=== PATIENT | female | born 1950 | race Caucasian/White ===

== ENCOUNTER 2023-01-06 10:07 | Outpatient (OUT) | payer MEDICARE, SELFPAY ==
[2023-01-06 10:45] LABS: Basophils Percent Auto 0.5 % (0.2-2.0); Eosinophils Absolute Auto 0.1 10^3/uL (0.0-0.7); Eosinophils Percent Auto 0.9 % (0.9-7.0); Hematocrit 47.1 % (36.0-48.0); Hemoglobin 15.8 g/dL (12.0-16.0); Immature Granulocytes Abs Auto 0.01 10^3/uL (0.00-0.03); Immature Granulocytes Pct Auto 0.2 % (0.0-0.5); Lymphocytes Absolute Auto 1.6 10^3/uL (1.2-3.8); Lymphocytes Percent Auto 23.4 % (20.5-60.0); Mean Corpuscular HGB Conc 33.5 g/dL (29.9-35.2); Mean Corpuscular Hemoglobin 30.6 pg (26.7-34.0); Mean Corpuscular Volume 91.1 fL (81.0-99.0); Mean Platelet Volume 10.6 fL (9.5-13.5); Monocytes Absolute Auto 0.6 10^3/uL (0.3-0.8); Monocytes Percent Auto 9.3 % (1.7-12.0); Neutrophils Absolute Auto 4.4 10^3/uL (1.4-6.5); Neutrophils Percent Auto 65.7 % (43.0-75.0); Platelet Count 265 10^3/uL (150-450); Red Blood Count 5.17 10^6/uL (4.20-5.40); Red Cell Distribution Width 13.2 % (11.0-15.0); White Blood Count 6.7 10^3/uL (4.0-11.0)
[2023-01-06 12:42] LABS: Estimated Average Glucose 114 mg/dL; Glycohemoglobin A1C 5.6 % (4.5-6.2)
[2023-01-06 13:07] LABS: Alanine Aminotransferase 31 U/L (14-59); Albumin Globulin Ratio 0.9; Albumin Level 3.7 g/dL (3.4-5.0); Alkaline Phosphatase 69 U/L (46-116); Anion Gap 13.3; Aspartate Amino Transferase 23 U/L (15-37); BUN Creatinine Ratio 19.8; Bilirubin Total 0.7 mg/dL (0.2-1.0); Calcium 8.9 mg/dL (8.5-10.1); Carbon Dioxide 27.8 mmol/L (21.0-32.0); Chloride 104 mmol/L (98-107); Chol HDL Ratio 3.5; Cholesterol 170 mg/dL (<=200); Estimated GFR (African America >60 (>=60); Estimated GFR (Non-African Ame >60 (>=60); Free T3 2.88 pg/mL (2.18-3.98); Globulin 3.9 g/dL; Glucose 128 mg/dL (74-106); HDL Cholesterol 48 mg/dL (40-60); Potassium 4.1 mmol/L (3.5-5.1); Sodium 141 mmol/L (136-145); Thyroid Stimulating Hormone 0.548 uIU/mL (0.358-3.740); Total Protein 7.6 g/dL (6.4-8.2); Triglycerides 209 mg/dL (<=150); VLDL CHOLESTEROL 41.8 mg/dL
== END 2023-01-06 10:08 | disposition home or self-care (01) ==
LOC: LAB 10:10
PROVIDERS: PCP Family Medicine; Visit Provider Family Medicine
DX: I10 Essential (primary) hypertension (principal); E78.00 Pure hypercholesterolemia, unspecified; E78.5 Hyperlipidemia, unspecified; F17.200 Nicotine dependence, unspecified, uncomplicated; R73.09 Other abnormal glucose; D64.9 Anemia, unspecified; E55.9 Vitamin D deficiency, unspecified
CPT/HCPCS: 36415; 80053; 80061; 82306; 83036; 83540; 84436; 84443; 84481; 85025

== ENCOUNTER 2023-01-12 14:45 | Outpatient (OUT) | payer MEDICARE, SELFPAY ==
--- NOTE | 2023-01-12 14:49 | MM_ITS ---
Patient: CHRISTIE ACEVEDO Exam Date: 01/12/2023 : 1950 Gender:F Ordering : DR Ray Loaiza . Admission #: [id number] Family : Order #: [id number] CLICK HERE TO VIEW EXAM RADIOLOGY REPORT PROCEDURE: MM TOMOSYNTHESIS SCREENING BI COMPARISON: MG MAMM BALDOMERO SCRN W CAD DIG, 06/02/2013. MG MAMM SCREEN BALDOMERO W CAD, 05/22/2016. INDICATIONS: Screening mammogram Z12.31 Calculator Name NCI Breast Cancer Risk Assessment Tool 5 Year Breast Cancer Risk 1.30% Lifetime Breast Cancer Risk 3.50% Personal Breast Cancer No Personal Ovarian Cancer No Treatments None Family Cancers Mother with colon cancer at age 60. LOCATION: [facility] BREAST COMPOSITION: Heterogeneously dense,which may obscure small masses. FINDINGS: DIAGNOSTIC CATEGORY 1--NEGATIVE. NO CHANGE FROM COMPARISON ASSESSMENT. Scattered benign-appearing calcifications are present. Scattered benign-appearing lymph nodes are present. RIGHT BREAST: No significant suspicious finding. LEFT BREAST: No significant suspicious finding. RECOMMENDATIONS: ROUTINE MAMMOGRAM AND CLINICAL EVALUATION IN 12 MONTHS. PLEASE NOTE: A NORMAL MAMMOGRAM DOES NOT EXCLUDE THE POSSIBILITY OF BREAST CANCER. A CLINICALLY SUSPICIOUS PALPABLE LUMP SHOULD BE BIOPSIED. Dictated by: Yayo Jones MD on 01/13/2023 at 07:06 Approved by: Yayo Jones MD on 01/13/2023 at 07:08
== END 2023-01-12 14:46 | disposition home or self-care (01) ==
LOC: MAMMO 14:46
PROVIDERS: PCP Family Medicine; Visit Provider Family Medicine
DX: Z12.31 Encounter for screening mammogram for malignant neoplasm of breast (principal); Z80.0 Family history of malignant neoplasm of digestive organs
CPT/HCPCS: 77063; 77067

== ENCOUNTER 2023-07-05 11:47 | Outpatient (OUT) | payer MEDICARE, SELFPAY ==
[2023-07-05 12:25] LABS: Estimated Average Glucose 128 mg/dL; Glycohemoglobin A1C 6.1 % (4.5-6.2)
[2023-07-05 12:38] LABS: Free T3 2.58 pg/mL (2.18-3.98); Thyroid Stimulating Hormone 0.569 uIU/mL (0.358-3.740)
== END 2023-07-05 11:48 | disposition home or self-care (01) ==
LOC: LAB 11:49
PROVIDERS: PCP Family Medicine; Visit Provider Family Medicine
DX: E06.3 Autoimmune thyroiditis (principal); E11.9 Type 2 diabetes mellitus without complications
CPT/HCPCS: 36415; 83036; 84436; 84443; 84481

== ENCOUNTER 2024-01-03 08:56 | Outpatient (OUT) | payer MEDICARE, SELFPAY ==
[2024-01-03 09:31] LABS: Basophils Percent Auto 0.5 % (0.2-2.0); Eosinophils Absolute Auto 0.1 10^3/uL (0.0-0.7); Eosinophils Percent Auto 1.3 % (0.9-7.0); Hematocrit 44.7 % (36.0-48.0); Hemoglobin 15.3 g/dL (12.0-16.0); Immature Granulocytes Abs Auto 0.02 10^3/uL (0.00-0.03); Immature Granulocytes Pct Auto 0.3 % (0.0-0.5); Lymphocytes Absolute Auto 1.9 10^3/uL (1.2-3.8); Lymphocytes Percent Auto 23.4 % (20.5-60.0); Mean Corpuscular HGB Conc 34.2 g/dL (29.9-35.2); Mean Corpuscular Hemoglobin 30.2 pg (26.7-34.0); Mean Corpuscular Volume 88.3 fL (81.0-99.0); Mean Platelet Volume 10.2 fL (9.5-13.5); Monocytes Absolute Auto 0.9 10^3/uL (0.3-0.8); Monocytes Percent Auto 10.8 % (1.7-12.0); Neutrophils Absolute Auto 5.1 10^3/uL (1.4-6.5); Neutrophils Percent Auto 63.7 % (43.0-75.0); Platelet Count 289 10^3/uL (150-450); Red Blood Count 5.06 10^6/uL (4.20-5.40); Red Cell Distribution Width 12.9 % (11.0-15.0)
[2024-01-03 10:26] LABS: Estimated Average Glucose 120 mg/dL; Glycohemoglobin A1C 5.8 % (4.5-6.2)
[2024-01-03 10:47] LABS: Alanine Aminotransferase 26 U/L (14-59); Albumin Level 3.4 g/dL (3.4-5.0); Alkaline Phosphatase 77 U/L (46-116); Aspartate Amino Transferase 24 U/L (15-37); BUN Creatinine Ratio 13.4; Bilirubin Total 0.9 mg/dL (0.2-1.0); Calcium 9.1 mg/dL (8.5-10.1); Chloride 102 mmol/L (98-107); Chol HDL Ratio 3.8; Cholesterol 169 mg/dL (<=200); Estimated GFR (African America >60 (>=60); Estimated GFR (Non-African Ame 56 (>=60); Free T3 2.65 pg/mL (2.18-3.98); Globulin 3.5 g/dL; Glucose 93 mg/dL (74-106); HDL Cholesterol 45 mg/dL (40-60); Sodium 141 mmol/L (136-145); Thyroid Stimulating Hormone 0.742 uIU/mL (0.358-3.740); Total Protein 6.9 g/dL (6.4-8.2); Triglycerides 158 mg/dL (<=150); VLDL CHOLESTEROL 31.6 mg/dL
== END 2024-01-03 08:57 | disposition home or self-care (01) ==
LOC: LAB 08:58
PROVIDERS: PCP Family Medicine; Visit Provider Family Medicine
DX: E78.00 Pure hypercholesterolemia, unspecified (principal); E11.9 Type 2 diabetes mellitus without complications; I10 Essential (primary) hypertension; E07.9 Disorder of thyroid, unspecified; F17.200 Nicotine dependence, unspecified, uncomplicated; D64.9 Anemia, unspecified; E03.9 Hypothyroidism, unspecified
CPT/HCPCS: 36415; 80053; 80061; 83036; 83540; 84436; 84443; 84481; 85025

== ENCOUNTER 2024-01-14 12:55 | Outpatient (OUT) | payer MEDICARE, SELFPAY ==
--- NOTE | 2024-01-14 12:57 | MM_ITS ---
Patient Name: CHRISTIE ACEVEDO MR#: [id number] : 1950 Exam Date: 01/14/2024 Ordering Doctor: DR Ray Loaiza . RADIOLOGY REPORT PROCEDURE: MM TOMOSYNTHESIS SCREENING BI COMPARISON: MG MAMM SCREEN BALDOMERO W CAD, 05/22/2016. MM TOMOSYNTHESIS SCREENING BI, 01/12/2023. INDICATIONS: Screening Calculator Name NCI Breast Cancer Risk Assessment Tool 5 Year Breast Cancer Risk 1.30% Lifetime Breast Cancer Risk 3.30% Personal Breast Cancer No Personal Ovarian Cancer No Treatments None Family Cancers Mother with colon cancer at age 60. LOCATION: [facility] BREAST COMPOSITION: The breasts are heterogeneously dense,which may obscure small masses. FINDINGS: DIAGNOSTIC CATEGORY 2--BENIGN FINDING. NO CHANGE FROM COMPARISON. Scattered benign-appearing lymph nodes are present. Scattered benign-appearing calcifications are present. RIGHT BREAST: No significant suspicious finding. LEFT BREAST: No significant suspicious finding. Stable focal asymmetry upper outer quadrant, anterior breast RECOMMENDATIONS: ROUTINE MAMMOGRAM AND CLINICAL EVALUATION IN 12 MONTHS. PLEASE NOTE: A NORMAL MAMMOGRAM DOES NOT EXCLUDE THE POSSIBILITY OF BREAST CANCER. A CLINICALLY SUSPICIOUS PALPABLE LUMP SHOULD BE BIOPSIED. Dictated by: Yayo Jones MD on 01/17/2024 at 09:18 Approved by: Yayo Jones MD on 01/17/2024 at 09:19
--- NOTE | 2024-01-14 12:57 | CT_ITS ---
[address] [address] Patient Name: CHRISTIE ACEVEDO MRN: [id number] date: 1950 Sex: F Assigned Patient Location: CT Current Patient Location: Accession/Order Number: [id number] Exam Date: 01/14/2024 13:02 Report Date: 01/15/2024 06:46 At the request of: RODDY PERES Procedure: CT lung screening low-dose EXAMINATION: CT lung screening low-dose HISTORY: Nicotine Dependence COMPARISON: No relevant comparison available. TECHNIQUE: Axial, Coronal, and Sagittal images were created without the administration of IV contrast material. Dose reduction techniques were achieved by using automated exposure control and/or adjustment of mA and/or kV according to patient size and/or use of iterative reconstruction technique. FINDINGS: LUNGS: 1.7 cm calcified nodule within anterior medial left upper lobe. No acute infiltrates, suspicious nodules, or significant emphysematous changes. PLEURA: No mass, effusion, or pneumothorax. VASCULATURE: No abnormality. SOPHIE: Calcified right hilar lymph nodes suggestive of chronic granulomatous disease. MEDIASTINUM: No mass or pathologic adenopathy. CARDIAC: No enlargement, pericardial thickening, or pericardial effusion. Coronary Artery calcifications: Coronary calcifications are moderate. AORTA: Moderate atherosclerotic disease. No aneurysm. CHEST WALL: No mass or axillary adenopathy BONES: Old, incompletely healed posterior left eighth rib fracture. LIMITED ABDOMEN: No suspicious findings. Limited images of the upper abdomen. OTHER: Negative. CT/CT lung screening low-dose IMPRESSION: 1. Lung-RADS Category 1 Negative. No nodules and definitely benign nodules. Continue annual screening with LDCT in 12 months. Electronically authenticated by: DIEGO TYLER Date: 01/15/2024 06:46
--- OUTSIDE RECORDS SUMMARY | 2024-01-14 13:12 | XMS_ITS | CCD ---
Author Organization [facility]iniSy[facility] Care Team Providers Care Service Advocate Contact Name Role Phone JA ., DR PEREYRA Attending Unavailable JA ., DR PEREYRA Consulting Unavailable JA ., DR PEREYRA Admitting Unavailable LISETH, HARJIT Primary Care Unavailable ZIEBER, DR DIEGO Rehman Consulting Unavailable LISETH, HARJIT Attending Unavailable LISETH, HARJIT Consulting Unavailable LISETH, HARJIT Primary Care Unavailable LISETH, HARJIT Admitting Unavailable LISETH, HARJIT Admitting Unavailable LISETH, HARJIT Attending Unavailable LISETH, HARJIT Consulting Unavailable LISETH, HARJIT Primary Care Unavailable Problems Active Problems Problem Classification Problem Date Documented Da te Episodic/Chronic Diabetes mellitus without complication (4 sources) Type 2 diabetes mellitus without complications; Translations: [TYPE 2 DM WITHOUT COMPLICATIONS] Onset: 12-22-2021 Chronic Disorders of lipid metabolism (1 source) Hyperlipidemia, unspecified; Translations: [HYPERLIPIDEMIA UNSPECIFIED] Onset: 12-23-2021 Chronic Substance-related disorders (4 sources) Nicotine dependence, cigarettes, uncomplicated; Translations: [NICOTINE DEPEND CIGARETTES UNCOMP] Onset: 07-03-2022 Chronic Past or Other Problems Problem Classification Problem Date Documented Da te Episodic/Chronic Deficiency and other anemia (1 source) Anemia, unspecified; Translations: [ANEMIA UNSPECIFIED] Onset: 12-23-2021 Episodic Diabetes mellitus without complication (1 source) Other abnormal glucose; Translations: [OTHER ABNORMAL GLUCOSE] Onset: 12-23-2021 Episodic Other screening for suspected conditions (not mental disorders or infectious disease) (5 sources) Encounter for screening for malignant neoplasm of rectum; Translations: [ENC SCREEN MALIG NEOPLASM RECTUM] Onset: 12-23-2021 Episodic Results Test Name Value Interpretation Reference Range Facil ity CT LUNG CANCER SCREENINGon 0 07-03-2022 CT LUNG CANCER SCREENING EXAMINATION: CT LUNG CANCER SCREENING HISTORY: Tobacco dependence caused by cigarettes COMPARISON: No relevant comparison available. TECHNIQUE: Axial, Coronal, and Sagittal images were created without the administration of IV contrast material. Dose reduction techniques were achieved by using automated exposure control and/or adjustment of mA and/or kV according to patient size and/or use of iterative reconstruction technique. FINDINGS: LUNGS: Mild emphysematous changes. Dense calcified granuloma within anterior left upper lobe at level of aortic arch. PLEURA: No mass, effusion, or pneumothorax. VASCULATURE: No abnormality. SOPHIE: No mass or pathologic adenopathy. MEDIASTINUM: No mass or pathologic adenopathy. CARDIAC: No enlargement, pericardial thickening, or significant calcification. AORTA: No aneurysm or dissection. CHEST WALL: No mass or axillary adenopathy BONES: Increased density of cortex of posterior right seventh rib months etiology, without appreciable lesion; possibly sequela of remote injury. LIMITED ABDOMEN: No suspicious findings. Limited images of the upper abdomen. OTHER: Negative. IMPRESSION: 1. Lung-RADS Category 1 Negative. No nodules and definitely benign nodules. Continue annual screening with LDCT in 12 months. Electronically authenticated by: DIEGO TYLER Date: 2022-07-03 15:37 Normal [facility] INSULINon 12-23-2021 Insulin 10.6 uIU/mL Normal 2.6-24.9 [facility] Comment on above: Performed By: #### I NSULIN #### [facility] [address] [place] [address] Dr. Roni Li OCC BLD IMMUNO SCREENon 12-08 OCCULT BLOOD Negative Normal NEGATIVE [facility] Comment on above: Performed By: #### O BSCRN #### [facility] [address] [place] [address] Dr. Roni Li T4, T3U, FTI LABCORPon 12-23 Free Thyroxine Index 3.9 Normal 1.2-4.9 [facility] Comment on above: Performed By: #### T HYLC #### [facility] [address] [place] [address] Dr. Roni Li T3 Uptake 37 % Normal 24-39 [facility] Comment on above: Performed By: #### T HYLC #### [facility] [address] [place] [address] Dr. Roni Li T4 [Mass/Vol] 10.5 ug/dL Normal 4.5-12.0 [facility] Comment on above: Performed By: #### T HYLC #### [facility] [address] [place] [address] Dr. Roni Li CBC AUTO DIFFon 12-22-2021 BASO # 0.0 103/ul Normal 0.0-0.1 [facility] Comment on above: Performed By: #### C BC #### [facility] [address] [place] [address] Dr. Roni Li Basophils/100 WBC (Bld) 0.5 % Normal 0.2-2.0 [facility] Comment on above: Performed By: #### C BC #### [facility] [address] [place] [address] Dr. Roni Li EO # 0.2 103/ul Normal 0.0-0.7 [facility] Comment on above: Performed By: #### C BC #### [facility] [address] [place] [address] Dr. Roni Li Eosinophils/100 WBC (Bld) 2.1 % Normal 0.9-7.0 [facility] Comment on above: Performed By: #### C BC #### [facility] [address] [place] [address] Dr. Roni Li Erythrocyte distribution width (RBC) [Ratio] 13.3 % Normal 11.0-15.0 [facility] Comment on above: Performed By: #### C BC #### [facility] [address] [place] [address] Dr. Roni Li Hematocrit (Bld) [Volume fraction] 46.1 % Normal 36.0-48.0 [facility] Comment on above: Performed By: #### C BC #### [facility] [address] [place] [address] Dr. Roni Li Hemoglobin (Bld) [Mass/Vol] 15.2 g/dL Normal 12.0-16.0 [facility] Comment on above: Performed By: #### C BC #### [facility] [address] [place] [address] Dr. Roni Li IG # 0.01 10e3/ul Normal 0.00-0.03 [facility] Comment on above: Performed By: #### C BC #### [facility] [address] [place] [address] Dr. Roni Li IG % 0.1 % Normal 0.0-0.5 [facility] Comment on above: Performed By: #### C BC #### [facility] [address] [place] [address] Dr. Roni Li LYMPH # 2.1 103/ul Normal 1.2-3.8 [facility] Comment on above: Performed By: #### C BC #### [facility] [address] [place] [address] Dr. Roni Li Lymphocytes/100 WBC (Bld) 28.0 % Normal 20.5-60.0 [facility] Comment on above: Performed By: #### C BC #### [facility] [address] [place] [address] Dr. Roni Li MANUAL DIFF REQ NO Normal [facility] Comment on above: Performed By: #### C BC #### [facility] [address] [place] [address] Dr. Roni Li MCH (RBC) [Entitic mass] 30.0 pg Normal 26.7-34.0 [facility] Comment on above: Performed By: #### C BC #### [facility] [address] [place] [address] Dr. Roni Li MCHC (RBC) [Mass/Vol] 33.0 g/dL Normal 29.9-35.2 [facility] Comment on above: Performed By: #### C BC #### [facility] [address] [place] [address] Dr. Roni Li MCV (RBC) [Entitic vol] 90.9 fL Normal 81.0-99.0 [facility] Comment on above: Performed By: #### C BC #### [facility] [address] [place] [address] Dr. Roni Li MONO # 0.8 103/ul Normal 0.3-0.8 [facility] Comment on above: Performed By: #### C BC #### [facility] [address] [place] [address] Dr. Roni Li Monocytes/100 WBC (Bld) 11.2 % Normal 1.7-12.0 [facility] Comment on above: Performed By: #### C BC #### [facility] [address] [place] [address] Dr. Roni Li NEUT # 4.2 103/ul Normal 1.4-6.5 [facility] Comment on above: Performed By: #### C BC #### [facility] [address] [place] [address] Dr. Roni Li Neutrophils/100 WBC (Bld) 58.1 % Normal 43.0-75.0 [facility] Comment on above: Performed By: #### C BC #### [facility] [address] [place] [address] Dr. Roni iL Platelet mean volume (Bld) [Entitic vol] 10.2 fL Normal 9.5-13.5 [facility] Comment on above: Performed By: #### C BC #### [facility] [address] [place] [address] Dr. Roni Li PLT 284 103/ul Normal 150-450 [facility] Comment on above: Performed By: #### C BC #### [facility] [address] [place] [address] Dr. Roni Li RBC 5.07 106/ul Normal 4.20-5.40 [facility] Comment on above: Performed By: #### C BC #### [facility] [address] [place] [address] Dr. Roni Li WBC 7.3 103/ul Normal 4.0-11.0 [facility] Comment on above: Performed By: #### C BC #### [facility] [address] [place] [address] Dr. Roni Li GLYCOHEMOGLOBIN A1Con 2021 ADA RECOMMENDATION SEE BELOW Normal [facility] Comment on above: Result Comment: ADA RECOMMENDED LIMIT 4.0 - 6.0 ADA THERAPEUTIC TARGET < 7.0 ACTION SUGGESTED > 7.0 Performed By: #### A 1C #### [facility] [address] [place] [address] Dr. Roni Li Glucose [Mass/Vol] 126 mg/dL Normal [facility] Comment on above: Performed By: #### A 1C #### [facility] [address] [place] [address] Dr. Roni Li HbA1c (Bld) [Mass fraction] 6.0 % Normal 4.5-6.2 [facility] Comment on above: Performed By: #### A 1C #### [facility] [address] [place] [address] Dr. Roni Li IRONon 12-22-2021 Iron [Mass/Vol] 91.0 ug/dL Normal 50.0-170.0 [facility] Comment on above: Performed By: #### I TIMOTHY #### [facility] [address] [place] [address] Dr. Roni iL LIPID PROFILEon 12-22-2021 CHOL-HDL RATIO NORM SEE BELOW Normal [facility] Comment on above: Result Comment: 3.3 - 4.4 LOW RISK 4.4 - 7.1 AVERAGE RISK 7.1 - 11.0 MODERATE RISK >11.0 HIGH RISK Performed By: #### T SH, LIPID, CMP #### [facility] [address] [place] [address] Dr. Roni Li Cholesterol [Mass/Vol] 184 mg/dL Normal <=200 [facility] Comment on above: Performed By: #### T SH, LIPID, CMP #### [facility] [address] [place] [address] Dr. Roni Li Cholesterol in HDL [Mass/Vol] 43 mg/dL Normal 40-60 [facility] Comment on above: Performed By: #### T SH, LIPID, CMP #### [facility] [address] [place] [address] Dr. Roni Li Cholesterol in LDL [Mass/Vol] 100.0 mg/dL Normal [facility] Comment on above: Performed By: #### T DUNCAN, LIPID, CMP #### [facility] [address] [address] [address] Roni Li Cholesterol.total/Cho lesterol in HDL [Mass ratio] 4.3 {ratio} Normal [facility] Comment on above: Performed By: #### T DUNCAN, LIPID, CMP #### [facility] [address] [address] [address] Roni Li HDL NORMAL > or = 60 mg/dl - LOW CARDIOVASCULAR RISK <40 mg/dl - HIGH CARDIOVASCULAR RISK Normal [facility] Comment on above: Performed By: #### T DUNCAN, LIPID, CMP #### [facility] [address] [address] [address] Roni Li LDL CALC NORMAL SEE BELOW Normal [facility] Comment on above: Result Comment: <100 mg/dl OPTIMAL 100 - 129 mg/dl NEAR OR ABOVE OPTIMAL 130 - 159 mg/dl BORDERLINE HIGH 160 - 189 mg/dl HIGH >190 mg/dl VERY HIGH Performed By: #### T DUNCAN, LIPID, CMP #### [facility] [address] [address] [address] Roni Li Triglyceride [Mass/Vol] 205 mg/dL Critically high <=150 [facility] Comment on above: Performed By: #### T DUNCAN, LIPID, CMP #### [facility] [address] [place] [address] Dr. Roni Li VLDL CALC 41.0 mg/dL Normal [facility] Comment on above: Performed By: #### T DUNCAN, LIPID, CMP #### [facility] [address] [place] [address] Dr. Roni Li PROF 14(COMP METB)on 022 Albumin [Mass/Vol] 4.0 g/dL Normal 3.4-5.0 [facility] Comment on above: Performed By: #### T DUNCAN, LIPID, CMP #### [facility] [address] [place] [address] Dr. Roni Li Albumin/Globulin [Mass ratio] 1.1 {ratio} Normal [facility] Comment on above: Performed By: #### T DUNCAN, LIPID, CMP #### [facility] [address] [address] [address] Roni Li ALP [Catalytic activity/Vol] 74 U/L Normal 46-116 [facility] Comment on above: Performed By: #### T SH, LIPID, CMP #### [facility] [address] [address] [address] Roni Li ALT [Catalytic activity/Vol] 24 U/L Normal 14-59 [facility] Comment on above: Performed By: #### T SH, LIPID, CMP #### [facility] [address] [address] [address] Roni Li Anion gap [Moles/Vol] 14.1 mmol/L Normal [facility] Comment on above: Performed By: #### T SH, LIPID, CMP #### [facility] [address] [place] [address] Dr. Roni Li AST [Catalytic activity/Vol] 22 U/L Normal 15-37 [facility] Comment on above: Performed By: #### T SH, LIPID, CMP #### [facility] [address] [address] [address] Roni Li Bilirubin [Mass/Vol] 0.9 mg/dL Normal 0.2-1.0 [facility] Comment on above: Performed By: #### T SH, LIPID, CMP #### [facility] [address] [place] [address] Dr. Roni Li Calcium [Mass/Vol] 9.3 mg/dL Normal 8.5-10.1 [facility] Comment on above: Performed By: #### T SH, LIPID, CMP #### [facility] [address] [address] [address] Roni Li Chloride [Moles/Vol] 101 mmol/L Normal 98-107 [facility] Comment on above: Performed By: #### T SH, LIPID, CMP #### [facility] [address] [address] [address] Roni Li CO2 [Moles/Vol] 29.0 mmol/L Normal 21.0-32.[address] [facility] Comment on above: Performed By: #### T SH, LIPID, CMP #### [facility] [address] [address] [address] Roni Li Creatinine [Mass/Vol] 0.92 mg/dL Normal 0.55-1.02 [facility] Comment on above: Performed By: #### T SH, LIPID, CMP #### [facility] [address] [address] [address] Roni Li EGFR-AF NAMIBIAN >60 Normal >=60 [facility] Comment on above: Performed By: #### T SH, LIPID, CMP #### [facility] [address] [address] [address] Roni Li EGFR-NON AF NAMIBIAN >60 Normal >=60 [facility] Comment on above: Performed By: #### T SH, LIPID, CMP #### [facility] [address] [address] [address] Roni Li Globulin (S) [Mass/Vol] 3.7 g/dL Normal [facility] Comment on above: Performed By: #### T SH, LIPID, CMP #### [facility] [address] [address] [address] Roni Li Glucose [Mass/Vol] 78 mg/dL Normal 74-106 [facility] Comment on above: Performed By: #### T SH, LIPID, CMP #### [facility] [address] [address] [address] Roni Li Potassium [Moles/Vol] 4.1 mmol/L Normal 3.5-5.1 [facility] Comment on above: Performed By: #### T SH, LIPID, CMP #### [facility] [address] [address] [address] Roni Li Protein [Mass/Vol] 7.7 g/dL Normal 6.4-8.2 [facility] Comment on above: Performed By: #### T SH, LIPID, CMP #### [facility] [address] [address] [address] Roni Li Sodium [Moles/Vol] 140 mmol/L Normal 136-145 [facility] Comment on above: Performed By: #### T SH, LIPID, CMP #### [facility] [address] [address] [address] Roni Li Urea nitrogen [Mass/Vol] 17.0 mg/dL Normal 7.0-18.0 [facility] Comment on above: Performed By: #### T SH, LIPID, CMP #### [facility] [address] [address] [address] Roni Li Urea nitrogen/Creatinine [Mass ratio] 18.5 mg/mg Normal [facility] Comment on above: Performed By: #### T SH, LIPID, CMP #### [facility] [address] [address] [address] Roni Li TSHon 12-22-2021 TSH 0.637 uIU/mL Normal 0.358-3.740 [facility] Comment on above: Performed By: #### T DUNCAN, LIPID, CMP #### [facility] [address] [address] [address] Roni Li Encounters Encounter Date Encounter Type Care Provider Facility Start: 07-03-2022 End: 07-04-[address] RODDY PERES . Facility:[facility] Start: 12-24-2021 End: 12-24-2021 ambulatory HARJIT CHILDERS Facility:[facility] Start: 12-22-2021 End: 12-23-2021 ambulatory HARJIT CHILDERS Facility: Payers Date Payer Category Payer Medicare [id number] 1958 Private Health Insurance [facility] [id number] 1950 Unknown [id number] 1950 Unknown [id number] 1950 Unknown [id number] Summary Purpose Family History No Family History Records Found Advance Directives No Advanced Directives Records Found Additional Source Comments INFORMATION SOURCE (unrecogn ized section and content) DATE CREATED AUTHOR [facility]/10/2022 [facility] FOR RECORDS [facility]ERTAINING TO PATIENTS WHO ARE OR HAVE BEEN ENROLLED IN A CHEMICAL DEPENDENCY/SUBSTANCEABUSE PROGRAM, SOME INFORMATION MAY BE OMITTED. This clinical summary was aggregated from multiple sources. Caution should be exercised in using it in the provision of clinical care. This summary normalizes information from multiple sources, and as a consequence, information in this document may materially change the coding, format and clinical context of patient data. In addition, data may be omitted in some cases. CLINICAL DECISIONS SHOULD BE BASED ON THE PRIMARY CLINICAL RECORDS. [facility] [employer] [facility]. provides no warranty or guarantee of the accuracy or completeness of information in this document.
== END 2024-01-14 12:56 | disposition home or self-care (01) ==
LOC: CT 12:55
PROVIDERS: PCP Family Medicine; Visit Provider Family Medicine
DX: Z12.31 Encounter for screening mammogram for malignant neoplasm of breast (principal); F17.210 Nicotine dependence, cigarettes, uncomplicated; Z80.0 Family history of malignant neoplasm of digestive organs
CPT/HCPCS: 71271; 77063; 77067

== ENCOUNTER 2024-11-17 10:33 | Outpatient (OUT) | payer MEDICARE, OTHER, SELFPAY ==
--- OUTSIDE RECORDS SUMMARY | 2024-06-29 07:00 | XMS_ITS ---
Author Organization [facility] in [place] Address [address] [place] [address] Care Team Providers Care Photo Checker Name Role Phone Juan Luis Loaiza Primary Care Provider Allergies No Known Allergies REASON FOR VISIT 6mon Medications Medication SIG (Take, Route, Frequency, Duration) Notes Start Date End Date Status Spectravite Active Propylthiouracil 50 MG TAKE 1 TABLET BY MOUTH EVERY DAY for 90 Active Metoprolol Tartrate 50 MG 1/2 tablet wit h food Orally Twice a day for 90 days Active Pentoxifylline ER 400 MG TAKE 1 TABLET B Y MOUTH EVERY 8 HOURS for 90 Active Columbia 3 Active Lisinopril 20 MG TAKE 1 TABLET BY SHONDA TH EVERY DAY for 90 days Active glipiZIDE 5 MG TAKE 1 TABLET BY SHONDA TH TWICE A DAY for 90 days Active Furosemide 20 MG TAKE 1 TABLET BY SHONDA TH EVERY DAY for 90 Active Atorvastatin Calcium 80 MG TAKE 1 TABLET BY MOUTH EVERY DAY FOR 90 DAYS for 90 Active metFORMIN HCl 500 MG TAKE 1 TABLET BY MO [facility] TWICE A DAY for 90 Active Alendronate Sodium 70 MG TAKE 1 TAB 30 M INUTES BEFORE THE FIRST FOOD, BEVERAGE OR MEDICINE OF THE DAY WITH PLAIN WATER ONCE WEEKLY for 84 Active amLODIPine Besylate 2.5 MG TAKE 1 TABLET BY MOUTH EVERY DAY for 90 Active Social History Tobacco Use: Social History Observation Description Date Details (start date - stop date) Current Smoker 05/10/1966 - NA Tobacco Use/Smoking Question Answer Notes Patient is a current smoker When did you start smoking? 05/10/1966 How often do you smoke cigarettes? every day How many cigarettes a day do you smoke? 6-10 Additional Findings: Tobacco User Modera te cigarette smoker (10-19 cigs/day) AUDIT-C (Standard) Question Answer Notes Did you have a drink containing alcohol in the p ast year? No Points 0 Interpretation Negative Vital Signs Blood pressure systolic 124 mm Hg 06/29/19 25 Blood pressure diastolic 78 mm Hg 025 Height 67 in 06/29/2024 Weight 154.4 lbs 06/29/2024 BMI 24.18 kg/m2 06/29/2024 Encounters Encounter Location Date Provider Diagnosis [facility] [address] [place] [address] 06/29/2024 Juan Luis Loaiza Type 2 diabetes mj itus without complications E11.9 ; Pure hypercholesterolemia, unspecified E78.00 ; Essential (primary) hypertension I10 and Disorder of thyroid, unspecified E07.9 Assessments Encounter Date Diagnosis (ICD Code) Assessment Notes Treatment Notes Treatment Clinical Notes Section Notes 06/29/2024 Type 2 diabetes mellitus without complications (ICD-10 - E11.9) 06/29/2024 Pure hypercholesterolem ia, unspecified (ICD-10 - E78.00) 06/29/2024 Essential (primary) hypertension (ICD-10 - I10) 06/29/2024 Disorder of thyroid, unspecified (ICD-10 - E07.9) Plan Of Treatment Next Appt Details Provider Name:Juan Luis Loaiza, 09:15:00 AM, [address] [place], [address], Progress Notes * Darcy COLON ADOB:1950 ( 74 yo F)Acc No.[id number]:06/29/2024 Progress Note Patient: Darcy SINGH Provider: Phoebe Loaiza ([facility])MD :1950 A ge:74 Y S ex:Female Date:06/29/2024 Address:[address] [place] [address] [place] [id number] Check In:10:45 AM ESTCheck O ut:11:21 AM EST Subjective: * Chief Complaints: * 6 mon * HPI: D epression Screening: PHQ-2 (2015 Edition) L ittle interest or pleasure in doing things??Not at all F eeling down, depressed, or hopeless? N ot at all T otal Score 0 D/w pt the importance of monitoring and recording blood glucose as directed, taking all medications as directed, and obtaining labs in order to reduce changes for Micro and Macrovascular sequela (CVA, VA, renal damage, retinopathies & neuropathies). Advised pt that it is recommended that pts has a dilated eye exam annually - 100's some low timess disucssed hypertension - stable PVD - stable with mneds thyori - no SE from meds. * ROS: E ENT: hearing changes d enies. v isual changes d enies.?non-healing mouth sores d enies. s wollen glands or neck lumps d enies. h oarseness d enies. s ore throat d enies. d ifficulty swallowing d enies. n ose bleeds d enies. n henny congestion d enies. e ar ache d enies. e ar discharge?denies. r inging in ears d enies. l ight sensitivity d enies. e ye pain d enies. b lurring d enies. e ye irritation d enies. d ouble vision d enies.?vision loss d enies. G eneral/Constitutional: Sweats: D enies. F atigue d enies. S leep problems d enies. A norexia d enies. M alaise d enies. W eight loss d enies.?Fatigue or Weakness d enies. F ever or Chills d enies. C ardiovascular: Shortness of Breath w/lying flat d enies. L ightheadedness/dizziness d enies. C hest tightness/ heavy pressure d enies. S welling of legs, ankles, or feet d enies. W aking up with shortness of breath d enies. C hest pain denies. P alpitations d enies. W eight gain d enies. R espiratory: Chronic or frequent cough d enies. C oughing up blood?denies. D ifficulty breathing d enies. P roductive cough d enies. S noring?denies. S hortness of breath that awakens from sleep (PND) d enies. C hest pain d enies. S putum production d enies. W heezing d enies. M usculoskeletal: Joint pain d enies. J oint Fluid d enies. B ack pain d enies. K nee pain d enies. N ayse pain d enies. J oint Stiffness d enies. M uscle cramps d enies. W eakness of muscles d enies. A rthritis d enies. M uscle aches d enies. P ain in shoulder(s) d enies. S wollen joints d enies. * Active Problem List M19.90 Unspecified osteoart hritis, unspecified site Modified On:12/23/2022 Status:confirmed F17.200 Nicotine dependence, unspecified, uncomplicated Modified On:12/30/2022 Status:confirmed E11.9 Type 2 diabetes mj itus without complications Modified On:07/02/2023 Status:confirmed E78.00 Pure hypercholestero lemia, unspecified Modified On:07/02/2023 Status:confirmed I10 Essential (primary) hypertension Modified On:07/02/2023 Status:confirmed E07.9 Disorder of thyroid, unspecified Modified On:12/23/2022 Status:confirmed Z81.1 Family history of al cohol abuse and dependence Modified On:12/23/2022 Status:confirmed 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 M other: , alcoholism, type II diabetes, colon polyp, diagnosed with Diabetes mellitus without mention of complication, type II or unspecified type, not stated as uncontrolled. B rother(s): type II diabetes, hypertension, kidney disease, Parkinsons, diagnosed with Unspecified essential hypertension, Diabetes mellitus without mention of complication, type II or unspecified type, not stated as uncontrolled, Chronic kidney disease, unspecified. S on(s): alive, Heart Attack, diagnosed with Diabetes mellitus without mention of complication, type II or unspecified type, not stated as uncontrolled. D aughter(s): alive, diagnosed with Unspecified polyarthropathy or polyarthritis, pelvic region and thigh. 4 brother(s) . 2 son(s) , 1 daughter(s) . . Brothers- 2 have passed. * Social History: T obacco Use: T obacco Use/Smoking P atient is a c urrent smoker W hen did you start smoking? 0 05/10/1966 H ow often do you smoke cigarettes? e very day H ow many cigarettes a day do you smoke? 6 -10 A dditional Findings: Tobacco User M oderate cigarette smoker (10-19 cigs/day) D rug/Alcohol: A AGUSTÍN-C (Standard) D id you have a drink containing alcohol in the past year? N o P oints 0 I nterpretation N egative * Medications: T akingAlendronate Sodium 70 MG Tablet TAKE 1 TAB 30 MINUTES BEFORE THE FIRST FOOD, BEVERAGE OR MEDICINE OF THE DAY WITH PLAIN WATER ONCE WEEKLY amLODIPine Besylate 2.5 MG Tablet TAKE 1 TABLET BY MOUTH EVERY DAY Atorvastatin Calcium 80 MG Tablet TAKE 1 TABLET BY MOUTH EVERY DAY FOR 90 DAYS Furosemide 20 MG Tablet TAKE 1 TABLET BY MOUTH EVERY DAY glipiZIDE 5 MG Tablet TAKE 1 TABLET BY MOUTH TWICE A DAY Lisinopril 20 MG Tablet TAKE 1 TABLET BY MOUTH EVERY DAY metFORMIN HCl 500 MG Tablet TAKE 1 TABLET BY MOUTH TWICE A DAY Metoprolol Tartrate 50 MG Tablet 1/2 tablet with food Orally Twice a day Columbia 3 Pentoxifylline ER 400 MG Tablet Extended Release TAKE 1 TABLET BY MOUTH EVERY 8 HOURS Propylthiouracil 50 MG Tablet TAKE 1 TABLET BY MOUTH EVERY DAY Spectravite Medication List reviewed and reconciled with the patientTaking Alendronate Sodium 70 MG Tablet TAKE 1 TAB 30 MINUTES BEFORE THE FIRST FOOD, BEVERAGE OR MEDICINE OF THE DAY WITH PLAIN WATER ONCE WEEKLY Taking amLODIPine Besylate 2.5 MG Tablet TAKE 1 TABLET BY MOUTH EVERY DAY Taking Atorvastatin Calcium 80 MG Tablet TAKE 1 TABLET BY MOUTH EVERY DAY FOR 90 DAYS Taking Furosemide 20 MG Tablet TAKE 1 TABLET BY MOUTH EVERY DAY Taking glipiZIDE 5 MG Tablet TAKE 1 TABLET BY MOUTH TWICE A DAY Taking Lisinopril 20 MG Tablet TAKE 1 TABLET BY MOUTH EVERY DAY Taking metFORMIN HCl 500 MG Tablet TAKE 1 TABLET BY MOUTH TWICE A DAY Taking Metoprolol Tartrate 50 MG Tablet 1/2 tablet with food Orally Twice a day Taking Columbia 3 Taking Pentoxifylline ER 400 MG Tablet Extended Release TAKE 1 TABLET BY MOUTH EVERY 8 HOURS Taking Propylthiouracil 50 MG Tablet TAKE 1 TABLET BY MOUTH EVERY DAY Taking Spectravite Medication List reviewed and reconciled with the patient * Allergies: N .K.D.A.no[Allergies Verified] Objective: * Vitals: W t:154.4lbs, Ht: 67 in, BP:124/78mm Hg, BMI:24.18Index, Ht-cm: 170.18 cm, Wt-k.03 kg. * Examination: P hysical Exam: GENERAL: w ell developed, well nourished, in no acute distress. HEAD: n ormocephalic/atraumatic. EYES: p upils equal, round and reactive to light, conjunctivae and sclerae normal. EARS: n o deformity or lesion of external ear, canals and TM appear normal bilaterally, TM's intact, not inflamed with normal light reflex, hearing grossly normal to conversational speech. NOSE: n o deformity, discharge, inflammation, or lesions.? MOUTH: m ucous membranes moist, normal oropharynx and posterior pharynx without lesions or exudates, tongue normal, dentition normal. NECK: n ayse supple, no masses or palpable cervical nodes, trachea midline, thyroid without nodules, masses, tenderness, or enlargement. CHEST: n o chest wall deformity, no chest wall tenderness.? LUNGS: n ormal respiratory effort and clear to auscultation, no wheezes, rales, or rhonchi, good air exchange. CARDIO: r egular rate and rhythm, normal S1 and S2, nor murmur, rub, or gallop. PULSES: n ormal capillary refill. ABDOMEN: s oft, non-distended, non-tender, no masses. MUSCULOSKELETAL: n o deformity or scoliosis noted, normal range of motion, joints normal, no erythema, edema, effusion, or ecchymosis. EXTREMITY: n o clubbing, cyanosis, edema, or deformity with normal ROM in both upper and lower bilateral extremities. NEUROLOGIC: g rossly normal. SKIN: n o rashes, ulcerations, or suspicious lesions. LYMPH NODES: n o cervical adenopathy, nodes normal. MENTAL STATUS: a lert and oriented x3, normal mood and affect. Assessment: * Assessment: 1. T ype 2 diabetes mellitus without complications - E11.9 (Primary) 2 . P ure hypercholesterolemia, unspecified - E78.00 3 . E ssential (primary) hypertension - I10 4 . D isorder of thyroid, unspecified - E07.9 Plan: * Treatment: * Procedure Codes: * Preventive Medicine: Screenings/Counseling: T OBACCO ACTION PLAN Patient counselled on the dangers of tobacco use and urged to quit. 0 06/29/2024 . F ALL RISK SCREENING Fall Risk Assessment: N o falls in the past year * * Sign off status: Completed Visit Status: C HK (Check Out) true * Provider: Phoebe Loaiza ([facility])MD Date: 0 06/29/2024 Generated for Printi ng/Faxing/eTransmitting on: 0 11/17/2024 10:42 AM EDT History and Physical Notes * HPI (History of Present Illness) Category Sub-Category Detail Notes Category Not es Depression Screening PHQ-2 (2015 Edition) Little interest or pleasure in doing things?: Not at all D/w pt the importance of monitoring and recording blood glucose as directed, taking all medications as directed, and obtaining labs in order to reduce changes for Micro and Macrovascular sequela (CVA, VA, renal damage, retinopathies & neuropathies). Advised pt that it is recommended that pts has a dilated eye exam annually - 100's some low timess disucssed hypertension - stable PVD - stable with mneds thyori - no SE from meds Feeling down, depressed, or hopeless?: N ot at all Total Score: 0 Examination Category Sub-Category Detail Notes Category Not es Physical Exam GENERAL: well developed, well nourished, in no acute distress HEAD: normocephalic/atraum atic EYES: pupils equal, round and reactive to light, conjunctivae and sclerae normal EARS: no deformity or lesi on of external ear, canals and TM appear normal bilaterally, TM's intact, not inflamed with normal light reflex, hearing grossly normal to conversational speech NOSE: no deformity, discha rge, inflammation, or lesions MOUTH: mucous membranes yanci st, normal oropharynx and posterior pharynx without lesions or exudates, tongue normal, dentition normal NECK: neck supple, no mass es or palpable cervical nodes, trachea midline, thyroid without nodules, masses, tenderness, or enlargement CHEST: no chest wall deform ity, no chest wall tenderness LUNGS: normal respiratory e ffort and clear to auscultation, no wheezes, rales, or rhonchi, good air exchange CARDIO: regular rate and rhy thm, normal S1 and S2, nor murmur, rub, or gallop PULSES: normal capillary ref ill ABDOMEN: soft, non-distended, non-tender, no masses RECTAL: MUSCULOSKELETAL: no deformity or scol iosis noted, normal range of motion, joints normal, no erythema, edema, effusion, or ecchymosis EXTREMITY: no clubbing, cyanosi s, edema, or deformity with normal ROM in both upper and lower bilateral extremities NEUROLOGIC: grossly normal SKIN: no rashes, ulceratio ns, or suspicious lesions LYMPH NODES: no cervical adenopat hy, nodes normal MENTAL STATUS: alert and oriented x 3, normal mood and affect
--- OUTSIDE RECORDS SUMMARY | 2024-11-07 11:15 | XMS_ITS | Encounter Summary ---
Author Organization [facility] Address [address] [place] [address] Care Team Providers Care Business Resiliency Manager Name Role Phone Unavailable Primary Care Provider Unavailabl e Source Comments In the event this information is protected by the Federal Confidentiality of Alcohol and Drug AbusePatient Records regulations: The Federal rules restrict any use of the information to criminally investigate or prosecute any alcohol or drug abuse patient.[facility] Reason for Visit * Reason Comments Cataract Evaluation * Consult, Test, Treat (Routine) - Authorized Specialty Diagnoses / Procedures Referred By Contac t Referred To Contact Ophthalmology / OPHTHALMOLOGY Diagnoses Cataract cat jeanine ling Procedures OFFICE/OUTPATIENT [facility] MDM 60 MINUTES NEW ADULT Liza Ling, OD [address] [place] [address] Phone: tel: fax: Jayshree Hu V, MD [address] [place] [address] Phone: tel: fax: Referral ID Status Reason Start Date Expiration Date V isits Requested Visits Authorized [id number] Authorized 11/06/2024 05/09/2025 2 2 Encounter Details Date Type Department Care Team (Latest Contact Info) Description 11/07/2024 11:15 AM EDT Office Visit [facility] Ophthalmology [address] [place] [address] Jayshree Hu V, MD [address] [place] [address] Diagn[facility] [address] [place] [id number] Combined forms of age-related cataract of both eyes (Primary Dx); Central retinal vein occlusion, left eye, with macular edema (HCC); Anatomical narrow angle, bilateral; Dry eye syndrome, bilateral; Combined form of age-related cataract, right eye; Combined forms of age-related cataract of left eye; Diabetes mellitus type 2 without retinopathy (HCC) Social History Tobacco Use Types Packs/Day Years Used Date Smoking Tobacco: Every Day Cigarettes 1 59.5 Started: 1964 Smokeless Tobacco: Never Tobacco Cessation:Ready to Q uit: No; Counseling Given: No Alcohol Use Standard Drinks/Week Comments Never 0 (1 standard drink = 0.6 oz pur e alcohol) Area Deprivation Index Answer Date Nghia rded National Score (1-100), lower number is lower ri sk 79 11/07/2024 State Score (1-10), lower number is lower risk 7 11/07/2024 Data from: https://www.neighborhoodatlas.medicine.[facility].edu/. Last address used for calculation [address] 11/07/2024 Comments No Sex and Gender Information Value Date Recorded Sex Assigned at Not on file Legal Sex Female 2:11 PM EDT Gender Identity Not on file Sexual Orientation Not on file documented as of this encounter Progress Notes * Jayshree Hu V, MD - 11/07/2024 1:09 PM EDT The documentation for this note was completed by Marianne Salazar, COA acting as a scribe for Jayshree HU MD. 11/07/2024 1:09 PM. ASSESSMENT / PLAN: 1. Combined cataract, both eyes - Offered cataract extraction by phacoemulsification and intraocular lens implant with Dr. Hu, Right eye only for now, Left eye pending retina eval (Central retinal vein occlusion with large Cystoid macular edema) - Aim: plano - Flomax/alpha-helio? No - Toric candidate: No - PanOptix candidate: No - Anesthesia: Topical with MAC - Contact lens use No - History of LASIK/PRK/RK No - Discussed initiate twice daily eyelid scrubs pending U/S biometry and surgery - Comanage with Dr Ling; [facility] POD #1 Cataract Presurgical Documentation Cataract: Right eye (OD) then Left eye (OS) Current Visual Acuity Right Eye SC: 20/60 Left Eye SC: 20/150 Best Corrected Right Eye: 20/30 -1 Best Corrected Left Eye: 20/125 Glare Testing: Right Eye High less than 20/500 Left Eye High less than 20/500 Visual Function: Darcy Colon states that the decline in vision from the cataract impedes her abilities as listed in the HPI, as well as other activities of daily living. Darcy Colon has confirmed that she is no longer able to function adequately on a day-to-day basis because of her current visual condition. Further, it is my medical opinion that the cataract is the primary cause, or at least a significantly contributory cause of her visual dysfunction. With uncomplicated cataract surgery and lens implantation, it is my expectation that her visual function and quality of life will improve significantly. The risks, benefits, alternatives, personnel and complications of cataract surgery with lens implantation were discussed with Darcy Colon in detail. These included, but are not limited to: infection, bleeding, loss of vision, and the need for additional surgery. she appeared to understand and asked that I proceed with plans for surgery. Patient acknowledges possible need for glasses after procedure. Intraocular lens options were discussed with patient. If patient was a good candidate for multifocal Intraocular lenses, risk of halos, glare, and possible need for glasses was discussed. Informed consent form signed by physician and patient. Literature regarding cataract and cataract extraction by phacoemulsification offered. Return for preadmission testing, biometry & intraocular lens calculations prior to surgery. The patient was offered a surgery/procedure at a [facility] facility. The surgeon/proceduralist and patient have discussed in detail the risk of exposure to and/or potential harm posed by the COVID-19 virus with having a surgery/procedure at this time versus the risk of delaying the surgery/pr ocedure. It is not possible to know either the risk of delaying the surgery or procedure or chance of getting an infection with perfect accuracy, but a joint decision was made between the patient andthe surgeon/proceduralist to proceed at this time with the scheduled surgery/procedure as indicatedon the consent form. 2. Central retinal vein occlusion Left eye - Retina eval next available 3. narrow angle Both eyes Intraocular pressure wnl, C/D wnl Phakomorphic component. Discussed anticipate resolution following Cataract extraction. I have confirmed and edited as necessary the relevant HPI, ophthalmic history, ROS, and the neuro exam findings as obtained by others. I have seen and examined Darcy Colon. I have discussed the case and the management of this patient's care with the Resident/Fellow, if applicable. I also have reviewed and agree with the assessment and plan as stated above and agree withall of its relevant components. Jayshree HU MD November 07, 2024 1:09 PM * Teja Montiel OD - 11/07/2024 12:56 PM EDT ASSESSMENT/PLAN: 1. Combined forms of age-related cataract of both eyes - ICD9: 366.19, ICD10: H25.813 (primary diagnosis) Dr Jayshree Hu Cataract evaluation today Guarded prognosis Left eye 2/2 Central retinal vein occlusion 2. Central retinal vein occlusion, left eye, with macular edema (HCC) - ICD9: 362.35, 362.83, ICD10: H34.8120 Central retinal vein occlusion Left eye with ++ Cystoid macular edema Review with Dr Jayshree Hu Consult with the retina Service AMAIRANI Pt has been aware of the vision change OS since May Last previous eye exam ~[address] Ling last week 3. 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 Dry eye syndrome, bilateral - ICD9: 375.15, ICD10: H04.123 Artificial Tears as needed November 07, 2024 12:57 PM documented in this encounter Plan of Treatment Upcoming Encounters Date Type Department Care Team (Latest Contact Info) Description 12/12/2024 9:30 AM EDT Hospital Encounter Ambulatory Surgery [address] [place] [address] Jayshree Hu V, MD [address] [place] [address] Combined forms of age-related cataract of left eye [H25.812] 12/12/2024 9:30 AM EDT - 12/12/2024 10:00 AM EDT Surgery Ambulatory Surgery [address] [place] [address] Jayshree Hu V, MD [address] [place] [address] PHACOEMULSIFICATION CATARACT IMPLANT INTRAOCULAR LENS W/O ENDOSCOPIC CYCLOPHOTOCOAGULATION 12/26/2024 1:30 PM EDT Office Visit [facility] Ophthalmology [address] [place] [address] [address] [place] [address] Maxine Thacker MD [address] [place] [address] *4-6 W DTI AVASTIN OS Pending Results Name Type Priority Associated Diagnoses Date /Time CORNEAL TOPOGRAPHY PENTACAM OU (BOTH EYES) [facility] Imaging Routine Combined forms of age-related cataract of both eyes 11/07/2024 10:33 AM EDT Scheduled Orders Name Type Priority Associated Diagnoses Orde r Schedule CORNEAL TOPOGRAPHY PENTACAM OU (BOTH EYES) [facility] Imaging Routine Combined forms of age-related cataract of both eyes 1 Occurrences starting 11/06/2024 until 04/30/2026 Scheduled Procedures Name Priority Associated Diagnoses Date/Ti me PHACOEMULSIFICATION CATARACT IMPLANT INTRAOCULAR LENS W/O ENDOSCOPIC CYCLOPHOTOCOAGULATION Combined forms of age-related cataract of left eye 12/12/2024 9:30 AM EDT OPHTHALMIC BIOMETRY BY PARTI AL COHERENCE INTERFEROMETRY W/INTRAOCULAR LENS POWER CALCULATION Combined forms of age-related cataract of left eye 12/12/2024 9:30 AM EDT documented as of this encounter Procedures Procedure Name Priority Date/Time Associated Diagnosis Comments OCT MACULA CIRRUS OU (BOTH EYES) Routine 11/07/2024 12:35 PM EDT Combined forms of age-related cataract of both eyes IOL BIOMETRY W/ IOL CALC OU (BOTH EYES) Routine 11/07/2024 10:33 AM EDT Combined forms of age-related cataract of both eyes documented in this encounter Results * OCT MACULA CIRRUS OU (BOTH EYES) (11/07/2024 12:35 PM EDT) Anatomical Region Laterality Modality Other Narrative 11/07/2024 12:35 PM EDT Date of Procedure 11/07/2024. OCT Macula Interpretation Right Eye Normal foveal contour. Findings include PVD; Negative for Intraretinal fluid, Cystoid macular edema, Subretinal fluid. Left Eye Abnormal foveal contour. Findings include Cystoid macular edema, Subretinal fluid. Interval Change Right Eye Initial. Left Eye Initial. us Jayshree Shea MD OPHTHALMOLOGY Final Result * IOL BIOMETRY W/ IOL CALC OU (BOTH EYES) (11/07/2024 10:33 AM EDT) Anatomical Region Laterality Modality Other Narrative 11/07/2024 10:33 AM EDT Date of Procedure 11/07/2024. Sales Force Developer Information Keerthi Morris, COA . Notes Measurements only - see Procedure Record under Scanned Documents for signed results. us Jayshree Shea MD OPHTHALMOLOGY Final Result documented in this encounter Visit Diagnoses Diagnosis Combined forms of age-related cataract of both eyes- Primary Other and combined forms of senile cataract Central retinal vein occlusion, left eye, with macular edema (HCC) Anatomical narrow angle, bilateral Dry eye syndrome, bilateral Combined form of age-related cataract, right eye Combined forms of age-related cataract of left eye Other and combined forms of senile cataract Diabetes mellitus type 2 without retinopathy (HCC) Type II or unspecified type diabetes mellitus without mention of complication, not stated as uncontrolled Combined forms of age-related cataract of left eye Other and combined forms of senile cataract documented in this encounter Administered Medications Inactive Administered Medications - up to 3 most recent administrations Medication Order MAR Action Action Date Dose Rate Site PHENYLephrine 2.5 % 1 drop (AK-DILATE, DEJAN-SYNEPHRINE) 1 drop, BOTH EYES, DIRECTED, Starting on Wed11/07/24 at 1130, Until Wed11/07/24 at 2329, Administer for dilation PROTECT FROM LIGHT, [facility] CLINIC MED ORDERSIndications:Combined forms of age-related cataract of both eyes Given 11/07/2024 11:30 AM EDT 1 drop tropicamide 1 % 1 drop (MYDRIACYL) 1 drop, BOTH EYES, DIRECTED, Starting on Wed11/07/24 at 1130, Until Wed11/07/24 at 2329, Administer for dilation, [facility] CLINIC MED ORDERSIndications:Combined forms of age-related cataract of both eyes Given 11/07/2024 11:30 AM EDT 1 drop documented in this encounter
--- OUTSIDE RECORDS SUMMARY | 2024-11-07 15:00 | XMS_ITS | Encounter Summary ---
Author Organization [facility] Address [address] [place] [address] Care Team Providers Care Head Host/Hostess Name Role Phone Unavailable Primary Care Provider Unavailabl e Source Comments In the event this information is protected by the Federal Confidentiality of Alcohol and Drug AbusePatient Records regulations: The Federal rules restrict any use of the information to criminally investigate or prosecute any alcohol or drug abuse patient.[facility] Reason for Visit * Reason Comments Anesthesia Consult * Consult, Test, Treat (Routine) - Closed Specialty Diagnoses / Procedures Referred By Contact Referred To Contact Anesthesiology / ANESTHESIOLOGY Diagnoses CATARACT SURGERY RIGHT EYE ONLY -MAYTE 11/13 Procedures OFFICE/OUTPATIENT [facility] 60 MINUTES [place] [address] [place] [address] Phone: tel: fax: 1, [facility] [address] [place] [address] Phone: tel: Referral ID Status Reason Start Date Expiration Date Visits Re quested Visits Authorized [id number] Closed 11/07/2024 05/09/2025 1 1 Encounter Details Date Type Department Care Team (Late st Contact Info) Description 11/07/2024 3:00 PM EDT PAT Pre Anesthesia [address] [place] [address] 1, [facility] [address] [facility] [place] [address] Pre-op evaluation (Primary Dx); Peripheral arterial disease; Essential hypertension; Elevated cholesterol; Type 2 diabetes mellitus with other specified complication, without long-term current use of insulin (HCC); Tobacco use Social History Tobacco Use Types Packs/Day Years Used Date Smoking Tobacco: Every Day Cigarettes 1 59.5 Started: 1964 Smokeless Tobacco: Never Alcohol Use Standard Drinks/Week Comments Never 0 (1 standard drink = 0.6 oz pur e alcohol) Area Deprivation Index Answer Date Nghia rded National Score (1-100), lower number is lower ri sk 79 11/07/2024 State Score (1-10), lower number is lower risk 7 11/07/2024 Data from: https://www.neighborhoodatlas.medicine.[facility].edu/. Last address used for calculation [address] 11/07/2024 Comments No Sex and Gender Information Value Date Recorded Sex Assigned at Not on file Legal Sex Female 2:11 PM EDT Gender Identity Not on file Sexual Orientation Not on file documented as of this encounter Last Filed Vital Signs Vital Sign Reading Time Taken Comments Blood Pressure 115/87 11/07/2024 2:27 PM EDT Pulse - - Temperature - - Respiratory Rate - - Oxygen Saturation - - Inhaled Oxygen Concentration - - Weight 71 kg (156 lb 8.4 oz) 11/07/2024 2:27 PM EDT Height 170.2 cm (5' 7 ) 11/07/2024 2:27 PM EDT Body Mass Index 24.52 11/07/2024 2:27 PM EDT documented in this encounter Patient Instructions * Patient Instructions* Roxy Christine APRN.NATURAL SCIENCES DEPARTMENT CHAIR - 11/07/2024 2:32 PM EDT Images from the original note were not included. [facility] PATIENT PREOPERATIVE INSTRUCTIONS Your Surgeon has scheduled you for your procedure at this surgery center: [facility]: [phone] --[address] [facility] [place] [address]. Please read below carefully for your personalized instructions. Dietary Restrictions: - No solid food after midnight. - You may have 12 ounces of clear liquids (water, clear juices such as apple juice or gatorade, carbonated beverages, clear tea, black coffee, jello) until 2 hours before scheduled arrival at facility. Medications: Unless instructed differently below, stay on all of your medications until your surgery. Approved medications to take the morning of surgery with a sip of water: Amlodipine, lisinopril, Metoprolol, Pentoxifylline, propylthiouracil Preoperative Instructions for Patient's with Diabetes Mellitus Oral/ Injectable Medication Instructions - Metformin - HOLD DAY OF SURGERY Glucotrol/Glipizide - HOLD DAY OF SURGERY If you are currently using a [id number] injectable or oral medication for diabetes or weight loss such as Dulaglutide (Trulicity), Exenatide (Byetta, Bydureon), Liraglutide (Victoza, Saxenda), Semaglutide (Ozempic, Wegovy, Rybelsus), or Tirzepatide (Mounjaro), the medicine should be stopped at least 7 days before surgery. These medicines can cause food to remain in your stomach for a very longtime and increase the risks from surgery and anesthesia. Not stopping the medication for a long enough time may result in your surgery being rescheduled. If you start any new medications after today's visit, please contact the surgeon's office. Important Reminders: - If you are prescribed inhalers for breathing, continue using them. - Candy, mints, and tobacco products are NOT permitted the morning of surgery. - Hearing aids, dentures and glasses may be worn the morning of surgery. - NO jewelry, body piercings, makeup, hairpins or contacts are to be worn the day of surgery. If you develop symptoms such as a fever, cold, or flu, or have other changes to your health within TWO DAYS of scheduled surgery or the morning of surgery, please contact the surgery center above. Personal Belongings: -Please have photo ID and insurance cards. -If you do not have a copy of advance directives on file with us, please bring a copy with you on the day of surgery. - Leave ALL valuables and money at home or with family members. For Outpatient Procedures: - YOU MUST HAVE A RESPONSIBLE CELL POURER TAKE YOU HOME. A RESEARCH LABORATORY MANAGER OR FLOATING OPERATOR CANNOT BE MADE A RESPONSIBLE CELL POURER. - We recommend that a responsible person stays with you overnight to take care of you. - You cannot stay in a hotel alone after outpatient surgery. You will not be permitted to have yoursurgery, if you do not have someone to take care of you. Arrival Time for Surgery: - The Surgery Center or hospital where you are having surgery will call the afternoon before surgery (or Wednesday for Wednesday surgery) with a scheduled arrival time. - If you have not heard by 4 pm, please contact the surgery center above. Please be aware that emergency situations arise, which may delay or change your surgical time. If this happens, we will notify you as soon as possible and regret any inconvenience. If you already have an Advance Directive, please fax a copy to [phone] or email to for it to be added to your chart. If you do not have an Advance Directive, you can find the appropriate form and more information at [email or web address]. We recommend that youcomplete the Advance Directive form found on the website and bring it with you the day of your surgery. It can be witnessed and scanned into your chart that day. Roxy Christine APRN., CNP documented in this encounter H&P Notes * Roxy Christine APRN.CNP - 11/07/2024 2:34 PM EDT HISTORY AND PHYSICAL EXAMINATION SERVICE DATE: 11/07/2024 SERVICE TIME: 2:56 PM PRIMARY CARE PHYSICIAN: No primary care provider on file. REASON FOR VISIT: Darcy Colon is a 74 year old female who is scheduled for at the request of Dr. Jayshree Cyr V for consultation. My final recommendation will be communicated back to the requesting physician by way of shared medical record or letter. Assessment Patient has the following medical conditions which may affect janice-operative course: Peripheral arterial disease Assessment: With claudication Bilateral leg cramps when walking pentoxifylline TID Follows with Vascular Essential hypertension Assessment: Controlled with medication management 115/87 in office today Elevated cholesterol Assessment: Compliant with Statin Diabetes mellitus (HCC) Assessment: Complaint with oral medications Instructions provided to patient on how long to hold diabetic medications prior to procedure Tobacco use Assessment: Smokes 1PPD 59.5 Pack years ANESTHESIA FINDINGS: Intubation History: No history of difficult intubation Significant Anesthesia Considerations: none Airway History: No history of difficult airway [place] Activity Status Index: METS: Walk indoors, such as around the house (1.75 METs) Do light work around the house, such as dusting or washing dishes (2.70 METs) Take care of self; that is eating, dressing, bathing, using the toilet (2.75 METs) Walk a block or two on level ground (2.75 METs) Do moderate work around the house, such as vacuuming, sweeping floors, or carrying in groceries (3.50 METs) Climb a flight of stairs or walk up a hill (5.50 METs) DASI Score: 18.95 Patient denies any chest pain or undue shortness of breath with the above physical activity. STOP-Bang Score: Has or is being treated for high blood pressure Patient over 50 years old Denies snoring loudly Denies feeling tired, fatigued, or sleepy during the daytime Has not been observed to stop breathing or choking/gasping during sleep BMI less than or equal to 35 kg/m^2 Does not have a large neck Non-male patient STOP-Bang Score: 2 [id number] Score: Age: 65-74 Sex: female CHF history: No Hypertension history: Yes Stroke/TIA/thromboembolism history: No Vascular disease history: No Diabetes history: Yes [id number] Score: 4 ARISCAT Score: Age: 51-80 Preoperative SpO2: >=96% Respiratory infection in the last month: No Preoperative anemia: No Surgical incision: peripheral Duration of surgery: <2 hrs Emergency procedure: No ARISCAT Score: 3 Airway Exam: General: Normal appearance There is no height or weight on file to calculate BMI. Mallampati Score is CLASS II ULBT: Class I - Lower incisors can bite the upper lip above the jamal line Neck: Normal appearance and function, Distance from hyoid to mentum during neck extension is at least 3 finger breaths Mouth: Normal tongue size and Mouth opening greater than 2 finger breaths Dentition: Upper denture and Lower denture Airway History: No abnormal airway history Planned Anesthetic: Per anesthesia choice Prepared for surgery: This patient is optimally prepared for surgery. CONSULTS: Patient does not require consults for optimization at this time. The Following Tests/Procedures Have Been Initiated: Labs not indicated per [facility] protocol, EKG not indicated per [facility] protocol Planned Anesthetic: Per anesthesia choice Subjective CHIEF COMPLAINT: Visual Changes HPI: 74 year old year old presents today with complaints of difficulty with vision. Found to have cataract on exam. Denies pain. No relieving factors. PAST MEDICAL HISTORY Diagnosis Date Diabetes mellitus (HCC) Elevated cholesterol Essential hypertension Osteoporosis Peripheral arterial disease PAST SURGICAL HISTORY Procedure Laterality Date EXTENSIVE ANKLE/HEEL SURGERY Left 1989 EXTENSIVE HIP SURGERY Right 08/08/2014 2 pins placed HYSTERECTOMY 2019 KNEE BILATERAL OP SURGERY Bilateral 2007 PT [facility] 05/26/1983 Surgery due to injury from a staple gun FAMILY HISTORY Problem Relation Age of Onset Hypertension Mother Diabetes Mother Diabetes Brother Blindness Brother Diabetes Brother SOCIAL HISTORY: Social History Tobacco Use Smoking status: Every Day Current packs/day: 1.00 Average packs/day: 1 pack/day for 59.5 years (59.5 ttl pk-yrs) Types: Cigarettes Start date: 1964 Smokeless tobacco: Never Vaping Use Vaping status: Never Used Substance Use Topics Alcohol use: Never Drug use: Never Prior to Admission medications as of 11/07/24 1434 Medication Sig Last Dose Taking amLODIPine (NORVASC) 2.5 mg tablet Take 2.5 mg by mouth once daily. Yes atorvastatin (LIPITOR) 80 mg tablet Take 1 tablet by mouth once daily. Yes alendronate (FOSAMAX) 70 mg tablet TAKE 1 TAB ONCE A WEEK 30 MINS BEFORE FIRST FOOD/DRINK/MED OF THE DAY WITH PLAIN WATER Yes furosemide (LASIX) 20 mg tablet Take 20 mg by mouth once daily. Yes glipiZIDE (GLUCOTROL) 5 mg tablet Take 5 mg by mouth two times a day. Yes lisinopril (ZESTRIL) 20 mg tablet Take 20 mg by mouth once daily. Yes metFORMIN (GLUCOPHAGE) 500 mg tablet Take 500 mg by mouth two times a day. Yes metoprolol tartrate, short acting, (LOPRESSOR) 50 mg tablet TAKE 1/2 TABLET BY MOUTH TWICE A DAY WITH FOOD Yes pentoxifylline ER (TRENTAL) 400 mg CR tablet Take 400 mg by mouth. Yes propylthiouracil 50 mg tablet Take 50 mg by mouth once daily. Yes No medication comments found. ALLERGIES Not on File Covid Immunization Dates Current Care Gaps Covid-19 Vaccine ( season) Overdue since 10/24/2024 04/25/2024 Imm Admin: COVID-19 vaccine, age 12+ yr ([employer] COMIRNATY) 08/23/2020 Imm Admin: COVID-19 original vaccine, full dose, monovalent (MODERNA) 07/26/2020 Imm Admin: COVID-19 original vaccine, full dose, monovalent (MODERNA) REVIEW OF SYSTEMS: PAIN ASSESSMENT: General: No weight loss, malaise or fevers. Neuro: No history of TIA's, stroke, [employer] tumor, impaired sensorium, hemiplegia, paraplegia or quadraplegia. No neurological symptoms or problems. Respiratory: No history of current cough or dyspnea, or pneumonia in the past 6 weeks. No history of respiratory/pulmonary symptoms or problems. +Tobacco use 1 PPD Cardiovascular: Negative for Recent IA, Angina, Chest Pain, PVD, DVT/PE +HTN +HLD GI: Negative for Nausea, Vomiting, Abdominal pain : Negative for dysuria, incontinence, hematuria, and hesitancy ALARM ADJUSTER: Negative for abnormal vaginal bleeding, abnormal vaginal discharge. : Denies, No LMP recorded. Patient has had a hysterectomy. Endocrine: Diabetes Mellitus on oral agent, Hyperthyroidism Hematology: Chronic anti-coagulation / platelet meds (Aspirin) Oncology: No history of CA metastasis, chemo within 30 days, or radiotherapy within 90 days. Has not lost 10% of body wt in 6 months. No history of oncological symptoms or problems. Psych: No history of psychiatric symptoms or problems. Musculoskeletal: Negative for joint pain or swelling, back pain or muscle pain. Skin: Negative for lesions, rash and itching. Objective PHYSICAL EXAM: VITALS: BP 115/87 Ht 5' 7 (1.70m) Wt 156 lb 8.4 oz (71.0kg) BMI 24.51 kg/(m^2). General: Alert and oriented Skin: Normal color, no rash, no lesions. HEENT: EOM, pupils equal, round and reactive. Cardiovascular: Normal S1 & S2, no rubs, murmurs or gallops. No JVD. Pulse regular. Lungs: Normal breath sounds, no wheezes or crackles. Abdomen: Soft, non-tender, no rigidity. Extremities: No deformity, no edema or tenderness, no joint swelling or clubbing. Neurological: Normal cognition and motor skills. Pulses: Carotid and radial pulses normal +2. Diagnostic tests reviewed for today's visit: No new labs or tests Instructions Given to Patient: Instructions located in the after visit summary. Patient given verbal and written preop instructions and voices comprehension and compliance. 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 eye [H25.812] 12/12/2024 9:30 AM EDT - 12/12/2024 10:00 AM EDT Surgery Ambulatory Surgery [address] [place] [address] Jayshree Cyr V, MD [address] [place] [address] PHACOEMULSIFICATION CATARACT IMPLANT INTRAOCULAR LENS W/O ENDOSCOPIC CYCLOPHOTOCOAGULATION 12/26/2024 1:30 PM EDT Office Visit [facility] Ophthalmology [address] [facility] [address] [place] [address] Maxine Thacker MD [address] [place] [address] *4-6 W DTI AVASTIN OS Scheduled Procedures Name Priority Associated Diagnoses Date/Ti me PHACOEMULSIFICATION CATARACT IMPLANT INTRAOCULAR LENS W/O ENDOSCOPIC CYCLOPHOTOCOAGULATION Combined forms of age-related cataract of left eye 12/12/2024 9:30 AM EDT OPHTHALMIC BIOMETRY BY PARTI AL COHERENCE INTERFEROMETRY W/INTRAOCULAR LENS POWER CALCULATION Combined forms of age-related cataract of left eye 12/12/2024 9:30 AM EDT documented as of this encounter Visit Diagnoses Diagnosis Pre-op evaluation- Primary Preoperative examination, unspecified Peripheral arterial disease Peripheral vascular disease, unspecified Essential hypertension Unspecified essential hypertension Elevated cholesterol Pure hypercholesterolemia Type 2 diabetes mellitus with other specified complication, without long-term current use of insulin (HCC) Tobacco use Tobacco use disorder Combined forms of age-related cataract of left eye Other and combined forms of senile cataract * Assessment & Plan Note - Roxy Christine APRN.CNP - 11/07/2024 2:56 PM EDT Associated Problem(s): Tobacco use Assessment: Smokes 1PPD 59.5 Pack years * Assessment & Plan Note - Roxy Christine APRN.CNP - 11/07/2024 2:55 PM EDT Associated Problem(s): Diabetes mellitus (HCC) Assessment: Complaint with oral medications Instructions provided to patient on how long to hold diabetic medications prior to procedure * Assessment & Plan Note - Roxy Christine APRN.CNP - 11/07/2024 2:55 PM EDT Associated Problem(s): Elevated cholesterol Assessment: Compliant with Statin * Assessment & Plan Note - Roxy Christine APRN.CNP - 11/07/2024 2:54 PM EDT Associated Problem(s): Essential hypertension Assessment: Controlled with medication management 115/87 in office today * Assessment & Plan Note - Roxy Christine APRN.NATURAL SCIENCES DEPARTMENT CHAIR - 11/07/2024 2:54 PM EDT Associated Problem(s): Peripheral arterial disease Assessment: With claudication Bilateral leg cramps when walking pentoxifylline TID Follows with Vascular documented in this encounter
--- OUTSIDE RECORDS SUMMARY | 2024-11-09 07:15 | XMS_ITS ---
Author Organization [facility] in [place] Address [address] [place] [address] Care Team Providers Care Antique Clocks Repairer Name Role Phone FadiaJuan Luis Primary Care Provider [phone] REASON FOR VISIT needs blood work per dr owen eye doctor Encounters Encounter Location Date Provider Diagnosis [facility] [address] [place] [address] 11/09/2024 Juan Luis Loaiza Plan Of Treatment Next Appt Details Provider Name:Juan Luis Ángela Loaiza, 09:15:00 AM, [address] [place], [address], Progress Notes * Darcy COLON ADOB:1950 ( 74 yo F)Acc No.[id number]:11/09/2024 UNLOCKED PROGRESS NOTE Progress Note Patient: Darcy SINGH [facility] F[facility] :1950 A ge:74 Y S ex:Female Date:11/09/2024 Address:[address] [place] [address] [address] [id number] Subjective: * Chief Complaints: * 1 . Needs blood work per dr owen eye doctor. * Medical History: Objective: * Vitals: Assessment: Plan: * Treatment: * * Electronic signature of Juan Luis Loaiza MD, [phone] on 11/17/2024 at 10:42 AM EDT Sign off status: Pending Visit Status: C ANCPHONE (Cancelled Phone) * Provider: Phoebe Loaiza ([facility])MD Date: 0 11/09/2024 Generated for Vic carvajal/Stephanie/Ashanti on: 0 11/17/2024 10:42 AM EDT
--- OUTSIDE RECORDS SUMMARY | 2024-11-09 10:15 | XMS_ITS | Encounter Summary ---
Author Organization [facility] Address [facility] [place] [address] Care Team Providers Care Machine Biller Name Role Phone Unavailable Primary Care Provider Unavailabl e Source Comments In the event this information is protected by the Federal Confidentiality of Alcohol and Drug AbusePatient Records regulations: The Federal rules restrict any use of the information to criminally investigate or prosecute any alcohol or drug abuse patient.[facility] Reason for Visit * Reason Comments Central retinal vein occlusion, left eye , with macular alexey Anatomical narrow angle, bilateral * Injectable (Routine) - Authorized Specialty Diagnoses / Procedures Referred By Contac t Referred To Contact Ophthalmology / OPHTHALMOLOGY Diagnoses Central retinal vein occlusion, left eye, with macular edema (HCC) *NEW PER AH, PRE OP CLEAR/CRVO OD, DFE/OCT, AVASTIN OS Procedures [place] BEVACIZUMAB INJECTION NEW ADULT Jayshree Cyr V, MD [address] [place] [address] Phone: tel: Maxine Thacker MD [address] [facility] [address] [place] [address] Phone: tel: fax: Referral ID Status Reason Start Date Expiration Date V isits Requested Visits Authorized [id number] Authorized 11/09/2024 05/09/2025 99 99 Encounter Details Date Type Department Care Team (Latest Contact Info) Description 11/09/2024 10:15 AM EDT Office Visit [facility] Ophthalmology [address] [place] [address] Maxine Thacker MD [address] [place] [address] Central retinal vein occlusion, left eye, with macular edema (HCC) (Primary Dx); Combined forms of age-related cataract of both eyes Social History Tobacco Use Types Packs/Day Years [...] is lower risk 7 11/07/2024 Data from: https://www.neighborhoodatlas.medicine.[facility].edu/. Last address used for calculation [address] 11/07/2024 Comments No Sex and Gender Information Value Date Recorded Sex Assigned at Not on file Legal Sex Female 2:11 PM EDT Gender Identity Not on file Sexual Orientation Not on file documented as of this encounter Patient Instructions * Patient Instructions* Maxine Thacker MD - 11/09/2024 11:39 AM EDT Post Injection Patient Information You had eye injection(s) today. These are your after injection instructions. Today: Preservative free artificial tears 1 drop every hour while awake as needed Tomorrow: Preservative free artificial tears 1 drop every 2 hours while awake as needed Care instructions after eye injections: Do not rub or touch your eye other than dabbing lightly with a tissue An azrx-xrh-lhojaua pain reliever (i.e. Tylenol) can be used for mild soreness Use artificial tears/lubricating drops once an hour as needed for comfort (chill the tears in the refrigerator for more comfort). If you are using the tears more than 4 times a day they need to be the preservative free kind Warm or cool compresses are okay It is okay to shower and wash your face. No swimming pools or saunas for 24 hours COMMON symptoms after successful eye injections: Mild to moderate pain or irritation beginning the day of the injection. This should begin to improve the following day. ???Eyelash in the eye?? or dylon/gritty sensation Tearing Mild floaters or bubbles in your vision - usually resolves after 1-2 days Bloody tears for 1-2 days after treatment Eye Redness Also known as subconjunctival hemorrhage This bruise can cover the entire white part of the eye and may last a few weeks CONCERNING symptoms after eye injections: Severe, constant pain Worsening pain after the first day Decreased vision Severe, constant floaters Curtain or veil in your vision New eye redness that was not there after the injection and covers the whole eye Please call the office immediately for any of the above listed concerning symptoms or with any other questions. If it is after hours please call [phone] which will give instructions on how to reach the eye doctor planning consultant documented in this encounter Progress Notes * Maxine Thacker MD - 11/09/2024 11:25 AM EDT ASSESSMENT/PLAN: Last dilated exam 11/09/2024 H34.8120 Central retinal vein occlusion, left eye, with macular edema (HCC) (primary encounter diagnosis) History of HTN, HL, DM OCT with IRF and SRF CRVO on exam Will start injections - After reviewing the exam and OCT, the decision was made to proceed with treatment today - Risks (including infection, bleeding, loss of vision, retinal detachment) and benefits/alternatives discussed. - Signs and symptoms of endophthalmitis reviewed with pt. - Patient wishes to proceed with Avastin OS H25.813 Combined forms of age-related cataract of both eyes Comment: Evaluated by Dr. Cyr Having cataract surgery Wednesday OD Ok for cataract surgeyr OS Follow-up 4 to 6 weeks for DTI ANNA OS with OCT I have confirmed and edited as necessary [...] and agree withall of its relevant components. Maxine Thacker MD documented in this encounter Plan of Treatment Upcoming Encounters Date Type Department Care Team (Latest Contact Info) Description 12/12/2024 9:30 AM EDT Hospital Encounter Ambulatory Surgery [address] [place] [address] Jayshree Cyr V, MD [address] [place] [address] Combined forms of age-related cataract of left eye [H25.812] 12/12/2024 9:30 AM EDT - 12/12/2024 10:00 AM EDT Surgery Ambulatory Surgery [address] [place] [address] Jayshree Cyr V, MD [address] [place] [address] PHACOEMULSIFICATION CATARACT IMPLANT INTRAOCULAR LENS W/O ENDOSCOPIC CYCLOPHOTOCOAGULATION 12/26/2024 1:30 PM EDT Office Visit [facility] Ophthalmology [address] [place] [address] [address] [place] [address] Maxine Thacker MD [address] [place] [address] *4-6 W DTI AVASTIN OS Scheduled Orders Name Type Priority Associated Diagnoses Orde r Schedule OCT MACULA CIRRUS OU (BOTH EYES) [facility] Imaging Routine Central retinal vein occlusion, left eye, with macular edema (HCC) 1 Occurrences starting 11/09/2024 until 05/03/2026 Scheduled Procedures Name Priority Associated Diagnoses Date/Ti [...] Procedure Name Priority Date/Time Associated Diagnosis Comments AVASTIN (BEVACIZUMAB) 1.25MG INTRAVITREAL INJECTION OS (LEFT EYE) Routine 11/09/2024 11:39 AM EDT Central retinal vein occlusion, left eye, with macular edema (HCC) OCT MACULA CIRRUS OU (BOTH EYES) Routine 11/09/2024 11:25 AM EDT Central retinal vein occlusion, left eye, with macular edema (HCC) documented in this encounter Results * AVASTIN (BEVACIZUMAB) 1.25MG INTRAVITREAL INJECTION OS (LEFT EYE) (11/09/2024 11:39 AM EDT) Narrative Maxine Thacker MD - 11/09/2024 11:39 AM EDT Date of Procedure 11/09/2024 [place] Protocol Safety Checklist A moment of CARE was completed Sign In Sign in communication not applicable due to emergent procedure. Personnel directly involved with the procedure wore the appropriate PEE. Special Equipment: N/A. Patient/surrogate stated/verified patient name, date of , relevant allergies, intended procedure. Provider Confirms: Relevant labs, photos, and/or imaging studies have been reviewed. Intended patient and procedure match the source document(s) (e.g. consent, associated studies [imaging, pathology]). Consent obtained and matches the intended procedure. Correct side/site marked and visible. Medications required for procedure verified. Fire risk assessed and interventions discussed: N/A. Correct implant(s) confirmed including size and side: N/A. Sign Out All specimens are correctly labeled and sent: N/A. All instruments, equipment, possible retained foreign bodies accounted for. Post-procedure POC communicated to patient or surrogate. Post-procedure POC communicated to patient's multidisciplinary team: N/A. Anesthesia 2-4 drops Tetracaine 0.5%, Topical 4% Lidocaine on cotton swabs. Prep 5% Betadine. Injection Administration Medication: 1.25 mg bevacizumab (Jocelynn's) 2.25 mg/0.09 mL Route: INTRAVITREAL, Site: Left Balance Wasted Residual medication less than 1 unit was discarded. Anterior Chamber Paracentesis No. Post Injection Evaluation Patient has at least hand motion vision. Post Procedure Medications None. Home Going Prescription None. Maxine Thacker MD OPHTHALMOLOGY Final Resul t * OCT MACULA CIRRUS OU (BOTH EYES) (11/09/2024 11:25 AM EDT) Anatomical Region Laterality Modality Other Narrative 11/09/2024 11:25 AM EDT Date of Procedure 11/09/2024. OCT Macula Interpretation Right Eye Normal foveal contour. Findings include Intraretinal fluid. Left Eye Abnormal foveal contour. Findings include Intraretinal fluid. Interval Change Right Eye Stable. Left Eye Worse. Maxine Thacker MD OPHTHALMOLOGY Final Resul t documented in this encounter Visit Diagnoses Diagnosis Central retinal vein occlusion, left eye, with macular edema (HCC)- Primary Combined forms of age-related cataract of both eyes Other and combined forms of senile cataract Combined forms of age-related cataract of left eye Other and combined forms of senile cataract documented in this encounter Administered Medications Inactive Administered Medications - up to 3 most recent administrations Medication Order MAR Action Action Date Dose Rate Site bevacizumab (Jocelynn's) 1.25 mg intravitreal syringe (AVASTIN) 1.25 mg, ONCE, 1 dose, Starting on Angelina 11/09/24 at 1139, Until Angelina 11/09/24 at 1139Indications:Central retinal vein occlusion, left eye, with macular edema (HCC) Given 11/09/2024 11:39 AM EDT 1.25 mg Left PHENYLephrine 2.5 % 1 drop (AK-DILATE, DEJAN-SYNEPHRINE) 1 drop, BOTH EYES, DIRECTED, Starting on Angelina 11/09/24 at 1100, Until Angelina 725 at 2259, Administer for dilation PROTECT FROM LIGHTIndications:Central retinal vein occlusion, left eye, with macular edema (HCC) Given 11/09/2024 11:00 AM EDT 1 drop tropicamide 1 % 1 drop (MYDRIACYL) 1 drop, BOTH EYES, DIRECTED, Starting on Angelina 11/09/24 at 1100, Until Angelina 11/09/24 at 2259, Administer for dilationIndications:Central retinal vein occlusion, left eye, with macular edema (HCC) Given 11/09/2024 11:00 AM EDT 1 drop documented in this encounter
--- OUTSIDE RECORDS SUMMARY | 2024-11-13 07:26 | XMS_ITS | Encounter Summary ---
Author Organization [facility] Address [address] [place] [id number] Care Team Providers Care Circular Sawyer Helper Name Role Phone Ray Loazia MD Primary Care Provider [phone] Source Comments In the event this information is protected by the Federal Confidentiality of Alcohol and Drug AbusePatient Records regulations: The Federal rules restrict any use of the information to criminally investigate or prosecute any alcohol or drug abuse patient.[facility] Reason for Visit * Auth/Cert (Routine) Specialty Diagnoses / Procedures Referred By Nanci vargas Referred To Contact [facility] Diagnoses Combined form of age-related cataract, 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, right eye [H25.811] Procedures XCAPSL CTRC RMVL INSJ IO LENS PROSTH W/O ECP OPH BMTRY PRTL COHER INTRFRMTRY IO LENS PWR ALPESH PHACOEMULSIFICATION CATARACT IMPLANT INTRAOCULAR LENS W/O ENDOSCOPIC CYCLOPHOTOCOAGULATION OPHTHALMIC BIOMETRY BY PARTIAL COHERENCE INTERFEROMETRY W/INTRAOCULAR LENS POWER CALCULATION Ambulatory Surgery [address] [place] [address] Phone: tel: Referral ID Status Reason Start Date Expiration Date Visits Re quested Visits Authorized [id number] 1 1 Encounter Details Date Type Department Care Team (Latest Contact Info) Description 11/13/2024 7:26 AM EDT - 11/13/2024 9:29 AM EDT Hospital Encounter Ambulatory Surgery [address] [place] [address] Jayshree Hu V, MD [address] [place] [address] Combined form of age-related cataract, right eye [H25.811] Discharge Disposition: Home Social History Tobacco Use Types Packs/Day Years Used Date Smoking Tobacco: Every Day Cigarettes 1 59.5 Started: 1964 Smokeless Tobacco: Never Alcohol Use Standard Drinks/Week Comments Never 0 (1 standard drink = 0.6 oz pur e alcohol) Area Deprivation Index Answer Date Nghia rded National Score (1-100), lower number is lower ri sk 79 11/13/2024 State Score (1-10), lower number is lower risk 7 11/13/2024 Data from: https://www.neighborhoodatlas.[facility]/. Last address used for calculation [address] 11/13/2024 Comments No Sex and Gender Information Value Date Recorded Sex Assigned at Not on file Legal Sex Female 2:11 PM EDT Gender Identity Not on file Sexual Orientation Not on file documented as of this encounter Last Filed Vital Signs Vital Sign Reading Time Taken Comments Blood Pressure 170/73 11/13/2024 8:26 AM EDT Pulse 73 11/13/2024 8:26 AM EDT Temperature 36.4 C (97.6 F) 11/13/2024 8:26 AM EDT Respiratory Rate 18 11/13/2024 8:26 AM EDT Oxygen Saturation 95% 11/13/2024 8:26 AM EDT Inhaled Oxygen Concentration - - Weight - - Height - - Body Mass Index - - documented in this encounter Discharge Instructions * Discharge Instr - Other Orders* Jayshree Hu V, MD - 11/13/2024 9:15 AM EDT Instructions After Cataract Surgery It is very important to follow these instructions to ensure success of your surgery. ACTIVITY: You may shower/bathe tomorrow, but avoid getting soap or water into the operative eye for 10 days. Avoid repetitive bending, lifting over 20 pounds, or strenuous exercise for 10 days. Do not go swimming for 10 days. Avoid getting dust or dirt into your eyes. DO NOT RUB YOUR EYE. DIET: No restrictions. PAIN CONTROL: It is common to experience a slightly scratchy feeling (foreign body sensation) or tearing in theoperative eye. This can easily be relieved with non- prescription, non-aspirin pain medication such as Tylenol. Please tell your doctor if you have pain in or around the eye that is NOT relieved by wedd-ouo-eogahlr pain medication. DRESSING/SURGICAL AREA: Leave the eye shield in place. This will be removed on your return visit to the office. Wear sunglasses outside to protect your eye from sun and wind. Watch site for signs of infection: pain, redness, or decrease in vision. These signs usually occur within one week of surgery. If present, notify your physician. In an emergency, if you are unable toreach your physician, go to the nearest emergency room. MEDICATIONS: Resume any oral medications you were taking prior to surgery. Resume any eye drops you were using in the NON-OPERATIVE EYE prior to surgery. Please bring any eye medications we give you on the day of surgery to your one day return visit. MISCELLANEOUS INSTRUCTIONS: Your Lens implant card has been provided. Your vision may be blurred for the next 48-72 hours. FOLLOW UP APPOINTMENT: Follow up with Dr. Hu tomorrow morning as scheduled. If you have questions or concerns, please call the office at . documented in this encounter Medications at Time of Discharge amLODIPine (NORVASC) 2.5 mg tablet Take 2.5 mg by mouth once daily. atorvastatin (LIPITOR) 80 mg tablet Take 1 tablet by mouth once daily. 08/16/2024 glipiZIDE (GLUCOTROL) 5 mg tablet Take 5 mg by mouth two times a day. lisinopril (ZESTRIL) 20 mg tablet Take 20 mg by mouth once daily. metFORMIN (GLUCOPHAGE) 500 mg tablet Take 500 mg by mouth two times a day. metoprolol tartrate, short acting, (LOPRESSOR) 50 mg tablet TAKE 1/2 TABLET BY MOUTH TWICE A DAY WITH FOOD pentoxifylline ER (TRENTAL) 400 mg CR tablet Take 400 mg by mouth. propylthiouracil 50 mg tablet Take 50 mg by mouth once daily. prednisoLONE acetate (PRED FORTE) 1 % ophthalmic suspension USE DIRECTED BY PHYSICIAN, IN OPERATIVE EYE, BEGINNING ONE DAY AFTER SURGERY 5 mL 11/09/2024 keTORolac (ACULAR) 0.5 % ophthalmic solution USE DIRECTED BY PHYSICIAN, IN OPERATIVE EYE, BEGINNING ONE DAY AFTER SURGERY 5 mL 11/09/2024 alendronate (FOSAMAX) 70 mg tablet TAKE 1 TAB ONCE A WEEK 30 MINS BEFORE FIRST FOOD/DRINK/MED OF THE DAY WITH PLAIN WATER furosemide (LASIX) 20 mg tablet Take 20 mg by mouth once daily. documented as of this encounter H&P Notes * Jayshree Hu V, MD - 11/13/2024 9:15 AM EDT UPDATED HISTORY AND PHYSICAL EXAMINATION SERVICE DATE: November 13, 2024 SERVICE TIME: 9:15 AM PHYSICAL EXAM MUST BE COMPLETED ON ADMISSION The History and Physical (completed in the past 30 days) has been reviewed and the patient has beenexamined. The contents accurately reflect the patient's condition with the following additions or revisions since the H&P was completed. Examination indicates no changes. This H&P can be found in the Electronic Medical Record. SIGNATURE: Jayshree HU MD PATIENT NAME: Darcy Colon DATE: November 13, 2024 TIME: 9:15 AM Source Note - Roxy Christine APRN.NAVIGATING OFFICER - 11/07/2024 2:34 PM EDT HISTORY AND PHYSICAL EXAMINATION SERVICE DATE: 11/07/2024 SERVICE TIME: 2:56 PM PRIMARY CARE PHYSICIAN: No primary care provider on file. REASON FOR VISIT: Darcy Colon is a 74 year old female who is scheduled for at the request of Dr. Jayshree Hu V for consultation. My final recommendation will [...] large neck Non-male patient STOP-Bang Score: 2 [id number] Score: Age: 65-74 Sex: female CHF history: No Hypertension history: Yes Stroke/TIA/thromboembolism history: No Vascular disease history: No Diabetes history: Yes [id number] Score: 4 ARISCAT Score: Age: 51-80 Preoperative [...] Imm Admin: COVID-19 vaccine, age 12+ yr (Balanced-[employer] COMIRNATY) 08/23/2020 Imm Admin: COVID-19 original vaccine, full dose, monovalent (MODERNA) 07/26/2020 Imm Admin: COVID-19 original vaccine, full dose, monovalent (MODERNA) REVIEW OF SYSTEMS: PAIN ASSESSMENT: General: No weight loss, malaise or fevers. Neuro: No history of TIA's, stroke, CONSOLE ATTENDANT tumor, impaired sensorium, hemiplegia, paraplegia or quadraplegia. No neurological symptoms or problems. Respiratory: No history of current cough or dyspnea, or pneumonia in the past 6 weeks. No history of respiratory/pulmonary symptoms or problems. +Tobacco use 1 PPD Cardiovascular: Negative for Recent AK, Angina, Chest Pain, PVD, DVT/PE +HTN +HLD GI: Negative for Nausea, Vomiting, Abdominal pain : Negative for dysuria, incontinence, hematuria, and hesitancy CIVILIAN TECHNICIAN: Negative for abnormal vaginal bleeding, abnormal vaginal [...] TIME: 2:37 PM documented in this encounter OR Notes * Operative Report - Jayshree Hu V, MD - 11/13/2024 9:07 AM EDT OPERATIVE REPORT DATE OF SERVICE: November 13, 2024 PRIMARY SURGEON: Jayshree Hu M.D. CLOTH FOLDER HAND: None [Any nurse listed as assisting or otherwise participating in this patient's care in the operating room has solely performed the duties of a circulating nurse.] Procedure(s) (LRB): PHACOEMULSIFICATION CATARACT IMPLANT INTRAOCULAR LENS W/O ENDOSCOPIC CYCLOPHOTOCOAGULATION (Right) OPHTHALMIC BIOMETRY BY PARTIAL COHERENCE INTERFEROMETRY W/INTRAOCULAR LENS POWER CALCULATION (Right) ANESTHESIA: Topical with monitored anesthesia care. PREOPERATIVE DIAGNOSIS: Combined cataract POSTOPERATIVE DIAGNOSIS: Combined cataract, presbyopia OPERATIVE INDICATIONS: BAT <20/500 OPERATIVE PROCEDURE: The patient was admitted to the operating suite where an IV and BP, EKG, and O2 monitors were placed. The operative eye was pretreated with 2.5% tropicamide and 1% phenylephrine eye drops. The operative eye was confirmed and marked. The intended Intraocular lens model and powercircled on the patient's source document was confirmed to match the intraocular lens model and power selected from the Intraocular lens consignment, in accordance with hospital intraocular lens verification policy. Nasal oxygen was administered. With the patient in the supine position, topical lidocaine 4% was placed in the eye. The patient was then prepped and draped in the usual sterile fashionfor intraocular surgery. After a time-out confirming correct patient using two unique identifiers, correct eye, correct operation, presence of allergies, correct implant, and implant sterility date, an eyelid speculum was placed. Under the operating microscope a beveled clear corneal incision was created temporally with a [place] blade then a 2.4 mm keratome. The anterior chamber was reformed withViscoat, after which the anterior capsule was opened centrally. Using the Utrata forceps a continuous curvilinear capsulorrhexis of approximately 5.5 mm round was created. Gentle hydrodissection was accomplished using preservative-free lidocaine on a 27-gauge cannula. Using the Alexander phacoemulsification unit with the Piehole curved tip, the anterior chamber was entered and the nucleus was removed while it was in the bag. The epinuclear ring was dissected into several segments, then removed usingthe phacoemulsification unit set to the desired aspiration flow rate and ultrasound parameters. It was necessary to use chopper forceps at various intervals to aid in the fragmentation of the dense lens material. Great care was taken not to violate the posterior capsule. The silicone-tipped I and Ainstrument was used to remove the cortex and buff off any remaining cataractous material from the posterior capsule. The capsular bag was then reformed with Discovisc and the following Intraocular lens implant Implant Name Type Inv. Item Serial No. Medical Planner Lot No. LRB No. Used Action Model No. [id number] [employer] - [id number] Intraocular Lens [id number] [employer] [id number] [employer] Right 1 Implanted [id number] was inserted through the lips of the wound into the capsular bag. I have reviewed the images and report from the Ophthalmic Biometry November 13, 2024 to determine the Intraocular lens Power Calculation for the IOL lens implant. I have interpreted and agree with the calculation of the IOL as listed above. Using the I and A instrument, the Discovisc was removed from the anterior chamber and capsular bag, and the implant was centered. Moxifloxacin 0.5mg in 0.1 mL normal saline was introduced into the anterior chamber through the clear corneal incision using a 30 gauge cannula. The wound was checked and found to be watertight. At the end of the procedure, the cornea was clear, the anterior chamber was deep and clear, the pupil was round, the implant was centered within the capsular bag, and the posterior capsule was intact. The eyelid speculum was removed and prednisolone acetate 1% and timolol0.5% eye drops were administered. A shield was affixed over the eye and the patient was sent to therecovery room, leaving the operating room in excellent condition. ESTIMATED BLOOD LOSS: <1mL SPECIMEN: None FINDINGS: Age-related cataract COMPLICATIONS: None Incision/Procedure Start Time: 9:17 AM Incision Close/Procedure End Time: 9:26 AM - Comanage with Dr Ling; [facility] POD #1 Jayshree HU MD documented in this encounter Plan of Treatment Upcoming Encounters Date Type Department Care Team (Latest Contact Info) Description 12/12/2024 9:30 AM EDT Hospital Encounter Ambulatory Surgery [address] [place] [address] Jayshree Hu V, MD [address] [place] [address] Combined forms of age-related cataract of left eye [H25.812] 12/12/2024 9:30 AM EDT - 12/12/2024 10:00 AM EDT Surgery Ambulatory Surgery [address] [place] [address] Jayshree Hu V, MD [address] [place] [address] PHACOEMULSIFICATION CATARACT IMPLANT INTRAOCULAR LENS W/O ENDOSCOPIC CYCLOPHOTOCOAGULATION 12/26/2024 1:30 PM EDT Office Visit [facility] [address] [place] [address] Maxine Thacker MD [address] [place] [address] *4-6 W DTI AVASTIN OS Scheduled Procedures [...] Procedure Name Priority Date/Time Associated Diagnosis Comments OPH BMTRY PRTL COHER INTRFRMTRY IO LENS PWR ALPESH 11/13/2024 9:02 AM EDT Combined form of age-related cataract, right eye XCAPSL CTRC RMVL INSJ IO LENS PROSTH W/O ECP 11/13/2024 9:02 AM EDT Combined form of age-related cataract, right eye GLUCOSE, BLOOD (POC) Routine 11/13/2024 8:39 AM EDT documented in this encounter Results * (ABNORMAL) GLUCOSE, BLOOD (POC) (11/13/2024 8:39 AM EDT) [facility] Glucose, Point of Care 146(A) 74 - 99 mg/dL [facility] Comment: Location:[facility], [address] [place], [place], [address] The Accu-Chek Inform II glucose meter has not been approved for testing on patients receiving intensive medical intervention or therapy and results from this point of care glucose test should not be used for patient management decisions in these cases. Inaccurate results may also occur from other interfering factors, such as N-acetylcysteine (blood concentrations of greater than 5mg/dL), galactose, extremes of hematocrit (<10 or >65), or high doses of ascorbic acid (vitamin C) greater than 3mg/dL. Consider alternate testing mechanisms (e.g. core lab, blood gas instrument) in the above situations. 11/13/2024 8:39 AM EDT Jayshree Shea MD POC TESTING Final Result [facility] POINT OF CARE [facility] [address] [place], [place] documented in this encounter Visit Diagnoses Not on filedocumented in this encounter Administered Medications Inactive Administered Medications - up to 3 most recent administrations Medication Order MAR Action Action Date Dose Rate Site balanced salt 15 mL (BSS) 15 mL, RIGHT EYE, ONCE, 1 dose, On Wed11/13/24 at 0830, For irrigation after betadine, Preprocedure Given 11/13/2024 8:41 AM EDT 15 mL keTORolac 0.5 % 1 drop (ACULAR) 1 drop, RIGHT EYE, EVERY 5 MINUTES, 3 doses, First dose on Wed11/13/24 at 0830, Last dose on Wed11/13/24 at 0840, FOR THE EYE OK to substitute ketorolac 0.4% if ketorolac 0.5% is not available, Preprocedure Given 11/13/2024 8:36 AM EDT 1 drop Given 11/13/2024 8:28 AM EDT 1 drop Given 11/13/2024 8:22 AM EDT 1 drop lidocaine 4% 1 drop ophthalmic solution (XYLOCAINE) 1 drop, RIGHT EYE, EVERY 5 MINUTES, 3 doses, First dose on Wed11/13/24 at 0830, Last dose on Wed11/13/24 at 0840, 1 Drop every 5 minutes in right eye x 3 doses, followed by 1 drop instilled in eye prior to and following eyewash. Then, 1 drop PRN for pain., Preprocedure Given 11/13/2024 8:36 AM EDT 1 drop Given 11/13/2024 8:28 AM EDT 1 drop Given 11/13/2024 8:22 AM EDT 1 drop NaCl 0.9% iv infusion 30 mL/hr, INTRAVENOUS, CONTINUOUS, Starting on Wed11/13/24 at 0830, Until Wed11/13/24 at 1007, Preprocedure New Bag/Syringe/Bottle 11/13/2024 8:35 AM EDT 30 mL/hr 30 mL/hr NaCl 0.9% iv infusion 30 mL/hr, INTRAVENOUS, CONTINUOUS, Starting on Wed11/13/24 at 0930, Until Wed11/13/24 at 1213 PHENYLephrine 2.5 % 1 drop (AK-DILATE, DEJAN-SYNEPHRINE) 1 drop, RIGHT EYE, EVERY 5 MINUTES X 3 DOSES, 3 doses, First dose on Wed11/13/24 at 0830, Last dose on Wed11/13/24 at 0840, FOR OPHTHALMIC USE ONLY PROTECT FROM LIGHT, Preprocedure Given 11/13/2024 8:36 AM EDT 1 drop Given 11/13/2024 8:28 AM EDT 1 drop Given 11/13/2024 8:22 AM EDT 1 drop Povidone-Iodine 5 % 30 mL ophth soln (BETADINE) 30 mL, RIGHT EYE, ONCE, 1 dose, On Wed11/13/24 at 0830, Instill 2 drops to corneal surface and lower conjunctiva; after 2 min, follow with balanced salt solution irrigation, Preprocedure Given 11/13/2024 8:42 AM EDT 30 mL tropicamide 1 % 1 drop (MYDRIACYL) 1 drop, RIGHT EYE, EVERY 5 MINUTES X 3 DOSES, 3 doses, First dose on Wed11/13/24 at 0830, Last dose on Wed11/13/24 at 0840, FOR THE EYE, Preprocedure Given 11/13/2024 8:36 AM EDT 1 drop Given 11/13/2024 8:28 AM EDT 1 drop Given 11/13/2024 8:22 AM EDT 1 drop documented in this encounter Active and Recently Administered Medications Times are shown in EDT. Scheduled Medication Order 11/11/2024 11/12/2024 11/13/2024 balanced salt 15 mL (BSS) (COMPLETED) 15 mL, RIGHT EYE, ONCE, 1 dose, On Wed11/13/24 at 0830, For irrigation after betadine, Preprocedure 0841 (Given - Provid er: Nisa Morris RN) keTORolac 0.5 % 1 drop (ACULAR) (COMPLETED) 1 drop, RIGHT EYE, EVERY 5 MINUTES, 3 doses, First dose on Wed11/13/24 at 0830, Last dose on Wed11/13/24 at 0840, FOR THE EYE OK to substitute ketorolac 0.4% if ketorolac 0.5% is not available, Preprocedure 0822 (Given - Provid er: Nisa Morris RN)0828 (Given - Provider: Nisa Morris RN)0836 (Given - Provider: Nisa Morris RN) lidocaine 4% 1 drop ophthalmic solution (XYLOCAINE) (COMPLETED) 1 drop, RIGHT EYE, EVERY 5 MINUTES, 3 doses, First dose on Wed11/13/24 at 0830, Last dose on Wed11/13/24 at 0840, 1 Drop every 5 minutes in right eye x 3 doses, followed by 1 drop instilled in eye prior to and following eyewash. Then, 1 drop PRN for pain., Preprocedure 0822 (Given - Provid er: Nisa Morris RN)08 (Given - Provider: Nisa Morris RN)0836 (Given - Provider: Nisa Morris RN) PHENYLephrine 2.5 % 1 drop (AK-DILATE, DEJAN-SYNEPHRINE) (COMPLETED) 1 drop, RIGHT EYE, EVERY 5 MINUTES X 3 DOSES, 3 doses, First dose on Wed11/13/24 at 0830, Last dose on Wed11/13/24 at 0840, FOR OPHTHALMIC USE ONLY PROTECT FROM LIGHT, Preprocedure 0822 (Given - Provid er: Nisa Morris RN)08 (Given - Provider: Nisa Morris RN)0836 (Given - Provider: Nisa Morris RN) Povidone-Iodine 5 % 30 mL ophth soln (BETADINE) (COMPLETED) 30 mL, RIGHT EYE, ONCE, 1 dose, On Wed11/13/24 at 0830, Instill 2 drops to corneal surface and lower conjunctiva; after 2 min, follow with balanced salt solution irrigation, Preprocedure 0842 (Given - Provid er: Nisa Morris RN) tropicamide 1 % 1 drop (MYDRIACYL) (COMPLETED) 1 drop, RIGHT EYE, EVERY 5 MINUTES X 3 DOSES, 3 doses, First dose on Wed11/13/24 at 0830, Last dose on Wed11/13/24 at 0840, FOR THE EYE, Preprocedure 0822 (Given - Provid er: Nisa Morris RN)0828 (Given - Provider: Nisa Morris RN)0836 (Given - Provider: Nisa Morris RN) Continuous Medication Order 11/11/2024 11/12/2024 11/13/2024 NaCl 0.9% iv infusion (CANCELED) 30 mL/hr, INTRAVENOUS, CONTINUOUS, Starting on Wed11/13/24 at 0830, Until Wed11/13/24 at 1007, Preprocedure 0835 (New Bag/Syring e/Bottle - Provider: Nisa Morris RN)1007 (Due: Order Ending - Provider: Reg In Adtr - Comment: [Order ends at this time. Document the following action when infusion is complete: Infusion Complete]) NaCl 0.9% iv infusion 30 mL/hr, INTRAVENOUS, CONTINUOUS, Starting on Wed11/13/24 at 0930, Until Wed11/13/24 at 1213 PRN Medication Order 11/11/2024 11/12/2024 11/13/2024 balanced salt (BSS) (CANCELED) NEEDED, Starting on Wed11/13/24 at 0917, Until Wed11/13/24 at 0934, Intraprocedure 09 (Given - Provid er: Jayshree Hu V, MD) chondroitin-sodium hyaluronate injection (DUOVISC) (CANCELED) NEEDED, Starting on Wed11/13/24 at 0917, Until Wed11/13/24 at 0934, Intraprocedure 916 (Given - Provid er: Jayshree Hu V, MD) EPINEPHrine HCl (PF) 0.5 mg in balanced salt 500 mL (CANCELED) NEEDED, Starting on Wed11/13/24 at 0918, Until Wed11/13/24 at 0934, Intraprocedure 09 (Given - Provid er: Jayshree Hu V, MD) lidocaine (PF) 20 mg/mL (2 %) injection (XYLOCAINE) (CANCELED) NEEDED, Starting on Wed11/13/24 at 0917, Until Wed11/13/24 at 0934, Intraprocedure 09 (Given - Provid er: Jayshree Hu V, MD) lidocaine 4% ophthalmic solution (XYLOCAINE) (CANCELED) NEEDED, Starting on Wed11/13/24 at 0911, Until Wed11/13/24 at 0934, Intraprocedure 09 (Given - Provid er: Crystal De Jesus RN) moxifloxacin 0.5 mg/0.1 mL intraocular injection (VIGAMOX) (CANCELED) NEEDED, Starting on Wed11/13/24 at 0918, Until Wed11/13/24 at 0934, Intraprocedure 09 (Given - Provid er: Jayshree Hu V, MD) prednisoLONE acetate 1 % (PRED FORTE) (CANCELED) NEEDED, Starting on Wed11/13/24 at 0918, Until Wed11/13/24 at 0934, Intraprocedure 0918 (Given - Provid er: Marilee Dean RN) timolol maleate 0.5 % (TIMOPTIC) (CANCELED) NEEDED, Starting on Wed11/13/24 at 0918, Until Wed11/13/24 at 0934, Intraprocedure 0918 (Given - Provid er: Marilee Dean RN) documented in this encounter Care Teams Circular Sawyer Helper Relationship Specialty Start Date End Date Ray Loaiza MD [address] [place] [address] PCP - General Family Medicine 11/13/24 documented as of this encounter
--- OUTSIDE RECORDS SUMMARY | 2024-11-13 08:45 | XMS_ITS | Encounter Summary ---
Author Organization [facility] Address [address] [place] [address] Care Team Providers Care Railroad Baggage Porter Name Role Phone Ray Loaiza MD Primary Care Provider [phone] Source Comments In the event this information is protected by the Federal Confidentiality of Alcohol and Drug AbusePatient Records regulations: The Federal rules restrict any use of the information to criminally investigate or prosecute any alcohol or drug abuse patient.[facility] Reason for Visit * Auth/Cert (Routine) Specialty Diagnoses / Procedures Referred By Nanci vargas Referred To Contact [facility] Diagnoses Combined form of age-related cataract, 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, right eye [H25.811] Procedures XCAPSL CTRC RMVL INSJ IO LENS PROSTH W/O ECP OPH BMTRY PRTL COHER INTRFRMTRY IO LENS PWR ALPESH PHACOEMULSIFICATION CATARACT IMPLANT INTRAOCULAR LENS W/O ENDOSCOPIC CYCLOPHOTOCOAGULATION OPHTHALMIC BIOMETRY BY PARTIAL COHERENCE INTERFEROMETRY W/INTRAOCULAR LENS POWER CALCULATION Ambulatory Surgery [address] [place] [address] Phone: tel: Referral ID Status Reason Start Date Expiration Date Visits Re quested Visits Authorized [id number] 1 1 Encounter Details Date Type Department Care Team (Latest Contact Info) Description 11/13/2024 8:45 AM EDT - 11/13/2024 9:15 AM EDT Surgery Ambulatory Surgery [address] [place] [address] Jayshree Hu V, MD [address] [place] [address] PHACOEMULSIFICATION CATARACT IMPLANT INTRAOCULAR LENS W/O ENDOSCOPIC CYCLOPHOTOCOAGULATION Surgery Details Date/Time Status Location OR Service Patient Class Case Class Case Type Trauma Case? 11/13/2024 8:45 AM Posted [facility] LR04 Ophthalmology Ambulatory Surgery Elective Panel 1 Procedure LRB Anes Op Region Wound Class Comments PHACOEMULSIFICATION CATARACT IMPLANT INTRAOCULAR LENS W/O ENDOSCOPIC CYCLOPHOTOCOAGULATION Right Monitored Anesthesia Care Clean OPHTHALMIC BIOMETRY BY PARTI AL COHERENCE INTERFEROMETRY W/INTRAOCULAR LENS POWER CALCULATION Right Monitored Anesthesia Care Eye N/A Surgeon Surgeon Role Service Panel Jayshree Hu V, MD Primary Ophthalmology 1 documented in this encounter Social History Tobacco Use Types Packs/Day Years [...] is lower risk 7 11/13/2024 Data from: https://www.neighborhoodatlas.medicine.[facility].edu/. Last address used for calculation [address] [...] the eye that is NOT relieved by [id number] pain medication. DRESSING/SURGICAL AREA: Leave the eye [...] 9:15 AM Source Note - Roxy Christine APRN.CNP - 11/07/2024 2:34 PM [...] large neck Non-male patient STOP-Bang Score: 2 [id number] Score: Age: 65-74 Sex: female CHF history: No Hypertension history: Yes Stroke/TIA/thromboembolism history: No Vascular disease history: No Diabetes history: Yes [id number] Score: 4 ARISCAT Score: Age: 51-80 Preoperative [...] Immunization Dates Current Care Gaps Covid-19 Vaccine () Overdue since 10/24/2024 04/25/2024 Imm Admin: COVID-19 vaccine, age 12+ yr ([place] COMIRNATY) 08/23/2020 Imm Admin: COVID-19 original vaccine, full dose, monovalent (MODERNA) 07/26/2020 Imm Admin: COVID-19 original vaccine, full dose, monovalent (MODERNA) REVIEW OF SYSTEMS: PAIN ASSESSMENT: General: No weight loss, malaise or fevers. Neuro: No history of TIA's, stroke, CLINICAL INFORMATICS EDUCATOR tumor, impaired sensorium, hemiplegia, paraplegia or quadraplegia. No neurological symptoms or problems. Respiratory: No history of current cough or dyspnea, or pneumonia in the past 6 weeks. No history of respiratory/pulmonary symptoms or problems. +Tobacco use 1 PPD Cardiovascular: Negative for Recent UT, Angina, Chest Pain, PVD, DVT/PE +HTN +HLD GI: Negative for Nausea, Vomiting, Abdominal pain : Negative for dysuria, incontinence, hematuria, and hesitancy FLOW TRADER: Negative for abnormal vaginal bleeding, abnormal vaginal [...] 13, 2024 PRIMARY SURGEON: Jayshree Hu M.D. MECHANIC GENERAL OPERATIONAL TEST: None [Any nurse listed as assisting or [...] the Intraocular lens consignment, in accordance with [facility] intraocular lens verification policy. Nasal oxygen [...] corneal incision was created temporally with a Pavilion blade then a 2.4 mm keratome. The anterior chamber was reformed withViscoat, after which the anterior capsule was opened centrally. Using the Utrata forceps a continuous curvilinear capsulorrhexis of approximately 5.5 mm round was created. Gentle hydrodissection was accomplished using preservative-free lidocaine on a 27-gauge cannula. Using the Alexander phacoemulsification unit with the Kelman curved tip, the anterior chamber was entered [...] Implant Name Type Inv. Item Serial No. Management Specialist Lot No. LRB No. Used Action Model No. [id number] [employer] - [id number] Intraocular Lens [id number] [employer] [id number] ALEXANDER [employer] SURGICAL Right 1 Implanted [id number] was inserted [...] 9:26 AM - Comanage with Dr Ling; [facility] POD #1 Jayshree HU MD documented in this encounter Plan of Treatment Upcoming Encounters Date Type Department Care Team (Latest Contact Info) Description 12/12/2024 9:30 AM EDT Hospital Encounter Ambulatory Surgery [address] [place] [address] Jayshree Hu V, MD [address] [place] [address] Combined forms of age-related cataract of left eye [H25.812] 12/12/2024 9:30 AM EDT - 12/12/2024 10:00 AM EDT Surgery Ambulatory Surgery [address] [place] [address] Jayshree Hu V, MD [address] [place] [address] PHACOEMULSIFICATION CATARACT IMPLANT INTRAOCULAR LENS W/O ENDOSCOPIC CYCLOPHOTOCOAGULATION 12/26/2024 1:30 PM EDT Office Visit [facility] Ophthalmology [address] [place] [address] Maxine Thacker MD [address] [place] [address] *4-6 W DTI AVASTIN OS Scheduled Procedures [...] GLUCOSE, BLOOD (POC) (11/13/2024 8:39 AM EDT) [facility] Glucose, Point of Care 146(A) 74 - 99 mg/dL [facility] Comment: Location:[facility], [address] [place] [address] Rd., [place], [place], [address] The Accu-Chek Inform II glucose meter has [...] Jayshree Shea MD POC TESTING Final Result [facility] POINT [facility] [address] [facility] Michelle Pratt [place] documented in this encounter Visit Diagnoses Diagnosis Combined form of age-related cataract, right eye Combined forms of age-related cataract of left eye Other and combined forms of senile cataract documented in this encounter Administered Medications Inactive Administered Medications - up to 3 most recent administrations Medication Order MAR Action Action Date Dose Rate Site balanced salt (BSS) NEEDED, Starting on Wed11/13/24 at 0917, Until Wed11/13/24 at 0934, Intraprocedure Given 11/13/2024 9:17 AM EDT 15 mL balanced salt 15 mL (BSS) 15 mL, RIGHT EYE, ONCE, 1 dose, On Wed11/13/24 at 0830, For irrigation after betadine, Preprocedure Given 11/13/2024 8:41 AM EDT 15 mL chondroitin-sodium hyaluronate injection (DUOVISC) NEEDED, Starting on Wed11/13/24 at 0917, Until Wed11/13/24 at 0934, Intraprocedure Given 11/13/2024 9:17 AM EDT 1 each EPINEPHrine HCl (PF) 0.5 mg in balanced salt 500 mL NEEDED, Starting on Wed11/13/24 at 0918, Until Wed11/13/24 at 0934, Intraprocedure Given 11/13/2024 9:18 AM EDT 500 mL keTORolac 0.5 % 1 drop (ACULAR) [...] 11/13/2024 8:22 AM EDT 1 drop lidocaine (PF) 20 mg/mL (2 %) injection (XYLOCAINE) NEEDED, Starting on Wed11/13/24 at 0917, Until Wed11/13/24 at 0934, Intraprocedure Given 11/13/2024 9:17 AM EDT 1 m L lidocaine 4% 1 drop ophthalmic solution (XYLOCAINE) [...] 8:22 AM EDT 1 drop lidocaine 4% ophthalmic solution (XYLOCAINE) NEEDED, Starting on Wed11/13/24 at 0911, Until Wed11/13/24 at 0934, Intraprocedure Given 11/13/2024 9:11 AM EDT 3 drops moxifloxacin 0.5 mg/0.1 mL intraocular injection (VIGAMOX) NEEDED, Starting on Wed11/13/24 at 0918, Until Wed11/13/24 at 0934, Intraprocedure Given 11/13/2024 9:18 AM EDT 0.1 mL NaCl 0.9% iv infusion 30 mL/hr, INTRAVENOUS, [...] Given 11/13/2024 8:42 AM EDT 30 mL prednisoLONE acetate 1 % (PRED FORTE) NEEDED, Starting on Wed11/13/24 at 0918, Until Wed11/13/24 at 0934, Intraprocedure Given 11/13/2024 9:18 AM EDT 1 d rop timolol maleate 0.5 % (TIMOPTIC) NEEDED, Starting on Wed11/13/24 at 0918, Until Wed11/13/24 at 0934, Intraprocedure Given 11/13/2024 9:18 AM EDT 1 d rop tropicamide 1 % 1 drop (MYDRIACYL) 1 [...] if ketorolac 0.5% is not available, Preprocedure 08 (Given - Provid er: Nisa Morris RN)08 [...] Then, 1 drop PRN for pain., Preprocedure 08 (Given - Provid er: Nisa Morris RN)08 (Given - Provider: Nisa Morris RN)0836 (Given - Provider: Nisa Morris RN) PHENYLephrine 2.5 % 1 drop (AK-DILATE, DEJAN-SYNEPHRINE) (COMPLETED) 1 drop, RIGHT EYE, EVERY 5 MINUTES X 3 DOSES, 3 doses, First dose on Wed11/13/24 at 0830, Last dose on Wed11/13/24 at 0840, FOR OPHTHALMIC USE ONLY PROTECT FROM LIGHT, Preprocedure 08 (Given - Provid er: Nisa Morris RN)08 [...] Wed11/13/24 at 0840, FOR THE EYE, Preprocedure 08 (Given - Provid er: Nisa Morris RN)0828 [...] at 0917, Until Wed11/13/24 at 0934, Intraprocedure 0917 (Given - Provid er: Jayshree Hu V, MD) chondroitin-sodium hyaluronate injection (DUOVISC) (CANCELED) NEEDED, Starting on Wed11/13/24 at 0917, Until Wed11/13/24 at 0934, Intraprocedure 0917 (Given - Provid er: Jayshree Hu V, MD) EPINEPHrine HCl (PF) 0.5 mg in balanced salt 500 mL (CANCELED) NEEDED, Starting on Wed11/13/24 at 0918, Until Wed11/13/24 at 0934, Intraprocedure 0918 (Given - Provid er: Jayshree Hu V, MD) lidocaine (PF) 20 mg/mL (2 %) injection (XYLOCAINE) (CANCELED) NEEDED, Starting on Wed11/13/24 at 0917, Until Wed11/13/24 at 0934, Intraprocedure 0917 (Given - Provid er: Jayshree Hu V, MD) lidocaine 4% ophthalmic solution (XYLOCAINE) (CANCELED) NEEDED, Starting on Wed11/13/24 at 0911, Until Wed11/13/24 at 0934, Intraprocedure 0911 (Given - Provid er: Crystal De Jesus RN) moxifloxacin 0.5 mg/0.1 mL intraocular injection (VIGAMOX) (CANCELED) NEEDED, Starting on Wed11/13/24 at 0918, Until Wed11/13/24 at 0934, Intraprocedure 0918 (Given - Provid er: Jayshree Hu V, [...] RN) documented in this encounter Care Teams Railroad Baggage Porter Relationship Specialty Start Date End Date Ray Loaiza MD [address] [place] [address] PCP - General Family Medicine 11/13/24 documented as of this encounter
--- OUTSIDE RECORDS SUMMARY | 2024-11-13 09:09 | XMS_ITS | Encounter Summary ---
Author Organization [facility] Address [address] [place] [address] Care Team Providers Care Catering Cook Name Role Phone Ray Loaiza MD Primary Care Provider [phone] Source Comments In the event this information is protected by the Federal Confidentiality of Alcohol and Drug AbusePatient Records regulations: The Federal rules restrict any use of the information to criminally investigate or prosecute any alcohol or drug abuse patient.[facility] Reason for Visit * Auth/Cert (Routine) Specialty Diagnoses / Procedures Referred By Nanci vargas Referred To Contact [facility] Diagnoses Combined form of age-related cataract, 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, right eye [H25.811] Procedures XCAPSL CTRC RMVL INSJ IO LENS PROSTH W/O ECP OPH BMTRY PRTL COHER INTRFRMTRY IO LENS PWR ALPESH PHACOEMULSIFICATION CATARACT IMPLANT INTRAOCULAR LENS W/O ENDOSCOPIC CYCLOPHOTOCOAGULATION OPHTHALMIC BIOMETRY BY PARTIAL COHERENCE INTERFEROMETRY W/INTRAOCULAR LENS POWER CALCULATION Ambulatory Surgery [address] [place] [address] Phone: tel: Referral ID Status Reason Start Date Expiration Date Visits Re quested Visits Authorized [id number] 1 1 Encounter Details Date Type Department Care Team ([facility] st Contact Info) Description 11/13/2024 9:09 AM EDT Anesthesia Event Ambulatory Surgery [address] [place], [place] [id number] Brent Marlo Kelley II, DO [address] [place] [address] [place] [address] [place] [address] Anesthesia Record Procedure Summary Procedure Name Responsible Anesthesiologist Anesthesia Start Time Anesthesia Stop Time PHACOEMULSIFICATION CATARACT IMPLANT INTRAOCULAR LENS W/O ENDOSCOPIC CYCLOPHOTOCOAGULATION (Right) Kennedy Marlo Allie YOON, DO 11/13/24 0909 11/13/24 0928 Events Date Time Event Comment 11/13/2024 0823 0909 An Start I have re-evalu ated the patient immediately prior to induction. 0909 An Start Data 0912 Anesthesia Ready 0917 Incision/Procedure Start 09 Procedure End 09 an stop data 0928 Handoff to RN I completed my handoff to the receiving nurse during which we: 1. Identified the patient 2. Identified the responsible provider 3. Reviewed the pertinent medical history 4. Discussed the surgical course 5. Reviewed intra-op anesthesia management and issues during anesthesia 6. Set expectations for post-procedure period 7. Allowed opportunity for questions and acknowledgement of understanding. 0928 An Stop Meds Name Total midazolam 1 mg/mL 1 mg * Agents Name ETO2 ETN2O Inspired N2O Set O2% MAC Case O2 Flow Rate * Blood No blood administrations on file. Lines, Drains, and Airways Type Details Placement Removal Wound 11/13/24; 916; Surg ical; Eye; Right 11/13/24 09 by Marilee Dean RN PIV 11/13/24; 0835; [facility]; Short; Right; Hand; 22 Gauge; 11/13/24; 0935; Order 11/13/24 0835 by Nisa Morris RN 11/13/24 0935 by Jennifer Dc RN documented in this encounter Social History Tobacco Use Types Packs/Day Years Used Date Smoking Tobacco: Every Day Cigarettes 1 59.5 Started: 1964 Smokeless Tobacco: Never Alcohol Use Standard Drinks/Week Comments Never 0 (1 standard drink = 0.6 oz pur e alcohol) Area Deprivation Index Answer Date Nghia rded National Score (1-100), lower number is lower ri 79 11/13/2024 State Score (1-10), lower number is lower risk 7 11/13/2024 Data from: https://www.neighborhoodatlas.medicine.[facility]/. Last address used for calculation [address] 11/13/2024 Comments No Sex and Gender Information Value Date Recorded Sex Assigned at Not on file Legal Sex Female 2:11 PM EDT Gender Identity Not on file Sexual Orientation Not on file documented as of this encounter Last Filed Vital Signs Vital Sign Reading Time Taken Comments Blood Pressure 172/80 11/13/2024 9:25 AM EDT Pulse 85 11/13/2024 9:26 AM EDT Temperature - - Respiratory Rate - - Oxygen Saturation 100% 11/13/2024 9:26 AM EDT Inhaled Oxygen Concentration - - Weight - - Height - - Body Mass Index - - documented in this encounter Procedure Notes * Marlo Kennedy II, DO - 11/13/2024 1:12 PM EDT POST ANESTHESIA EVALUATION NOTE : 1950 Procedure Summary Date: 11/13/24 Room / Location: [place] [address] / [facility] Anesthesia Start: 908 Anesthesia Stop: 927 Procedures: PHACOEMULSIFICATION CATARACT IMPLANT INTRAOCULAR LENS W/O ENDOSCOPIC CYCLOPHOTOCOAGULATION (Right) OPHTHALMIC BIOMETRY BY PARTIAL COHERENCE INTERFEROMETRY W/INTRAOCULAR LENS POWER CALCULATION (Right: Eye) Diagnosis: Combined form of age-related cataract, right eye (Combined form of age-related cataract, right eye [H25.811]) Surgeons: Jayshree Cyr V, MD Responsible Provider: Marlo Kennedy II, DO Anesthesia Type: MAC ASA Status: 3 Anesthesia Type: MAC Last Vitals Vitals Value Taken Time BP 149/66 11/13/24 0935 Temp 36.4 ??C (97.5 ??F) 11/13/24 0930 Pulse 85 11/13/24 0935 Resp 16 11/13/24 0935 SpO2 96 % 11/13/24 0935 Post Anesthesia Patient Status Patient Evaluation: PACU. PACU/ICU Patient Condition: stable. Neurological Status: aware and responsive. Pulmonary Status: breathing comfortably on room air Airway Control: returned to baseline unsupported. Cardiovascular Status: stable. Pain Management: clinically adequate Postoperative Hydration: acceptable. Intraoperative Events: no significant anesthesia events Post Operative Nausea/Vomiting Status: no significant post operative nausea or vomiting Recommendation: continue current plan of care. Anesthesia Observations No Documentation SIGNATURE: Marlo Kennedy II, DO PATIENT NAME: Daryc Colon DATE: November 13, 2024 TIME: 1:12 PM CSN: [id number] * Marlo Kennedy II, DO - 11/13/2024 8:21 AM EDT ANESTHESIOLOGY DAY OF SURGERY NOTE : 1950 Procedure Information Date/Time: 11/13/24 0845 Procedures: PHACOEMULSIFICATION CATARACT IMPLANT INTRAOCULAR LENS W/O ENDOSCOPIC CYCLOPHOTOCOAGULATION (Right) OPHTHALMIC BIOMETRY BY PARTIAL COHERENCE INTERFEROMETRY W/INTRAOCULAR LENS POWER CALCULATION (Right: Eye) Location: [place] [address] / [facility] Surgeons: Jayshree Cyr V, MD Estimated body mass index is 24.52 kg/m?? as calculated from the following: Height as of 11/07/24: 170.2 cm (5' 7 ). Weight as of 11/07/24: 71 kg (156 lb 8.4 oz). Most recent hematocrit and potassium results: No results found for this basename: HCT,HEMATOCRIT,K,POTASSIUM Relevant Problems CARDIO (+) Essential hypertension (+) Peripheral arterial disease I - PHYSICAL EVALUATION AIRWAY Patient intubated: No. Tracheostomy tube not present Mallampati: III. TM distance: >3 FB. Neck ROM: limited extension. Mouth opening: adequate. Short neck: no. Thick neck: no DENTAL Dentures, upper: complete. Dentures, lower: complete. Additional exam findings: yes. CARDIOVASCULAR Rhythm: regular Rate: normal PULMONARY Breath sounds clear to auscultation. II - ANESTHESIA PLAN ASA Score: 3 Anesthetic Plan: MAC The patient is a current smoker. NPO Status: adequate Beta Jacobo Monitoring Plan Monitoring plan: standard ASA. Post Procedure Analgesic Plan Postoperative analgesic plan: parenteral or oral opioids. Informed Consent Anesthetic risks, benefits, alternatives, personnel and consent discussed: yes. Patient / Responsible Libertarian agrees to proceed: yes Patient / Surrogate agrees to blood products: Yes No vitals data found for the desired time range. Facility-Administered Medications as of 11/13/2024 Medication Dose Route Frequency NaCl 0.9% iv infusion 30 mL/hr INTRAVENOUS CONTINUOUS lidocaine 4% 1 drop ophthalmic solution (XYLOCAINE) 1 drop RIGHT EYE q 5 MIN PHENYLephrine 2.5 % 1 drop (AK-DILATE, DEJAN-SYNEPHRINE) 1 drop RIGHT EYE EVERY 5 MINUTES X 3 DOSES tropicamide 1 % 1 drop (MYDRIACYL) 1 drop RIGHT EYE EVERY 5 MINUTES X 3 DOSES cyclopentolate 1 % 1 drop (CYCLOGYL) 1 drop RIGHT EYE Pre-Op PRN keTORolac 0.5 % 1 drop (ACULAR) 1 drop RIGHT EYE q 5 MIN Povidone-Iodine 5 % 30 mL ophth soln (BETADINE) 30 mL RIGHT EYE ONCE balanced salt 15 mL (BSS) 15 mL RIGHT EYE ONCE Outpatient Medications as of 11/13/2024 Medication Sig prednisoLONE acetate (PRED FORTE) 1 % ophthalmic suspension USE DIRECTED BY PHYSICIAN, IN OPERATIVE EYE, BEGINNING ONE DAY AFTER SURGERY keTORolac (ACULAR) 0.5 % ophthalmic solution USE DIRECTED BY PHYSICIAN, IN OPERATIVE EYE, BEGINNING ONE DAY AFTER SURGERY atorvastatin (LIPITOR) 80 mg tablet Take 1 tablet by mouth once daily. I have interviewed and examined the patient. I have reviewed the medical record and/or the pre-anesthesia evaluation, pertinent labs, and test results. This contains updated information obtained within 48 hours of Surgery/Procedure. SIGNATURE: Marlo Kennedy II, DO PATIENT NAME: Darcy Colon DATE: November 13, 2024 TIME: 8:21 AM CSN: [id number] documented in this encounter Plan of Treatment Upcoming Encounters Date Type Department Care Team (Latest Contact Info) Description 12/12/2024 9:30 AM EDT Hospital Encounter Ambulatory Surgery [address] [place], [place] [id number] Jayshree Cyr V, MD [address] [place] [address] Combined forms of age-related cataract of left eye [H25.812] 12/12/2024 9:30 AM EDT - 12/12/2024 10:00 AM EDT Surgery Ambulatory Surgery [address] [place] [address] Jayshree Cyr V, MD [address] [place] [address] PHACOEMULSIFICATION CATARACT IMPLANT INTRAOCULAR LENS W/O ENDOSCOPIC CYCLOPHOTOCOAGULATION 12/26/2024 1:30 PM EDT Office Visit [facility] Ophthalmology [address] [facility] [address] [place] [address] Maxine Thacker MD [address] [place] [address] *4-6 W DTI AVASTIN OS Scheduled Procedures Name Priority Associated Diagnoses Date/Ti me PHACOEMULSIFICATION CATARACT IMPLANT INTRAOCULAR LENS W/O ENDOSCOPIC CYCLOPHOTOCOAGULATION Combined forms of age-related cataract of left eye 12/12/2024 9:30 AM EDT OPHTHALMIC BIOMETRY BY PARTI AL COHERENCE INTERFEROMETRY W/INTRAOCULAR LENS POWER CALCULATION Combined forms of age-related cataract of left eye 12/12/2024 9:30 AM EDT documented as of this encounter Visit Diagnoses Not on filedocumented in this encounter Administered Medications Inactive Administered Medications - up to 3 most recent administrations Medication Order MAR Action Action Date Dose Rate Site midazolam (PF) injection (VERSED) INTRAVENOUS, NEEDED, Starting on Wed11/13/24 at 0912, Until Wed11/13/24 at 0928, Anesthesia Intraprocedure Given 11/13/2024 9:12 AM EDT 1 mg documented in this encounter Care Teams Catering Cook Relationship Specialty Start Date End Date Ray Loaiza MD [address] [place] [address] PCP - General Family Medicine 11/13/24 documented as of this encounter
--- OUTSIDE RECORDS SUMMARY | 2024-11-17 05:45 | XMS_ITS ---
Author Organization [facility] [place] Address [address] [place] [address] Care Team Providers Care Utility Bill Collector Name Role Phone Juan Luis Loaiza Primary Care Provider Allergies No Known Allergies REASON FOR VISIT Presents to office for yearly check up., Eye doctor wants labs ordered d/t leaking blood into eye Medications Medication SIG (Take, Route, Frequency, Duration) Notes Start Date End Date Status Pentoxifylline ER 400 MG TAKE 1 TABLET B Y MOUTH EVERY 8 HOURS for 90 days Active Metoprolol Tartrate 50 MG 1/2 tablet wit h food Orally Twice a day for 90 days Active Manor 3 Active Propylthiouracil 50 MG TAKE 1 TABLET BY MOUTH EVERY DAY for 90 Active Spectravite Active Lisinopril 20 MG TAKE 1 TABLET BY SHONDA TH EVERY DAY for 90 days Active metFORMIN HCl 500 MG TAKE 1 TABLET BY MO UTH TWICE A DAY for 90 days Active Furosemide 20 MG TAKE 1 TABLET BY SHONDA TH EVERY DAY for 90 Active glipiZIDE 5 MG TAKE 1 TABLET BY SHNODA TH TWICE A DAY for 90 days Active Atorvastatin Calcium 80 MG TAKE 1 TABLET BY MOUTH EVERY DAY FOR 90 DAYS for 90 Active amLODIPine Besylate 5 MG TAKE 1 TABLET B Y MOUTH EVERY DAY for 90 days Active Alendronate Sodium 70 MG TAKE 1 TAB 30 M INUTES BEFORE THE FIRST FOOD, BEVERAGE OR MEDICINE OF THE DAY WITH PLAIN WATER ONCE WEEKLY for 84 Active Social History Tobacco Use: Social History [...] Interpretation Negative Vital Signs Blood pressure systolic 118 mm Hg 11/18/19 25 Blood pressure diastolic 56 mm Hg 025 Height 67 in 11/17/2024 Weight 152.2 lbs 11/17/2024 BMI 23.84 kg/m2 11/17/2024 Encounters Encounter Location Date Provider Diagnosis [facility] [address] [place] [address] 11/17/2024 Juan Luis Loaiza Type 2 diabetes mj itus without complications E11.9 ; Pure hypercholesterolemia, unspecified E78.00 ; Essential (primary) hypertension I10 ; 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 and Nicotine dependence, unspecified, uncomplicated F17.200 Assessments Encounter Date Diagnosis (ICD Code) Assessment Notes Treatment Notes Treatment Clinical Notes Section Notes 11/17/2024 Type 2 diabetes mellitus without complications (ICD-10 - E11.9) doing wel wiht diet and meds 11/17/2024 Pure hypercholesterolem ia, unspecified (ICD-10 - E78.00) checking labs - taking daily 11/17/2024 Essential (primary) hypertension (ICD-10 - I10) great control - no lightheaded 11/17/2024 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) checkgin on labs 11/17/2024 Nicotine dependence, unspecified, uncomplicated (ICD-10 - F17.200) ct screenign fl lung ca Plan Of Treatment Treatment Notes Assessment Notes Type 2 diabetes mellitus without complic ations doing wel wiht diet and meds Pure hypercholesterolemia, unspecified c hecking labs - taking daily Essential (primary) hypertension great c ontrol - no lightheaded Ariana's disease checkgin on labs Nicotine dependence, unspecified, uncomp licated ct screenign fl lung ca Pending Test Test Name Order Date HEMOGLOBIN A1C (GLYCO) 11/17/2024 IRON, TOTAL 11/17/2024 LIPID PANEL (CHOL/TRIG/HDL/LDL) 11/18/19 25 VITAMIN D, 25 LEVEL (TOTAL) 11/17/2024 STOOL OCCULT BLOOD 11/17/2024 THYROID PANEL (T4/TSH/FREE T3) 5 MM screening mammo BI 11/17/2024 CT CHEST LOW DOSE (LDCT) 11/17/2024 CMP (COMP MET ALCANTARA) w/eGFR CKD-EPI 2024 CBC WITH DIFF 11/17/2024 Next Appt Details Provider Name:Juan Luis Motta Abhinavaddie, 09:15:00 AM, [address] [facility], [place], [address], Progress Notes * Darcy COLON ADOB:1950 ( 74 yo F)Acc No.[id number]:11/17/2024 UNLOCKED PROGRESS NOTE Progress Note Patient: Darcy SINGH Provider: Phoebe Loaiza ([facility])MD :1950 A ge:74 Y S ex:Female Date:11/17/2024 Address:[address] [place] [address] [place] [id number] Check In:09:45 AM ESTCheck O ut:10:26 AM EST Subjective: * Chief Complaints: * 1 . Presents to office for yearly check up.. 2. Eye doctor wants labs ordered d/t leaking blood into eye. * HPI: G eneral: Hy[ertensip -0 on meds -stable dm- 120's PAD _ on meds hyperthyroid - checking opn labs. * Medical History: * Surgical History: H ysterectomy , Right Hip Repair- pins 2014, Open Heart Surgery 1983, Heel spur removed- left 1991, Bilateral Knee Replacement 2008, Cataract removal rt eye 12/01. * Family History: F ather: , alcoholism, hypertension, acute myocardial infarction, diagnosed with Unspecified essential hypertension. M other: , alcoholism, type II diabetes, colon polyp, diagnosed with Diabetes mellitus without mention of complication, type II or unspecified type, not stated as uncontrolled. B rother(s): type II diabetes, hypertension, kidney disease, Parkinsons, diagnosed with Diabetes mellitus without mention of complication, type II or unspecified type, not stated as uncontrolled, Unspecified essential hypertension, Chronic kidney disease, unspecified. S on(s): alive, Heart Attack, diagnosed with Diabetes mellitus without mention of complication, type II or unspecified type, not stated as uncontrolled. D benjier(s): alive, diagnosed with Unspecified polyarthropathy or polyarthritis, [...] I nterpretation N egative * Medications: T aking Alendronate Sodium 70 MG Tablet TAKE 1 TAB 30 MINUTES BEFORE THE FIRST FOOD, BEVERAGE OR MEDICINE OF THE DAY WITH PLAIN WATER ONCE WEEKLY , Taking amLODIPine Besylate 5 MG Tablet TAKE 1 TABLET BY MOUTH EVERY DAY , Taking Atorvastatin Calcium 80 MG Tablet TAKE 1 TABLET BY MOUTH EVERY DAY FOR 90 DAYS , Taking Furosemide 20 MG Tablet TAKE 1 TABLET BY MOUTH EVERY DAY , Taking glipiZIDE 5 MG Tablet TAKE 1 TABLET BY MOUTH TWICE A DAY , Taking Lisinopril 20 MG Tablet TAKE 1 TABLET BY MOUTH EVERY DAY , Taking metFORMIN HCl 500 MG Tablet TAKE 1 TABLET BY MOUTH TWICE A DAY , Taking Metoprolol Tartrate 50 MG Tablet 1/2 tablet with food Orally Twice a day , Taking Manor 3 , Taking Pentoxifylline ER 400 MG Tablet Extended Release TAKE 1 TABLET BY MOUTH EVERY 8 HOURS , Taking Propylthiouracil 50 MG Tablet TAKE 1 TABLET BY MOUTH EVERY DAY , Taking Spectravite , Medication List reviewed and reconciled with the patient * Allergies: N .K.D.A. Objective: * Vitals: W t:152.2lbs, Ht: 67 in, BP:118/56mm Hg, BMI:23.84Index, Ht-cm: 170.18 cm, Wt-k.04 kg. Assessment: * Assessment: 1. T ype 2 diabetes mellitus without complications - E11.9 (Primary) 2 . P ure hypercholesterolemia, unspecified - E78.00 3 . E ssential (primary) hypertension - I10 4 . H ashimoto's disease - E06.3 5 . N icotine dependence, unspecified, uncomplicated - F17.200 Plan: * Treatment: 2. P ure hypercholesterolemia, unspecified L AB: HEMOGLOBIN A1C (GLYCO) L AB: IRON, TOTAL L AB: LIPID PANEL (CHOL/TRIG/HDL/LDL) L AB: VITAMIN D, 25 LEVEL (TOTAL) L AB: STOOL OCCULT BLOOD L AB: THYROID PANEL (T4/TSH/FREE T3) L AB: CMP (COMP MET ALCANTARA) w/eGFR CKD-EPI L AB: CBC WITH DIFF I maging: MM screening mammo BI I maging: CT CHEST LOW DOSE (LDCT) Notes: checking labs - taking daily 3. E ssential (primary) hypertension L AB: HEMOGLOBIN A1C (GLYCO) L AB: IRON, TOTAL L AB: LIPID PANEL (CHOL/TRIG/HDL/LDL) L AB: VITAMIN D, 25 LEVEL (TOTAL) L AB: STOOL OCCULT BLOOD L AB: THYROID PANEL (T4/TSH/FREE T3) L AB: CMP (COMP MET ALCANTARA) w/eGFR CKD-EPI L AB: CBC WITH DIFF I maging: MM screening mammo BI I maging: CT CHEST LOW DOSE (LDCT) Notes: great control - no lightheaded 4. H ashimoto's disease L AB: HEMOGLOBIN A1C (GLYCO) L AB: IRON, TOTAL L AB: LIPID PANEL (CHOL/TRIG/HDL/LDL) L AB: VITAMIN D, 25 LEVEL (TOTAL) L AB: STOOL OCCULT BLOOD L AB: THYROID PANEL (T4/TSH/FREE T3) L AB: CMP (COMP MET ALCANTARA) w/eGFR CKD-EPI L AB: CBC WITH DIFF I maging: MM screening mammo BI I maging: CT CHEST LOW DOSE (LDCT) Notes: checkgin on labs 5. N icotine dependence, unspecified, uncomplicated L AB: HEMOGLOBIN A1C (GLYCO) L AB: IRON, TOTAL L AB: LIPID PANEL (CHOL/TRIG/HDL/LDL) L AB: VITAMIN D, 25 LEVEL (TOTAL) L AB: STOOL OCCULT BLOOD L AB: THYROID PANEL (T4/TSH/FREE T3) L AB: CMP (COMP MET ALCANTARA) w/eGFR CKD-EPI L AB: CBC WITH DIFF I maging: MM screening mammo BI I maging: CT CHEST LOW DOSE (LDCT) Notes: ct screenign fl lung ca * Preventive Medicine: Screenings/Counseling: T OBACCO ACTION PLAN Patient counselled on the dangers of tobacco use and urged to quit. 0 11/17/2024 . F ALL RISK SCREENING Fall Risk Assessment: N o falls in the past year * * Electronic signature of Juan Luis Loaiza MD, [phone] on 11/17/2024 at 10:43 AM EDT Sign off status: Pending Visit Status: Wanda GLORIA (Check Out) * Provider: Phoebe Loaiza ([facility]C)MD Date: 0 11/17/2024 Generated for Printi ng/Stephanie/eTransmitting on: 0 11/17/2024 10:43 AM EDT History and Physical Notes * HPI (History of Present Illness) Category Sub-Category Detail Notes Category Not es General Hy[ertensip -0 on meds -stable dm- 120's PAD _ on meds hyperthyroid - checking opn labs
--- OUTSIDE RECORDS SUMMARY | 2024-11-17 10:42 | XMS_ITS | Clinical Summary ---
Author Organization [employer] Address [id number] [address] [place] [address] Care Team Providers Care Wedding Designer Name Role Phone Yan Llanos MD Primary Care Provider [phone] Allergies No known active allergies Medications alendronate (FOSAMAX) 70 mg tablet Take 70 mg by mouth every 7 days. 02/08/2020 Active amLODIPine (NORVASC) 5 mg tablet TAKE 1 TABLET BY MOUTH AT NOON 02/08/2020 Active furosemide (LASIX) 20 mg tablet Take 10 mg by mouth daily. 02/08/2020 Active glipiZIDE (GLUCOTROL) 5 mg tablet TAKE 1/2 TABLET EVERY MORNING AND TAKE 1/2 TABLET AT SUPPER 02/08/2020 Active lisinopriL (PRINIVIL,ZESTR IL) 40 mg tablet TAKE 1 TABLET BY MOUTH AT NOON 02/08/2020 Active metFORMIN (GLUCOPHAGE) 500 mg tablet TAKE 1 TABLET BY MOUTH EVERY MORNING TAKE 1 TABLET BY MOUTH AT 5 PM 02/12/2020 Active metoprolol tartrate (LOPRESSOR) 50 mg tablet TAKE 1 TABLET BY MOUTH EVERY MORNING AND TAKE 1 TABLET IN THE EVENING 02/08/2020 Active DAILY-MEGHA tablet Take 1 tablet by mouth daily. 02/08/2020 Active pentoxifylline (TRENtal) 400 mg CR tablet Take 400 mg by mouth every 8 (eight) hours. 02/12/2020 Active propylthiouraci L (PTU) 50 mg tablet Take 50 mg by mouth daily. 02/08/2020 Active simvastatin (ZOCOR) 80 mg tablet Take 40 mg by mouth 2 (two) times a day. 02/08/2020 Active Social History Tobacco Use Types Packs/Day Years Used Date Smoking Tobacco: Never Assessed Childcare Answer Date Recorded Childcare Unknown 04/11/2020 Employment Answer Date Recorded Employment Unknown 04/11/2020 Purpose - Life Answer Date Recorded Purpose and direction in life Unknown Comments Unknown Sex and Gender Information Value Date Recorded Sex Assigned at Not on file Legal Sex Female 2:23 PM EST Gender Identity Not on file Sexual Orientation Not on file Last Filed Vital Signs Vital Sign Reading Time Taken Comments Blood Pressure 143/66 08/15/2020 9:02 AM EDT Pulse - - Temperature - - Respiratory Rate - - Oxygen Saturation - - Inhaled Oxygen Concentration - - Weight 79.4 kg (175 lb) 08/15/2020 9:02 AM EDT Height 170.2 cm (5' 7 ) 08/15/2020 9:02 AM EDT Body Mass Index 27.41 08/15/2020 9:02 AM EDT Plan of Treatment Health Maintenance Due Date Last Done Comments Depression Screening 1963 Tobacco Screening 1963 Adult BMI Screening 1969 DTaP,Tdap and Td Vaccines (1 - Tdap) 1970 Zoster (Shingles) Vaccine (1 of 2) 2001 Fall Risk Screening 02/08/2016 Influenza Vaccine 01/08/2025 Medical Devices Not on file Insurance MEDICARE [facility] Care Teams Wedding Designer Relationship Specialty Start Date End Date Yan Llanos MD [address] [place] [address] PCP - General Family Medicine 04/11/20
--- OUTSIDE RECORDS SUMMARY | 2024-11-17 10:43 | XMS_ITS | Encounter Summary ---
Author Organization [facility] Address [address] [place] [address] Care Team Providers Care Animal Behaviorist Name Role Phone Ray Loaiza MD Primary Care Provider [phone] Source Comments In the event this information is protected by the Federal Confidentiality of Alcohol and Drug AbusePatient Records regulations: The Federal rules restrict any use of the information to criminally investigate or prosecute any alcohol or drug abuse patient.[facility] Encounter Details Date Type Department Care Team (Latest Contact Info) Description 11/16/2024 Travel Social History Tobacco Use Types Packs/Day Years [...] is lower risk 7 11/13/2024 Data from: https://www.neighborhoodatlas.medicine.[facility].edu/. Last address used for calculation [address] [address] [address] 11/13/2024 Comments No Sex and Gender Information Value Date Recorded Sex Assigned at Not on file Legal Sex Female 2:11 PM EDT Gender Identity Not on file Sexual Orientation Not on file documented as of this encounter Plan of Treatment Upcoming Encounters Date Type Department Care Team (Latest Contact Info) Description 12/12/2024 9:30 AM EDT Hospital Encounter Ambulatory Surgery [address] [place] [address] Jayshree Cyr V, MD [address] [place] [address] Combined forms of age-related cataract of left eye [H25.812] 12/12/2024 9:30 AM EDT - 12/12/2024 10:00 AM EDT Surgery Ambulatory Surgery [address] [place] [address] Jayshree Cyr V, MD [address] [place] [address] PHACOEMULSIFICATION CATARACT IMPLANT INTRAOCULAR LENS W/O ENDOSCOPIC CYCLOPHOTOCOAGULATION 12/26/2024 1:30 PM EDT Office Visit [facility] [address] [place] [address] Maxine Thacker MD [address] [place] [address] *4-6 W DTI AVASTIN OS Scheduled Procedures [...] Diagnoses Not on filedocumented in this encounter Care Teams Animal Behaviorist Relationship Specialty Start Date End Date Ray Loaiza MD [address] [place] [address] PCP - General Family Medicine 11/13/24 documented as of this encounter
--- OUTSIDE RECORDS SUMMARY | 2024-11-17 10:43 | XMS_ITS | Patient Health Record ---
Author Organization [facility] in [place] Address [address] [place] [address] Care Team Providers Care Detacker Name Role Phone Juan Luis Peres Primary Care Provider [phone] Allergies No Known Allergies Results Component Value Reference Range Notes MM tomosynthesis screening B I Reviewed date:01/17/2024 08:58:19 PM Interpretation: Performing Lab: Notes/Report: Source Facility: [place] [address] Mammography Report Signed Patient: DARCY COLON MR#: [id number] : 1950 Acct:[id number] Age/Sex: 73 / F ADM Date: 01/14/24 Loc: CT Attending Dr: Roddy Peres M.D. Ordering Physician: Roddy Peres M.D. Results: Date of Service: 01/14/24 Follow Up: Procedure(s): MM tomosynthesis screening BI Accession Number(s): [id number] cc: Roddy Peres M.D. Patient Name: DARCY COLON MR#: [id number] : 1950 Exam Date: 01/14/2024 Ordering Doctor: DR Roddy Peres . RADIOLOGY REPORT PROCEDURE: MM TOMOSYNTHESIS SCREENING BI COMPARISON: MG MAMM SCREEN BALDOMERO W CAD, 05/22/2016. MM TOMOSYNTHESIS SCREENING BI, 01/12/2023. INDICATIONS: Screening Calculator Name NCI Breast Cancer Risk Assessment Tool 5 Year Breast Cancer Risk 1.30% Lifetime Breast Cancer Risk 3.30% Personal Breast Cancer No Personal Ovarian Cancer No Treatments None Family Cancers Mother with colon cancer at age 60. LOCATION: [facility] BREAST COMPOSITION: The breasts are heterogeneously dense,which may obscure small masses. FINDINGS: DIAGNOSTIC CATEGORY 2--BENIGN FINDING. NO CHANGE FROM COMPARISON. Scattered benign-appearing lymph nodes are present. Scattered benign-appearing calcifications are present. RIGHT BREAST: No significant suspicious finding. LEFT BREAST: No significant suspicious finding. Stable focal asymmetry upper outer quadrant, anterior breast RECOMMENDATIONS: ROUTINE MAMMOGRAM AND CLINICAL EVALUATION IN 12 MONTHS. PLEASE NOTE: A NORMAL MAMMOGRAM DOES NOT EXCLUDE THE POSSIBILITY OF BREAST CANCER. A CLINICALLY SUSPICIOUS PALPABLE LUMP SHOULD BE BIOPSIED. Dictated by: Yayo Jones MD on 01/17/2024 at 09:18 Approved by: Yayo Jones MD on 01/17/2024 at 09:19 Dictated By: Yayo Jones M.D. Signed By: 01/17/24920 DD/ 9 TD/TT: [employer]: [place] [address] Mammography Report Signed Patient: DARCY COLON MR#: [id number] : 1950 Acct:[id number] Age/Sex: 73 / F ADM Date: 01/14/24 Loc: CT Attending Dr: Kim Peres M.D. Ordering Physician: Roddy Peres M.D. Results: Date of Service: 01/14/24 Follow Up: Procedure(s): MM tomosynthesis screening BI Accession Number(s): [id number] cc: Roddy Peres M.D. Patient Name: DARCY COLON MR#: [id number] : 1950 Exam Date: 01/14/2024 Ordering Doctor: DR Roddy Peres . RADIOLOGY REPORT PROCEDURE: MM TOMOSYNTHESIS SCREENING BI COMPARISON: MG MAMM SCREEN BALDOMERO W CAD, 05/22/2016. MM TOMOSYNTHESIS SCREENING BI, 01/12/2023. INDICATIONS: Screening Calculator Name NCI Breast Cancer Risk Assessment Tool 5 Year Breast Cancer Risk 1.30% Lifetime Breast Canc er Risk 3.30% Personal Breast Canc er No Personal Ovarian Can cer No Treatments None Family Cancers Mothe r with colon cancer at age 60. LOCATION: [facility] BREAST COMPOSITION: The breasts are heterogeneously dense,which may obscure small masses. FINDINGS: DIAGNOSTIC CATEGORY 2--BENIGN FINDING. NO CHANGE FROM COMPARISON. Scattered benign-appearing lym ph nodes are present. Scattered benign-appearing calcifications are present. RIGHT BREAST: No significant suspicious finding. LEFT BREAST: No significant suspicious finding. Stable focal asymmetry upper outer quadrant, anterior breast RECOMMENDATIONS: ROUTINE MAMMOGRAM AN D CLINICAL EVALUATION IN 12 MONTHS. PLEASE NOTE: A TAL L MAMMOGRAM DOES NOT EXCLUDE THE POSSIBILITY OF BREAST CANCER. A CLINICALLY SUSPICIOUS PALPABLE LUMP SHOULD BE BIOPSIED. Dictated by: Yayo Jones MD on 01/17/2024 at 09:18 Approved by: Yayo Jones MD on 01/17/2024 at 09:19 Dictated By: Andrew Jones M.D. Signed By: 01/17/24920 DD/ 9 TD/TT: [employer]: [facility] Reviewed date:01/03/2024 06:39:18 PM Interpretation: Performing Lab: Notes/Report: [facility] , Thyroid Stimulating Hormone 0.742 0.358-3.740 uIU/mL Performing Lab: see note ML - [facility] LB T4 Reviewed date:01/03/2024 06:39:18 PM Interpretation: Performing Lab: Notes/Report: [facility] , T4 Thyroxine 9.30 4.80-13.90 ug/dL Performing Lab: see note ML - [facility] LB PROF 14(COMP METB) Reviewed date:01/03/2024 06:39:18 PM Interpretation: Performing Lab: Notes/Report: [facility] , Sodium 141 136-145 mmol/L Potassium 4.0 3.5-5.1 mmol/L Chloride 102 98-107 mmol/L Carbon Dioxide 27.0 21.0-32.0 mmol/L Anion Gap 16.0 Glucose 93 74-106 mg/dL Blood Urea Nitrogen 13.0 7.0-18.0 mg/dL Creatinine 0.97 0.55-1.02 mg/dL Estimated GFR ( [place] >60 >=60 Estimated GFR (Non- [place] 56 >=60 BUN Creatinine Ratio 13.4 Calcium 9.1 8.5-10.1 mg/dL Bilirubin Total 0.9 0.2-1.0 mg/dL Aspartate Amino Transferase 24 15-37 U/L Alanine Aminotransferase 26 14-59 U/L Alkaline Phosphatase 77 46-116 U/L Total Protein 6.9 6.4-8.2 g/dL Albumin Level 3.4 3.4-5.0 g/dL Globulin 3.5 Albumin Globulin Ratio 1.0 Performing Lab: see note ML - [facility] LB LIPID PROFILE Reviewed date:01/03/2024 06:39:18 PM Interpretation: Performing Lab: Notes/Report: [facility] , Triglycerides 158 <=150 mg/dL Cholesterol 169 <=200 mg/dL HDL Cholesterol 45 40-60 mg/dL <40 mg/dl - HIGH CARDIOVASCULAR RISK > or =60 mg/dl - LOW CARDIOVASCULAR RISK LDL Cholesterol Calculated 93.0 <100 mg/dl OPTIMAL 130-159 mg/dl BORDERLINE HIGH 100-129 mg/dl NEAR OR ABOVE OPTIMAL 160-189 mg/dl HIGH >190 mg/dl VERY HIGH VLDL CHOLESTEROL 31.6 Chol HDL Ratio 3.8 4.4 - 7.1 AVERAGE RISK >11.0 HIGH RISK 3.3 - 4.4 LOW RISK 7.1 - 11.0 MODERATE RISK Performing Lab: see note ML - [facility] LB FREE T3 Reviewed date:01/03/2024 06:39:18 PM Interpretation: Performing Lab: Notes/Report: [facility] , Free T3 2.65 2.18-3.98 pg/mL Performing Lab: see note ML - [facility] LB CBC AUTO DIFF Reviewed date:01/03/2024 06:39:18 PM Interpretation: Performing Lab: Notes/Report: [facility] , White Blood Count 8.0 4.0-11.0 10 3/uL Red Blood Count 5.06 4.20-5.40 10 6/uL Hemoglobin 15.3 12.0-16.0 g/dL Hematocrit 44.7 36.0-48.0 % Mean Corpuscular Volume 88.3 81.0-99.0 fL Mean Corpuscular Hemoglobin 30.2 26.7-34.0 pg Mean Corpuscular HGB Conc 34.2 29.9-35.2 g/dL Red Cell Distribution Width 12.9 11.0-15.0 % Platelet Count 289 150-450 10 3/uL Mean Platelet Volume 10.2 9.5-13.5 fL Neutrophils Percent Auto 63.7 43.0-75.0 % Lymphocytes Percent Auto 23.4 20.5-60.0 % Monocytes Percent Auto 10.8 1.7-12.0 % Eosinophils Percent Auto 1.3 0.9-7.0 % Basophils Percent Auto 0.5 0.2-2.0 % Immature Granulocytes Pct Auto 0.3 0.0-0.5 % Neutrophils Absolute Auto 5.1 1.4-6.5 10 3/uL Lymphocytes Absolute Auto 1.9 1.2-3.8 10 3/uL Monocytes Absolute Auto 0.9 0.3-0.8 10 3/uL Eosinophils Absolute Auto 0.1 0.0-0.7 10 3/uL Basophils Absolute Auto 0.0 0.0-0.1 10 3/uL Immature Granulocytes Abs Auto 0.02 0.00-0.03 10 3/uL Performing Lab: see note - [facility] GLYCOHEMOGLOBIN A1C Reviewed date:01/03/2024 06:39:18 PM Interpretation: Performing Lab: Notes/Report: [facility] , Glycohemoglobin A1C 5.8 4.5-6.2 % > 7.0 ADA RECOMMENDED LIMIT 4.0 - 6.0 ACTION SUGGESTED ADA THERAPEUTIC TARGET < 7.0 Estimated Average Glucose 120 Performing Lab: see note - [facility] CT lung screening low-dose Reviewed date:01/16/2024 08:45:30 PM Interpretation: Performing Lab: Notes/Report: Source Facility: [place] [address] [place] [address] CT Scan Report Signed Patient: DARCY COLON MR#: [id number] : 1950 Acct:[id number] Age/Sex: 73 / F ADM Date: 01/14/24 Loc: CT Attending Dr: Roddy Peres M.D. Ordering Physician: Roddy Peres M.D. Date of Service: 01/14/24 Procedure(s): CT lung screening low-dose Accession Number(s): [id number] cc: Roddy Peres M.D. [place] [address] Patient Name: DARCY COLON MRN: [id number] date: 1950 Sex: F Assigned Patient Location: CT Current Patient Location: Accession/Order Number: [id number] Exam Date: 01/14/2024 13:02 Report Date: 01/15/2024 06:46 At the request of: RODDY PERES Procedure: CT lung screening low-dose EXAMINATION: CT lung screening low-dose HISTORY: Nicotine Dependence COMPARISON: No relevant comparison available. TECHNIQUE: Axial, Coronal, and Sagittal images were created without the administration of IV contrast material. Dose reduction techniques were achieved by using automated exposure control and/or adjustment of mA and/or kV according to patient size and/or use of iterative reconstruction technique. FINDINGS: LUNGS: 1.7 cm calcified nodule within anterior medial left upper lobe. No acute infiltrates, suspicious nodules, or significant emphysematous changes. PLEURA: No mass, effusion, or pneumothorax. VASCULATURE: No abnormality. SOPHIE: Calcified right hilar lymph nodes suggestive of chronic granulomatous disease. MEDIASTINUM: No mass or pathologic adenopathy. CARDIAC: No enlargement, pericardial thickening, or pericardial effusion. Coronary Artery calcifications: Coronary calcifications are moderate. AORTA: Moderate atherosclerotic disease. No aneurysm. CHEST WALL: No mass or axillary adenopathy BONES: Old, incompletely healed posterior left eighth rib fracture. LIMITED ABDOMEN: No suspicious findings. Limited images of the upper abdomen. OTHER: Negative. CT/CT lung screening low-dose IMPRESSION: 1. Lung-RADS Category 1 Negative. No nodules and definitely benign nodules. Continue annual screening with LDCT in 12 months. Electronically authenticated by: SAMUEL CUEVAS Date: 01/15/2024 06:46 Dictated By: Samuel Cuevas M.D. Signed By: 01/15/2449 DD/ 5 TD/TT: [employer]: [place] [address] CT Scan Report Signed Patient: DARCY COLON MR#: [id number] : 1950 Acct:[id number] Age/Sex: 73 / F ADM Date: 01/14/24 Loc: CT Attending Dr: Kim Peres M.D. Ordering Physician: Roddy Peres M.D. Date of Service: 01/14/24 Procedure(s): CT tremayne g screening low-dose Accession Number(s): [id number] cc: Roddy Peres M.D. [place] [id number] Patient Name: DARCY COLON MRN: [id number] date: 1950 Sex: F Assigned Patient Location: CT Current Patient Location: Accession/Order Numb er: [id number] Exam Date: 01/14/2024 13:02 Report Date: 01/15/2024 06:46 At the request of: RODDY PERES Procedure: CT lung screening low-dose EXAMINATION: CT lung screening low-dose HISTORY: Nicotine Dependence COMPARISON: No relev ant comparison available. TECHNIQUE: Axial, Coronal, and Sagittal images were created without the administration of IV contrast material. Dose reduction techniques were achieved by using automated exposure control and/or adjustment of mA and/or kV according to patient size and/ or use of iterative reconstruction technique. FINDINGS: LUNGS: 1.7 cm calcif ied nodule within anterior medial left upper lobe. No acute infiltrates, suspici ous nodules, or significant emphysematous changes. PLEURA: No mass, effusion, or pneumothorax. VASCULATURE: No abnormality. SOPHIE: Calcified righ t hilar lymph nodes suggestive of chronic granulomatous disease. MEDIASTINUM: No mass or pathologic adenopathy. CARDIAC: No enlargement, pericardial thickening, or pericardial effusion. Coronary Artery calcifications: Coronary calcifications are moderate. AORTA: Moderate atherosclerotic disease. No aneurysm. CHEST WALL: No mass or axillary adenopathy BONES: Old, incompletely healed posterior left eighth rib fracture. LIMITED ABDOMEN: No suspicious findings. Limited images of the upper abdomen. OTHER: Negative. CT/CT lung screening low-dose IMPRESSION: 1. Lung-RADS Categor y 1 Negative. No nodules and definitely benign nodules. Continue annual screening with LDCT in 12 months. Electronically authenticated by: SAMUEL CUEVAS Date: 01/15/2024 06:46 Dictated By: Samuel Cuevas M.D. Signed By: 01/15/24 0649 DD/ 0646 TD/TT: [employer]: MARYBEL Reviewed date:01/03/2024 06:39:18 PM Interpretation: Performing Lab: Notes/Report: [facility] , Iron 65.0 50.0-170.0 ug/dL Performing Lab: see note ML - [facility] Reason For Referral No Information Medications Medication SIG (Take, Route, Frequency, Duration) Notes Start Date End Date Status Pentoxifylline ER 400 MG TAKE 1 TABLET B Y MOUTH EVERY 8 HOURS for 90 days Active Metoprolol Tartrate 50 MG 1/2 tablet wit h food Orally Twice a day for 90 days Active [place] 3 Active Lisinopril 20 MG TAKE 1 [...] TWICE A DAY for 90 days Active amLODIPine Besylate 5 MG TAKE 1 TABLET B Y MOUTH EVERY DAY for 90 days Active Atorvastatin Calcium 80 MG TAKE 1 TABLET BY MOUTH EVERY DAY FOR 90 DAYS for 90 Active Propylthiouracil 50 MG TAKE 1 TABLET BY MOUTH EVERY DAY for 90 Active Alendronate Sodium 70 MG TAKE 1 TAB 30 M INUTES BEFORE THE FIRST FOOD, BEVERAGE OR MEDICINE OF THE DAY WITH PLAIN WATER ONCE WEEKLY for 84 Active Spectravite Active Social History Tobacco Use: Social History [...] User Modera te cigarette smoker (10-19 cigs/day) Alcohol Screen (Audit-C) Question Answer Notes Did you have a drink containing alcohol in the p ast year? No Points 0 Interpretation Negative AUDIT-C (Standard) Question Answer Notes Did you have a drink containing alcohol in the p ast year? No Points 0 Interpretation Negative Problems Problem Type SNOMED Code ICD Code Onset Dates Problem Status W/U Status Risk Notes Problem 86964570 Essential (primary) hypertension (I10) Active confirmed Problem 780504721 Type 2 diabetes mellitus without complications (E11.9) Active confirmed Problem 89189491 Disorder of thyroid, unspecified (E07.9) Active confirmed Problem 95387105 Nicotine dependence, unspecified, uncomplicated (F17.200) Active confirmed Problem 0646396 Unspecified osteoarthritis, unspecified site (M19.90) Active confirmed Problem 582178339 Family history o f alcohol abuse and dependence (Z81.1) Active confirmed 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 Problem 21902911 Pure hypercholesterolem ia, unspecified (E78.00) Active confirmed Vital Signs Blood pressure diastolic 56 mm Hg 11/17/2024 Height 67 in 11/17/2024 Blood pressure systolic 118 mm Hg 11/17/2024 Weight 152.2 lbs 11/17/2024 BMI 23.84 kg/m2 11/17/2024 Encounters Encounter Location Date Provider Diagnosis [facility] [address] [place] [address] 01/03/2024 [facility] [address] [place] [address] 01/04/2024 [facility] [address] [place] [address] 01/16/2024 [facility] [address] [place] [address] 01/17/2024 [facility] [address] [place] [address] 11/17/2024 Juan Luis Laaddie Type 2 diabetes mj itus without complications E11.9 ; Pure hypercholesterolemia, unspecified E78.00 ; Essential (primary) hypertension I10 ; 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 and Nicotine dependence, unspecified, uncomplicated F17.200 [facility] [address] [place] [address] 12/29/2023 Juan Luis Laaddie Type 2 diabetes mj itus without complications E11.9 ; Pure hypercholesterolemia, unspecified E78.00 ; Essential (primary) hypertension I10 ; Disorder of thyroid, unspecified E07.9 and Nicotine dependence, unspecified, uncomplicated F17.200 [facility] [address] [place] [address] 06/29/2024 Juan Luis Peres Type 2 diabetes mj itus without complications E11.9 ; Pure hypercholesterolemia, unspecified E78.00 ; Essential (primary) hypertension I10 and Disorder of thyroid, unspecified E07.9 Assessments Encounter Date Diagnosis (ICD Code) Assessment Notes Treatment Notes Treatment Clinical Notes Section Notes 12/29/2023 Type 2 diabetes mellitus without complications (ICD-10 - E11.9) 12/29/2023 Pure hypercholesterolem ia, unspecified (ICD-10 - E78.00) 06/29/2024 Type 2 diabetes mellitus without complications (ICD-10 - E11.9) 06/29/2024 Pure hypercholesterolem ia, unspecified (ICD-10 - E78.00) 11/17/2024 Type 2 diabetes mellitus without complications (ICD-10 - E11.9) doing wel wiht diet and meds 11/17/2024 Pure hypercholesterolem ia, unspecified (ICD-10 - E78.00) checking labs - taking daily 11/17/2024 Essential (primary) hypertension (ICD-10 - I10) great control - no lightheaded 06/29/2024 Essential (primary) hypertension (ICD-10 - I10) 12/29/2023 Essential (primary) hypertension (ICD-10 - I10) 12/29/2023 Disorder of thyroid, unspecified (ICD-10 - E07.9) 06/29/2024 Disorder of thyroid, unspecified (ICD-10 - E07.9) 11/17/2024 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) checkgin on labs 11/17/2024 Nicotine dependence, unspecified, uncomplicated (ICD-10 - F17.200) ct screenign fl lung ca 12/29/2023 Nicotine dependence, unspecified, uncomplicated (ICD-10 - F17.200) needs ct scan screening Plan Of Treatment Pending Test Test Name Order Date CMP (COMPLETE METABOLIC PANEL) 3 CMP (COMPLETE METABOLIC PANEL) 4 HEMOGLOBIN A1C (GLYCO) 12/29/2023 HEMOGLOBIN A1C (GLYCO) 12/30/2022 HEMOGLOBIN A1C (GLYCO) 11/17/2024 IRON, TOTAL 11/17/2024 IRON, TOTAL 12/30/2022 IRON, TOTAL 12/29/2023 LIPID PANEL (CHOL/TRIG/HDL/LDL) 12/29/19 24 LIPID PANEL (CHOL/TRIG/HDL/LDL) 12/31/19 23 LIPID PANEL (CHOL/TRIG/HDL/LDL) 11/18/19 25 CBC WITH DIFF 12/30/2022 CBC WITH DIFF 12/29/2023 VITAMIN D, 25 LEVEL (TOTAL) 12/30/2022 VITAMIN D, 25 LEVEL (TOTAL) 11/17/2024 MAMM Mammograms CAD 12/30/2022 STOOL OCCULT BLOOD 11/17/2024 THYROID PANEL (T4/TSH/FREE T3) 5 THYROID PANEL (T4/TSH/FREE T3) 4 THYROID PANEL (T4/TSH/FREE T3) 3 THYROID PANEL (T4/TSH/FREE T3) 4 MM screening mammo BI 12/29/2023 MM screening mammo BI 11/17/2024 CT CHEST LOW DOSE (LDCT) 11/17/2024 CT CHEST LOW DOSE (LDCT) 12/29/2023 CMP (COMP MET [place]) w/eGFR CKD-EPI 2024 CBC WITH DIFF 11/17/2024 Next Appt Details Provider Name:Juan Luis Peres, 09:15:00 AM, [address] [facility]], [place], [address], Insurance Providers Payer Name Payer Address Payer Phone Subscriber Number Group Number Insured Name Patient Relationship to Insured Coverage Start Date Coverage End Date [place]IC[place] [address] [place] [address] [id number] Darcy Colon Self - patient is the insured [facility] [address] [address] [place] [address] [id number] Darcy Colon Self - patient is the insured Medical (General) History Surgical History Surgery Date(Month/Year) Cataract removal rt eye 12/01 Bilateral Knee Replacement 2008 Heel spur removed- left 1992 Open Heart Surgery 1984 Right Hip Repair- pins 2015 Hysterectomy
--- OUTSIDE RECORDS SUMMARY | 2024-11-17 10:43 | XMS_ITS | Encounter Summary ---
Author Organization [facility] Address [address] [place] [address] Care Team Providers Care Safety Attendant Name Role Phone Ray Loaiza MD Primary Care Provider [phone] Source Comments In the event this information is protected by the Federal Confidentiality of Alcohol and Drug AbusePatient Records regulations: The Federal rules restrict any use of the information to criminally investigate or prosecute any alcohol or drug abuse patient.[facility] Encounter Details Date Type Department Care Team (Late st Contact Info) Description 11/07/2024 Telephone Ophthalmology [address] [place] [id number] Darcy Hernandez COA Social History Tobacco Use Types Packs/Day Years Used Date Smoking Tobacco: Every Day Cigarettes 1 59.5 Started: 1966 Smokeless Tobacco: Never Alcohol Use Standard Drinks/Week Comments Never 0 (1 standard drink = 0.6 oz pur e alcohol) Area Deprivation Index Answer Date Nghia rded National Score (1-100), lower number is lower ri sk 79 11/13/2024 State Score (1-10), lower number is lower risk 7 11/13/2024 Data from: https://www.neighborhoodatlas.medicine.[facility].edu/. Last address used for calculation [address] [place] [address] N 11/13/2024 Comments No Sex and Gender Information Value Date Recorded Sex Assigned at Not on file Legal Sex Female 2:11 PM EDT Gender Identity Not on file Sexual Orientation Not on file documented as of this encounter Miscellaneous Notes * Telephone Encounter - Mei [place] - 11/15/2024 1:36 PM EDT Called and spoke to patient. Advised we received retina clearance from Dr. Thacker and asked if shewould like to proceed with scheduling cataract surgery. She agreed. Surgery is scheduled 12/12 for 2nd eye, left eye. Called and LVM with Dr. Ling' office to schedule 1 day and 1 week post op * Telephone Encounter - Mei [place] - 11/13/2024 8:42 AM EDT Maxine Thacker MD filed at 11/09/2024 11:48 AM Status: Signed ASSESSMENT/PLAN: Last dilated exam 11/09/2024 H34.8120 Central [...] of both eyes Comment: Evaluated by Dr. Hu Having cataract surgery Wednesday OD Ok for [...] of its relevant components. Maxine Thacker MD * Telephone Encounter - Mei [place] - 11/08/2024 8:59 AM EDT COMANAGED - NAVARRO: 11/14 @ 1PM 11/21 @ 3:15 PM Jayshree Hu V, MD filed at 11/07/2024 2:01 PM Status: Addendum The documentation for this note was completed by Marianne Salazar COA acting as a scribe for Jayshree [...] and surgery - Comanage with Dr Ling; [facility] care POD #1 * Telephone Encounter - Suzanna Kruse - 11/07/2024 4:45 PM EDT Pt is on for Sx Mon 11/13, spoke to pt in office today. * Telephone Encounter - Suzanna Kruse - 11/07/2024 4:44 PM EDT Images from the original note were not included. Jayshree Hu V, MD Ehlert, Darcy Alva, COA; Ln Opht Surg [id number] minutes ago (4:10 PM) Thanks so much, Darcy Alva! OK to offer her Cataract extraction Right eye 11/13 or 11/15. * Telephone Encounter - Amy Beyer - 11/07/2024 3:59 PM EDT Patient returned call and accepted appointment for 11/09. * Telephone Encounter - Darcy Hernandez COA - 11/07/2024 3:44 PM EDT I called and spoke with patient. I offered her to see Dr Thacker November 09 at 10.15. Pt states she cannot come that day because she has another Dr's appt. I then offered November 20 at [facility] and she declined. She says she will try to move her appt on November 09 and will call us back. If not we are keeping the appt for December [address] Kunz. Pt states she thought her cataract surgery was on December 06. I advised her it was not scheduled yet. documented in this encounter Plan of Treatment Upcoming Encounters Date Type Department Care Team (Latest Contact Info) Description 12/12/2024 9:30 AM EDT Hospital Encounter Ambulatory Surgery [address] [place] [address] Jayshree Hu V, MD [address] [place] [address] Combined forms of age-related cataract of left eye [H25.812] 12/12/2024 9:30 AM EDT - 12/12/2024 10:00 AM EDT Surgery Ambulatory Surgery [address] [place] [address] Jayshree Hu V, MD [address] [place] [address] PHACOEMULSIFICATION CATARACT IMPLANT INTRAOCULAR LENS W/O ENDOSCOPIC CYCLOPHOTOCOAGULATION 12/26/2024 1:30 PM EDT Office Visit OPHT Ophthalmology [address] [facility] [address] [place] [address] Maxine Thacker MD [address] [place] [address] *4-6 W DTI AVASTIN OS Scheduled Procedures [...] on filedocumented in this encounter Care Teams Safety Attendant Relationship Specialty Start Date End Date Ray Loaiza MD [address] [place] [address] PCP - General Family Medicine 11/13/24 documented as of this encounter
--- OUTSIDE RECORDS SUMMARY | 2024-11-17 10:43 | XMS_ITS | Encounter Summary ---
Author Organization [facility] Address [address] [place] [address] Care Team Providers Care Director Patient Name Role Phone Ray Loaiza MD Primary Care Provider [phone] Source Comments In the event this information is protected by the Federal Confidentiality of Alcohol and Drug AbusePatient Records regulations: The Federal rules restrict any use of the information to criminally investigate or prosecute any alcohol or drug abuse patient.[facility] Encounter Details Date Type Department Care Team (Latest Contact Info) Description 11/13/2024 Travel Social History Tobacco Use Types Packs/Day [...] is lower risk 7 11/13/2024 Data from: https://www.neighborhoodatlas.medicine.[facility].edu/. Last address used for calculation [address] [address] [address] 11/13/2024 Comments No Sex and Gender Information Value Date Recorded Sex Assigned at Not on file Legal Sex Female 2:11 PM EDT Gender Identity Not on file Sexual Orientation Not on file documented as of this encounter Plan of Treatment Upcoming Encounters Date Type Department Care Team (Latest Contact Info) Description 12/12/2024 9:30 AM EDT Hospital Encounter Ambulatory Surgery [address] [place] [address] Jayshree Cyr V, MD [address] [place] [address] Combined forms of age-related cataract of left eye [H25.812] 12/12/2024 9:30 AM EDT - 12/12/2024 10:00 AM EDT Surgery Ambulatory Surgery [address] [place] [address] Jayshree Cyr V, MD [address] [place] [address] PHACOEMULSIFICATION CATARACT IMPLANT INTRAOCULAR LENS W/O ENDOSCOPIC CYCLOPHOTOCOAGULATION 12/26/2024 1:30 PM EDT Office Visit [facility] Ophthalmology [address] [place] [address] Maxine Thacker MD [address] [place] [address] *4-6 W DTI AVASTIN OS [...] on filedocumented in this encounter Care Teams Director Patient Relationship Specialty Start Date End Date Ray Loaiza MD [address] [place] [address] PCP - General Family Medicine 11/13/24 documented as of this encounter
--- OUTSIDE RECORDS SUMMARY | 2024-11-17 10:43 | XMS_ITS | Clinical Summary ---
Author Organization [facility] Address [address] [place], [place] [id number] Care Team Providers Care Roadway Engineer Name Role Phone Ray Loaiza MD Primary Care Provider [phone] Allergies No known active allergies Medications amLODIPine (NORVASC) 2.5 mg tablet Take 2.5 mg by mouth once daily. Active atorvastatin (LIPITOR) 80 mg tablet Take 1 tablet by mouth once daily. 5 Active alendronate (FOSAMAX) 70 mg tablet TAKE 1 TAB ONCE A WEEK 30 MINS BEFORE FIRST FOOD/DRINK/MED OF THE DAY WITH PLAIN WATER Active furosemide (LASIX) 20 mg tablet Take 20 mg by mouth once daily. Active glipiZIDE (GLUCOTROL) 5 mg tablet Take 5 mg by mouth two times a day. Active lisinopril (ZESTRIL) 20 mg tablet Take 20 mg by mouth once daily. Active metFORMIN (GLUCOPHAGE) 500 mg tablet Take 500 mg by mouth two times a day. Active metoprolol tartrate, short acting, (LOPRESSOR) 50 mg tablet TAKE 1/2 TABLET BY MOUTH TWICE A DAY WITH FOOD Active pentoxifylline ER (TRENTAL) 400 mg CR tablet Take 400 mg by mouth. Active propylthiouraci l 50 mg tablet Take 50 mg by mouth once daily. Active prednisoLONE acetate (PRED FORTE) 1 % ophthalmic suspension USE DIRECTED BY PHYSICIAN, IN OPERATIVE EYE, BEGINNING ONE DAY AFTER SURGERY 5 mL 5 Active keTORolac (ACULAR) 0.5 % ophthalmic solution USE DIRECTED BY PHYSICIAN, IN OPERATIVE EYE, BEGINNING ONE DAY AFTER SURGERY 5 mL 5 Active Hospital, Clinic, or Other Facility Administered Medication Ordered Dose Route Frequency Start Date End Date Status tropicamide 1 % 1 drop (MYDRIACYL)Indications:Co mbined forms of age-related cataract of both eyes 1 drop OU DIRECTED 11/07/2024 11/07/2024 Ended PHENYLephrine 2.5 % 1 drop (AK-DILATE, DEJAN-SYNEPHRINE)Indication s:Combined forms of age-related cataract of both eyes 1 drop OU DIRECTED 11/07/2024 11/07/2024 Ended fluorescein-benoxinate 0.3-0.4 % 1 drop (FLURESS)Indications:Comb ined forms of age-related cataract of both eyes 1 drop OU DIRECTED 11/07/2024 11/07/2024 En ded tropicamide 1 % 1 drop (MYDRIACYL)Indications:Ce ntral retinal vein occlusion, left eye, with macular edema (HCC) 1 drop OU DIRECTED 11/09/2024 11/09/2024 Ende d PHENYLephrine 2.5 % 1 drop (AK-DILATE, DEJAN-SYNEPHRINE)Indication s:Central retinal vein occlusion, left eye, with macular edema (HCC) 1 drop OU DIRECTED 11/09/2024 11/09/2024 Ende d bevacizumab (Jocelynn's) 1.25 mg intravitreal syringe (AVASTIN)Indications:Cent ral retinal vein occlusion, left eye, with macular edema (HCC) 1.25 mg ONCE 11/09/2024 11/09/2024 Ended Active Problems Problem Noted Date Diagnosed Date Tobacco use 11/07/2024 Assessment & Plan (11/07/2024 2:56 PM EDT): Assessment: Smokes 1PPD 59.5 Pack years Peripheral arterial disease Assessment & Plan (11/07/2024 2:54 PM EDT): Assessment: With claudication Bilateral leg cramps when walking pentoxifylline TID Follows with Vascular Essential hypertension Assessment & Plan (11/07/2024 2:54 PM EDT): Assessment: Controlled with medication management 115/87 in office today Elevated cholesterol Assessment & Plan (11/07/2024 2:55 PM EDT): Assessment: Compliant with Statin Diabetes mellitus Assessment & Plan (11/07/2024 2:55 PM EDT): Assessment: Complaint with oral medications Instructions provided to patient on how long to hold diabetic medications prior to procedure Encounters Date Type Department Care Team Description 11/16/2024 Travel 11/13/2024 9:09 AM EDT Anesthesia Event Ambulatory Surgery [address] [place] [address] Marlo Kennedy II, Akira Rudolph AA 11/13/2024 8:45 AM EDT - 11/13/2024 9:15 AM EDT Surgery [facility] [address] [facility] [place] [address] Jayshree Cyr V, MD PHACOEMULSIFICATION CATARACT IMPLANT INTRAOCULAR LENS W/O ENDOSCOPIC CYCLOPHOTOCOAGULATION 11/13/2024 7:26 AM EDT - 11/13/2024 9:29 AM EDT Hospital Encounter Ambulatory Surgery [address] [place] [address] Jayshree Cyr V, MD Combined form of age-related cataract, right eye [H25.811] Discharge Disposition: Home 11/13/2024 Travel 11/09/2024 10:15 AM EDT Office Visit [facility] Ophthalmology [address] [phone] Maxine Thacker MD Central retinal vein occlusion, left eye, with macular edema (HCC) (Primary Dx); Combined forms of age-related cataract of both eyes 11/07/2024 3:00 PM EDT PAT Pre Anesthesia [address] [place] [address] 1, [facility] Pre-op evaluation (Primary Dx); Peripheral arterial disease; Essential hypertension; Elevated cholesterol; Type 2 diabetes mellitus with other specified complication, without long-term current use of insulin (HCC); Tobacco use 11/07/2024 11:15 AM EDT Office Visit [facility] Ophthalmology [address] [place] [address] Jayshree Cyr V, MD Diagnostics, Eye Tech And Combined forms of age-related cataract of both eyes (Primary Dx); Central retinal vein occlusion, left eye, with macular edema (HCC); Anatomical narrow angle, bilateral; Dry eye syndrome, bilateral; Combined form of age-related cataract, right eye; Combined forms of age-related cataract of left eye; Diabetes mellitus type 2 without retinopathy (HCC) 11/07/2024 Telephone Ophthalmology [address] [facility] [address] [phone] Darcy Hernandez COA 11/07/2024 Travel from Last 3 Months Family History Medical History Relation Comments Blindness Brother 1 Diabetes Brother 1 Diabetes Brother 2 Diabetes Mother Hypertension Mother Relation Status Comments Brother 1 Brother 2 Mother Social History Tobacco Use Types Packs/Day Years [...] is lower risk 7 11/13/2024 Data from: https://www.neighborhoodatlas.medicine.[facility]/. Last address used for calculation [address] 11/13/2024 Comments No Sex and Gender Information Value Date Recorded Sex Assigned at Not on file Legal Sex Female 2:11 PM EDT Gender Identity Not on file Sexual Orientation Not on file Last Filed Vital Signs Vital Sign Reading Time Taken Comments Blood Pressure 149/66 11/13/2024 9:35 AM EDT Pulse 85 11/13/2024 9:35 AM EDT Temperature 36.4 C (97.5 F) 11/13/2024 9:30 AM EDT Respiratory Rate 16 11/13/2024 9:35 AM EDT Oxygen Saturation 96% 11/13/2024 9:35 AM EDT Inhaled Oxygen Concentration - - Weight 71 kg (156 lb 8.4 oz) 11/07/2024 2:27 PM EDT Height 170.2 cm (5' 7 ) 11/07/2024 2:27 PM EDT Body Mass Index 24.52 11/07/2024 2:27 PM EDT Plan of Treatment Upcoming Encounters Date Type Department Care Team (Latest Contact Info) Description 12/12/2024 9:30 AM EDT Hospital Encounter Ambulatory Surgery [address] [place] [address] Jayshree Cyr V, MD [address] [place], [place] [phone] Combined forms of age-related cataract of left eye [H25.812] 12/12/2024 9:30 AM EDT - 12/12/2024 10:00 AM EDT Surgery Ambulatory Surgery [address] [place] [address] Jayshree Cyr V, MD [address] [place], [place] [phone] PHACOEMULSIFICATION CATARACT IMPLANT INTRAOCULAR LENS W/O ENDOSCOPIC CYCLOPHOTOCOAGULATION 12/26/2024 1:30 PM EDT Office Visit [facility] Ophthalmology [address] [place] [address] [address] [place] [address] Maxine Thacker MD [address] [place] [address] *4-6 W DTI AVASTIN OS Scheduled Procedures Name Priority Associated Diagnoses Date/Ti me PHACOEMULSIFICATION CATARACT IMPLANT INTRAOCULAR LENS W/O ENDOSCOPIC CYCLOPHOTOCOAGULATION Combined forms of age-related cataract of left eye 12/12/2024 9:30 AM EDT OPHTHALMIC BIOMETRY BY PARTI AL COHERENCE INTERFEROMETRY W/INTRAOCULAR LENS POWER CALCULATION Combined forms of age-related cataract of left eye 12/12/2024 9:30 AM EDT Health Maintenance Due Date Last Done Comments HbA1C 02/08/1956 Diabetic Foot Exam 1961 Urine Albumin:Creatinine Ratio 1961 Annual PCP Team Chronic Dise ase Visit 1969 Anxiety Screening 1969 Depression Screening 1969 Hepatitis C Screening 1969 LDL Cholesterol 1969 DTaP,Tdap,Td Vaccine (1 - Tdap) [address] Colonography 02/08/1996 Colonoscopy 02/08/1996 Fecal Occult Blood 02/08/1996 Sigmoidoscopy 02/08/1996 Lung Cancer Screening 2001 Shingrix Vaccine (1 of 2) 2001 Bone Density Screening 02/08/2016 Cologuard (FIT-DNA) 05/05/2023 05/05/2020 Colorectal Cancer Screening 05/05/2023 Advance Directive Discussion 05/10/2024 Medicare Advantage Annual We llness Visit 05/10/2024 Covid-19 Vaccine (4 - 2023-2 5 season) 2024 04/25/2024, 08/23/2020, 07/26/2020 Influenza Vaccine (#1) 2025 , 01/30/2023, 12/26/2021, Additional history exists Dilated Retinal Exam 11/09/2025 11/09/2024, 11/08/19 RSV Vaccine (1 - 1-dose 75+ series) 2026 Pneumococcal Vaccine: 50+ Completed 2019, 01/04/2019, 02/18/2016 Medical Devices Implanted Type Area Public Aid Eligibility Assistant Device Identifier Shelf Expiration Date Model / Serial / Lot [id number] [id number] Implanted:Qty : 1 on 11/13/2024 at [facility] Intraocular Lens Right: Eye [facility] 07/25/2028 [id number] 0 / [id number] / Procedures Procedure Name Priority Date/Time Associated Diagnosis Comments OPH BMTRY PRTL COHER INTRFRMTRY IO LENS PWR ALPESH 11/13/2024 9:02 AM EDT Combined form of age-related cataract, right eye XCAPSL CTRC RMVL INSJ IO LENS PROSTH W/O ECP 11/13/2024 9:02 AM EDT Combined form of age-related cataract, right eye GLUCOSE, BLOOD (POC) Routine 11/13/2024 8:39 AM EDT AVASTIN (BEVACIZUMAB) 1.25MG INTRAVITREAL INJECTION OS (LEFT [...] forms of age-related cataract of both eyes from Last 3 Months Results * (ABNORMAL) GLUCOSE, BLOOD (POC) (11/13/2024 8:39 AM EDT) [facility] Glucose, Point of Care 146(A) 74 - 99 mg/dL [facility] Comment: Location:[facility], [address] [facility] [address] [place], [place], [address] The Accu-Chek Inform II glucose meter has [...] Jayshree Shea MD POC TESTING Final Result [facility] POINT OF CARE [facility] [address] [facility] [address] [place], [place] * AVASTIN (BEVACIZUMAB) 1.25MG INTRAVITREAL INJECTION OS (LEFT EYE) (11/09/2024 11:39 AM EDT) Narrative Maxine Thacker MD - 11/09/2024 11:39 AM EDT Date of Procedure 11/09/2024 [place] Protocol Safety Checklist A moment of CARE [...] Change Right Eye Initial. Left Eye Initial. Jayshree Shea MD OPHTHALMOLOGY Final Result * IOL BIOMETRY W/ IOL CALC OU (BOTH EYES) (11/07/2024 10:33 AM EDT) Anatomical Region Laterality Modality Other Narrative 11/07/2024 10:33 AM EDT Date of Procedure 11/07/2024. Guest Services Director Information Keerthi Morris, COA . Notes Measurements only - see Procedure Record under Scanned Documents for signed results. Jayshree Shea MD OPHTHALMOLOGY Final Result from Last [address] [id number] [employer] MEDICARE MEDICARE SUPPLEMENT Care Teams Roadway Engineer Relationship Specialty Start Date End Date Ray Loaiza MD [address] [facility] [place] [address] PCP - General Family Medicine 11/13/24
--- OUTSIDE RECORDS SUMMARY | 2024-11-17 10:43 | XMS_ITS | Encounter Summary ---
Author Organization [facility] Address [address] [place] [address] Care Team Providers Care Tobacco Packing Machine Operator Name Role Phone Unavailable Primary Care Provider Unavailabl e Source Comments In the event this information is protected by the Federal Confidentiality of Alcohol and Drug AbusePatient Records regulations: The Federal rules restrict any use of the information to criminally investigate or prosecute any alcohol or drug abuse patient.[facility] Encounter Details Date Type Department Care Team (Latest Contact Info) Description 11/07/2024 Travel Social History Tobacco Use Types Packs/Day [...] is lower risk 7 11/07/2024 Data from: https://www.neighborhoodatlas.medicine.[facility].edu/. Last address used for calculation [facility] [address] [address] 11/07/2024 Comments No Sex and Gender Information Value Date Recorded Sex Assigned at Not on file Legal Sex Female 2:11 PM EDT Gender Identity Not on file Sexual Orientation Not on file documented as of this encounter Plan of Treatment Upcoming Encounters Date Type Department Care Team (Latest Contact Info) Description 12/12/2024 9:30 AM EDT Hospital Encounter Ambulatory Surgery [address] [place] [address] Jayshree Cyr V, MD [address] [place] [address] Combined forms of age-related cataract of left eye [H25.812] 12/12/2024 9:30 AM EDT - 12/12/2024 10:00 AM EDT Surgery Ambulatory Surgery [address] [place] [address] Jayshree Cyr V, MD [address] [place] [address] PHACOEMULSIFICATION CATARACT IMPLANT INTRAOCULAR LENS W/O ENDOSCOPIC CYCLOPHOTOCOAGULATION 12/26/2024 1:30 PM EDT Office Visit [facility] Ophthalmology [address] [place] [address] [address] [place] [address] Maxine Thacker MD [address] [place] [address] *4-6 W DTI AVASTIN OS Scheduled Procedures [...]
--- OUTSIDE RECORDS SUMMARY | 2024-11-17 10:43 | XMS_ITS | Encounter Summary ---
Author Organization [employer] [facility] Address [id number] [address] [place] [address] Care Team Providers Care Light Armored Vehicle Officer Name Role Phone Yan Llanos MD Primary Care Provider [phone] Encounter Details Date Type Department Care Team (Late st Contact Info) Description 06/03/2020 Orders Only [facility] [address] [place] [address] Yun Monk CMA Bilateral carotid bruits; Claudication of lower extremity (CMS-HCC) Social History Tobacco Use Types Packs/Day Years [...] on file Sexual Orientation Not on file COVID-19 Exposure Response Date Recorded In the last month, have you been in contact with someone who was confirmed or suspected to have Coronavirus / COVID-19? Unable to assess 05/23/2020 8:57 AM EST documented as of this encounter Plan of Treatment Not on file documented as of this encounter Procedures Procedure Name Priority Date/Time Associated Diagnosis Comments VASC CAROTID DUPLEX BILATERAL Routine 06/03/2020 3:47 PM EST Bilateral carotid bruits VASC ARTERIAL DOPPLER LOWER BILATERAL MULTI LEVEL/PVR Routine 06/03/2020 3:46 PM EST Claudication of lower extremity (CMS-HCC) documented in this encounter Results * Vas carotid duplex bilateral (06/03/2020 3:47 PM EST) Anatomical Region Laterality Modality Vascular Bilateral Ultrasound Ernestine Lisa MD CV VASCULAR ORDERABLES Final Re sult * Vas art doppler lwr bilat mult lev/PVR (06/03/2020 3:46 PM EST) Anatomical Region Laterality Modality Vascular Bilateral Ultrasound Ernestine Lisa MD CV VASCULAR ORDERABLES Final Re sult documented in this encounter Visit Diagnoses Diagnosis Bilateral carotid bruits Claudication of lower extremity documented in this encounter Care Teams Light Armored Vehicle Officer Relationship Specialty Start Date End Date Yan Llanos MD [address] [place] [address] PCP - General Family Medicine 04/11/20 documented as of this encounter
--- OUTSIDE RECORDS SUMMARY | 2024-11-17 10:46 | XMS_ITS | CCD ---
Author Organization [facility] Care Team Providers Care Heating Element Repairer Name Role Phone JA ., DR PEREYRA Attending Unavailable JA ., DR PEREYRA Consulting Unavailable JA ., DR PEREYRA Admitting Unavailable LISETH, HARJIT Primary Care Unavailable ADEOLAEBMACEY, DR DIEGO Rehman Consulting Unavailable LISETH, HRAJIT Attending Unavailable LISETH, HARJIT Consulting Unavailable LISETH, HARJIT Primary Care Unavailable LISETH, HARJIT Admitting Unavailable LISETH, HARJIT Admitting Unavailable LISETH, HARJIT Attending Unavailable LISETH, HARJIT Consulting Unavailable LISETH, HARJIT Primary Care Unavailable Unavailable Primary Care Provider Unavailabl e MAYTE V, BROCK Referring Unavailable MAXINE TINSLEY Attending Unavailable SELF Referring Unavailable MAYTE V, BROCK Admitting Unavailable MAYTE V, BROCK Attending Unavailable MAYTE V, BROCK Referring Unavailable RODDY PERES Primary Care Unavailable MAYTE V, BROCK Attending Unavailable SELF Referring Unavailable Medications Current Medications Medication Drug Class(es) Dates Sig (Normalized) Sig (Original) alendronic acid 70 mg oral tablet (4 sources) Bisphosphonate alendronate (FOSAMAX) 70 mg tablet TAKE 1 TAB ONCE A WEEK 30 MINS BEFORE FIRST FOOD/DRINK/MED OF THE DAY WITH PLAIN WATER Active amLODIPine 2.5 mg oral tablet (4 sources) Dihydropyridine Calcium Channel Jacobo take 1 tablet by mouth once daily amLODIPine (NORVASC) 2.5 mg tablet Take 2.5 mg by mouth once daily. Active atorvastatin 80 mg oral tablet (4 sources) HMG-CoA Reductase Inhibitor Start: 08-16-2024 take 1 tablet by mouth once daily atorvastatin (LIPITOR) 80 mg tablet Take 1 tablet by mouth once daily. 08/16/2024 Active benoxinate hydrochloride 4 mg/ml / fluorescein sodium 3 mg/ml ophthalmic solution (2 sources) Diagnostic Dye Start: 11-07-2024 End: 11-07-2024 fluorescein-benoxin ate 0.3-0.4 % 1 drop (FLURESS) furosemide 20 mg oral tablet (4 sources) Loop Diuretic take 1 tablet by mouth once daily furosemide (LASIX) 20 mg tablet Take 20 mg by mouth once daily. Active glipiZIDE 5 mg oral tablet (4 sources) Sulfonylurea take 1 tablet by mouth twice daily glipiZIDE (GLUCOTROL) 5 mg tablet Take 5 mg by mouth two times a day. Active lisinopril 20 mg oral tablet (4 sources) Angiotensin Converting Enzyme Inhibitor take 1 tablet by mouth once daily lisinopril (ZESTRIL) 20 mg tablet Take 20 mg by mouth once daily. Active metFORMIN hydrochloride 500 mg oral tablet (4 sources) Biguanide take 1 tablet by mouth twice daily metFORMIN (GLUCOPHAGE) 500 mg tablet Take 500 mg by mouth two times a day. Active metoprolol tartrate 50 mg oral tablet (4 sources) beta-Adrenergic Jacobo take 1 tablet by mouth twice daily at mealtime metoprolol tartrate, short acting, (LOPRESSOR) 50 mg tablet TAKE 1/2 TABLET BY MOUTH TWICE A DAY WITH FOOD Active pentoxifylline 400 mg extended release oral tablet (4 sources) Blood Viscosity Class B Driver pentoxifylline ER (TRENTAL) 400 mg CR tablet Take 400 mg by mouth. Active phenylephrine hydrochloride 25 mg/ml ophthalmic solution (5 sources) alpha-1 Adrenergic Agonist Start: 11-09-2024 End: 11-09-2024 PHENYLephrine 2.5 % 1 drop (AK-DILATE, DEJAN-SYNEPHRINE) Start: 11-09-2024 End: 11-09-2024 1 drop, BOTH EYES, DIRECT ED, Starting on Wed11/09/24 at 1100, Until Wed11/09/24 at 2259, Administer for dilation PROTECT FROM LIGHT Start: 11-07-2024 End: 11-07-2024 PHENYLephrine 2.5 % 1 drop ( AK-DILATE, DEJAN-SYNEPHRINE) Start: 11-07-2024 End: 11-07-2024 1 drop, BOTH EYES, DIRECT ED, Starting on Wed11/07/24 at 1130, Until Wed11/07/24 at 2329, Administer for dilation PROTECT FROM LIGHT, OPHT CLINIC MED ORDERS propylthiouracil 50 mg oral tablet (4 sources) Thyroid Hormone Synthesis Inhibitor take 1 tablet by mouth once daily propylthiouracil 50 mg tablet Take 50 mg by mouth once daily. Active tropicamide 10 mg/ml ophthalmic solution (5 sources) Anticholinergic Start: 2024 End: 2024 tropicamide 1 % 1 drop (MYDRIACYL) Start: 11-09-2024 End: 11-09-2024 1 drop, BOTH EYES, DIRECT ED, Starting on Wed11/09/24 at 1100, Until Wed11/09/24 at 2259, Administer for dilation Start: 11-07-2024 End: 11-07-2024 tropicamide 1 % 1 drop (MYDR IACYL) Start: 11-07-2024 End: 11-07-2024 1 drop, BOTH EYES, DIRECT ED, Starting on Wed11/07/24 at 1130, Until Wed11/07/24 at 2329, Administer for dilation, OPHT CLINIC MED ORDERS Completed/Discontinued Medications Medication Drug Class(es) Dates Sig (Normalized) Sig (Original) bevacizumab (Jocelynn's) 1.25 mg intravitreal syringe (AVASTIN) (2 sources) Start: 11-09-2024 End: 11-09-2024 bevacizumab (Jocelynn's) 1.25 mg intravitreal syringe (AVASTIN) Start: 11-09-2024 End: 11-09-2024 1.25 mg, ONCE, 1 dose, Start ing on Wed11/09/24 at 1139, Until Wed11/09/24 at 1139 Problems Active Problems Problem Classification Problem Date Documented Da te Episodic/Chronic Cataract (7 sources) Bilateral senile combined form cataracts of eyes; Translations: [Combined forms of age-related cataract, bilateral] Onset: 11-07-2024 11-06-2024 Chronic Diabetes mellitus with complications (2 sources) Type 2 diabetes mellitus; Translations: [Type 2 diabetes mellitus with other specified complication] Onset: 11-07-2024 11-07-2024 Chronic Diabetes mellitus without complication (10 sources) Type 2 diabetes mellitus without complications; Translations: [Diabetes mellitus type 2 without retinopathy] Onset: 12-22-2021 Chronic Disorders of lipid metabolism (7 sources) Hyperlipidemia, unspecified; Translations: [Hypercholesterole yadira] Onset: 12-23-2021 11-07-2024 Chronic Essential hypertension (6 sources) Essential hypertension; Translations: [Essential (primary) hypertension] Onset: 11-07-2024 11-07-2024 Chronic Glaucoma (2 sources) Narrow angle; Translations: [Anatomical narrow angle, bilateral] Onset: 11-07-2024 11-07-2024 Chronic Other eye disorders (1 source) Tear film insufficiency; Translations: [Dry eye syndrome of bilateral lacrimal glands] 11-07-2024 Episodic Other eye disorders (1 source) Dry eye syndrome of bilateral lacrimal glands; Translations: [Dry eye syndrome, bilateral] Onset: 11-07-2024 Episodic Peripheral and visceral atherosclerosis (6 sources) Peripheral vascular disease, unspecified; Translations: [Peripheral vascular disease, unspecified] Onset: 11-07-2024 11-07-2024 Chronic Residual codes; unclassified (5 sources) Tobacco use and exposure - finding; Translations: [Tobacco use] Onset: 11-07-2024 11-07-2024 Episodic Residual codes; unclassified (1 source) Tobacco use; Translations: [Tobacco use] Onset: 11-07-2024 Episodic Retinal detachments; defects; vascular occlusion; and retinopathy (3 sources) Central retinal vein occlusion with macular edema; Translations: [Central retinal vein occlusion, left eye, with macular edema] Onset: 11-09-2024 11-07-2024 Chronic Substance-related disorders (4 sources) Nicotine dependence, [...] Results Test Name Value Interpretation Reference Range Facility ANES POSTPROC EVALon 025 ANES POSTPROC EVAL HNO ID: [id number] Author: MARLO KENNEDY II, DO Service: Anesthesiology Author Type: Anesthesiologist Type: Anesthesia Postprocedure Evaluation Filed: 11/13/2024 13:12 Note Text: POST ANESTHESIA EVALUATION NOTE : 1950 Procedure Summary Date: 11/13/24 Room / Location: [address] Anesthesia Start: 908 Anesthesia Stop: 927 Procedures: PHACOEMULSIFICATION CATARACT IMPLANT INTRAOCULAR LENS W/O ENDOSCOPIC CYCLOPHOTOCOAGULATION (Right) OPHTHALMIC BIOMETRY BY PARTIAL COHERENCE INTERFEROMETRY W/INTRAOCULAR LENS POWER CALCULATION (Right: Eye) Diagnosis: Combined form of age-related cataract, right eye (Combined form of age-related cataract, right eye [H25.811]) Surgeons: Brock Cyr V, MD Responsible Provider: Marlo Kennedy II, DO Anesthesia Type: MAC ASA Status: 3 Anesthesia Type: MAC Last Vitals Vitals Value Taken Time BP 149/66 11/13/24 0935 Temp 36.4 ?C (97.5 ?F) 11/13/24 0930 Pulse 85 11/13/24 0935 Resp [...] Marlo Kennedy II, DO PATIENT NAME: Darcy Acevedo DATE: November 13, 2024 TIME: 1:12 PM CSN: [id number] Normal [facility] ANES PRE-OPon 11-13-2024 ANES PRE-OP HNO ID: [id number] Author: MARLO KENNEDY II, DO Service: Anesthesiology Author Type: Anesthesiologist Type: Anesthesia Preprocedure Evaluation Filed: 11/13/2024 08:24 Note Text: ANESTHESIOLOGY DAY OF SURGERY NOTE : 1950 Procedure Information Date/Time: 11/13/24 0845 Procedures: PHACOEMULSIFICATION CATARACT IMPLANT INTRAOCULAR LENS W/O ENDOSCOPIC CYCLOPHOTOCOAGULATION (Right) OPHTHALMIC BIOMETRY BY PARTIAL COHERENCE INTERFEROMETRY W/INTRAOCULAR LENS POWER CALCULATION (Right: Eye) Location: [place] [address] / [facility] Surgeons: Brock Cyr V, MD Estimated body mass index is 24.52 kg/m? as calculated from the following: Height as of 11/07/24: 170.2 cm (5' 7 ). Weight as of 11/07/24: 71 kg (156 lb 8.4 oz). Most recent hematocrit and potassium results: No results found for this basename: HCT,HEMATOCRIT,K,POTASS IUM Relevant Problems CARDIO (+) Essential hypertension (+) [...] and consent discussed: yes. Patient / Responsible Democrat agrees to proceed: yes Patient / Surrogate [...] Marlo Kennedy II, DO PATIENT NAME: Darcy Acevedo DATE: November 13, 2024 TIME: 8:21 AM CSN: [id number] Normal [facility] OPERATIVE NOon 11-13-2024 OPERATIVE NO HNO ID: [id number] Author: BROCK CYR MD Service: Ophthalmology Author Type: Physician Type: Operative Report Filed: 11/13/2024 13:27 Note Text: OPERATIVE REPORT DATE OF SERVICE: November 13, 2024 PRIMARY SURGEON: Brock Cyr M.D. FUNDRAISING MANAGER: None [Any nurse listed as assisting or [...] marked. The intended Intraocular lens model and power circled on the patient's source document was confirmed to match the intraocular lens model and power selected from the Intraocular lens consignment, in accordance with hospital intraocular lens verification policy. Nasal oxygen was administered. With the patient in the supine position, topical lidocaine 4% was placed in the eye. The patient was then prepped and draped in the usual sterile fashion for intraocular surgery. After a time-out confirming correct patient using two unique identifiers, correct eye, correct operation, presence of allergies, correct implant, and implant sterility date, an eyelid speculum was placed. Under the operating microscope a beveled clear corneal incision was created temporally with a Foley blade then a 2.4 mm keratome. The anterior chamber was reformed with Viscoat, after which the anterior capsule was opened centrally. Using the Utrata forceps a continuous curvilinear capsulorrhexis of approximately 5.5 mm round was created. Gentle hydrodissection was accomplished using preservative-free lidocaine on a 27-gauge cannula. Using the Alexander phacoemulsification unit with the CM Sistemi curved tip, the anterior chamber was entered and the nucleus was removed while it was in the bag. The epinuclear ring was dissected into several segments, then removed using the phacoemulsification unit set to the desired aspiration flow rate and ultrasound parameters. It was necessary to use chopper forceps at various intervals to aid in the fragmentation of the dense lens material. Great care was taken not to violate the posterior capsule. The silicone-tipped I and A instrument was used to remove the cortex and buff off any remaining cataractous material from the posterior capsule. The capsular bag was then reformed with Discovisc and the following Intraocular lens implant Implant Name Type Inv. Item Serial No. It Compliance Analyst Lot No. LRB No. Used Action Model No. [id number] [employer] - [id number] Intraocular Lens [id number] [employer] [id number] [employer] Right 1 Implanted [id number] [...] was removed and prednisolone acetate 1% and timolol 0.5% eye drops were administered. A shield was affixed over the eye and the patient was sent to the recovery room, leaving the operating room in excellent condition. ESTIMATED BLOOD LOSS: <1mL SPECIMEN: None FINDINGS: Age-related cataract COMPLICATIONS: None Incision/Procedure Start Time: 9:17 AM Incision Close/Procedure End Time: 9:26 AM - Comanage with Dr Owen; [facility] Brock CYR MD Normal [facility] AVASTIN (BEVACIZUMAB) 1.25MG INTRAVITREAL INJECTION OS (LEFT EYE)on 11-09-2024 [facility] OCT MACULA CIRRUS OU (BOTH E YES)on 11-09-2024 [facility] Radiology Study observation (narrative) [facility] CNPNon 11-07-2024 CNPN Telephone (OPHTCR) GERALDDARCY Palacio ([id number]) 1950 F Date Time Provider Department 11/07/24 DARCY DORMAN OPHTCR During your visit today, we recorded the following information about you: Darcy Dorman COA 11/07/2024 3:48 PM Signed I called and spoke with patient. I offered her to see Dr Tinsley November 09 at 10.15. Pt states she cannot come that day because she has another Dr's appt. I then offered November 20 at [facility] and she declined. She says she will try to move her appt on November 09 and will call us back. If not we are keeping the appt for December [address] Kunz. Pt states she thought her cataract surgery was on December 06. I advised her it was not scheduled yet. Amy Beyer 11/07/2024 3:59 PM Signed Patient returned call and accepted appointment for 11/09. Suzanna Kruse 11/07/2024 4:45 PM Signed Brock Cyr V, MD Ehlert, Mary Ann, COA; Ln Opht Surg [id number] minutes ago (4:10 PM) Thanks so much, Darcy Alva! OK to offer her Cataract extraction Right eye 11/13 or 11/15. Suzanna Kruse 11/07/2024 4:45 PM Signed Pt is on for Sx Mon 11/13, spoke to pt in office today. Mei Adams 11/08/2024 9:09 AM Addendum COMANAGED - NAVARRO: 11/14 @ 1PM 11/21 @ 3:15 PM Brock Cyr V, MD filed at 11/07/2024 2:01 PM Status: Addendum The documentation for this note was completed by Marianne Salazar, COA acting as a scribe for Brock CYR MD. 11/07/2024 1:09 PM. ASSESSMENT / PLAN: 1. Combined cataract, both eyes - Offered cataract extraction by phacoemulsification and intraocular lens implant with Dr. Cyr, Right eye only for now, Left eye pending retina eval (Central retinal vein occlusion with large Cystoid macular edema) - Aim: plano - Flomax/alpha-jacobo? No - Toric candidate: No - PanOptix candidate: No - Anesthesia: Topical with MAC - Contact lens use No - History of LASIK/PRK/RK No - Discussed initiate twice daily eyelid scrubs pending U/S biometry and surgery - Comanage with Dr Owen; relinquish care POD #1 Mei Adams 11/13/2024 8:42 AM Signed Maxine Tinsley MD filed at 11/09/2024 11:48 AM Status: [...] others. I have seen and examined Darcy Acevedo. I have discussed the case and the management of this patient's care with the Resident/Fellow, if applicable. I also have reviewed and agree with the assessment and plan as stated above and agree with all of its relevant components. MD Bryan Coyle Samantha R 11/15/2024 1:53 PM Addendum Called and spoke to patient. Advised we received retina clearance from Dr. Tinsley and asked if she would like to proceed with scheduling cataract surgery. She agreed. Surgery is scheduled 12/12 for 2nd eye, left eye. Called and LVM with Dr. Owen' office to schedule 1 day and 1 week post op Allergies As of Date: 11/07/2024 (Not on File) Date Reviewed: 11/07/2024 Reviewed by: Toyin Christine APRN.TEACHER COUNSELOR - Fully Assessed Prescriptions as of 11/15/2024 - prednisoLONE acetate (PRED FORTE) 1 % ophthalmic suspension USE DIRECTED BY PHYSICIAN, IN OPERATIVE EYE, BEGINNING ONE DAY AFTER SURGERY - keTORolac (ACULAR) 0.5 % ophthalmic solution USE DIRECTED BY PHYSICIAN, IN OPERATIVE EYE, BEGINNING ONE DAY AFTER SURGERY - amLODIPine (NORVASC) 2.5 mg tablet Take 2.5 mg by mouth once daily. - atorvastatin (LIPITOR) 80 mg tablet Take 1 tablet by mouth once daily. - alendronate (FOSAMAX) 70 mg tablet TAKE 1 TAB ONCE A WEEK 30 MINS BEFORE FIRST FOOD/DRINK/MED OF THE DAY WITH PLAIN WATER - furosemide (LASIX) 20 mg tablet Take 20 mg by mouth once daily. - glipiZIDE (GLUCOTROL) 5 mg tablet Take 5 mg by mouth two times a day. - lisinopril (ZESTRIL) 20 mg tablet Take 20 mg by mouth once daily. - metFORMIN (GLUCOPHAGE) 500 mg tablet Take 500 mg by mouth two times a day. - metoprolol tartrate, short acting, (LOPRESSOR) 50 mg tablet TAKE 1/2 TABLET BY MOUTH TWICE A DAY WITH FOOD - pentoxifylline ER (TRENTAL) 400 mg CR tablet Take 400 mg by mouth. - propylthiouracil 50 (more content not included)... Normal [facility] HISTORY PHYSICALon HISTORY PHYSICAL HNO ID: [id number] Author: TOYIN CHRISTINE APRN.MODESTO Service: ? Author Type: Nurse Practitioner Type: H&P Filed: 11/07/2024 14:57 Note Text: HISTORY AND PHYSICAL EXAMINATION SERVICE DATE: 11/07/2024 SERVICE TIME: 2:56 PM PRIMARY CARE PHYSICIAN: No primary care provider on file. REASON FOR VISIT: Darcy Acevedo is a 74 year old female who is scheduled for at the request of Dr. Brock Cyr V for consultation. My final recommendation [...] BMI less than or equal to 35 kg/m2 Does not have a large neck Non-male patient STOP-Bang Score: 2 [id number] Score: Age: 65-74 Sex: female CHF history: No Hypertension history: Yes Stroke/TIA/thromboembol ism history: No Vascular disease history: No Diabetes history: Yes [id number] Score: 4 ARISCAT Score: Age: 51-80 Preoperative [...] atorvastatin (LIPITOR) 80 mg tablet Take 1 table (more content not included)... Normal [facility] IOL BIOMETRY W/ IOL CALC OU (BOTH EYES)Ordered By: Keerhti Morris on 11-07-2024 [facility] IOL BIOMETRY W/ IOL CALC OU (BOTH EYES)on 11-07-2024 Radiology Study observation (narrative) [facility] OCT MACULA CIRRUS OU (BOTH E YES)on 11-07-2024 [facility] Radiology Study observation (narrative) [facility] CT LUNG CANCER SCREENINGon 0 07-03-2022 CT [...] by: DIEGO TYLER Date: 2022-07-03 15:37 Normal [facility] INSULINon 12-23-2021 Insulin 10.6 uIU/mL Normal 2.6-24.9 [facility] Comment on above: Performed By: #### I NSULIN #### [facility] [address] [place] [address] Dr. Roni Li OCC BLD IMMUNO SCREENon 12-08 OCCULT BLOOD Negative Normal NEGATIVE [facility] Comment on above: Performed By: #### O BSCRN #### [facility] [address] [place] [address] Dr. Roni Li T4, T3U, FTI LABCORPon 12-23 Free Thyroxine Index 3.9 Normal 1.2-4.9 [facility] Comment on above: Performed By: #### T HYLC #### [facility] [address] [place] [address] Dr. Roni Li T3 Uptake 37 % Normal 24-39 [facility] Comment on above: Performed By: #### T HYLC #### [facility] [address] [place] [address] Dr. oRni Li T4 [Mass/Vol] 10.5 ug/dL Normal 4.5-12.0 [facility] Comment on above: Performed By: #### T HYLC #### [facility] [address] [place] [address] Dr. Roni Li CBC AUTO DIFFon 12-22-2021 BASO # 0.0 103/ul Normal 0.0-0.1 [facility] Comment on above: Performed By: #### C BC #### [facility] [address] [place] [address] Dr. Roni Li Basophils/100 WBC (Bld) 0.5 % Normal 0.2-2.0 [facility] Comment on above: Performed By: #### C BC #### [facility] [address] [place] [address] Dr. Roni Li EO # 0.2 103/ul Normal 0.0-0.7 [facility] Comment on above: Performed By: #### C BC #### [facility] [address] [place] [address] Dr. Roni Li Eosinophils/100 WBC (Bld) 2.1 % Normal 0.9-7.0 [facility] Comment on above: Performed By: #### C BC #### [facility] [address] [place] [address] Dr. Roni Li Erythrocyte distribution width (RBC) [Ratio] 13.3 % Normal 11.0-15.0 [facility] Comment on above: Performed By: #### C BC #### [facility] [address] [place] [address] Dr. Roni Li Hematocrit (Bld) [Volume fraction] 46.1 % Normal 36.0-48.0 [facility] Comment on above: Performed By: #### C BC #### [facility] [address] [place] [address] Dr. Roni Li Hemoglobin (Bld) [Mass/Vol] 15.2 g/dL Normal 12.0-16.0 [facility] Comment on above: Performed By: #### C BC #### [facility] [address] [place] [address] Dr. Roni Li IG # 0.01 10e3/ul Normal 0.00-0.03 [facility] Comment on above: Performed By: #### C BC #### [facility] [address] [place] [address] Dr. Roni Li IG % 0.1 % Normal 0.0-0.5 [facility] Comment on above: Performed By: #### C BC #### [facility] [address] [place] [address] Dr. Roni Li LYMPH # 2.1 103/ul Normal 1.2-3.8 [facility] Comment on above: Performed By: #### C BC #### [facility] [address] [place] [address] Dr. Roni Li Lymphocytes/100 WBC (Bld) 28.0 % Normal 20.5-60.0 [facility] Comment on above: Performed By: #### C BC #### [facility] [address] [place] [address] Dr. Roni Li MANUAL DIFF REQ NO Normal The [facility] Comment on above: Performed By: #### C BC #### [facility] [address] [place] [address] Dr. Roni Li MCH (RBC) [Entitic mass] 30.0 pg Normal 26.7-34.0 [facility] Comment on above: Performed By: #### C BC #### [facility] [address] [place] [address] Dr. Roni Li MCHC (RBC) [Mass/Vol] 33.0 g/dL Normal 29.9-35.2 [facility] Comment on above: Performed By: #### C BC #### [facility] [address] [place] [address] Dr. Roni Li MCV (RBC) [Entitic vol] 90.9 fL Normal 81.0-99.0 [facility] Comment on above: Performed By: #### C BC #### [facility] [address] [place] [address] Dr. Roni Li MONO # 0.8 103/ul Normal 0.3-0.8 [facility] Comment on above: Performed By: #### C BC #### [facility] [address] [place] [address] Dr. Roni Li Monocytes/100 WBC (Bld) 11.2 % Normal 1.7-12.0 [facility] Comment on above: Performed By: #### C BC #### [facility] [address] [place] [address] Dr. Roni Li NEUT # 4.2 103/ul Normal 1.4-6.5 [facility] Comment on above: Performed By: #### C BC #### [facility] [address] [place] [address] Dr. Roni Li Neutrophils/100 WBC (Bld) 58.1 % Normal 43.0-75.0 [facility] Comment on above: Performed By: #### C BC #### [facility] [address] [place] [address] Dr. Roni Li Platelet mean volume (Bld) [Entitic vol] 10.2 fL Normal 9.5-13.5 [facility] Comment on above: Performed By: #### C BC #### [facility] [address] [place] [address] Dr. Roni Li PLT 284 103/ul Normal 150-450 [facility] Comment on above: Performed By: #### C BC #### [facility] [address] [place] [address] [address] Roni Li RBC 5.07 106/ul Normal 4.20-5.40 [facility] Comment on above: Performed By: #### C BC #### [facility] [address] [place] [address] [address] Roni Li WBC 7.3 103/ul Normal 4.0-11.0 [facility] Comment on above: Performed By: #### C BC #### [facility] [address] [place] [address] [address] Roni Li GLYCOHEMOGLOBIN A1Con 2021 ADA RECOMMENDATION SEE BELOW Normal [facility] Comment on above: Result Comment: ADA RECOMMENDED LIMIT 4.0 - 6.0 ADA THERAPEUTIC TARGET < 7.0 ACTION SUGGESTED > 7.0 Performed By: #### A 1C #### [facility] [address] [place] [address] Dr. Roni Li Glucose [Mass/Vol] 126 mg/dL Normal [facility] Comment on above: Performed By: #### A 1C #### [facility] [address] [place] [address] Dr. Roni Li HbA1c (Bld) [Mass fraction] 6.0 % Normal 4.5-6.2 [facility] Comment on above: Performed By: #### A 1C #### [facility] [address] [place] [address] Dr. Roni Li IRONon 12-22-2021 Iron [Mass/Vol] 91.0 ug/dL Normal 50.0-170.0 [facility] Comment on above: Performed By: #### I TIMOTHY #### [facility] [address] [place] [address] Dr. Roni Li LIPID PROFILEon 12-22-2021 CHOL-HDL RATIO NORM SEE BELOW Normal [facility] Comment on above: Result Comment: 3.3 - 4.4 LOW RISK 4.4 - 7.1 AVERAGE RISK 7.1 - 11.0 MODERATE RISK >11.0 HIGH RISK Performed By: #### T SH, LIPID, CMP #### [facility] [address] [address] [address] Roni Li Cholesterol [Mass/Vol] 184 mg/dL Normal <=200 [facility] Comment on above: Performed By: #### T SH, LIPID, CMP #### [facility] [address] [address] [address] Roni Li Cholesterol in HDL [Mass/Vol] 43 mg/dL Normal 40-60 [facility] Comment on above: Performed By: #### T SH, LIPID, CMP #### [facility] [address] [address] [address] Roni Li Cholesterol in LDL [Mass/Vol] 100.0 mg/dL Normal [facility] Comment on above: Performed By: #### T SH, LIPID, CMP #### [facility] [address] [place] [address] Dr. Roni Li Cholesterol.total/Ch olesterol in HDL [Mass ratio] 4.3 {ratio} Normal [facility] Comment on above: Performed By: #### T SH, LIPID, CMP #### [facility] [address] [place] [address] Dr. Roni Li HDL NORMAL > or = 60 mg/dl - LO W CARDIOVASCULAR RISK <40 mg/dl - HIGH CARDIOVASCULAR RISK Normal [facility] Comment on above: Performed By: #### T SH, LIPID, CMP #### [facility] [address] [address] [address] Roni Li LDL CALC NORMAL SEE BELOW Normal [facility] Comment on above: Result Comment: <100 mg/dl OPTIMAL 100 - 129 mg/dl NEAR OR ABOVE OPTIMAL 130 - 159 mg/dl BORDERLINE HIGH 160 - 189 mg/dl HIGH >190 mg/dl VERY HIGH Performed By: #### T SH, LIPID, CMP #### [facility] [address] [address] [address] Roni Li Triglyceride [Mass/Vol] 205 mg/dL Critically high <=150 [facility] Comment on above: Performed By: #### T SH, LIPID, CMP #### [facility] [address] [address] [address] Roni Li VLDL CALC 41.0 mg/dL Normal [facility] Comment on above: Performed By: #### T SH, LIPID, CMP #### [facility] [address] [address] [address] Roni Li PROF 14(COMP METB)on 022 Albumin [Mass/Vol] 4.0 g/dL Normal 3.4-5.0 [facility] Comment on above: Performed By: #### T SH, LIPID, CMP #### [facility] [address] [address] [address] Roni Li Albumin/Globulin [Mass ratio] 1.1 {ratio} Normal [facility] Comment on above: Performed By: #### T SH, LIPID, CMP #### [facility] [address] [address] [address] Roni Li ALP [Catalytic activity/Vol] 74 U/L Normal 46-116 [facility] Comment on above: Performed By: #### T SH, LIPID, CMP #### [facility] [address] [place] [address] Dr. Roni Li ALT [Catalytic activity/Vol] 24 U/L Normal 14-59 [facility] Comment on above: Performed By: #### T SH, LIPID, CMP #### [facility] [address] [address] [address] Roni Li Anion gap [Moles/Vol] 14.1 mmol/L Normal [facility] Comment on above: Performed By: #### T SH, LIPID, CMP #### [facility] [address] [address] [address] Roni Li AST [Catalytic activity/Vol] 22 U/L Normal 15-37 [facility] Comment on above: Performed By: #### T SH, LIPID, CMP #### [facility] [address] [place] [address] Dr. Roni Li Bilirubin [Mass/Vol] 0.9 mg/dL Normal 0.2-1.0 [facility] Comment on above: Performed By: #### T SH, LIPID, CMP #### [facility] [address] [address] [address] Roni Li Calcium [Mass/Vol] 9.3 mg/dL Normal 8.5-10.1 [facility] Comment on above: Performed By: #### T SH, LIPID, CMP #### [facility] [address] [address] [address] Roni Li Chloride [Moles/Vol] 101 mmol/L Normal 98-107 [facility] Comment on above: Performed By: #### T SH, LIPID, CMP #### [facility] [address] [address] [address] Roni Li CO2 [Moles/Vol] 29.0 mmol/L Normal 21.0-32.0 [facility] Comment on above: Performed By: #### T SH, LIPID, CMP #### [facility] [address] [place] [address] Dr. Roni Li Creatinine [Mass/Vol] 0.92 mg/dL Normal 0.55-1.02 [facility] Comment on above: Performed By: #### T SH, LIPID, CMP #### [facility] [address] [place] [address] Dr. Roni Li EGFR-AF SPANISH >60 Normal >=60 [facility] Comment on above: Performed By: #### T SH, LIPID, CMP #### [facility] [address] [place] [address] Dr. Roni Li EGFR-NON AF SPANISH >60 Normal >=60 [facility] Comment on above: Performed By: #### T SH, LIPID, CMP #### [facility] [address] [address] [address] Roni Li Globulin (S) [Mass/Vol] 3.7 g/dL Normal [facility] Comment on above: Performed By: #### T SH, LIPID, CMP #### [facility] [address] [place] [address] Dr. Roni Li Glucose [Mass/Vol] 78 mg/dL Normal 74-106 [facility] Comment on above: Performed By: #### T SH, LIPID, CMP #### [facility] [address] [place] [address] Dr. Roni Li Potassium [Moles/Vol] 4.1 mmol/L Normal 3.5-5.1 [facility] Comment on above: Performed By: #### T SH, LIPID, CMP #### [facility] [address] [place] [address] Dr. Roni Li Protein [Mass/Vol] 7.7 g/dL Normal 6.4-8.2 [facility] Comment on above: Performed By: #### T SH, LIPID, CMP #### [facility] [address] [place] [address] Dr. Roni Li Sodium [Moles/Vol] 140 mmol/L Normal 136-145 [facility] Comment on above: Performed By: #### T DUNCAN LIPID, CMP #### [facility] [address] [place] [address] Dr. Roni Li Urea nitrogen [Mass/Vol] 17.0 mg/dL Normal 7.0-18.0 [facility] Comment on above: Performed By: #### T DUNCAN LIPID, CMP #### [facility] [address] [place] [address] Dr. Roni Li Urea nitrogen/Creatinine [Mass ratio] 18.5 mg/mg Normal [facility] Comment on above: Performed By: #### T DUNCAN, LIPID, CMP #### [facility] [address] [place] [address] Dr. Roni Li TSHon 12-22-2021 TSH 0.637 uIU/mL Normal 0.358-3.740 [facility] Comment on above: Performed By: #### T SH, LIPID, CMP #### [facility] [address] [place] [address] Dr. Roni iL Vital Signs Date Time Vital Sign Value Performing Clinician Tatyana alarcon 11-07-2024 14:27-0400 Body height 170.2 cm Pac 1 Work Phone: [facility] 11-07-2024 14:27-0400 Body mass index (BMI) [Ratio] 24.52 kg/m2 [facility] 1 Work Phone: [facility] 11-07-2024 14:27-0400 Body weight 71 kg [facility] 1 Work Phone: [facility] 11-07-2024 14:27-0400 Diastolic blood pressure 87 mm[Hg] Pac 1 Work Phone: [facility] 11-07-2024 14:27-0400 Systolic blood pressure 115 mm[Hg] [facility] 1 Work Phone: [facility] Encounters Encounter Date Encounter Type Care Provider Facility Start: 11-13-2024 End: 11-13-2024 ambulatory BROCK CYR V Facility:[facility] Start: 11-09-2024 End: 11-09-2024 Patient encounter procedure Maxine Tinsley MD Work Phone: Ophthalmology Comment on above: Central retinal vein occlusion, left eye, with macular edema (HCC) (Primary Dx); Combined forms of age-related cataract of both eyes Start: 11-09-2024 End: 11-09-2024 ambulatory MAXINE TINSLEY Facility:[facility] Start: 11-07-2024 End: 11-07-2024 [address]mission to [address] [address] Work Phone: Pre Anesthesia Start: 11-07-2024 End: 11-07-2024 Anesthesia consultation [address] [place] [address] Work Phone: Pre Anesthesia Comment on above: Pre-op evaluation (P rimary Dx); Peripheral arterial disease; Essential hypertension; Elevated cholesterol; Type 2 diabetes mellitus with other specified complication, without long-term current use of insulin (HCC); Tobacco use Start: 11-07-2024 End: 11-07-2024 Preprocedural examination done [address] [address] Work Phone: [facility] Work Phone: Start: 11-07-2024 End: 11-07-2024 Telephone encounter Darcy HOLCOMB Ophthalmology Start: 11-07-2024 End: 11-07-2024 ambulatory BROCK CYR V Facility:[facility] Start: 11-07-2024 Encounter for other preprocedural examination BROCK CYR V [facility] Start: 11-07-2024 End: 11-07-2024 Office outpatient new 45 minutes Brock Cyr MD Work Phone: Ophthalmology Comment on above: Combined forms of ag e-related cataract of both eyes (Primary Dx); Central retinal vein occlusion, left eye, with macular edema (HCC); Anatomical narrow angle, bilateral; Dry eye syndrome, bilateral; Combined form of age-related cataract, right eye; Combined forms of age-related cataract of left eye; Diabetes mellitus type 2 without retinopathy (HCC) Start: 11-07-2024 End: 11-07-2024 ambulatory BROCK CYR V Facility:[facility] Start: 07-03-2022 End: 07-04-[address] RODDY PERES . Facility: Start: 12-24-2021 End: 12-24-2021 ambulatory HARJIT CHILDERS Facility: Start: 12-22-2021 End: 12-23-2021 ambulatory HARJIT CHILDERS Facility: Procedures Date Procedure Procedure Detail Performing Clinician Start: 11-09-2024 Intravitreal njx pharmacologic agt spx Maxine Tinsley MD Work Phone: Start: 11-09-2024 Computerized ophthal aly imaging retina Maxine Tinsley MD Work Phone: Start: 11-07-2024 Computerized ophthal aly imaging retina Brock Cyr MD Work Phone: Start: 11-07-2024 IOL BIOMETRY W/ IOL CALC OU (BOTH EYES) Brock Cyr MD Work Phone: Plan of Treatment Date Care Activity Detail Author Start: 2026 RSV Vaccine (1 - 1-dose 75+ series) RSV Vaccine (1 - 1-dose 75+ series) [facility] Start: 11-09-2025 Glaucoma screening Dilated Retinal Exam [facility] Start: 11-07-2025 Glaucoma screening Dilated Retinal Exam [facility] Start: 01-08-2025 Influenza vaccination Influenza Vaccine (#1) [facility] Start: 12-26-2024 End: 12-26-2024 Patient encounter procedure 12/26/2024 1:30 PM EDT Office Visit [facility] Ophthalmology [address] [place] [address] Maxine Tinsley MD [address] [place] [address] *4-6 W DTI [facility] Ophthalmology Comment on above: *4-6 W DTI [facility] Start: 11-13-2024 End: 11-13-2024 Admission to same day surgery center 11/13/2024 8:45 AM EDT - 11/13/2024 9:15 AM EDT Surgery Ambulatory Surgery [address] [place] [address] Brock Cyr V, MD [address] [place] [address] PHACOEMULSIFICATION CATARACT IMPLANT INTRAOCULAR LENS W/O ENDOSCOPIC CYCLOPHOTOCOAGULATION Ambulatory Surgery Comment on above: PHACOEMULSIFICATION CATARACT IMPLANT INT RAOCULAR LENS W/O ENDOSCOPIC CYCLOPHOTOCOAGULATION Start: 11-13-2024 End: 11-13-2024 Oph bmtry prtl coher intrfrmtry io lens pwr tano OPHTHALMIC BIOMETRY BY PARTIAL COHERENCE INTERFEROMETRY W/INTRAOCULAR LENS POWER CALCULATION Combined form of age-related cataract, right eye 11/13/2024 8:45 AM EDT [facility] Start: 11-13-2024 Subsequent hospital visit by physician 11/13/2024 8:45 AM EDT Hospital Encounter Ambulatory Surgery [address] [place] [address] Brock Cyr V, MD [address] [place] [address] Combined form of age-related cataract, right eye [H25.811] Ambulatory Surgery Comment on above: Combined form of age-related cataract, r ight eye [H25.811] Start: 11-13-2024 End: 11-13-2024 Xcapsl ctrc rmvl insj io lens prosth w/o ecp PHACOEMULSIFICATION CATARACT IMPLANT INTRAOCULAR LENS W/O ENDOSCOPIC CYCLOPHOTOCOAGULATION Combined form of age-related cataract, right eye 11/13/2024 8:45 AM EDT [facility] Start: 11-09-2024 End: 11-09-2024 Patient encounter procedure 11/09/2024 10:15 AM EDT Office Visit [facility] [address] [place] [address] Maxine Tinsley MD [address] [place] [address] Owen CRVO with edema // OS CAT SX PENDING RETINA CLEARANCE Ophthalmology Comment on above: New per Dr. Owen CRVO with edema // O S CAT SX PENDING RETINA CLEARANCE Start: 10-24-2024 Covid-19 Vaccine () Covid-19 Vaccine () [facility] Start: 05-10-2024 Advance Directive Discussion Advance Directive Discussion [facility] Start: 05-10-2024 Medicare Advantage Annual Wellness Visit Medicare Advantage Annual Wellness Visit [facility] Start: 05-05-2023 Screening for malignant neoplasm of colon [facility] Start: 02-08-2016 Screening for osteoporosis Bone Density Screening [facility] Start: 2001 Screening for malignant neoplasm of lung Lung Cancer Screening [facility] Start: 2001 Shingrix Vaccine (1 of 2) Shingrix Vaccine (1 of 2) [facility] Start: 02-08-1996 Screening for malignant neoplasm of colon [facility] Start: 1991 Screening for malignant neoplasm of breast Mammogram Screening [facility] Start: 1970 Urine microalbumin profile DTaP,Tdap,Td Vaccine (1 - Tdap) [facility] Start: 1969 Annual PCP Team Chronic Disease Visit Annual PCP Team Chronic Disease Visit [facility] Start: 1969 Anxiety Screening Anxiety Screening [facility] Start: 1969 Depression Screening Depression Screening [facility] Start: 1969 Hepatitis B surface antibody level LDL Cholesterol [facility] Start: 10-01-1969 Hepatitis C screening Hepatitis C Screening [facility] Start: 1961 Diabetic foot examination Diabetic Foot Exam [facility] Start: 1961 Hepatitis B screening Urine Albumin:Creatinine Ratio [facility] Start: 02-08-1956 Hemoglobin A1c measurement HbA1C [facility] End: 04-30-2026 CORNEAL TOPOGRAPHY PENTACAM OU (BOTH EYES) CORNEAL TOPOGRAPHY PENTACAM OU (BOTH EYES) [facility] Imaging Routine Combined forms of age-related cataract of both eyes 1 Occurrences starting 11/06/2024 until 04/30/2026 [facility] Work Phone: Comment on above: 1 Occurrences starting 11/06/2024 until 04/30/2026 CORNEAL TOPOGRAPHY P ENTACAM OU (BOTH EYES) CORNEAL TOPOGRAPHY PENTACAM OU (BOTH EYES) [facility] Imaging Routine Combined forms of age-related cataract of both eyes 11/07/2024 10:33 AM EDT [facility] End: 05-03-2026 OCT MACULA CIRRUS OU (BOTH EYES) OCT MACULA CIRRUS OU (BOTH EYES) [facility] Imaging Routine Central retinal vein occlusion, left eye, with macular edema (HCC) 1 Occurrences starting 11/09/2024 until 05/03/2026 [facility] Work Phone: Comment on above: 1 Occurrences starting 11/09/2024 until 05/03/2026 Oph bmtry prtl coher intrfrmtry io lens pwr tano [facility] Xcapsl ctrc rmvl ins j io lens prosth w/o ecp [facility] Immunizations Immunization Date Immunization Notes Care Provider Cuco james 01-28-2024 influenza virus vacc ine, unspecified formulation Brock Shea MD Work Phone: [facility] Payers Date Payer Category Payer Medicare (Managed Care) AEYOANA SCHUSTER [id number] 2024 Medicare [id number] 2023 Private Health Insurance MEDICAR E SUPPLEMENT [id number] 2023 Unknown [id number] 1958 Medicare [id number] 1959 Private Health Insurance [facility] [id number] 1950 Unknown [id number] 1950 Unknown [id number] 1950 Unknown [id number] Social History Date Type Detail Facility Start: 05-10-1965 [facility] Start: 05-10-1965 History of tobacco use Cigarette Smo ker [facility] Start: 11-07-2024 End: 11-09-2024 Cigarettes smoked current (pack per day) - Reported 1 [facility] Start: 11-07-2024 Tobacco use and exposure Smoke less tobacco non-user [facility] Start: 11-07-2024 End: 11-09-2024 Alcoholic beverage intake Lifetime non-drinker (finding) [facility] Start: 11-07-2024 End: 11-09-2024 Tobacco use panel [facility] National Score (1-10 0), lower number is lower risk 79 [facility] Start: 1950 Sex assigned at Not on file [facility] Clinical Notes 11-07-2024 to 11-09-2024 Patient InstructionsMaxine Tinsley MD - 11/09/2024 11:25 AM EDTTelephone Encounter - Suzanna Kruse - 11/07/2024 4:45 PM EDTTelephone Encounter - Suzanna Kruse - 11/07/2024 4:45 PM EDT Note Date & Type Note Facility 11-09-2024 Note Date of Procedure 11/09/2024 [place] Protocol Safety Checklist A moment of CARE [...] Procedure Medications None. Home Going Prescription None. [facility] 11-09-2024 Instructions Maxine Tinsley MD - 11/09/2024 11:39 AM EDT Post [...] than dabbing lightly with a tissue An [id number] pain reliever (i.e. Tylenol) can be used [...] should begin to improve the following day. 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 Author Type: Physician Type: Progress Notes Filed: 11/09/2024 11:48 Note Text: ASSESSMENT/PLAN: Last dilated exam 11/09/2024 H34.8120 Central [...] others. I have seen and examined Darcy Acevedo. I have discussed the case and the management of this patient's care with the Resident/Fellow, if applicable. I also have reviewed and agree with the assessment and plan as stated above and agree with all of its relevant components. Maxine Tinsley MD [facility] 11-09-2024 Note Date of Procedure 11/09/2024. OCT Macula Interpretation Right Eye Normal foveal contour. Findings include Intraretinal fluid. Left Eye Abnormal foveal contour. Findings include Intraretinal fluid. Interval Change Right Eye Stable. Left Eye Worse. [facility]EISS 11-09-2024 History of Present illness Narrative ASSESSMENT/PLAN: Last dilated exam 11/09/2024 H34.8120 Central [...] others. I have seen and examined Darcy Acevedo. I have discussed the case and the management of this patient's care with the Resident/Fellow, if applicable. I also have reviewed and agree with the assessment and plan as stated above and agree with all of its relevant components. Maxine Tinsley MD documented in this encounter [facility] 11-07-2024 Telephone encounter Note Pt is on for Sx Mon 11/13, spoke to pt in office today. [facility] 11-07-2024 Miscellaneous Notes Pt is on for Sx Mon 11/13, spoke to pt in office today. Images from the original note were not included. Brock Cyr V, MD Ehlert, Mary Ann, COA; Ln Opht Surg [id number] minutes ago (4:10 PM) Thanks so much, Darcy Alva! OK to offer her Cataract extraction Right eye 11/13 or 11/15. Patient returned call and accepted appointment for 11/09. I called and spoke with patient. I offered her to see Dr Tinsley November 09 at 10.15. Pt states she cannot come that day because she has another Dr's appt. I then offered November 20 at [facility] and she declined. She says she will try to move her appt on November 09 and will call us back. If not we are keeping the appt for December [address] Kunz. Pt states she thought her cataract surgery was on December 06. I advised her it was not scheduled yet. documented in this encounter [facility] 11-07-2024 Telephone encounter Note Images from the original note were not included. Brock Cyr V, Darcy Rosales, COA; Ln Opht Surg [id number] minutes ago (4:10 PM) Thanks so much, Tegan! OK to offer her Cataract extraction Right eye 11/13 or 11/15. [facility] 11-07-2024 Telephone encounter Note Patient returned call and accepted appointment for 11/09. [facility] 11-07-2024 Telephone encounter Note I called and spoke with patient. I offered her to see Dr Tinsley November 09 at 10.15. Pt states she cannot come that day because she has another Dr's appt. I then offered November 20 at [facility] and she declined. She says she will try to move her appt on November 09 and will call us back. If not we are keeping the appt for December [address] Kunz. Pt states she thought her cataract surgery was on December 06. I advised her it was not scheduled yet. [facility] 11-07-2024 History and physical note HISTORY AND PHYSICAL EXAMINATION SERVICE DATE: 11/07/2024 SERVICE TIME: 2:56 PM PRIMARY CARE PHYSICIAN: No primary care provider on file. REASON FOR VISIT: Darcy Acevedo is a 74 year old female who is scheduled for at the request of Dr. Brock Cyr V for consultation. My final recommendation [...] large neck Non-male patient STOP-Bang Score: 2 [id number] Score: Age: 65-74 Sex: female CHF history: No Hypertension history: Yes Stroke/TIA/thromboembolism history: No Vascular disease history: No Diabetes history: Yes [id number] Score: 4 ARISCAT Score: Age: 51-80 Preoperative [...] HYSTERECTOMY 2019 KNEE BILATERAL OP SURGERY Bilateral 2008 PT [facility] 05/26/1983 Surgery [...] Immunization Dates Current Care Gaps Covid-19 Vaccine (4 - 2024-25 season) Overdue since 10/24/2024 04/25/2024 Imm Admin: COVID-19 vaccine, age 12+ yr (ITS KOOL COMIRNATY) 08/23/2020 Imm Admin: COVID-19 original vaccine, full dose, monovalent (MODERNA) 07/26/2020 Imm Admin: COVID-19 original vaccine, full dose, monovalent (MODERNA) REVIEW OF SYSTEMS: PAIN ASSESSMENT: General: No weight loss, malaise or fevers. Neuro: No history of TIA's, stroke, STRING TOP SEALER tumor, impaired sensorium, hemiplegia, paraplegia or quadraplegia. No neurological symptoms or problems. Respiratory: No history of current cough or dyspnea, or pneumonia in the past 6 weeks. No history of respiratory/pulmonary symptoms or problems. +Tobacco use 1 PPD Cardiovascular: Negative for Recent VA, Angina, Chest Pain, PVD, DVT/PE +HTN +HLD GI: Negative for Nausea, Vomiting, Abdominal pain : Negative for dysuria, incontinence, hematuria, and hesitancy BENEFITS REPRESENTATIVE: Negative for abnormal vaginal bleeding, abnormal vaginal [...] instructions and voices comprehension and compliance. SIGNATURE: Toyin Christine APRN.CNP PATIENT NAME: Darcy Acevedo DATE: 11/07/2024 TIME: 2:37 PM [facility] 11-07-2024 History and physical note HISTORY AND PHYSICAL EXAMINATION SERVICE DATE: 11/07/2024 SERVICE TIME: 2:56 PM PRIMARY CARE PHYSICIAN: No primary care provider on file. REASON FOR VISIT: Darcy Acevedo is a 74 year old female who is scheduled for at the request of Dr. Brock Cyr V for consultation. My final recommendation [...] large neck Non-male patient STOP-Bang Score: 2 [id number] Score: Age: 65-74 Sex: female CHF history: No Hypertension history: Yes Stroke/TIA/thromboembolism history: No Vascular disease history: No Diabetes history: Yes [id number] Score: 4 ARISCAT Score: Age: 51-80 Preoperative [...] Imm Admin: COVID-19 vaccine, age 12+ yr (ITS KOOL COMIRNATY) 08/23/2020 Imm Admin: COVID-19 original vaccine, full dose, monovalent (MODERNA) 07/26/2020 Imm Admin: COVID-19 original vaccine, full dose, monovalent (MODERNA) REVIEW OF SYSTEMS: PAIN ASSESSMENT: General: No weight loss, malaise or fevers. Neuro: No history of TIA's, stroke, STRING TOP SEALER tumor, impaired sensorium, hemiplegia, paraplegia or quadraplegia. No neurological symptoms or problems. Respiratory: No history of current cough or dyspnea, or pneumonia in the past 6 weeks. No history of respiratory/pulmonary symptoms or problems. +Tobacco use 1 PPD Cardiovascular: Negative for Recent VA, Angina, Chest Pain, PVD, DVT/PE +HTN +HLD GI: Negative for Nausea, Vomiting, Abdominal pain : Negative for dysuria, incontinence, hematuria, and hesitancy BENEFITS REPRESENTATIVE: Negative for abnormal vaginal bleeding, abnormal vaginal [...] instructions and voices comprehension and compliance. SIGNATURE: Toyin Christine APRN.CNP PATIENT NAME: Darcy Acevedo DATE: 11/07/2024 TIME: 2:37 PM documented in this encounter [facility] 11-07-2024 Instructions Toyin Christine APRN.CNP - 11/07/2024 2:32 PM EDT Images from the original note were not included. [facility] PATIENT PREOPERATIVE INSTRUCTIONS Your Surgeon has scheduled you for your procedure at this surgery center: [facility]: [phone] --[address] [place] [address]. Please read below carefully for your personalized [...] SURGERY If you are currently using a [id number] injectable or oral medication for diabetes or weight loss such as Dulaglutide (Trulicity), Exenatide (Byetta, Bydureon), Liraglutide (Victoza, Saxenda), Semaglutide (Ozempic, Wegovy, Rybelsus), or Tirzepatide (Mounjaro), the medicine should be stopped at least 7 days before surgery. These medicines can cause food to remain in your stomach for a very long time and increase the risks from surgery and [...] Procedures: - YOU MUST HAVE A RESPONSIBLE RAILROAD OPERATOR TAKE YOU HOME. A WIG DRESSER OR BACKHOE OPERATOR CANNOT BE MADE A RESPONSIBLE RAILROAD OPERATOR. - We recommend that a responsible person stays with you overnight to take care of you. - You cannot stay in a hotel alone after outpatient surgery. You will not be permitted to have your surgery, if you do not have someone to [...] Advance Directive, please fax a copy to [phone] or email to for it to be added to your chart. If you do not have an Advance Directive, you can find the appropriate form and more information at [email or web address]. We recommend that you complete the Advance Directive form found on the website and bring it with you the day of your surgery. It can be witnessed and scanned into your chart that day. Toyin Christine APRN. TEACHER COUNSELOR documented in this encounter [facility] 11-07-2024 Note HNO ID: [id number] Author: BROCK CYR MD Service: ? Author Type: Physician Type: Progress Notes Filed: 11/07/2024 14:01 Note Text: The documentation for this note was completed by Marianne Salazar, COA acting as a scribe for Brock CYR MD. 11/07/2024 1:09 PM. ASSESSMENT / PLAN: 1. Combined cataract, both eyes - Offered cataract extraction by phacoemulsification and intraocular lens implant with Dr. Cyr, Right eye only for now, Left eye pending retina eval (Central retinal vein occlusion with large Cystoid macular edema) - Aim: plano - Flomax/alpha-jacobo? No - Toric candidate: No - PanOptix candidate: No - Anesthesia: Topical with MAC - Contact lens use No - History of LASIK/PRK/RK No - Discussed initiate twice daily eyelid scrubs pending U/S biometry and surgery - Comanage with Dr Owen; [facility] POD #1 Cataract Presurgical Documentation Cataract: Right eye (OD) then Left eye (OS) Current Visual Acuity Right Eye SC: 20/60 Left Eye SC: 20/150 Best Corrected Right Eye: 20/30 -1 Best Corrected Left Eye: 20/125 Glare Testing: Right Eye High less than 20/500 Left Eye High less than 20/500 Visual Function: Darcy Acevedo states that the decline in vision from the cataract impedes her abilities as listed in the HPI, as well as other activities of daily living. Darcy Acevedo has confirmed that she is no longer [...] with lens implantation were discussed with Darcy Acevedo in detail. These included, but are not [...] phacoemulsification offered. Return for preadmission testing, biometry AND intraocular lens calculations prior to surgery. The patient was offered a surgery/procedure at a [facility]. The surgeon/proceduralist and patient have discussed in detail the risk of exposure to and/or potential harm posed by the COVID-19 virus with having a surgery/procedure at this time versus the risk of delaying the surgery/procedure. It is not possible to know either the risk of delaying the surgery or procedure or chance of getting an infection with perfect accuracy, but a joint decision was made between the patient and the surgeon/proceduralist to proceed at this time with the scheduled surgery/procedure as indicated on the consent form. 2. Central retinal vein occlusion Left eye - Retina eval next available 3. narrow angle Both eyes Intraocular pressure wnl, C/D wnl Phakomorphic component. Discussed anticipate resolution following Cataract extraction. I have confirmed and edited as necessary the relevant HPI, ophthalmic history, ROS, and the neuro exam findings as obtained by others. I have seen and examined Darcy Acevedo. I have discussed the case and the management of this patient's care with the Resident/Fellow, if applicable. I also have reviewed and agree with the assessment and plan as stated above and agree with all of its relevant components. Brock CYR MD November 07, 2024 1:09 PM [facility] 11-07-2024 History of Present illness Narrative The documentation for this note was completed by Marianne Salazar, COA acting as a scribe for Brock CYR MD. 11/07/2024 1:09 PM. ASSESSMENT / PLAN: 1. Combined cataract, both eyes - Offered cataract extraction by phacoemulsification and intraocular lens implant with Dr. Cry, Right eye only for now, Left eye pending retina eval (Central retinal vein occlusion with large Cystoid macular edema) - Aim: plano - Flomax/alpha-jacobo? No - Toric candidate: No - PanOptix candidate: No - Anesthesia: Topical with MAC - Contact lens use No - History of LASIK/PRK/RK No - Discussed initiate twice daily eyelid scrubs pending U/S biometry and surgery - Comanage with Dr Owen; [facility] POD #1 Cataract Presurgical Documentation Cataract: Right eye (OD) then Left eye (OS) Current Visual Acuity Right Eye SC: 20/60 Left Eye SC: 20/150 Best Corrected Right Eye: 20/30 -1 Best Corrected Left Eye: 20/125 Glare Testing: Right Eye High less than 20/500 Left Eye High less than 20/500 Visual Function: Darcy Acevedo states that the decline in vision from the cataract impedes her abilities as listed in the HPI, as well as other activities of daily living. Darcy Acevedo has confirmed that she is no longer [...] with lens implantation were discussed with Darcy Acevedo in detail. These included, but are not [...] patient was offered a surgery/procedure at a [facility] facility. The surgeon/proceduralist and patient have discussed in detail the risk of exposure to and/or potential harm posed by the COVID-19 virus with having a surgery/procedure at this time versus the risk of delaying the surgery/procedure. It is not possible to know either the risk of delaying the surgery or procedure or chance of getting an infection with perfect accuracy, but a joint decision was made between the patient and the surgeon/proceduralist to proceed at this time with the scheduled surgery/procedure as indicated on the consent form. 2. Central retinal vein occlusion Left eye - Retina eval next available 3. narrow angle Both eyes Intraocular pressure wnl, C/D wnl Phakomorphic component. Discussed anticipate resolution following Cataract extraction. I have confirmed and edited as necessary the relevant HPI, ophthalmic history, ROS, and the neuro exam findings as obtained by others. I have seen and examined Darcy Acevedo. I have discussed the case and the management of this patient's care with the Resident/Fellow, if applicable. I also have reviewed and agree with the assessment and plan as stated above and agree with all of its relevant components. Brock CYR MD November 07, 2024 1:09 PM ASSESSMENT/PLAN: 1. Combined forms of age-related cataract of both eyes - ICD9: 366.19, ICD10: H25.813 (primary diagnosis) Dr Brock Cyr Cataract evaluation today Guarded prognosis Left eye 2/2 Central retinal vein occlusion 2. Central retinal vein occlusion, left eye, with macular edema (HCC) - ICD9: 362.35, 362.83, ICD10: H34.8120 Central retinal vein occlusion Left eye with ++ Cystoid macular edema Review with Dr Brock Cyr Consult with the retina Service AMAIRANI Pt has been aware of the vision change OS since May Last previous eye exam ~[address] Owen last week 3. 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 Dry eye syndrome, bilateral - ICD9: 375.15, ICD10: H04.123 Artificial Tears as needed November 07, 2024 12:57 PM documented in this encounter [facility] 11-07-2024 Note HNO ID: [id number] Author: JOON MONTIEL OD Service: ? Author Type: STATION EXAMINER Type: Progress Notes Filed: 11/07/2024 14:02 Note Text: ASSESSMENT/PLAN: 1. Combined forms of age-related cataract of both eyes - ICD9: 366.19, ICD10: H25.813 (primary diagnosis) Dr Brock Cyr Cataract evaluation today Guarded prognosis Left eye 2/2 Central retinal vein occlusion 2. Central retinal vein occlusion, left eye, with macular edema (HCC) - ICD9: 362.35, 362.83, ICD10: H34.8120 Central retinal vein occlusion Left eye with ++ Cystoid macular edema Review with Dr Brock Cyr Consult with the retina Service AMAIRANI Pt has been aware of the vision change OS since May Last previous eye exam ~[address] Owen last week 3. 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 Dry eye syndrome, bilateral - ICD9: 375.15, ICD10: H04.123 Artificial Tears as needed November 07, 2024 12:57 PM [facility] 11-07-2024 Note Date of Procedure 11/07/2024. OCT Macula Interpretation Right Eye Normal foveal contour. Findings include PVD; Negative for Intraretinal fluid, Cystoid macular edema, Subretinal fluid. Left Eye Abnormal foveal contour. Findings include Cystoid macular edema, Subretinal fluid. Interval Change Right Eye Initial. Left Eye Initial. [facility] 11-07-2024 Note Date of Procedure 11/07/2024. Automotive Sales Manager Information Keerthi Morris, COA . Notes Measurements only - see Procedure Record under Scanned Documents for signed results. [facility] Evaluation note Diagnosis Combined forms of age-related cataract of [...] mention of complication, not stated as uncontrolled Pre-op evaluation- Primary Preoperative examination, unspecified Peripheral arterial disease Peripheral vascular disease, unspecified Essential hypertension Unspecified essential hypertension Elevated cholesterol Pure hypercholesterolemia Type 2 diabetes mellitus with other specified complication, without long-term current use of insulin (HCC) Tobacco use Tobacco use disorder [facility] Pre-op evaluation- Primary Preoperative examination, unspecified Peripheral arterial disease Peripheral vascular disease, unspecified Essential hypertension Unspecified essential hypertension Elevated cholesterol Pure hypercholesterolemia Type 2 diabetes mellitus with other specified complication, without long-term current use of insulin (HCC) Tobacco use Tobacco use disorder * Assessment & Plan Note - Toyin Christine APRN.TEACHER COUNSELOR - 11/07/2024 2:56 PM EDT Associated Problem(s): Tobacco use Assessment: Smokes 1PPD 59.5 Pack years * Assessment & Plan Note - Toyin Christine APRN.CNP - 11/07/2024 2:55 PM EDT Associated Problem(s): Diabetes mellitus (HCC) Assessment: Complaint with oral medications Instructions provided to patient on how long to hold diabetic medications prior to procedure * Assessment & Plan Note - Toyin Christine APRN.CNP - 11/07/2024 2:55 PM EDT Associated Problem(s): Elevated cholesterol Assessment: Compliant with Statin * Assessment & Plan Note - Toyin Christine APRN.CNP - 11/07/2024 2:54 PM EDT Associated Problem(s): Essential hypertension Assessment: Controlled with medication management 115/87 in office today * Assessment & Plan Note - Toyin Christine APRN.CNP - 11/07/2024 2:54 PM EDT Associated Problem(s): Peripheral arterial disease Assessment: With claudication Bilateral leg cramps when walking pentoxifylline TID Follows with Vascular [facility] Diagnosis Pre-op evaluation- Primary Preoperative examination, unspecified Peripheral arterial disease Peripheral vascular disease, unspecified Essential hypertension Unspecified essential hypertension Elevated cholesterol Pure hypercholesterolemia Type 2 diabetes mellitus with other specified complication, without long-term current use of insulin (HCC) Tobacco use Tobacco use disorder Central retinal vein occlusion, left eye, with macular edema (HCC)- Primary Combined forms of age-related cataract of both eyes Other and combined forms of senile cataract Combined form of age-related cataract, right eye documented in this encounter [facility] Summary Purpose Family History No Family History Records FoundNo Family History Records Found Advance Directives No Advanced Directives Records FoundNo Advanced Directives Records Found Additional Source Comments INFORMATION SOURCE (unrecogn ized section and content) DATE CREATED AUTHOR 07/10/2022 [facility] DATE CREATED AUTHOR AUTHOR'S ORGANIZ ATION 11/16/2024 [facility] Source Comments (unrecognize d section and content) In the event this informatio n is protected by the Federal Confidentiality of Alcohol and Drug Abuse Patient Records regulations: The Federal rules restrict any use of the information to criminally investigate or prosecute any alcohol or drug abuse patient.[facility] the event this information is protected by the Federal Confidentiality of Alcohol and Drug Abuse Patient Records regulations: The Federal rules restrict any use of the information to criminally investigate or prosecute any alcohol or drug abuse patient.[facility] the event this information is protected by the Federal Confidentiality of Alcohol and Drug Abuse Patient Records regulations: The Federal rules restrict any use of the information to criminally investigate or prosecute any alcohol or drug abuse patient.[facility] the event this information is protected by the Federal Confidentiality of Alcohol and Drug Abuse Patient Records regulations: The Federal rules restrict any use of the information to criminally investigate or prosecute any alcohol or drug abuse patient.[facility] Reason for Visit (unrecogniz ed section and content) Reason Comments Cataract Evaluation Specialty Diagnoses / Procedures Referred By Contac t Referred To Contact Ophthalmology / OPHTHALMOLOGY Diagnoses Cataract cat eval dr. owen Procedures OFFICE/OUTPATIENT NEW [facility] MDM 60 MINUTES NEW ADULT Liza Owen, OD [address] [place] [address] Phone: tel: fax: Brock Cyr V, MD [address] [place] [address] Phone: tel: fax: Referral ID Status Reason Start Date Expiration Date V isits Requested Visits Authorized [id number] Authorized 11/06/2024 05/09/2025 2 2 Reason Comments Anesthesia Consult Specialty Diagnoses / Procedures Referred By Contact Referred To Contact Anesthesiology / ANESTHESIOLOGY Diagnoses CATARACT SURGERY RIGHT EYE ONLY -MAYTE 11/13 Procedures OFFICE/OUTPATIENT NEW [facility] 60 MINUTES EYE CATARACT PACC Brock Cyr V, MD [address] [place] [address] Phone: tel: fax: 1, [facility] [address] [place] [address] Phone: tel: Referral ID Status Reason Start Date Expiration Date Visits Re quested Visits Authorized [id number] Closed 11/07/2024 05/09/2025 1 1 Reason Comments Central retinal vein occlusion, left eye , with macular alexey Anatomical narrow angle, bilateral Specialty Diagnoses / Procedures Referred By Contac t Referred To Contact Ophthalmology / OPHTHALMOLOGY Diagnoses Central retinal vein occlusion, left eye, with macular edema (HCC) *NEW PER AH, PRE OP CLEAR/CRVO OD, DFE/OCT, AVASTIN OS Procedures MS BEVACIZUMAB INJECTION NEW ADULT Brock Cyr V, MD [address] [place] [address] Phone: tel: Maxine Tinsley MD [address] [place] [address] Phone: tel: fax: Referral ID Status Reason Start Date Expiration Date V isits Requested Visits Authorized [id number] Authorized 11/09/2024 05/09/2025 99 99 FOR RECORDS PERTAINING TO PATIENTS WHO ARE [...] BE BASED ON THE PRIMARY CLINICAL RECORDS. [employer] provides no warranty or guarantee of the accuracy or completeness of information in this document.
[2024-11-17 11:10] LABS: Hematocrit 46.5 % (36.0-48.0); Hemoglobin 15.9 g/dL (12.0-16.0); Immature Granulocytes Abs Auto 0.02 10^3/uL (0.00-0.03); Immature Granulocytes Pct Auto 0.2 % (0.0-0.5); Lymphocytes Absolute Auto 1.2 10^3/uL (1.2-3.8); Mean Corpuscular HGB Conc 34.2 g/dL (29.9-35.2); Mean Corpuscular Hemoglobin 29.6 pg (26.7-34.0); Mean Corpuscular Volume 86.4 fL (81.0-99.0); Platelet Count 294 10^3/uL (150-450); Red Blood Count 5.38 10^6/uL (4.20-5.40); White Blood Count 9.2 10^3/uL (4.0-11.0)
[2024-11-17 11:45] LABS: Alanine Aminotransferase 19 U/L (14-59); Albumin Globulin Ratio 0.8; Albumin Level 3.4 g/dL (3.4-5.0); Alkaline Phosphatase 96 U/L (46-116); Anion Gap 13.0; Aspartate Amino Transferase 26 U/L (15-37); Blood Urea Nitrogen 15.0 mg/dL (7.0-18.0); Calcium 9.1 mg/dL (8.5-10.1); Carbon Dioxide 29.0 mmol/L (21.0-32.0); Chloride 105 mmol/L (98-107); Cholesterol 166 mg/dL (<=200); Estimated GFR (African America >60 (>=60 mL/min/1.73m^2); Estimated GFR (Non-African Ame >60 (>=60 mL/min/1.73m^2); Free T3 2.76 pg/mL (2.18-3.98); Globulin 4.2 g/dL; Glucose 100 mg/dL (74-106); HDL Cholesterol 49 mg/dL (40-60); Potassium 4.0 mmol/L (3.5-5.1); Sodium 143 mmol/L (136-145); Thyroid Stimulating Hormone 0.853 uIU/mL (0.358-3.740); Total Protein 7.6 g/dL (6.4-8.2); Triglycerides 165 mg/dL (<=150); VLDL CHOLESTEROL 33.0 mg/dL
[2024-11-17 13:32] LABS: Iron 46.0 ug/dL (50.0-170.0)
== END 2024-11-17 10:34 | disposition home or self-care (01) ==
PROVIDERS: PCP Family Medicine; Visit Provider Family Medicine
DX: E78.00 Pure hypercholesterolemia, unspecified (principal); E11.9 Type 2 diabetes mellitus without complications; I10 Essential (primary) hypertension; E06.3 Autoimmune thyroiditis; F17.200 Nicotine dependence, unspecified, uncomplicated; Z12.12 Encounter for screening for malignant neoplasm of rectum; D64.9 Anemia, unspecified; E55.9 Vitamin D deficiency, unspecified
CPT/HCPCS: 36415; 80053; 80061; 82306; 83036; 83540; 84436; 84443; 84481; 85025

== ENCOUNTER 2024-11-21 12:16 | Outpatient (REF) | payer MEDICARE, OTHER, SELFPAY ==
--- OUTSIDE RECORDS SUMMARY | 2024-11-21 12:32 | XMS_ITS | CCD ---
Author Organization [facility] Care Team Providers Care Procurement Forester Name Role Phone JA ., DR PEREYRA Attending Unavailable JA ., DR PEREYRA Consulting Unavailable JA ., DR PEREYRA Admitting Unavailable LISETH, HARJIT Primary Care Unavailable ADEOLAEBMACEY, DR DIEGO Rehman Consulting Unavailable LISETH, HARJIT [...] release oral tablet (4 sources) Blood Viscosity Web Site Developer pentoxifylline ER (TRENTAL) 400 mg CR tablet [...] EVALon 025 ANES POSTPROC EVAL HNO ID: [id number] Author: MARLO KENNEDY II, DO Service: Anesthesiology Author Type: Anesthesiologist Type: Anesthesia Postprocedure Evaluation Filed: 11/13/2024 13:12 Note Text: POST ANESTHESIA EVALUATION NOTE : 1950 Procedure Summary Date: 11/13/24 Room / Location: [address] Anesthesia Start: 908 Anesthesia Stop: 927 [...] November 13, 2024 TIME: 1:12 PM CSN: [id number] Normal [facility] ANES PRE-OPon 11-13-2024 ANES PRE-OP HNO ID: [id number] Author: MARLO KENNEDY II, DO Service: Anesthesiology Author Type: Anesthesiologist Type: Anesthesia Preprocedure Evaluation Filed: 11/13/2024 08:24 Note Text: ANESTHESIOLOGY DAY OF SURGERY NOTE : 1950 Procedure Information Date/Time: 11/13/24 0845 Procedures: PHACOEMULSIFICATION CATARACT IMPLANT INTRAOCULAR LENS W/O ENDOSCOPIC CYCLOPHOTOCOAGULATION (Right) OPHTHALMIC BIOMETRY BY PARTIAL COHERENCE INTERFEROMETRY W/INTRAOCULAR LENS POWER CALCULATION (Right: Eye) Location: [place] [address] / [facility] Surgeons: Brock Cyr V, MD Estimated body [...] and consent discussed: yes. Patient / Responsible Constitution Party agrees to proceed: yes Patient / Surrogate [...] November 13, 2024 TIME: 8:21 AM CSN: [id number] Normal [facility] OPERATIVE NOon 11-13-2024 OPERATIVE NO HNO ID: [id number] Author: BROCK CYR MD Service: Ophthalmology Author Type: Physician Type: Operative Report Filed: 11/13/2024 13:27 Note Text: OPERATIVE REPORT DATE OF SERVICE: November 13, 2024 PRIMARY SURGEON: Brock Cyr M.D. CAR FRAMER: None [Any nurse listed as assisting or [...] corneal incision was created temporally with a Hurlburt Field blade then a 2.4 mm keratome. The anterior chamber was reformed with Viscoat, after which the anterior capsule was opened centrally. Using the Utrata forceps a continuous curvilinear capsulorrhexis of approximately 5.5 mm round was created. Gentle hydrodissection was accomplished using preservative-free lidocaine on a 27-gauge cannula. Using the Alexander phacoemulsification unit with the Jule Game curved tip, the anterior chamber was entered [...] Implant Name Type Inv. Item Serial No. Nursing Associate Lot No. LRB No. Used Action Model No. [id number] [employer] - [id number] Intraocular Lens [id number] [employer] [id number] [employer] Right 1 Implanted [id number] [...] 9:26 AM - Comanage with Dr Owen; [facility] Brock CYR MD Normal [facility] AVASTIN (BEVACIZUMAB) 1.25MG INTRAVITREAL INJECTION OS (LEFT EYE)on 11-09-2024 [facility] OCT MACULA CIRRUS OU (BOTH E YES)on 11-09-2024 [facility] Radiology Study observation (narrative) [facility] CNPNon 11-07-2024 CNPN Telephone (OPHTCR) GERALDDARCY Palacio ([id number]) 1950 F Date Time Provider Department 11/07/24 [...] then offered November 20 at [facility] and she declined. She says she [...] Ehlert, Mary Ann, COA; Ln Opht Surg [id number] minutes ago (4:10 PM) Thanks so much, [...] Date Reviewed: 11/07/2024 Reviewed by: Toyin Christine APRN.WINCH TRUCK OPERATOR - Fully Assessed Prescriptions as of 11/15/2024 [...] propylthiouracil 50 (more content not included)... Normal [facility] HISTORY PHYSICALon HISTORY PHYSICAL HNO ID: [id number] Author: TOYIN CHRISTINE APRN.MDOESTO Service: ? Author Type: Nurse Practitioner Type: [...] large neck Non-male patient STOP-Bang Score: 2 [id number] Score: Age: 65-74 Sex: female CHF history: No Hypertension history: Yes Stroke/TIA/thromboembol ism history: No Vascular disease history: No Diabetes history: Yes [id number] Score: 4 ARISCAT Score: Age: 51-80 Preoperative [...] 1 table (more content not included)... Normal [facility] IOL BIOMETRY W/ IOL CALC OU (BOTH EYES)Ordered By: Keerthi Morris on 11-07-2024 [facility] IOL BIOMETRY W/ IOL CALC OU (BOTH EYES)on 11-07-2024 Radiology Study observation (narrative) [facility] OCT MACULA CIRRUS OU (BOTH E YES)on 11-07-2024 [facility] Radiology Study observation (narrative) [facility] CT LUNG CANCER SCREENINGon 0 07-03-2022 CT [...] by: DIEGO TYLER Date: 2022-07-03 15:37 Normal [facility] INSULINon 12-23-2021 Insulin 10.6 uIU/mL Normal 2.6-24.9 [facility] Comment on above: Performed By: #### I NSULIN #### [facility] [address] [place] [address] Dr. Roni Li OCC BLD IMMUNO SCREENon 12-08 OCCULT BLOOD Negative Normal NEGATIVE [facility] Comment on above: Performed By: #### O BSCRN #### [facility] [address] [place] [address] Dr. Roni Li T4, T3U, FTI LABCORPon 12-23 Free Thyroxine Index 3.9 Normal 1.2-4.9 [facility] Comment on above: Performed By: #### T HYLC #### [facility] [address] [place] [address] Dr. Roni Li T3 Uptake 37 % Normal 24-39 [facility] Comment on above: Performed By: #### T HYLC #### [facility] [address] [place] [address] Dr. Roni Li T4 [Mass/Vol] 10.5 ug/dL Normal 4.5-12.0 The [facility] Comment on above: Performed By: #### T HYLC #### [facility] [address] [place] [address] Dr. Roni Li CBC AUTO DIFFon 12-22-2021 BASO # 0.0 103/ul Normal 0.0-0.1 [facility] Comment on above: Performed By: #### C BC #### [facility] [address] [place] [address] Dr. Roni Li Basophils/100 WBC (Bld) 0.5 % Normal 0.2-2.0 [facility] Comment on above: Performed By: #### C BC #### [facility] [address] [place] [address] Dr. Roni Li EO # 0.2 103/ul Normal 0.0-0.7 [facility] Comment on above: Performed By: #### C BC #### [facility] [address] [place] [address] Dr. Roni Li Eosinophils/100 WBC (Bld) 2.1 % Normal 0.9-7.0 [facility] Comment on above: Performed By: #### C BC #### [facility] [address] [place] [address] Dr. Roni Li Erythrocyte distribution width (RBC) [Ratio] 13.3 % Normal 11.0-15.0 [facility] Comment on above: Performed By: #### C BC #### [facility] [address] [place] [address] Dr. Roni Li Hematocrit (Bld) [Volume fraction] 46.1 % Normal 36.0-48.0 [facility] Comment on above: Performed By: #### C BC #### [facility] [address] [place] [address] Dr. Roni Li Hemoglobin (Bld) [Mass/Vol] 15.2 g/dL Normal 12.0-16.0 [facility] Comment on above: Performed By: #### C BC #### [facility] [address] [place] [address] Dr. Roni Li IG # 0.01 10e3/ul Normal 0.00-0.03 [facility] Comment on above: Performed By: #### C BC #### [facility] [address] [place] [address] Dr. Roni Li IG % 0.1 % Normal 0.0-0.5 [facility] Comment on above: Performed By: #### C BC #### [facility] [address] [place] [address] Dr. Roni Li LYMPH # 2.1 103/ul Normal 1.2-3.8 [facility] Comment on above: Performed By: #### C BC #### [facility] [address] [place] [address] Dr. Roni Li Lymphocytes/100 WBC (Bld) 28.0 % Normal 20.5-60.0 [facility] Comment on above: Performed By: #### C BC #### [facility] [address] [place] [address] Dr. Roni Li MANUAL DIFF REQ NO Normal [facility] Comment on above: Performed By: #### C BC #### [facility] [address] [place] [address] Dr. Roni Li MCH (RBC) [Entitic mass] 30.0 pg Normal 26.7-34.0 [facility] Comment on above: Performed By: #### C BC #### [facility] [address] [place] [address] Dr. Roni Li MCHC (RBC) [Mass/Vol] 33.0 g/dL Normal 29.9-35.2 [facility] Comment on above: Performed By: #### C BC #### [facility] [address] [place] [address] Dr. Roni Li MCV (RBC) [Entitic vol] 90.9 fL Normal 81.0-99.0 [facility] Comment on above: Performed By: #### C BC #### [facility] [address] [place] [address] Dr. Roni Li MONO # 0.8 103/ul Normal 0.3-0.8 [facility] Comment on above: Performed By: #### C BC #### [facility] [address] [place] [address] Dr. Roni Li Monocytes/100 WBC (Bld) 11.2 % Normal 1.7-12.0 [facility] Comment on above: Performed By: #### C BC #### [facility] [address] [place] [address] Dr. Roni Li NEUT # 4.2 103/ul Normal 1.4-6.5 [facility] Comment on above: Performed By: #### C BC #### [facility] [address] [place] [address] Dr. Roni Li Neutrophils/100 WBC (Bld) 58.1 % Normal 43.0-75.0 [facility] Comment on above: Performed By: #### C BC #### [facility] [address] [place] [address] Dr. Roni Li Platelet mean volume (Bld) [Entitic vol] 10.2 fL Normal 9.5-13.5 [facility] Comment on above: Performed By: #### C BC #### [facility] [address] [place] [address] Dr. Roni Li PLT 284 103/ul Normal 150-450 [facility] Comment on above: Performed By: #### C BC #### [facility] [address] [place] [address] [address] Roni Li RBC 5.07 106/ul Normal 4.20-5.40 [facility] Comment on above: Performed By: #### C BC #### [facility] [address] [place] [address] [address] Roni Li WBC 7.3 103/ul Normal 4.0-11.0 [facility] Comment on above: Performed By: #### C BC #### [facility] [address] [place] [address] [address] Roni Li GLYCOHEMOGLOBIN A1Con 2021 ADA RECOMMENDATION SEE BELOW Normal [facility] Comment on above: Result Comment: ADA RECOMMENDED LIMIT 4.0 - 6.0 ADA THERAPEUTIC TARGET < 7.0 ACTION SUGGESTED > 7.0 Performed By: #### A 1C #### [facility] [address] [place] [address] Dr. Roni Li Glucose [Mass/Vol] 126 mg/dL Normal [facility] Comment on above: Performed By: #### A 1C #### [facility] [address] [place] [address] Dr. Roni Li HbA1c (Bld) [Mass fraction] 6.0 % Normal 4.5-6.2 [facility] Comment on above: Performed By: #### A 1C #### [facility] [address] [place] [address] Dr. Roni Li IRONon 12-22-2021 Iron [Mass/Vol] 91.0 ug/dL Normal 50.0-170.0 [facility] Comment on above: Performed By: #### I TIMOTHY #### [facility] [address] [place] [address] Dr. Roni Li LIPID PROFILEon 12-22-2021 CHOL-HDL RATIO NORM SEE BELOW Normal [facility] Comment on above: Result Comment: 3.3 - 4.4 LOW RISK 4.4 - 7.1 AVERAGE RISK 7.1 - 11.0 MODERATE RISK >11.0 HIGH RISK Performed By: #### T SH, LIPID, CMP #### [facility] [address] [address] [address] Roni Li Cholesterol [Mass/Vol] 184 mg/dL Normal <=200 [facility] Comment on above: Performed By: #### T SH, LIPID, CMP #### [facility] [address] [address] [address] Roni Li Cholesterol in HDL [Mass/Vol] 43 mg/dL Normal 40-60 [facility] Comment on above: Performed By: #### T SH, LIPID, CMP #### [facility] [address] [address] [address] Roni Li Cholesterol in LDL [Mass/Vol] 100.0 mg/dL Normal [facility] Comment on above: Performed By: #### T SH, LIPID, CMP #### [facility] [address] [place] [address] Dr. Roni Li Cholesterol.total/Ch olesterol in HDL [Mass ratio] 4.3 {ratio} Normal [facility] Comment on above: Performed By: #### T SH, LIPID, CMP #### [facility] [address] [place] [address] Dr. Roni Li HDL NORMAL > or = 60 mg/dl - LO W CARDIOVASCULAR RISK <40 mg/dl - HIGH CARDIOVASCULAR RISK Normal [facility] Comment on above: Performed By: #### T SH, LIPID, CMP #### [facility] [address] [address] [address] Roni Li LDL CALC NORMAL SEE BELOW Normal [facility] Comment on above: Result Comment: <100 mg/dl OPTIMAL 100 - 129 mg/dl NEAR OR ABOVE OPTIMAL 130 - 159 mg/dl BORDERLINE HIGH 160 - 189 mg/dl HIGH >190 mg/dl VERY HIGH Performed By: #### T SH, LIPID, CMP #### [facility] [address] [address] [address] Roni Li Triglyceride [Mass/Vol] 205 mg/dL Critically high <=150 [facility] Comment on above: Performed By: #### T SH, LIPID, CMP #### [facility] [address] [address] [address] Roni Li VLDL CALC 41.0 mg/dL Normal [facility] Comment on above: Performed By: #### T SH, LIPID, CMP #### [facility] [address] [address] [address] Roni Li PROF 14(COMP METB)on 022 Albumin [Mass/Vol] 4.0 g/dL Normal 3.4-5.0 [facility] Comment on above: Performed By: #### T SH, LIPID, CMP #### [facility] [address] [address] [address] Roni Li Albumin/Globulin [Mass ratio] 1.1 {ratio} Normal [facility] Comment on above: Performed By: #### T SH, LIPID, CMP #### [facility] [address] [address] [address] Roni Li ALP [Catalytic activity/Vol] 74 U/L Normal 46-116 [facility] Comment on above: Performed By: #### T SH, LIPID, CMP #### [facility] [address] [place] [address] Dr. Roni Li ALT [Catalytic activity/Vol] 24 U/L Normal 14-59 [facility] Comment on above: Performed By: #### T SH, LIPID, CMP #### [facility] [address] [address] [address] Roni Li Anion gap [Moles/Vol] 14.1 mmol/L Normal [facility] Comment on above: Performed By: #### T SH, LIPID, CMP #### [facility] [address] [address] [address] Roni Li AST [Catalytic activity/Vol] 22 U/L Normal 15-37 [facility] Comment on above: Performed By: #### T SH, LIPID, CMP #### [facility] [address] [place] [address] Dr. Roni Li Bilirubin [Mass/Vol] 0.9 mg/dL Normal 0.2-1.0 [facility] Comment on above: Performed By: #### T SH, LIPID, CMP #### [facility] [address] [address] [address] Roni Li Calcium [Mass/Vol] 9.3 mg/dL Normal 8.5-10.1 [facility] Comment on above: Performed By: #### T SH, LIPID, CMP #### [facility] [address] [address] [address] Roni Li Chloride [Moles/Vol] 101 mmol/L Normal 98-107 [facility] Comment on above: Performed By: #### T SH, LIPID, CMP #### [facility] [address] [address] [address] Roni Li CO2 [Moles/Vol] 29.0 mmol/L Normal 21.0-32.0 [facility] Comment on above: Performed By: #### T SH, LIPID, CMP #### [facility] [address] [place] [address] Dr. Roni Li Creatinine [Mass/Vol] 0.92 mg/dL Normal 0.55-1.02 [facility] Comment on above: Performed By: #### T SH, LIPID, CMP #### [facility] [address] [place] [address] Dr. Roni iL EGFR-AF LAO >60 Normal >=60 [facility] Comment on above: Performed By: #### T SH, LIPID, CMP #### [facility] [address] [place] [address] Dr. Roni Li EGFR-NON AF LAO >60 Normal >=60 [facility] Comment on above: Performed By: #### T SH, LIPID, CMP #### [facility] [address] [address] [address] Roni Li Globulin (S) [Mass/Vol] 3.7 g/dL Normal [facility] Comment on above: Performed By: #### T SH, LIPID, CMP #### [facility] [address] [place] [address] Dr. Roni Li Glucose [Mass/Vol] 78 mg/dL Normal 74-106 [facility] Comment on above: Performed By: #### T SH, LIPID, CMP #### [facility] [address] [place] [address] Dr. Roni Li Potassium [Moles/Vol] 4.1 mmol/L Normal 3.5-5.1 [facility] Comment on above: Performed By: #### T SH, LIPID, CMP #### [facility] [address] [place] [address] Dr. Roni Li Protein [Mass/Vol] 7.7 g/dL Normal 6.4-8.2 [facility] Comment on above: Performed By: #### T SH, LIPID, CMP #### [facility] [address] [place] [address] Dr. Roni Li Sodium [Moles/Vol] 140 mmol/L Normal 136-145 [facility] Comment on above: Performed By: #### T DUNCAN LIPID, CMP #### [facility] [address] [place] [address] Dr. Roni Li Urea nitrogen [Mass/Vol] 17.0 mg/dL Normal 7.0-18.0 [facility] Comment on above: Performed By: #### T DUNCAN LIPID, CMP #### [facility] [address] [place] [address] Dr. Roni Li Urea nitrogen/Creatinine [Mass ratio] 18.5 mg/mg Normal [facility] Comment on above: Performed By: #### T DUNCAN, LIPID, CMP #### [facility] [address] [place] [address] Dr. Roni Li TSHon 12-22-2021 TSH 0.637 uIU/mL Normal 0.358-3.740 The [facility] Comment on above: Performed By: #### T SH, LIPID, CMP #### [facility] [address] [place] [address] Dr. Roni Li Vital Signs Date Time Vital Sign Value Performing Clinician Tatyana alarcon 11-07-2024 14:27-0400 Body height 170.2 cm Pac 1 Work Phone: [facility] 11-07-2024 14:27-0400 Body mass index (BMI) [Ratio] 24.52 kg/m2 [facility] 1 Work Phone: [facility] 11-07-2024 14:27-0400 Body weight 71 kg [facility] 1 Work Phone: [facility] 11-07-2024 14:27-0400 Diastolic blood pressure 87 mm[Hg] Pac 1 Work Phone: [facility] 11-07-2024 14:27-0400 Systolic blood pressure 115 mm[Hg] [facility] 1 Work Phone: [facility] Encounters Encounter Date Encounter Type Care Provider Facility Start: 11-13-2024 End: 11-13-2024 ambulatory BROCK CYR V Facility:[facility] Start: 11-09-2024 End: 11-09-2024 Patient encounter procedure Maxine Tinsley MD Work Phone: Ophthalmology Comment on above: Central retinal vein occlusion, left eye, with macular edema (HCC) (Primary Dx); Combined forms of age-related cataract of both eyes Start: 11-09-2024 End: 11-09-2024 ambulatory MAXINE TINSLEY Facility:[facility] Start: 11-07-2024 End: 11-07-2024 Admission to [place] [id number] Work Phone: Pre Anesthesia Start: 11-07-2024 End: 11-07-2024 Anesthesia consultation [place] [address] Work Phone: Pre Anesthesia Comment on above: Pre-op evaluation (P rimary Dx); Peripheral arterial disease; Essential hypertension; Elevated cholesterol; Type 2 diabetes mellitus with other specified complication, without long-term current use of insulin (HCC); Tobacco use Start: 11-07-2024 End: 11-07-2024 Preprocedural examination done [place] [id number] Work Phone: [facility] Work Phone: Start: 11-07-2024 End: 11-07-2024 Telephone encounter Darcy [facility] Ophthalmology Start: 11-07-2024 End: 11-07-2024 ambulatory BROCK CYR V Facility:[facility] Start: 11-07-2024 Encounter for other preprocedural examination BROCK CYR V [facility] Start: 11-07-2024 End: 11-07-2024 Office [...] 11-07-2024 End: 11-07-2024 ambulatory BROCK CYR V Facility:[facility] Start: 07-03-2022 End: 07-04-[address] RODDY [...] RSV Vaccine (1 - 1-dose 75+ series) [facility] Start: 11-09-2025 Glaucoma screening Dilated Retinal Exam [facility] Start: 11-07-2025 Glaucoma screening Dilated Retinal Exam [facility] Start: 01-08-2025 Influenza vaccination Influenza Vaccine (#1) [place] Start: 12-26-2024 End: 12-26-2024 Patient encounter procedure 12/26/2024 1:30 PM EDT Office Visit [facility] Op[facility]mology [address] [place] [address] Maxine Tinsley MD [address] [place] [address] *4-6 W DTI [facility] Ophthalmology Comment on above: *4-6 W DTI [facility] Start: 11-13-2024 End: 11-13-2024 Admission to same day surgery center 11/13/2024 8:45 AM EDT - 11/13/2024 9:15 AM EDT Surgery Ambulatory Surgery [address] [place] [address] Brock Cyr V, MD [address] [place] [address] PHACOEMULSIFICATION CATARACT IMPLANT INTRAOCULAR LENS W/O ENDOSCOPIC CYCLOPHOTOCOAGULATION Ambulatory Surgery Comment on above: PHACOEMULSIFICATION CATARACT IMPLANT INT RAOCULAR LENS W/O ENDOSCOPIC CYCLOPHOTOCOAGULATION Start: 11-13-2024 End: 11-13-2024 Oph bmtry prtl coher intrfrmtry io lens pwr tano OPHTHALMIC BIOMETRY BY PARTIAL COHERENCE INTERFEROMETRY W/INTRAOCULAR LENS POWER CALCULATION Combined form of age-related cataract, right eye 11/13/2024 8:45 AM EDT [facility] Start: 11-13-2024 Subsequent hospital visit by physician 11/13/2024 8:45 AM EDT Hospital Encounter Ambulatory Surgery [address] [place] [address] Brock Cyr V, MD [address] [place] [address] Combined form of age-related cataract, right eye [...] AM EDT Office Visit [facility] Ophthalmology [address] [place] [address] Maxine Tinsley MD [address] [place] [address] Owen CRVO with edema // OS CAT SX PENDING RETINA CLEARANCE Ophthalmology Comment on above: New per Dr. Owen CRVO with edema // O S CAT SX PENDING RETINA CLEARANCE Start: 10-24-2024 Covid-19 Vaccine () Covid-19 Vaccine () [facility] Start: 05-10-2024 Advance Directive Discussion Advance Directive Discussion [facility] Start: 05-10-2024 Medicare Advantage Annual Wellness Visit Medicare Advantage Annual Wellness Visit [facility] Start: 05-05-2023 Screening for malignant neoplasm of colon [facility] Start: 02-08-2016 Screening for osteoporosis Bone Density Screening [facility] Start: 2001 Screening for malignant neoplasm of lung Lung Cancer Screening [facility] Start: 2001 Shingrix Vaccine (1 of 2) Shingrix Vaccine (1 of 2) [facility] Start: 02-08-1996 Screening for malignant neoplasm of colon [facility] Start: 1991 Screening for malignant neoplasm of breast Mammogram Screening [facility] Start: 1970 Urine microalbumin profile DTaP,Tdap,Td Vaccine (1 - Tdap) [facility] Start: 1969 Annual PCP Team Chronic Disease Visit Annual PCP Team Chronic Disease Visit [facility] Start: 1969 Anxiety Screening Anxiety Screening [facility] Start: 1969 Depression Screening Depression Screening [facility] Start: 1969 Hepatitis B surface antibody level LDL Cholesterol [facility] Start: 10-01-1969 Hepatitis C screening Hepatitis C Screening [facility] Start: 1961 Diabetic foot examination Diabetic Foot Exam [facility] Start: 1961 Hepatitis B screening Urine Albumin:Creatinine Ratio [facility] Start: 02-08-1956 Hemoglobin A1c measurement HbA1C [facility] End: 04-30-2026 CORNEAL TOPOGRAPHY PENTACAM OU (BOTH EYES) CORNEAL TOPOGRAPHY PENTACAM OU (BOTH EYES) OPHT Imaging Routine Combined forms of age-related cataract of both eyes 1 Occurrences starting 11/06/2024 until 04/30/2026 [facility] Work Phone: Comment on above: 1 Occurrences starting 11/06/2024 until 04/30/2026 CORNEAL TOPOGRAPHY P ENTACAM OU (BOTH EYES) CORNEAL TOPOGRAPHY PENTACAM OU (BOTH EYES) OPHT Imaging Routine Combined forms of age-related cataract of both eyes 11/07/2024 10:33 AM EDT [facility] End: 05-03-2026 OCT MACULA CIRRUS OU (BOTH EYES) OCT MACULA CIRRUS OU (BOTH EYES) OPHT Imaging Routine Central retinal vein occlusion, left eye, with macular edema (HCC) 1 Occurrences starting 11/09/2024 until 05/03/2026 [facility] Work Phone: Comment on above: 1 Occurrences starting 11/09/2024 until 05/03/2026 Oph bmtry prtl coher intrfrmtry io lens pwr tano [facility] Xcapsl ctrc rmvl ins j io lens prosth w/o ecp [facility] Immunizations Immunization Date Immunization Notes Care Provider Cuco james 01-28-2024 influenza virus vacc ine, unspecified formulation Brock Shea MD Work Phone: [facility] Payers Date Payer Category Payer Medicare (Managed Care) AEYOANA SCHUSTER [id number] 2024 Medicare [id number] 2023 Private Health Insurance MEDICAR E SUPPLEMENT [id number] 2023 Unknown [id number] 1958 Medicare [id number] 1959 Private Health Insurance [facility] [id number] 1950 Unknown [id number] 1950 Unknown [id number] 1950 Unknown [id number] Social History Date Type Detail Facility Start[facility] 05[facility]10-[facility] Start: 05-10-1965 History of tobacco use Cigarette Smo ker [facility] Start: 11-07-2024 End: 11-09-2024 Cigarettes smoked current (pack per day) - Reported 1 [facility] Start: 11-07-2024 Tobacco use and exposure Smoke less tobacco non-user [facility] Start: 11-07-2024 End: 11-09-2024 Alcoholic beverage intake Lifetime non-drinker (finding) [facility] Start: 11-07-2024 End: 11-09-2024 Tobacco use panel [facility] National Score (1-10 0), lower number is lower risk 79 [facility] Start: 1950 Sex assigned at Not on file [facility] Clinical Notes 11-07-2024 to 11-09-2024 Patient InstructionsMaxine Tinsley MD - 11/09/2024 11:25 AM EDTTelephone Encounter - Suzanna Kruse - 11/07/2024 4:45 PM EDTTelephone Encounter - Suzanna Kruse - 11/07/2024 4:45 PM EDT Note Date & Type Note Facility 11-09-2024 Note Date of Procedure 11/09/2024 [place] Protocol Safety Checklist A moment of CARE [...] Procedure Medications None. Home Going Prescription None. [facility] 11-09-2024 Instructions Maxine Tisnley MD - 11/09/2024 11:39 AM EDT Post [...] than dabbing lightly with a tissue An [id number] pain reliever (i.e. 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 Author [...] by others. I have seen and examined Dacry Acevedo. I have discussed the case and the management of this patient's care with the Resident/Fellow, if applicable. I also have reviewed and agree with the assessment and plan as stated above and agree with all of its relevant components. Maxine Tinsley MD [facility] 11-09-2024 Note Date of Procedure [...] Maxine Tinsley MD documented in this encounter [facility] 11-07-2024 Telephone encounter Note Pt is on for Sx Mon 11/13, spoke to pt in office today. [facility] 11-07-2024 Miscellaneous Notes Pt is on for Sx Mon 11/13, spoke to pt in office today. Images from the original note were not included. Brock Cyr V, MD Ehlert, Mary Ann, COA; Ln Opht Surg [id number] minutes ago (4:10 PM) Thanks so much, [...] then offered November 20 at [facility] and she declined. She says she will try to move her appt on November 09 and will call us back. If not we are keeping the appt for December [address] Kunz. Pt states she thought her cataract surgery was on December 06. I advised her it was not scheduled yet. documented in this encounter [facility] 11-07-2024 Telephone encounter Note Images from the original note were not included. Brock Cyr V, Darcy Rosales, COA; Ln Opht Surg [id number] minutes ago (4:10 PM) Thanks so much, Tegan! OK to offer her Cataract extraction Right eye 11/13 or 11/15. [facility] 11-07-2024 Telephone encounter Note Patient returned call and accepted appointment for 11/09. [facility] 11-07-2024 Telephone encounter Note I called and spoke with patient. I offered her to see Dr Tinsley November 09 at 10.15. Pt states she cannot come that day because she has another Dr's appt. I then offered November 20 at [facility] and she declined. She says she will try to move her appt on November 09 and will call us back. If not we are keeping the appt for December [address] Kunz. Pt states she thought her cataract surgery was on December 06. I advised her it was not scheduled yet. [facility] 11-07-2024 History and physical note HISTORY AND [...] large neck Non-male patient STOP-Bang Score: 2 [id number] Score: Age: 65-74 Sex: female CHF history: No Hypertension history: Yes Stroke/TIA/thromboembolism history: No Vascular disease history: No Diabetes history: Yes [id number] Score: 4 ARISCAT Score: Age: 51-80 Preoperative [...] Imm Admin: COVID-19 vaccine, age 12+ yr (Pharmaxis COMIRNATY) 08/23/2020 Imm Admin: COVID-19 original vaccine, full dose, monovalent (MODERNA) 07/26/2020 Imm Admin: COVID-19 original vaccine, full dose, monovalent (MODERNA) REVIEW OF SYSTEMS: PAIN ASSESSMENT: General: No weight loss, malaise or fevers. Neuro: No history of TIA's, stroke, REPROGRAPHICS TECHNICIAN tumor, impaired sensorium, hemiplegia, paraplegia or quadraplegia. No neurological symptoms or problems. Respiratory: No history of current cough or dyspnea, or pneumonia in the past 6 weeks. No history of respiratory/pulmonary symptoms or problems. +Tobacco use 1 PPD Cardiovascular: Negative for Recent [place], Angina, Chest Pain, PVD, DVT/PE +HTN +HLD GI: Negative for Nausea, Vomiting, Abdominal pain : Negative for dysuria, incontinence, hematuria, and hesitancy B2B SALES MANAGER: Negative for abnormal vaginal bleeding, abnormal vaginal [...] Darcy Acevedo DATE: 11/07/2024 TIME: 2:37 PM [facility] 11-07-2024 History and physical note HISTORY AND [...] large neck Non-male patient STOP-Bang Score: 2 [id number] Score: Age: 65-74 Sex: female CHF history: No Hypertension history: Yes Stroke/TIA/thromboembolism history: No Vascular disease history: No Diabetes history: Yes [id number] Score: 4 ARISCAT Score: Age: 51-80 Preoperative [...] Imm Admin: COVID-19 vaccine, age 12+ yr (Pharmaxis COMIRNATY) 08/23/2020 Imm Admin: COVID-19 original vaccine, full dose, monovalent (MODERNA) 07/26/2020 Imm Admin: COVID-19 original vaccine, full dose, monovalent (MODERNA) REVIEW OF SYSTEMS: PAIN ASSESSMENT: General: No weight loss, malaise or fevers. Neuro: No history of TIA's, stroke, REPROGRAPHICS TECHNICIAN tumor, impaired sensorium, hemiplegia, paraplegia or quadraplegia. No neurological symptoms or problems. Respiratory: No history of current cough or dyspnea, or pneumonia in the past 6 weeks. No history of respiratory/pulmonary symptoms or problems. +Tobacco use 1 PPD Cardiovascular: Negative for Recent WV, Angina, Chest Pain, PVD, DVT/PE +HTN +HLD GI: Negative for Nausea, Vomiting, Abdominal pain : Negative for dysuria, incontinence, hematuria, and hesitancy B2B SALES MANAGER: Negative for abnormal vaginal bleeding, abnormal vaginal [...] TIME: 2:37 PM documented in this encounter [facility] 11-07-2024 Instructions Toyin Christine APRN.CNP - 11/07/2024 2:32 PM EDT Images from the original note were not included. [facility] Pre[facility]Anesthesia Consultation [facility] PATIENT PREOPERATIVE INSTRUCTIONS Your Surgeon has scheduled you for your procedure at this surgery center: [facility]: [phone] --[address] [place] [address]. Please read below carefully for your personalized [...] SURGERY If you are currently using a fsce-lfp-sesm injectable or oral medication for diabetes or [...] Procedures: - YOU MUST HAVE A RESPONSIBLE KILN STACKER TAKE YOU HOME. A PAPER GUILLOTINE OPERATOR OR COMPOSITION ROOFER CANNOT BE MADE A RESPONSIBLE KILN STACKER. - We recommend that a responsible person [...] Advance Directive, please fax a copy to [phone] or email to for it to be [...] your chart that day. Toyin Christine APRN. WINCH TRUCK OPERATOR documented in this encounter [facility] 11-07-2024 Note HNO ID: [id number] Author: BROCK CYR MD Service: ? Author [...] Comanage with Dr Owen; [facility] POD #1 Cataract Presurgical Documentation Cataract: Right [...] patient was offered a [facility]. The surgeon/proceduralist and patient have discussed in [...] CYR MD November 07, 2024 1:09 PM [facility] 11-07-2024 History of Present illness [...] Comanage with Dr Owen; [facility] POD #1 Cataract Presurgical Documentation Cataract: Right [...] patient was offered a surgery/procedure at a [facility] facility. The surgeon/proceduralist and patient have discussed [...] 2024 12:57 PM documented in this encounter [facility] 11-07-2024 Note HNO ID: [id number] Author: JOON MONTIEL OD Service: ? Author Type: TOWER AIR TRAFFIC CONTROL SPECIALIST Type: Progress Notes Filed: 11/07/2024 14:02 Note [...] as needed November 07, 2024 12:57 PM [facility] 11-07-2024 Note Date of Procedure 11/07/2024. OCT Macula Interpretation Right Eye Normal foveal contour. Findings include PVD; Negative for Intraretinal fluid, Cystoid macular edema, Subretinal fluid. Left Eye Abnormal foveal contour. Findings include Cystoid macular edema, Subretinal fluid. Interval Change Right Eye Initial. Left Eye Initial. [facility] 11-07-2024 Note Date of Procedure 11/07/2024. Integration Solution Architect Information Keerthi Morris, COA . Notes Measurements [...] Tobacco use disorder [facility] Diagnosis Pre-op evaluation- Primary Preoperative examination, unspecified Peripheral arterial disease Peripheral vascular disease, unspecified Essential hypertension Unspecified essential hypertension Elevated cholesterol Pure hypercholesterolemia Type 2 diabetes mellitus with other specified complication, without long-term current use of insulin (HCC) Tobacco use Tobacco use disorder * Assessment & Plan Note - Toyin Christine APRN.WINCH TRUCK OPERATOR - 11/07/2024 2:56 PM EDT Associated Problem(s): [...] Follows with [facility] Diagnosis Pre-op evaluation- Primary Preoperative examination, [...] cataract, right eye documented in this encounter [facility] Summary Purpose Family History No Family History Records FoundNo Family History Records Found Advance Directives No Advanced Directives Records FoundNo Advanced Directives Records Found Additional Source Comments INFORMATION SOURCE (unrecogn ized section and content) DATE CREATED AUTHOR 07/10/2022 [facility] DATE CREATED AUTHOR AUTHOR'S ORGANIZ ATION 11/16/2024 [facility] Source Comments (unrecognize d section and content) In the event this informatio n is protected by the Federal Confidentiality of Alcohol and Drug Abuse Patient Records regulations: The Federal rules restrict any use of the information to criminally investigate or prosecute any alcohol or drug abuse patient.[facility] the event this information is protected by the Federal Confidentiality of Alcohol and Drug Abuse Patient Records regulations: The Federal rules restrict any use of the information to criminally investigate or prosecute any alcohol or drug abuse patient.[facility] the event this information is protected by the Federal Confidentiality of Alcohol and Drug Abuse Patient Records regulations: The Federal rules restrict any use of the information to criminally investigate or prosecute any alcohol or drug abuse patient.[facility] the event this information is protected by the Federal Confidentiality of Alcohol and Drug Abuse Patient Records regulations: The Federal rules restrict any use of the information to criminally investigate or prosecute any alcohol or drug abuse patient.[facility] Reason for Visit (unrecogniz ed section and content) Reason Comments Cataract Evaluation Specialty Diagnoses / Procedures Referred By Contac t Referred To Contact Ophthalmology / OPHTHALMOLOGY Diagnoses Cataract cat eval dr. owen Procedures OFFICE/OUTPATIENT [facility] MDM 60 MINUTES NEW ADULT Liza Owen, OD [address] [place] [address] Phone: tel: fax: Brock Cyr V, MD [address] [place] [address] Phone: tel: fax: Referral ID Status Reason Start Date Expiration Date V isits Requested Visits Authorized [id number] Authorized 11/06/2024 05/09/2025 2 2 Reason Comments Anesthesia Consult Specialty Diagnoses / Procedures Referred By Contact Referred To Contact Anesthesiology / ANESTHESIOLOGY Diagnoses CATARACT SURGERY RIGHT EYE ONLY -MAYTE 11/13 Procedures OFFICE/OUTPATIENT [facility] 60 MINUTES EYE CATARACT PACC Brock Cyr V, MD [address] [place] [address] Phone: tel: fax: 1, P[address] [place] [address] Phone: tel: Referral ID Status Reason Start Date Expiration Date Visits Re quested Visits Authorized [id number] Closed 11/07/2024 05/09/2025 1 1 Reason Comments Central retinal vein occlusion, left eye , with macular alexey Anatomical narrow angle, bilateral Specialty Diagnoses / Procedures Referred By Contac t Referred To Contact Ophthalmology / OPHTHALMOLOGY Diagnoses Central retinal vein occlusion, left eye, with macular edema (HCC) *NEW PER AH, PRE OP CLEAR/CRVO OD, DFE/OCT, AVASTIN OS Procedures VA BEVACIZUMAB INJECTION NEW ADULT Brock Cyr V, MD [address] [place] [address] Phone: tel: Maxine Tinsley MD [address] [place] [address] Phone: tel: fax: Referral ID Status Reason Start Date Expiration Date V isits Requested Visits Authorized [id number] Authorized 11/09/2024 05/09/2025 99 99 FOR RECORDS [...] BE BASED ON THE PRIMARY CLINICAL RECORDS. [employer] provides no warranty or guarantee of the accuracy or completeness of information in this document.
== END 2024-11-21 12:17 | disposition home or self-care (01) ==
LOC: LAB 12:16
PROVIDERS: PCP Family Medicine; Visit Provider Family Medicine
DX: E11.9 Type 2 diabetes mellitus without complications (principal); E78.00 Pure hypercholesterolemia, unspecified; I10 Essential (primary) hypertension; E06.3 Autoimmune thyroiditis; F17.200 Nicotine dependence, unspecified, uncomplicated; D64.9 Anemia, unspecified; E55.9 Vitamin D deficiency, unspecified
CPT/HCPCS: G0328

== ENCOUNTER 2025-01-17 09:22 | Outpatient (OUT) | payer MEDICARE, OTHER, SELFPAY ==
--- OUTSIDE RECORDS SUMMARY | 2024-11-17 05:45 | XMS_ITS ---
Author Organization [facility] in [place] Address [address] [place] [address] Care Team Providers Care Skein Drier Name Role Phone Juan Luis Loaiza Primary [...] Twice a day for 90 days Active Columbia 3 Active Propylthiouracil 50 MG TAKE 1 [...] No Points 0 Interpretation Negative Vital Signs Weight 152.2 lbs 11/17/2024 Height 67 in 11/17/2024 Blood pressure systolic 118 mm Hg 11/18/19 25 Blood pressure diastolic 56 mm Hg 025 BMI 23.84 kg/m2 11/17/2024 Encounters Encounter Location Date Provider Diagnosis [facility] [address] [place] [address] 11/17/2024 Juan Luis Loaiza Type 2 diabetes [...] Next Appt Details Provider Name:Juan Luis Motta Fadia, 09:15:00 AM, [address] [facility], [place], [address], Progress Notes * Darcy COLON ADOB:1950 ( 74 yo F)Acc No.[id number]:11/17/2024 Progress Note Patient: Darcy SINGH Provider: Phoebe Loaiza ([facility])MD :1950 A ge:74 Y S ex:Female Date:11/17/2024 Address:[facility] [address] [place], [place] Check In:09:45 AM ESTCheck O ut:10:26 AM EST Subjective: * Chief Complaints: * P resents to office for yearly check up.Eye doctor wants labs ordered d/t leaking blood into eye * HPI: G eneral: Hy[ertensip -0 on meds -stable dm- 120's PAD _ on meds hyperthyroid - checking opn labs. * Active Problem List M19.90 Unspecified osteoart hritis, unspecified site Modified On:12/23/2022U Status:confirmed F17.200 Nicotine dependence, unspecified, uncomplicated Modified On:12/30/2022U Status:confirmed E11.9 Type 2 diabetes mj itus without complications Modified On:07/02/2023U Status:confirmed E78.00 Pure hypercholestero lemia, unspecified Modified On:07/02/2023U Status:confirmed I10 Essential (primary) hypertension Modified On:07/02/2023U Status:confirmed E07.9 Disorder of thyroid, unspecified Modified On:12/23/2022U Status:confirmed Z81.1 Family history of al cohol abuse and dependence Modified On:12/23/2022W/U Status:confirmed E06.3 Ariana's disease Modified On:07/02/2023W/U Status:confirmed * Medical History: * Surgical History: H ysterectomy Right Hip Repair- pins 2014Open Heart Surgery 1984Heel spur removed- left 1992Bilateral Knee Replacement 2009Cataract removal rt eye 12/01 * Hospitalization/Major Diagno stic Procedure: * Family History: F ather: , alcoholism, [...] WITH PLAIN WATER ONCE WEEKLY amLODIPine Besylate 5 MG Tablet TAKE 1 [...] PLAIN WATER ONCE WEEKLY Taking amLODIPine Besylate 5 MG Tablet TAKE [...] N .K.D.A.no[Allergies Verified] Objective: * Vitals: W t:152.2lbs, Ht: 67 [...] Notes: ct screenign fl lung ca * Procedure Codes: * Preventive Medicine: Screenings/Counseling: T OBACCO ACTION PLAN Patient counselled on the dangers of tobacco use and urged to quit. 0 11/17/2024 . F ALL RISK SCREENING Fall Risk Assessment: N o falls in the past year * * Sign off status: Completed Visit Status: C HK (Check Out) true * Provider: Phoebe Loaiza ([facility])MD Date: 0 11/17/2024 Generated for Vic carvajal/Stephanie/Ashanti on: 0 01/17/2025 09:24 AM EDT History and Physical Notes * HPI (History of Present Illness) Category Sub-Category Detail Notes Category Not es General Hy[ertensip -0 on meds -stable dm- 120's PAD _ on meds hyperthyroid - checking opn labs
--- OUTSIDE RECORDS SUMMARY | 2024-11-19 12:08 | XMS_ITS ---
Author Organization [facility] in [place] Address [address] [place] [address] Care Team Providers Care Home Sales Consultant Name Role Phone Juan Luis Loaiza Primary Care Provider REASON FOR VISIT Lab Results Encounters Encounter Location Date Provider Diagnosis [facility] [address] [facility] [place] [address] 11/19/2024 Juan Luis Loaiza Plan Of Treatment Next Appt Details Provider Name:Juan Luis Motta Abhinavaddie, 09:15:00 AM, [address] [facility], [place], [address], Progress Notes * Darcy COLON ADOB:1950 ( 74 yo F)Acc No.[id number]:11/19/2024 Patient: Darcy SINGH :1950 A ge:74 Y S ex:Female Address:[facility] [address] [place] [address] * true * Date: Generated for Printi ng/Faxing/eTransmitting on: 0 01/17/2025 09:24 AM EDT
--- OUTSIDE RECORDS SUMMARY | 2024-11-21 16:54 | XMS_ITS ---
Author Organization [facility] in [place] Address [address] [place] [address] Care Team Providers Care Automatic Fancy Machine Operator Name Role Phone Juan Luis Loaiza Primary Care Provider [phone] REASON FOR VISIT negative OB Encounters Encounter Location Date Provider Diagnosis [facility] [address] [place] [address] 11/21/2024 Juan Luis Fadia Plan Of Treatment Next Appt Details Provider Name:Juan Luis Motta Abhinavaddie, 09:15:00 AM, [address] [facility], [place], [address], Progress Notes * Darcy COLON ADOB:1950 ( 74 yo F)Acc No.[id number]:11/21/2024 Patient: Darcy SINGH :1950 A ge:74 Y S ex:Female Address:[facility] [address] [place] [address] * true * Date: Generated for Printi ng/Faxing/eTransmitting on: 0 01/17/2025 09:24 AM EDT
--- OUTSIDE RECORDS SUMMARY | 2025-01-03 09:30 | XMS_ITS ---
Author Organization [facility] in [place] Address [address] [place] [address] Care Team Providers Care Hospital Plan Administrator Name Role Phone Fadia Juan Luis Primary Care Provider REASON FOR VISIT 6mon Encounters Encounter Location Date Provider Diagnosis [facility] [address] [place] [address] 01/03/2025 Juan Luis Loaiza Plan Of Treatment Next Appt Details Provider Name:Juan Luis Loaiza, 09:15:00 AM, [address] [facility], [place], [address], Progress Notes * Darcy COLON ADOB:1950 ( 74 yo F)Acc No.[id number]:01/03/2025 UNLOCKED PROGRESS NOTE Progress Note Patient: Darcy SINGH Provider: Phoebe Loaiza MD (TTC) :1950 A ge:74 Y S ex:Female Date:01/03/2025 Address:[address] [place] [address] [address] [place], [place] Subjective: * Chief Complaints: * 1 . 6mon. * Medical History: Objective: * Vitals: Assessment: Plan: * Treatment: * * Electronic signature of Juan Luis Loaiza MD, [id number] on 01/17/2025 at 09:24 AM EDT Sign off status: Pending Visit Status: C ANC (Cancelled) * Provider: Phoebe Loaiza MD (TTC) Date: 0 01/03/2025 Generated for Vic carvajal/Stephanie/Sunilitting on: 0 01/17/2025 09:24 AM FELICIANO
--- OUTSIDE RECORDS SUMMARY | 2025-01-10 12:08 | XMS_ITS ---
Author Organization [facility] in [place] Address [address] [place] [address] Care Team Providers Care Java Core Developer Name Role Phone Juan Luis Loaiza Primary Care Provider REASON FOR VISIT carotid arteries Problems Problem Type SNOMED Code ICD Code Onset Dates Problem Status W/U Status Risk Notes Problem Occlusion and stenosis of multiple and bilateral cerebral arteries ([id number]) Carotid occlusion, bilateral (I65.23) Active confirmed Procedures Procedure Date Ordered Date Performed Result Body Sit e Carotid Doppler 01/10/2025 N/A Encounters Encounter Location Date Provider Diagnosis [facility] [address] [place] [address] 01/10/2025 Juan Luis Loaiza Carotid occlusion, bilateral I65.23 Assessments Encounter Date Diagnosis (ICD Code) Assessment Notes Treatment Notes Treatment Clinical Notes Section Notes 01/10/2025 Carotid occlusion, bilateral (ICD-10 - I65.23) Plan Of Treatment Pending Test Test Name Order Date Carotid Doppler 01/10/2025 Next Appt Details Provider Name:Juan Luis Loaiza, 09:15:00 AM, [address] [place], [address], Progress Notes * Darcy COLON ADOB:1950 ( 74 yo F)Acc No.[id number]:01/10/2025 Patient: Darcy SINGH :1950 A ge:74 Y S ex:Female Address:[facility] [address] [place] [address] Subjective: * Chief Complaints: * C arotid arteries * Medical History: * Surgical History: * Hospitalization/Major Diagno stic Procedure: * Medications: Objective: * Vitals: * Physical Examination: Assessment: * Assessment: 1. C arotid occlusion, bilateral - I65.23 (Primary) Plan: * Treatment: * Procedure Codes: * true * Date: Generated for Vic carvajal/Stephanie/[place] on: 0 01/17/2025 09:24 AM EDT
--- OUTSIDE RECORDS SUMMARY | 2025-01-17 09:24 | XMS_ITS | Clinical Summary ---
Author Organization [employer] Address [id number] [address] [place] [address] Care Team Providers Care Manager Equity Name Role Phone Yan Llanos MD Primary Care Provider [phone] Allergies No known active allergies Medications alendronate [...] Medical Devices Not on file Insurance MEDICARE [facility] Care Teams Manager Equity Relationship Specialty Start Date End Date Yna Llanos MD [address] [place] [address] PCP - General Family Medicine 04/11/20
--- OUTSIDE RECORDS SUMMARY | 2025-01-17 09:24 | XMS_ITS | Patient Health Record ---
Author Organization [facility] in [place] Address [address] [place] [address] Care Team Providers Care Novelty Chain Maker Name Role Phone Juan Luis Loiaza Primary Care Provider Allergies No Known Allergies Results Component Value Reference Range Notes CBC AUTO DIFF Reviewed date:11/19/2024 04:09:21 PM Interpretation: Performing Lab: Notes/Report: [facility] , White Blood Count 9.2 4.0-11.0 10 3/uL Red Blood Count 5.38 4.20-5.40 10 6/uL Hemoglobin 15.9 12.0-16.0 g/dL Hematocrit 46.5 36.0-48.0 % Mean Corpuscular Volume 86.4 81.0-99.0 fL Mean Corpuscular Hemoglobin 29.6 26.7-34.0 pg Mean Corpuscular HGB Conc 34.2 29.9-35.2 g/dL Red Cell Distribution Width 13.9 11.0-15.0 % Platelet Count 294 150-450 10 3/uL Mean Platelet Volume 10.2 9.5-13.5 fL Neutrophils Percent Auto 76.9 43.0-75.0 % Lymphocytes Percent Auto 13.1 20.5-60.0 % Monocytes Percent Auto 9.1 1.7-12.0 % Eosinophils Percent Auto 0.3 0.9-7.0 % Basophils Percent Auto 0.4 0.2-2.0 % Immature Granulocytes Pct Auto 0.2 0.0-0.5 % Neutrophils Absolute Auto 7.1 1.4-6.5 10 3/uL Lymphocytes Absolute Auto 1.2 1.2-3.8 10 3/uL Monocytes Absolute Auto 0.8 0.3-0.8 10 3/uL Eosinophils Absolute Auto 0.0 0.0-0.7 10 3/uL Basophils Absolute Auto 0.0 0.0-0.1 10 3/uL Immature Granulocytes Abs Auto 0.02 0.00-0.03 10 3/uL Performing Lab: see note ML - [facility] VITAMIN D 25 [place] Reviewed date:11/19/2024 04:09:21 PM Interpretation: Performing Lab: Notes/Report: [facility] [place] [facility] , Vitamin D 27.3 <20 ng/mL Vit D deficient 20-<30 ng/mL Vit D insufficient 30-100 ng/mL Vit D sufficient >100 ng/mL Potential Toxicity Performing Lab: see note - [facility] LB TSH Reviewed date:11/19/2024 04:09:21 PM Interpretation: Performing Lab: Notes/Report: [facility] , Thyroid Stimulating Hormone 0.853 0.358-3.740 u IU/mL Performing Lab: see note - [facility] LB T4 Reviewed date:11/19/2024 04:09:21 PM Interpretation: Performing Lab: Notes/Report: [facility] [place] [facility] , T4 Thyroxine 9.40 4.80-13.90 ug/dL Performing Lab: see note - [facility] LB PROF 14(COMP METB) Reviewed date:11/19/2024 04:09:21 PM Interpretation: Performing Lab: Notes/Report: [facility] [place] [facility] , Sodium 143 136-145 mmol/L Potassium 4.0 3.5-5.1 mmol/L Chloride 105 98-107 mmol/L Carbon Dioxide 29.0 21.0-32.0 mmol/L Anion Gap 13.0 Glucose 100 74-106 mg/dL Blood Urea Nitrogen 15.0 7.0-18.0 mg/dL Creatinine 0.80 0.55-1.02 mg/dL Estimated GFR ( Mary [place] >60 >=60 mL/min/1.73m 2 Estimated GFR (Non- [place] >60 >=60 mL/min/1.73m 2 BUN Creatinine Ratio 18.8 Calcium 9.1 8.5-10.1 mg/dL Bilirubin Total 0.8 0.2-1.0 mg/dL Aspartate Amino Transferase 26 15-37 U/L Alanine Aminotransferase 19 14-59 U/L Alkaline Phosphatase 96 46-116 U/L Total Protein 7.6 6.4-8.2 g/dL Albumin Level 3.4 3.4-5.0 g/dL Globulin 4.2 Albumin Globulin Ratio 0.8 Performing Lab: see note ML - [facility] LIPID PROFILE Reviewed date:11/19/2024 04:09:21 PM Interpretation: Performing Lab: Notes/Report: [facility] [place] [facility] , Triglycerides 165 <=150 mg/dL Cholesterol 166 <=200 mg/dL HDL Cholesterol 49 40-60 mg/dL > or =60 mg/dl - LOW CARDIOVASCULAR RISK <40 mg/dl - HIGH CARDIOVASCULAR RISK LDL Cholesterol Calculated 84.0 <100 mg/dl OPTIMAL 100-129 mg/dl NEAR OR ABOVE OPTIMAL 130-159 mg/dl BORDERLINE HIGH 160-189 mg/dl HIGH >190 mg/dl VERY HIGH VLDL CHOLESTEROL 33.0 Chol HDL Ratio 3.4 3.3 - 4.4 LOW RISK 4.4 - 7.1 AVERAGE RISK 7.1 - 11.0 MODERATE RISK >11.0 HIGH RISK Performing Lab: see note ML - [facility] FREE T3 Reviewed date:11/19/2024 04:09:21 PM Interpretation: Performing Lab: Notes/Report: [facility] [place] [facility] , Free T3 2.76 2.18-3.98 pg/mL Performing Lab: see note ML - [facility] IRON Reviewed date:11/19/2024 04:09:21 PM Interpretation: Performing Lab: Notes/Report: [facility] [place] [facility] , Iron 46.0 50.0-170.0 ug/dL Performing Lab: see note ML - [facility] LB GLYCOHEMOGLOBIN A1C Reviewed date:11/19/2024 04:09:21 PM Interpretation: Performing Lab: Notes/Report: [facility] [place] [facility] , Glycohemoglobin A1C 6.2 4.5-6.2 % ADA RECOMMENDED LIMIT 4.0 - 6.0 ADA THERAPEUTIC TARGET < 7.0 ACTION SUGGESTED > 7.0 Estimated Average Glucose 131 Performing Lab: see note ML - [facility] Occult Blood* Reviewed date:11/21/2024 08:54:36 PM Interpretation: Performing Lab: Notes/Report: [facility] [place] [facility] , Occult Blood Negative Performing Lab: see note ML - [facility] LB Reason For Referral No Information Medications Medication SIG (Take, Route, Frequency, Duration) Notes Start Date End Date Status Pentoxifylline ER 400 MG TAKE 1 TABLET B Y MOUTH EVERY 8 HOURS for 90 days Active Metoprolol Tartrate 50 MG 1/2 tablet wit h food Orally Twice a day for 90 days Active [place] 3 Active Lisinopril 20 MG TAKE 1 [...] Problem Status W/U Status Risk Notes Problem 08681201 Essential (primary) hypertension (I10) Active confirmed Problem 691314487 Type 2 diabetes mellitus without complications (E11.9) Active confirmed Problem 53767178 Disorder of thyroid, unspecified (E07.9) Active confirmed Problem 92310062 Nicotine dependence, unspecified, uncomplicated (F17.200) Active confirmed Problem 2667853 Unspecified osteoarthritis, unspecified site (M19.90) Active confirmed Problem 020438176 Family history o f alcohol abuse and dependence (Z81.1) Active confirmed 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 Problem Occlusion and stenosis of multiple and bilateral cerebral arteries (078847088) Carotid occlusion, bilateral (I65.23) Active confirmed Problem 15038508 Pure hypercholesterole yadira, unspecified (E78.00) Active confirmed Vital Signs Blood pressure diastolic 56 mm Hg 11/17/2024 Height 67 in 11/17/2024 Blood pressure systolic 118 mm Hg 11/17/2024 Weight 152.2 lbs 11/17/2024 BMI 23.84 kg/m2 11/17/2024 Procedures Procedure Date Ordered Date Performed Result Body Sit e Carotid Doppler 01/10/2025 N/A Encounters Encounter Location Date Provider Diagnosis [address] [address] 06/29/2024 Juan Luis Loaiza Type 2 diabetes mj itus without complications E11.9 ; Pure hypercholesterolemia, unspecified E78.00 ; Essential (primary) hypertension I10 and Disorder of thyroid, unspecified E07.[address] [address] 11/17/2024 Juan Luis Lay Type 2 diabetes mj itus without complications E11.9 ; Pure hypercholesterolemia, unspecified E78.00 ; Essential (primary) hypertension I10 ; 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 and Nicotine dependence, unspecified, uncomplicated F17.[address] [address] 11/19/[address] [address] 11/21/[address] [address] 01/10/2025 Juan Luis Loaiza Carotid occlusion, bilateral I65.23 Assessments Encounter Date Diagnosis (ICD Code) Assessment Notes Treatment Notes Treatment Clinical Notes Section Notes 06/29/2024 Type 2 diabetes mellitus without complications (ICD-10 - E11.9) 06/29/2024 Pure hypercholesterolem ia, unspecified (ICD-10 - E78.00) 11/17/2024 Type 2 diabetes mellitus without complications (ICD-10 - E11.9) tony flores wiht diet and meds 11/17/2024 Pure hypercholesterolem ia, unspecified (ICD-10 - E78.00) checking labs - taking daily 01/10/2025 Carotid occlusion, bilateral (ICD-10 - I65.23) 11/17/2024 Essential (primary) hypertension (ICD-10 - I10) great control - no lightheaded 06/29/2024 Essential (primary) hypertension (ICD-10 - I10) 06/29/2024 Disorder of thyroid, unspecified (ICD-10 - E07.9) 11/17/2024 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) checkgin on labs 11/17/2024 Nicotine dependence, unspecified, uncomplicated (ICD-10 - F17.200) ct screenign fl lung ca Plan Of Treatment Pending Test Test Name Order Date CMP (COMPLETE METABOLIC PANEL) 3 CMP (COMPLETE METABOLIC PANEL) 4 HEMOGLOBIN A1C (GLYCO) 12/30/2022 HEMOGLOBIN A1C (GLYCO) 12/29/2023 HEMOGLOBIN A1C (GLYCO) 11/17/2024 IRON, TOTAL 11/17/2024 IRON, TOTAL 12/29/2023 IRON, TOTAL 12/30/2022 LIPID PANEL (CHOL/TRIG/HDL/LDL) 12/31/19 23 LIPID PANEL (CHOL/TRIG/HDL/LDL) 12/29/19 24 LIPID PANEL (CHOL/TRIG/HDL/LDL) 11/18/19 25 CBC WITH DIFF 12/29/2023 CBC WITH DIFF 12/30/2022 VITAMIN D, 25 LEVEL (TOTAL) 12/30/2022 VITAMIN D, 25 LEVEL (TOTAL) 11/17/2024 MAMM Mammograms CAD 12/30/2022 Carotid Doppler 01/10/2025 STOOL OCCULT BLOOD 11/17/2024 THYROID PANEL (T4/TSH/FREE T3) 5 THYROID PANEL (T4/TSH/FREE T3) 4 THYROID PANEL (T4/TSH/FREE T3) 3 THYROID PANEL (T4/TSH/FREE T3) 4 MM screening mammo BI 12/29/2023 MM screening mammo BI 11/17/2024 CT CHEST LOW DOSE (LDCT) 11/17/2024 CT CHEST LOW DOSE (LDCT) 12/29/2023 CMP (COMP MET [place]) w/eGFR CKD-EPI 2024 CBC WITH DIFF 11/17/2024 Next Appt Details Provider Name:Juan Luis Loaiza, 09:15:00 AM, [address] [facility], [place], [address], Insurance Providers Payer Name Payer Address Payer Phone Subscriber Number Group Number Insured Name Patient Relationship to Insured Coverage Start Date Coverage End Date [place]IC[place] [address] [place] [address] [id number] Darcy Colon Self - patient is the insured [facility] go2 media INS [place] [address] [address] [place] [address] [id number] Darcy Colon Self - patient is the insured Medical (General) History Surgical History Surgery Date(Month/Year) Hysterectomy Right Hip Repair- pins 2014 Open Heart Surgery 1983 Heel spur removed- left 1991 Bilateral Knee Replacement 2008 Cataract removal rt eye 12/01
--- NOTE | 2025-01-17 09:25 | MM_ITS ---
Patient Name: CHRISTIE ACEVEDO MR#: [id number] : 1950 Exam Date: 01/17/2025 Ordering Doctor: DR RODDY PERES . RADIOLOGY REPORT PROCEDURE: MM TOMOSYNTHESIS SCREENING BI COMPARISON: MM TOMOSYNTHESIS SCREENING BI, 01/14/2024. MM TOMOSYNTHESIS SCREENING BI, 01/12/2023. MG MAMM SCREEN BALDOMERO W CAD, 05/22/2016. MG MAMM BALDOMERO SCRN W CAD DIG, 01/31/2011. INDICATIONS: Screening Calculator Name NCI Breast Cancer Risk Assessment Tool 5 Year Breast Cancer Risk 1.30% Lifetime Breast Cancer Risk 3.10% Personal Breast Cancer No Personal Ovarian Cancer No Treatments None Family Cancers Mother with colon cancer at age 60. LOCATION: [facility] BREAST COMPOSITION: The breasts are heterogeneously dense, which may obscure small masses. FINDINGS: RIGHT BREAST: No significant suspicious finding. LEFT BREAST: No significant suspicious finding. DIAGNOSTIC CATEGORY 1--NEGATIVE. RECOMMENDATIONS: ROUTINE MAMMOGRAM AND CLINICAL EVALUATION IN 12 MONTHS. Dictated by: Bimal Rosa DO on 01/17/2025 at 12:13 Approved by: Bimal Rosa DO on 01/17/2025 at 12:14
--- OUTSIDE RECORDS SUMMARY | 2025-01-17 09:25 | XMS_ITS | Clinical Summary ---
Author Organization [facility] Address [address] [place], [place] [id number] Care Team Providers Care Net Developer With Wcf Name Role Phone Ray Loaiza MD Primary Care Provider [phone] Allergies No known active allergies Medications amLODIPine [...] DAY AFTER SURGERY 5 mL 5 Active prednisoLONE acetate (PRED FORTE) 1 % ophthalmic suspension USE DIRECTED BY PHYSICIAN, IN OPERATIVE EYE, BEGINNING ONE DAY AFTER SURGERY 5 mL 5 Active keTORolac (ACULAR) 0.5 % ophthalmic solution USE DIRECTED BY PHYSICIAN, IN OPERATIVE EYE, BEGINNING ONE DAY AFTER SURGERY 5 mL 5 Active Aspirin 81 mg tab Take 81 mg by mouth once daily. Active Hospital, Clinic, or Other Facility Administered Medication Ordered Dose Route Frequency Start Date End Date Status bevacizumab (Jocelynn's) 1.25 mg intravitreal syringe (AVASTIN)Indications:Centra l retinal vein occlusion, left eye, with macular edema (HCC),Diabetes mellitus type 2 without retinopathy (HCC) 1.25 mg ONCE 12/26/2024 12/26/2024 Ended Active Problems Problem Noted Date Diagnosed [...] Encounters Date Type Department Care Team Description 12/26/2024 1:30 PM EDT Office Visit OPHT Ophthalmology [address] [place] [address] Maxine Thacker MD Central retinal vein occlusion, left eye, with macular edema (HCC) (Primary Dx); Diabetes mellitus type 2 without retinopathy (HCC); Combined forms of age-related cataract of both eyes 12/13/2024 10:44 AM EDT Anesthesia Event Ambulatory Surgery [address] [place] [address] Marlo Kennedy II, Lizzette De Anda APRN.CRNA 12/13/2024 10:25 AM EDT - 12/13/2024 10:55 AM EDT Surgery Ambulatory Surgery [address] [place] [address] Jayshree Cyr V, MD PHACOEMULSIFICATION CATARACT IMPLANT INTRAOCULAR LENS W/O ENDOSCOPIC CYCLOPHOTOCOAGULATION 12/13/2024 9:09 AM EDT - 12/13/2024 11:31 AM EDT Hospital Encounter Ambulatory Surgery [address] [facility] [place] [address] Jayshree Cyr V, MD Combined forms of age-related cataract of left eye [H25.812] Discharge Disposition: Home 12/13/2024 Travel 11/16/2024 Travel 11/13/2024 9:09 AM EDT Anesthesia Event [facility] [address] [facility] [place] [address] Marlo Kennedy II, Akira Rudolph AA 11/13/2024 8:45 AM EDT - 11/13/2024 9:15 AM EDT Surgery Ambulatory Surgery [address] [facility] [place] [address] Jayshree Cyr V, MD PHACOEMULSIFICATION CATARACT IMPLANT INTRAOCULAR LENS W/O ENDOSCOPIC CYCLOPHOTOCOAGULATION 11/13/2024 7:26 AM EDT - 11/13/2024 9:29 AM EDT Hospital Encounter Ambulatory Surgery [address] [place] [place] [address] Jayshree Cyr V, MD Combined form of age-related cataract, right eye [H25.811] Discharge Disposition: Home 11/13/2024 Travel 11/09/2024 10:15 AM EDT Office Visit [facility]HT Ophthalmology [address] [place] [id number] Maxine Thacker MD Central retinal vein occlusion, left eye, with macular edema (HCC) (Primary Dx); Combined forms of age-related cataract of both eyes 11/07/2024 3:00 PM EDT PAT Pre Anesthesia [address] [facility] [facility] [place] [address] 1, Pac [place] Pre-op evaluation (Primary Dx); Peripheral arterial disease; Essential hypertension; Elevated cholesterol; Type 2 diabetes mellitus with other specified complication, without long-term current use of insulin (HCC); Tobacco use 11/07/2024 11:15 AM EDT Office Visit [facility]HT Ophthalmology [address] [place] [address] Jayshree Cyr V, MD Diagnostics, Eye Tech And Combined forms of age-related cataract of both eyes (Primary Dx); Central retinal vein occlusion, left eye, with macular edema (HCC); Anatomical narrow angle, bilateral; Dry eye syndrome, bilateral; Combined form of age-related cataract, right eye; Combined forms of age-related cataract of left eye; Diabetes mellitus type 2 without retinopathy (HCC) 11/07/2024 Telephone Ophthalmology [address] [place] [address] Darcy Hernandez COA 11/07/2024 Travel from Last 3 Months Family History Medical History Relation Comments Blindness Brother 1 Diabetes Brother 1 Diabetes Brother 2 Diabetes Mother Hypertension Mother Relation Status Comments Brother 1 Brother 2 Mother Social History Tobacco Use Types Packs/Day Years Used Date Smoking Tobacco: Every Day Cigarettes 1 59.7 Started: 1964 Smokeless Tobacco: Never Tobacco Cessation:Ready to Q uit: No; Counseling Given: No Alcohol Use Standard Drinks/Week Comments Never 0 (1 standard drink = 0.6 oz pur e alcohol) Area Deprivation Index Answer Date Nghia rded National Score (1-100), lower number is lower ri sk 79 11/13/2024 State Score (1-10), lower number is lower risk 7 11/13/2024 Data from: https://www.neighborhoodatlas.medicine.[facility].edu/. Last address used for calculation [address] 11/13/2024 Comments No Sex and Gender Information Value Date Recorded Sex Assigned at Not on file Legal Sex Female 2:11 PM EDT Gender Identity Not on file Sexual Orientation Not on file Last Filed Vital Signs Vital Sign Reading Time Taken Comments Blood Pressure 151/68 12/13/2024 11:26 AM EDT Pulse 89 12/13/2024 11:26 AM EDT Temperature 36.4 C (97.5 F) 12/13/2024 11:16 AM EDT Respiratory Rate 18 12/13/2024 11:21 AM EDT Oxygen Saturation 95% 12/13/2024 11:26 AM EDT Inhaled Oxygen Concentration - - Weight 71 kg (156 lb 8.4 oz) 11/07/2024 2:27 PM EDT Height 170.2 cm (5' 7 ) 11/07/2024 2:27 PM EDT Body Mass Index 24.52 11/07/2024 2:27 PM EDT Plan of Treatment Upcoming Encounters Date Type Department Care Team (Latest Contact Info) Description 02/01/2025 2:00 PM EDT Office Visit OPHT Ophthalmology [address] [place] [address] Maxine Thacker MD [address] [place] [address] Diagnostics, Eye Tech And [address] [id number] *4-6 W DTI AVASTIN OS Health Maintenance Due Date Last Done Comments [...] Medicare Advantage Annual We llness Visit 05/10/2024 Influenza Vaccine (#1) 2025 4, 01/30/2023, 12/26/2021, Additional history exists Dilated Retinal Exam 11/09/2025 11/09/2024, 11/08/19 25 RSV Vaccine (1 - 1-dose 75+ series) 2026 Pneumococcal Vaccine: 50+ Completed 2019, 01/04/2019, 02/18/2016 Medical Devices Implanted Type Area Medical Office Asst Device Identifier Shelf Expiration Date Model / Serial / Lot [id number] [facility] - [id number] Implanted:Qty : 1 on 11/13/2024 at [facility] Intraocular Lens Right: Eye [employer] 07/25/2028 CC60WF.23 0 / [id number] / [id number] [facility] - [id number] Implanted:Qty : 1 on 12/13/2024 by Jayshree Cyr V, MD at [facility] Intraocular Lens Left: Eye [employer] 08/08/2028 CC60WF.22 5 / [id number] / Procedures Procedure Name Priority Date/Time Associated Diagnosis Comments AVASTIN (BEVACIZUMAB) 1.25MG INTRAVITREAL INJECTION OS (LEFT EYE) Routine 12/26/2024 2:01 PM EDT Central retinal vein occlusion, left eye, with macular edema (HCC) Diabetes mellitus type 2 without retinopathy (HCC) OCT MACULA CIRRUS OU (BOTH EYES) Routine 12/26/2024 1:48 PM EDT Central retinal vein occlusion, left eye, with macular edema (HCC) Diabetes mellitus type 2 without retinopathy (HCC) OPH BMTRY PRTL COHER INTRFRMTRY IO LENS PWR ALPESH 12/13/2024 10:39 AM EDT Combined forms of age-related cataract of left eye XCAPSL CTRC RMVL INSJ IO LENS PROSTH W/O ECP 12/13/2024 10:39 AM EDT Combined forms of age-related cataract of left eye GLUCOSE, BLOOD (POC) Routine 12/13/2024 10:04 AM EDT OPH BMTRY PRTL COHER INTRFRMTRY IO LENS [...] eyes from Last 3 Months Results * AVASTIN (BEVACIZUMAB) 1.25MG INTRAVITREAL INJECTION OS (LEFT EYE) (12/26/2024 2:01 PM EDT) Narrative Maxine Thacker MD - 12/26/2024 2:01 PM EDT Date of Procedure 12/26/2024 [employer] Protocol Safety Checklist A moment of CARE [...] * OCT MACULA CIRRUS OU (BOTH EYES) (12/26/2024 1:48 PM EDT) Anatomical Region Laterality Modality Other Narrative 12/26/2024 2:01 PM EDT Date of Procedure 12/26/2024. Shop Hand Information Registered Radiographer: KARIS. OCT Macula Interpretation Right Eye Normal foveal contour. Findings include Negative for Intraretinal fluid. Left Eye Abnormal foveal contour. Findings include Intraretinal fluid, Subretinal fluid. Interval Change Right Eye Stable. Left Eye Better. Maxine Thacker MD OPHTHALMOLOGY Final Resul t * (ABNORMAL) GLUCOSE, BLOOD (POC) (12/13/2024 10:04 AM EDT) Only the most recent of2 resultswithin the time period is included. [facility] Glucose, Point of Care 137(A) 74 - 99 mg/dL [facility] Comment: Location:[facility], [address] [place], [place], [address] The Accu-Chek Inform II glucose meter has [...] blood gas instrument) in the above situations. 12/13/2024 10:0 4 AM EDT us Jayshree Shea MD POC TESTING Final Result [facility] POINT OF CARE [facility] [place] [facility] [address] [place], [place] * AVASTIN (BEVACIZUMAB) 1.25MG INTRAVITREAL INJECTION OS (LEFT EYE) (11/09/2024 11:39 AM EDT) Narrative Maxine Thacker MD - 11/09/2024 11:39 AM EDT Date of Procedure 11/09/2024 [employer] Protocol Safety Checklist A moment of CARE [...] Procedure Medications None. Home Going Prescription None. us Maxine Thacker MD OPHTHALMOLOGY Final Resul t [...] Change Right Eye Initial. Left Eye Initial. Result [facility] Jayshree Shea MD OPHTHALMOLOGY Final Result * IOL BIOMETRY W/ IOL CALC OU (BOTH EYES) (11/07/2024 10:33 AM EDT) Anatomical Region Laterality Modality Other Narrative 11/07/2024 10:33 AM EDT Date of Procedure 11/07/2024. Shop Hand Information Keerthi Morris, COA . Notes Measurements only - see Procedure Record under Scanned Documents for signed results. Jayshree Shea MD OPHTHALMOLOGY Final Result from Last 3 Months Insurance [employer] MEDICARE MEDICARE SUPPLEMENT Care Teams Net Developer With Wcf Relationship Specialty Start Date End Date Ray Loaiza MD [address] [place] [address] PCP - General Family Medicine 11/13/24
--- OUTSIDE RECORDS SUMMARY | 2025-01-17 09:25 | XMS_ITS | Encounter Summary ---
Author Organization [facility] [facility] Address [id number] [address] [place] [address] Care Team Providers Care Machine Stonecutter Name Role Phone Yan Llanos MD Primary Care Provider [phone] Encounter Details Date Type Department Care Team (Late st Contact Info) Description 06/03/2020 Orders Only [facility] [address] [place] [address] Yun Monk CMA Bilateral carotid bruits; Claudication [...] extremity documented in this encounter Care Teams Machine Stonecutter Relationship Specialty Start Date End Date Yan Llanos MD [address] [place] [address] PCP - General Family Medicine 04/11/20 documented as of this encounter
--- OUTSIDE RECORDS SUMMARY | 2025-01-17 09:33 | XMS_ITS | CCD ---
Author Organization [facility] Care Team Providers Care Rubber Process Hand Name Role Phone JA ., DR PEREYRA [...] Primary Care Unavailable Unavailable Primary Care Provider UnavailRoddy Christiansen MD Primary Care Provider [phone] MAYTE, BROCK Admitting Unavailable MAYTE, BROCK Attending Unavailable MAYTE, BROCK Referring Unavailable RODDY LOAIZA Primary Care Unavailable MAXINE TINSLEY Attending Unavailable MAXINE TINSLEY Referring Unavailable RODDY LOAIZA Primary Care Unavailable MAYTE, BROCK Attending Unavailable SELF Referring Unavailable MAYTE, BROCK Referring Unavailable MAXINE TINSLEY Attending Unavailable SELF Referring Unavailable MAYTE, BROCK Admitting Unavailable MAYTE, BROCK Attending Unavailable MAYTE, BROCK Referring Unavailable RODDY LOAIZA Primary Care Unavailable Medications Current Medications Medication Drug Class(es) Dates Sig (Normalized) Sig (Original) alendronic acid 70 mg oral tablet (5 sources) Bisphosphonate alendronate (FOSAMAX) 70 mg tablet TAKE 1 TAB ONCE A WEEK 30 MINS BEFORE FIRST FOOD/DRINK/MED OF THE DAY WITH PLAIN WATER Active amLODIPine 2.5 mg oral tablet (5 sources) Dihydropyridine Calcium Channel Jacobo take 1 tablet by mouth once daily amLODIPine (NORVASC) 2.5 mg tablet Take 2.5 mg by mouth once daily. Active aspirin 81 mg oral tablet (1 source) Platelet Aggregation Inhibitor, Nonsteroidal Anti-inflammatory Drug take 1 tablet by mouth once daily Aspirin 81 mg tab Take 81 mg by mouth once daily. Active atorvastatin 80 mg oral tablet (5 sources) HMG-CoA Reductase Inhibitor Start: 08-16-2024 take 1 tablet by mouth once daily atorvastatin (LIPITOR) 80 mg tablet Take 1 tablet by mouth once daily. 08/16/2024 Active benoxinate hydrochloride 4 mg/ml / fluorescein sodium 3 mg/ml ophthalmic solution (2 sources) Diagnostic Dye Start: 11-07-2024 End: 11-07-2024 fluorescein-benoxin ate 0.3-0.4 % 1 drop (FLURESS) furosemide 20 mg oral tablet (5 sources) Loop Diuretic take 1 tablet by mouth once daily furosemide (LASIX) 20 mg tablet Take 20 mg by mouth once daily. Active glipiZIDE 5 mg oral tablet (5 sources) Sulfonylurea take 1 tablet by mouth twice daily glipiZIDE (GLUCOTROL) 5 mg tablet Take 5 mg by mouth two times a day. Active ketorolac tromethamine 5 mg/ml ophthalmic solution (2 sources) Nonsteroidal Anti-inflammatory Drug, Cyclooxygenase Inhibitor Start: 11-09-2024 keTORolac (ACULAR) 0.5 % ophthalmic solution USE DIRECTED BY PHYSICIAN, IN OPERATIVE EYE, BEGINNING ONE DAY AFTER SURGERY 5 mL 12/12/2024 Active lisinopril 20 mg oral tablet (5 sources) Angiotensin Converting Enzyme Inhibitor take 1 tablet by mouth once daily lisinopril (ZESTRIL) 20 mg tablet Take 20 mg by mouth once daily. Active metFORMIN hydrochloride 500 mg oral tablet (5 sources) Biguanide take 1 tablet by mouth twice daily metFORMIN (GLUCOPHAGE) 500 mg tablet Take 500 mg by mouth two times a day. Active metoprolol tartrate 50 mg oral tablet (5 sources) beta-Adrenergic Jacobo take 1 tablet by mouth twice daily at mealtime metoprolol tartrate, short acting, (LOPRESSOR) 50 mg tablet TAKE 1/2 TABLET BY MOUTH TWICE A DAY WITH FOOD Active pentoxifylline 400 mg extended release oral tablet (5 sources) Blood Viscosity Positive Printer Operator pentoxifylline ER (TRENTAL) 400 mg CR tablet Take 400 mg by mouth. Active phenylephrine hydrochloride 25 mg/ml ophthalmic solution (5 sources) alpha-1 Adrenergic Agonist Start: 11-09-2024 End: 11-09-2024 PHENYLephrine 2.5 % 1 drop (AK-DILATE, DEJAN-SYNEPHRINE) Start: 11-09-2024 End: 11-09-2024 1 drop, BOTH EYES, DIRECT ED, Starting on Angelina 11/09/24 at 1100, Until Angelina 11/09/24 at 2259, Administer for dilation PROTECT FROM LIGHT Start: 11-07-2024 End: 11-07-2024 PHENYLephrine 2.5 % 1 drop ( AK-DILATE, DEJAN-SYNEPHRINE) Start: 11-07-2024 End: 11-07-2024 1 drop, BOTH EYES, DIRECT ED, Starting on Wed11/07/24 at 1130, Until Wed11/07/24 at 2329, Administer for dilation PROTECT FROM LIGHT, OPHT CLINIC MED ORDERS prednisoLONE acetate 10 mg/ml ophthalmic suspension (2 sources) Corticosteroid Start: 11-09-2024 prednisoLONE acetate (PRED FORTE) 1 % ophthalmic suspension USE DIRECTED BY PHYSICIAN, IN OPERATIVE EYE, BEGINNING ONE DAY AFTER SURGERY 5 mL 12/12/2024 Active propylthiouracil 50 mg oral tablet (5 sources) Thyroid Hormone Synthesis Inhibitor take 1 tablet by mouth once daily propylthiouracil 50 mg tablet Take 50 mg by mouth once daily. Active tropicamide 10 mg/ml ophthalmic solution (5 sources) Anticholinergic Start: 11-09-2024 End: 11-09-2024 tropicamide 1 % 1 drop (MYDRIACYL) Start: 11-09-2024 End: 11-09-2024 1 drop, BOTH EYES, DIRECT ED, Starting on Angelina 11/09/24 at 1100, Until Angelina 11/09/24 at 2259, Administer for dilation Start: 11-07-2024 End: 11-07-2024 tropicamide 1 % 1 drop (MYDR IACYL) Start: 11-07-2024 End: 11-07-2024 1 drop, BOTH EYES, DIRECT ED, Starting on Wed11/07/24 at 1130, Until Wed11/07/24 at 2329, Administer for dilation, OPHT CLINIC MED ORDERS Completed/Discontinued Medications Medication Drug Class(es) Dates Sig (Normalized) Sig (Original) bevacizumab (Jocelynn's) 1.25 mg intravitreal syringe (AVASTIN) (4 sources) Start: 12-26-2024 End: 12-26-2024 bevacizumab (Jocelynn's) 1.25 mg intravitreal syringe (AVASTIN) Start: 12-26-2024 End: 12-26-2024 1.25 mg, ONCE, 1 dose, Start ing on Wed12/26/24 at 1401, Until Wed12/26/24 at 1401 Start: 11-09-2024 End: 11-09-2024 bevacizumab (Jocelynn's) 1.25 mg intravitreal syringe (AVASTIN) Start: 11-09-2024 End: 11-09-2024 1.25 mg, ONCE, 1 dose, Start ing on Wed11/09/24 at 1139, Until Wed11/09/24 at 1139 Problems Active Problems Problem Classification Problem Date Documented Da te Episodic/Chronic Cataract (8 sources) Bilateral senile combined form cataracts of eyes; Translations: [Combined forms of age-related cataract, bilateral] Onset: 11-07-2024 11-06-2024 Chronic Diabetes mellitus with complications (2 sources) Type 2 diabetes mellitus; Translations: [Type 2 diabetes mellitus with other specified complication] Onset: 11-07-2024 11-07-2024 Chronic Diabetes mellitus without complication (12 sources) Type 2 diabetes mellitus without complications; Translations: [Diabetes mellitus type 2 without retinopathy] Onset: 12-22-2021 Chronic Disorders of lipid metabolism (8 sources) Hyperlipidemia, unspecified; Translations: [Hypercholesterole yadira] Onset: 12-23-2021 11-07-2024 Chronic Essential hypertension (7 sources) Essential hypertension; Translations: [Essential (primary) hypertension] [...] Onset: 11-07-2024 Episodic Peripheral and visceral atherosclerosis (7 sources) Peripheral vascular disease, unspecified; Translations: [Peripheral vascular disease, unspecified] Onset: 11-07-2024 11-07-2024 Chronic Residual codes; unclassified (6 sources) Tobacco use and exposure - finding; Translations: [Tobacco use] Onset: 11-07-2024 11-07-2024 Episodic Residual codes; unclassified (1 source) Tobacco use; Translations: [Tobacco use] Onset: 11-07-2024 Episodic Retinal detachments; defects; vascular occlusion; and retinopathy (4 sources) Central retinal vein occlusion with macular edema; Translations: [Central retinal vein occlusion, left eye, with macular edema] Onset: 12-26-2024 11-07-2024 Chronic Substance-related disorders (4 sources) Nicotine [...] Test Name Value Interpretation Reference Range Facility AVASTIN (BEVACIZUMAB) 1.25MG INTRAVITREAL INJECTION OS (LEFT EYE)on 12-26-2024 [facility] OCT MACULA CIRRUS OU (BOTH E YES)on 12-26-2024 [facility] Radiology Study observation (narrative) [facility] ANES POSTPROC EVALon 025 ANES POSTPROC EVAL HNO ID: [id number] Author: MARLO KENNEDY II, DO Service: Anesthesiology Author Type: Anesthesiologist Type: Anesthesia Postprocedure Evaluation Filed: 12/13/2024 14:14 Note Text: POST ANESTHESIA EVALUATION NOTE : 1950 Procedure Summary Date: 12/13/24 Room / Location: [place] [address] / [facility] Anesthesia Start: 1044 Anesthesia Stop: 111 Procedures: PHACOEMULSIFICATION CATARACT IMPLANT INTRAOCULAR LENS W/O ENDOSCOPIC CYCLOPHOTOCOAGULATION (Left: Eye) OPHTHALMIC BIOMETRY BY PARTIAL COHERENCE INTERFEROMETRY W/INTRAOCULAR LENS POWER CALCULATION (Left: Eye) Diagnosis: Combined forms of age-related cataract of left eye (Combined forms of age-related cataract of left eye [H25.812]) Surgeons: Brock Cyr V, MD Responsible Provider: Marlo Kennedy II, DO Anesthesia Type: MAC ASA Status: 3 Anesthesia Type: MAC Last Vitals Vitals Value Taken Time BP 151/68 12/13/24 1126 Temp 36.4 ?C (97.5 ?F) 12/13/24 1116 Pulse 89 12/13/24 1126 Resp 18 12/13/24 1121 SpO2 95 % 12/13/24 1126 Post Anesthesia Patient Status Patient Evaluation: PACU. [...] II, DO PATIENT NAME: Darcy Acevedo DATE: December 13, 2024 TIME: 2:14 PM CSN: [id number] Normal [facility] ANES PRE-OPon 12-13-2024 ANES PRE-OP HNO ID: [id number] Author: MARLO KENNEDY II, DO Service: Anesthesiology Author Type: Anesthesiologist Type: Anesthesia Preprocedure Evaluation Filed: 12/13/2024 10:12 Note Text: ANESTHESIOLOGY DAY OF SURGERY NOTE : 1950 Procedure Information Date/Time: 12/13/24 1025 Procedures: PHACOEMULSIFICATION CATARACT IMPLANT INTRAOCULAR LENS W/O ENDOSCOPIC CYCLOPHOTOCOAGULATION (Left: Eye) OPHTHALMIC BIOMETRY BY PARTIAL COHERENCE INTERFEROMETRY W/INTRAOCULAR LENS POWER CALCULATION (Left: Eye) Location: [address] Surgeons: Brock Cyr V, MD Estimated body [...] / Surrogate agrees to blood products: Yes Vitals Value Taken Time BP 199/89 12/13/24 0955 Pulse 97 12/13/24 0955 Resp 16 12/13/24 0955 Temp 36.5 ?C (97.7 ?F) 12/13/24 09 SpO2 96 % 12/13/24 0955 Facility-Administered Medications as of 12/13/2024 Medication Dose Route Frequency - NaCl 0.9% iv infusion 30 mL/hr INTRAVENOUS CONTINUOUS - lidocaine 4% 1 drop ophthalmic solution (XYLOCAINE) 1 drop LEFT EYE q 5 MIN - PHENYLephrine 2.5 % 1 drop (AK-DILATE, DEJAN-SYNEPHRINE) 1 drop LEFT EYE EVERY 5 MINUTES X 3 DOSES - tropicamide 1 % 1 drop (MYDRIACYL) 1 drop LEFT EYE EVERY 5 MINUTES X 3 DOSES - cyclopentolate 1 % 1 drop (CYCLOGYL) 1 drop LEFT EYE Pre-Op PRN - keTORolac 0.5 % 1 drop (ACULAR) 1 drop LEFT EYE q 5 MIN - Povidone-Iodine 5 % 30 mL ophth soln (BETADINE) 30 mL LEFT EYE ONCE - balanced salt 15 mL (BSS) 15 mL LEFT EYE ONCE - [COMPLETED] lidocaine 4% 1 drop ophthalmic solution (XYLOCAINE) 1 drop RIGHT EYE q 5 MIN - [COMPLETED] PHENYLephrine 2.5 % 1 drop (AK-DILATE, DEJAN-SYNEPHRINE) 1 drop RIGHT EYE EVERY 5 MINUTES X 3 DOSES - [COMPLETED] tropicamide 1 % 1 drop (MYDRIACYL) 1 drop RIGHT EYE EVERY 5 MINUTES X 3 DOSES - [COMPLETED] keTORolac 0.5 % 1 drop (ACULAR) 1 drop RIGHT EYE q 5 MIN - [COMPLETED] Povidone-Iodine 5 % 30 mL ophth soln (BETADINE) 30 mL RIGHT EYE ONCE - [COMPLETED] balanced salt 15 mL (BSS) 15 mL RIGHT EYE ONCE Outpatient Medications as of 12/13/2024 Medication Sig - Aspirin 81 mg tab Take 81 mg by mouth once daily. - prednisoLONE acetate (PRED FORTE) 1 % ophthalmic suspension USE DIRECTED BY PHYSICIAN, IN OPERATIVE EYE, BEGINNING ONE DAY AFTER SURGERY - atorvastatin (LIPITOR) 80 mg tablet Take 1 tablet by mouth once daily. - prednisoLONE acetate (PRED FORTE) 1 % ophthalmic suspension USE DIRECTED BY PHYSICIAN, IN OPERATIVE EYE, BEGINNING ONE DAY AFTER SURGERY - keTORolac (ACULAR) 0.5 % ophthalmic solution USE DIRECTED BY PHYSICIAN, IN OPERATIVE EYE, BEGINNING ONE DAY AFTER SURGERY - keTORolac (ACULAR) 0.5 % ophthalmic solution USE DIRECTED BY PHYSICIAN, IN OPERATIVE EYE, BEGINNING ONE DAY AFTER SURGERY I have interviewed and examined the patient. I have reviewed the medical record and/or the pre-anesthesia evaluation, pertinent labs, and test results. This contains updated information obtained within 48 hours of Surgery/Procedure. SIGNATURE: Marlo Kennedy II, DO PATIENT NAME: Darcy Acevedo DATE: December 13, 2024 TIME: 10:11 AM CSN: [id number] Normal [facility] HISTORY PHYSICALon HISTORY PHYSICAL HNO ID: [id number] Author: TOYIN CHRISTINE APRN.SOCIAL RESEARCH ASSISTANT Service: ? Author Type: Nurse Practitioner Type: H&P Filed: 12/13/2024 10:14 Note Text: Preoperative HISTORY AND PHYSICAL EXAM SERVICE DATE: 12/13/2024 SERVICE TIME: 10:14 AM Cheif Complaint: Decline in vision HPI: 74 year old year old presents today with complaints of difficulty with vision. Found to have cataract on exam. Denies pain. No relieving factors. PAST ANESTHESIA HISTORY: No history of adverse event PAST SURGICAL HISTORY Procedure Laterality Date EXTENSIVE ANKLE/HEEL SURGERY Left 1989 EXTENSIVE HIP SURGERY Right 08/08/2014 2 pins placed HYSTERECTOMY 2019 KNEE BILATERAL OP SURGERY Bilateral 2007 PT ED HEART [facility] VASCULAR 05/26/1983 Surgery due to injury from a staple gun FAMILY HISTORY Problem Relation Age of Onset Hypertension Mother Diabetes Mother Diabetes Brother Blindness Brother Diabetes Brother Social History Tobacco Use Smoking status: Every Day Current packs/day: 1.00 Average packs/day: 1 pack/day for 59.6 years (59.6 ttl pk-yrs) Types: Cigarettes Start date: 1965 Smokeless tobacco: Never Vaping Use Vaping status: Never Used Substance Use Topics Alcohol use: Never Drug use: Never PAST MEDICAL HISTORY Diagnosis Date Diabetes mellitus (HCC) Elevated cholesterol Essential hypertension Osteoporosis Peripheral arterial disease No current facility-administered medications on file prior to encounter. Current Outpatient Medications on File Prior to Encounter Medication Sig prednisoLONE acetate (PRED FORTE) 1 % ophthalmic suspension USE DIRECTED BY PHYSICIAN, IN OPERATIVE EYE, BEGINNING ONE DAY AFTER SURGERY keTORolac (ACULAR) 0.5 % ophthalmic solution USE DIRECTED BY PHYSICIAN, IN OPERATIVE EYE, BEGINNING ONE DAY AFTER SURGERY amLODIPine (NORVASC) 2.5 mg tablet Take 2.5 mg by mouth once daily. atorvastatin (LIPITOR) 80 mg tablet Take 1 tablet by mouth once daily. alendronate (FOSAMAX) 70 mg tablet TAKE 1 TAB ONCE A WEEK 30 MINS BEFORE FIRST FOOD/DRINK/MED OF THE DAY WITH PLAIN WATER furosemide (LASIX) 20 mg tablet Take 20 mg by mouth once daily. glipiZIDE (GLUCOTROL) 5 mg tablet Take 5 [...] Take 50 mg by mouth once daily. ALLERGIES No Known Allergies REVIEW OF SYSTEMS General: No weight loss, malaise or fevers. Neuro: No history of TIA's, stroke, HEAD OF STORE OPERATIONS tumor, impaired sensorium, hemiplegia, paraplegia or quadraplegia. No neurological symptoms or problems. Respiratory: No history of current cough or dyspnea, or pneumonia in the past 6 weeks. No history of respiratory/pulmonary symptoms or problems. +Tobacco use 1 PPD Cardiovascular: Negative for Recent WI, Angina, Chest Pain, PVD, DVT/PE +HTN +HLD GI: Negative for Nausea, Vomiting, Abdominal pain : Negative for dysuria, incontinence, hematuria, and hesitancy HOG FEEDER: Negative for abnormal vaginal bleeding, abnormal vaginal [...] Negative for lesions, rash and itching. Objective There were no vitals taken for this visit. PHYSICAL EXAM: The remainder of the physical exam is noncontributory. GENERAL: Alert, no distress, cooperative LUNGS: Lungs clear to auscultation, Good diaphragmatic excursion CARDIAC: Normal S1 and S2; no rubs, murmurs, or gallops FUNCTIONAL STATUS: [place] Activity Status Index: METS: Walk indoors, [...] of breath with the above physical activity. AIRWAY ANESTHESIA FINDINGS: Intubation History: No history of difficult intubation Significant Anesthesia Considerations: none Airway History: No history of difficult air (more content not included)... Normal [facility] OPERATIVE NOon 12-13-2024 OPERATIVE NO HNO ID: [id number] Author: BROCK CYR MD Service: Ophthalmology Author Type: Physician Type: Operative Report Filed: 12/13/2024 11:13 Note Text: OPERATIVE REPORT DATE OF SERVICE: December 13, 2024 PRIMARY SURGEON: Brock Cyr M.D. LEAD ASSEMBLER: None [Any nurse listed as assisting or otherwise participating in this patient's care in the operating room has solely performed the duties of a circulating nurse.] Procedure(s) (LRB): PHACOEMULSIFICATION CATARACT IMPLANT INTRAOCULAR LENS W/O ENDOSCOPIC CYCLOPHOTOCOAGULATION (Left) OPHTHALMIC BIOMETRY BY PARTIAL COHERENCE INTERFEROMETRY W/INTRAOCULAR LENS POWER CALCULATION (Left) ANESTHESIA: Topical with monitored anesthesia care. PREOPERATIVE DIAGNOSIS: Combined cataract POSTOPERATIVE DIAGNOSIS: Combined cataract, presbyopia OPERATIVE INDICATIONS: Best corrected visual acuity 20/125 OPERATIVE PROCEDURE: The patient was admitted to [...] corneal incision was created temporally with a [place] blade then a 2.4 mm keratome. The [...] Implant Name Type Inv. Item Serial No. Pool Manager Lot No. LRB No. Used Action Model No. [id number] [employer] - [id number] Intraocular Lens [id number] [employer] [id number] [employer] Left 1 Implanted [id number] was inserted through the lips of the wound into the capsular bag. I have reviewed the images and report from the Ophthalmic Biometry December 13, 2024 to determine the Intraocular lens [...] Age-related cataract COMPLICATIONS: None Incision/Procedure Start Time: 11:04 AM Incision Close/Procedure End Time: 11:12 AM - Comanage with Dr Owen[facility]1 Brock CYR MD [facility] ANES POSTPROC EVALon 025 ANES POSTPROC EVAL HNO ID: [id number] Author: MARLO KENNEDY II, DO Service: Anesthesiology Author Type: Anesthesiologist Type: Anesthesia Postprocedure Evaluation Filed: 11/13/2024 13:12 Note Text: POST ANESTHESIA EVALUATION NOTE : 1950 Procedure Summary Date: 11/13/24 Room / Location: [place] [address] / [facility] Anesthesia Start: 908 Anesthesia Stop: 927 [...] November 13, 2024 TIME: 1:12 PM CSN: [id number] Normal [facility] ANES PRE-OPon 11-13-2024 ANES PRE-OP HNO ID: [id number] Author: MARLO KENNEDY II, DO Service: Anesthesiology Author Type: Anesthesiologist Type: Anesthesia Preprocedure Evaluation Filed: 11/13/2024 08:24 Note Text: ANESTHESIOLOGY DAY OF SURGERY NOTE : 1950 Procedure Information Date/Time: 11/13/24 0845 Procedures: PHACOEMULSIFICATION CATARACT IMPLANT INTRAOCULAR LENS W/O ENDOSCOPIC CYCLOPHOTOCOAGULATION (Right) OPHTHALMIC BIOMETRY BY PARTIAL COHERENCE INTERFEROMETRY W/INTRAOCULAR LENS POWER CALCULATION (Right: Eye) Location: [address] Surgeons: Brock Cyr V, MD Estimated body [...] November 13, 2024 TIME: 8:21 AM CSN: [id number] Normal [facility] OPERATIVE NOon 11-13-2024 OPERATIVE NO HNO ID: [id number] Author: BROCK CYR MD Service: Ophthalmology Author Type: Physician Type: Operative Report Filed: 11/13/2024 13:27 Note Text: OPERATIVE REPORT DATE OF SERVICE: November 13, 2024 PRIMARY SURGEON: Brock Cyr M.D. LEAD ASSEMBLER: None [Any nurse listed as assisting or [...] corneal incision was created temporally with a [place] blade then a 2.4 mm keratome. The [...] Implant Name Type Inv. Item Serial No. Pool Manager Lot No. LRB No. Used Action Model No. CC60WF.[id number] [employer] - [id number] Intraocular Lens [id number] [employer] [id number] [employer] Right 1 Implanted [id number] was inserted [...] 9:26 AM - Comanage with Dr Owen; relinquish care POD #1 Brock CYR MD Normal [facility] AVASTIN (BEVACIZUMAB) 1.25MG INTRAVITREAL INJECTION OS (LEFT EYE)on 11-09-2024 [facility] OCT MACULA CIRRUS OU (BOTH E YES)on 11-09-2024 [facility] Radiology Study observation (narrative) [facility] CNPNon 11-07-2024 CNPN Telephone (OPHTCR) DARCY ACEVEDO ([id number]) 1950 F Date Time Provider Department 11/07/24 DARCY DORMAN OPHTCR During your visit today, we recorded the following information about you: Darcy Dorman, ZHANG 11/07/2024 3:48 PM Signed I called and spoke with patient. I offered her to see Dr Tinsley November 09 at 10.15. Pt states she cannot come that day because she has another Dr's appt. I then offered November 20 at [facility] and she declined. She says she [...] Ehlert, Mary Ann, COA; Ln Opht Surg [id number] minutes ago (4:10 PM) Thanks so much, Darcy Alva! OK to offer her Cataract extraction Right eye 11/13 or 11/15. Suzanna Kruse 11/07/2024 4:45 PM Signed Pt is on for Sx Mon 11/13, spoke to pt in office today. Mei Adams R 11/08/2024 9:09 AM Addendum COMANAGED - NAVARRO: [...] and surgery - Comanage with Dr Owen; [facility] POD #1 Bryan Mei R 11/13/2024 8:42 AM Signed Maxine Tinsley MD [...] with all of its relevant components. MD Addison Coylejuan jHankMei R 11/15/2024 1:53 PM Addendum Called and spoke to patient. Advised we received retina clearance from Dr. Tinsley and asked if she would like to proceed with scheduling cataract surgery. She agreed. Surgery is scheduled 12/12 for 2nd eye, left eye. Called and LVM with Dr. Owen' office to schedule 1 day and 1 week post op Mei Adams R 11/20/2024 2:39 PM Signed Called and spoke to Dr. Owen' office. They are not in the office on 12/13 for the 1 day post op. That day will be with [facility]. The 1 week post op with Dr. Owen' is 12/19 @ 2:15pm Called and spoke to patient and made her aware of 1 day post op at [facility] at 10:30am and 12/[address] Owen Allergies As of Date: 11/07/2024 (Not on File) Date Reviewed: 11/07/2024 Reviewed by: Toyin Christine APRN.SOCIAL RESEARCH ASSISTANT - Fully Assessed Prescriptions as of 11/20/2024 - prednisoLONE acetate (PRED FORTE) 1 % [...] mouth two times a day. - lisinopril (ZES (more content not included)... Normal [facility] HISTORY PHYSICALon HISTORY PHYSICAL HNO ID: [id number] Author: TOYIN CHRISTINE APRN.SOCIAL RESEARCH ASSISTANT Service: ? Author Type: Nurse Practitioner Type: [...] large neck Non-male patient STOP-Bang Score: 2 [id number] Score: Age: 65-74 Sex: female CHF history: No Hypertension history: Yes Stroke/TIA/thromboembol ism history: No Vascular disease history: No Diabetes history: Yes [id number] Score: 4 ARISCAT Score: Age: 51-80 Preoperative [...] 1 table (more content not included)... Normal [facility] IOL BIOMETRY W/ IOL CALC OU (BOTH EYES)Ordered By: Keerthi Morris on 11-07-2024 [facility] IOL BIOMETRY W/ IOL CALC OU (BOTH EYES)on 11-07-2024 Radiology Study observation (narrative) [facility] OCT MACULA CIRRUS OU (BOTH E YES)on 11-07-2024 [facility] Radiology Study observation (narrative) [facility] CT LUNG CANCER SCREENINGon 0 07-03-2022 [...] DIEGO TYLER Date: 2022-07-03 15:37 Normal [facility] INSULINon 12-23-2021 Insulin 10.6 uIU/mL Normal 2.6-24.9 [facility] Comment on above: Performed By: #### I NSULIN #### [facility] [address] [address] [address] Roni Li OCC BLD IMMUNO SCREENon 12-08 OCCULT BLOOD Negative Normal NEGATIVE [facility] Comment on above: Performed By: #### O BSCRN #### [facility] [address] [place] [address] Dr. Roni Li T4, T3U, FTI LABCORPon 12-23 Free Thyroxine Index 3.9 Normal 1.2-4.9 [facility] Comment on above: Performed By: #### T HYLC #### [facility] [address] [place] [address] Dr. Roni Li T3 Uptake 37 % Normal 24-39 [facility] Comment on above: Performed By: #### T HYLC #### [facility] [address] [place] [address] Dr. Roni Li T4 [Mass/Vol] 10.5 ug/dL Normal 4.5-12.0 [facility] Comment on above: Performed By: #### T HYLC #### [facility] [address] [place] [address] Dr. Roni Li CBC AUTO DIFFon 12-22-2021 BASO # 0.0 103/ul Normal 0.0-0.1 [facility] Comment on above: Performed By: #### C BC #### [facility] [address] [place] [address] Dr. Roni Li Basophils/100 WBC (Bld) 0.5 % Normal 0.2-2.0 [facility] Comment on above: Performed By: #### C BC #### [facility] [address] [place] [address] Dr. Roni Li EO # 0.2 103/ul Normal 0.0-0.7 [facility] Comment on above: Performed By: #### C BC #### [facility] [address] [place] [address] Dr. Roni Li Eosinophils/100 WBC (Bld) 2.1 % Normal 0.9-7.0 [facility] Comment on above: Performed By: #### C BC #### [facility] [address] [place] [address] Dr. Roni Li Erythrocyte distribution width (RBC) [Ratio] 13.3 % Normal 11.0-15.0 [facility] Comment on above: Performed By: #### C BC #### [facility] [address] [place] [address] Dr. Roni Li Hematocrit (Bld) [Volume fraction] 46.1 % Normal 36.0-48.0 [facility] Comment on above: Performed By: #### C BC #### [facility] [address] [place] [address] Dr. Roni Li Hemoglobin (Bld) [Mass/Vol] 15.2 g/dL Normal 12.0-16.0 [facility] Comment on above: Performed By: #### C BC #### [facility] [address] [place] [address] Dr. Roni Li IG # 0.01 10e3/ul Normal 0.00-0.03 [facility] Comment on above: Performed By: #### C BC #### [facility] [address] [place] [address] Dr. Roni Li IG % 0.1 % Normal 0.0-0.5 [facility] Comment on above: Performed By: #### C BC #### [facility] [address] [place] [address] Dr. Roni Li LYMPH # 2.1 103/ul Normal 1.2-3.8 [facility] Comment on above: Performed By: #### C BC #### [facility] [address] [place] [address] Dr. Roni Li Lymphocytes/100 WBC (Bld) 28.0 % Normal 20.5-60.0 [facility] Comment on above: Performed By: #### C BC #### [facility] [address] [place] [address] Dr. Roni Li MANUAL DIFF REQ NO Normal [facility] Comment on above: Performed By: #### C BC #### [facility] [address] [place] [address] Dr. Roni Li MCH (RBC) [Entitic mass] 30.0 pg Normal 26.7-34.0 [facility] Comment on above: Performed By: #### C BC #### [facility] [address] [place] [address] Dr. Roni Li MCHC (RBC) [Mass/Vol] 33.0 g/dL Normal 29.9-35.2 [facility] Comment on above: Performed By: #### C BC #### [facility] [address] [place] [address] Dr. Roni Li MCV (RBC) [Entitic vol] 90.9 fL Normal 81.0-99.0 [facility] Comment on above: Performed By: #### C BC #### [facility] [address] [place] [address] Dr. Roni Li MONO # 0.8 103/ul Normal 0.3-0.8 [facility] Comment on above: Performed By: #### C BC #### [facility] [address] [place] [address] Dr. Roni Li Monocytes/100 WBC (Bld) 11.2 % Normal 1.7-12.0 [facility] Comment on above: Performed By: #### C BC #### [facility] [address] [place] [address] Dr. Roni Li NEUT # 4.2 103/ul Normal 1.4-6.5 [facility] Comment on above: Performed By: #### C BC #### [facility] [address] [place] [address] Dr. Roni Li Neutrophils/100 WBC (Bld) 58.1 % Normal 43.0-75.0 [facility] Comment on above: Performed By: #### C BC #### [facility] [address] [place] [address] Dr. Roni Li Platelet mean volume (Bld) [Entitic vol] 10.2 fL Normal 9.5-13.5 [facility] Comment on above: Performed By: #### C BC #### [facility] [address] [place] [address] Dr. Roni Li PLT 284 103/ul Normal 150-450 [facility] Comment on above: Performed By: #### C BC #### [facility] [address] [place] [address] Dr. Roni Li RBC 5.07 106/ul Normal 4.20-5.40 [facility] Comment on above: Performed By: #### C BC #### [facility] [address] [place] [address] Dr. Roni Li WBC 7.3 103/ul Normal 4.0-11.0 [facility] Comment on above: Performed By: #### C BC #### [facility] [address] [place] [address] Dr. Roni Li GLYCOHEMOGLOBIN A1Con 2021 ADA RECOMMENDATION SEE BELOW Normal [facility] Comment on above: Result Comment: ADA RECOMMENDED LIMIT 4.0 - 6.0 ADA THERAPEUTIC TARGET < 7.0 ACTION SUGGESTED > 7.0 Performed By: #### A 1C #### [facility] [address] [place] [address] Dr. Roni Li Glucose [Mass/Vol] 126 mg/dL Normal [facility] Comment on above: Performed By: #### A 1C #### [facility] [address] [place] [address] Dr. Roni Li HbA1c (Bld) [Mass fraction] 6.0 % Normal 4.5-6.2 [facility] Comment on above: Performed By: #### A 1C #### [facility] [address] [place] [address] Dr. Roni Li IRONon 12-22-2021 Iron [Mass/Vol] 91.0 ug/dL Normal 50.0-170.0 [facility] Comment on above: Performed By: #### I TIMOTHY #### [facility] [address] [place] [address] Dr. Roni Li LIPID PROFILEon 12-22-2021 CHOL-HDL RATIO NORM SEE BELOW Normal [facility] Comment on above: Result Comment: 3.3 - 4.4 LOW RISK 4.4 - 7.1 AVERAGE RISK 7.1 - 11.0 MODERATE RISK >11.0 HIGH RISK Performed By: #### T SH, LIPID, CMP #### [facility] [address] [place] [address] Dr. Roni Li Cholesterol [Mass/Vol] 184 mg/dL Normal <=200 [facility] Comment on above: Performed By: #### T SH, LIPID, CMP #### [facility] [address] [address] [address] Roni Li Cholesterol in HDL [Mass/Vol] 43 mg/dL Normal 40-60 [facility] Comment on above: Performed By: #### T SH, LIPID, CMP #### [facility] [address] [address] [address] Roni Li Cholesterol in LDL [Mass/Vol] 100.0 mg/dL Normal [facility] Comment on above: Performed By: #### T SH, LIPID, CMP #### [facility] [address] [place] [address] Dr. Roni Li Cholesterol.total/Ch olesterol in HDL [Mass ratio] 4.3 {ratio} Normal [facility] Comment on above: Performed By: #### T SH, LIPID, CMP #### [facility] [address] [address] [address] Roni Li HDL NORMAL > or = 60 mg/dl - LO W CARDIOVASCULAR RISK <40 mg/dl - HIGH CARDIOVASCULAR RISK Normal [facility] Comment on above: Performed By: #### T SH, LIPID, CMP #### [facility] [address] [place] [address] Dr. Roni Li LDL CALC NORMAL SEE BELOW Normal [facility] Comment on above: Result Comment: <100 mg/dl OPTIMAL 100 - 129 mg/dl NEAR OR ABOVE OPTIMAL 130 - 159 mg/dl BORDERLINE HIGH 160 - 189 mg/dl HIGH >190 mg/dl VERY HIGH Performed By: #### T SH, LIPID, CMP #### [facility] [address] [address] [address] Roni Li Triglyceride [Mass/Vol] 205 mg/dL Critically high <=150 [facility] Comment on above: Performed By: #### T SH, LIPID, CMP #### [facility] [address] [place] [address] Dr. Roni Li VLDL CALC 41.0 mg/dL Normal [facility] Comment on above: Performed By: #### T SH, LIPID, CMP #### [facility] [address] [address] [address] Roni Li PROF 14(COMP METB)on 022 Albumin [Mass/Vol] 4.0 g/dL Normal 3.4-5.0 [facility] Comment on above: Performed By: #### T SH, LIPID, CMP #### [facility] [address] [place] [address] Dr. Roni Li Albumin/Globulin [Mass ratio] 1.1 {ratio} Normal [facility] Comment on above: Performed By: #### T SH, LIPID, CMP #### [facility] [address] [place] [address] Dr. Roni Li ALP [Catalytic activity/Vol] 74 U/L Normal 46-116 [facility] Comment on above: Performed By: #### T SH, LIPID, CMP #### [facility] [address] [place] [address] Dr. Roni Li ALT [Catalytic activity/Vol] 24 U/L Normal 14-59 [facility] Comment on above: Performed By: #### T SH, LIPID, CMP #### [facility] [address] [place] [address] Dr. Roni Li Anion gap [Moles/Vol] 14.1 mmol/L Normal [facility] Comment on above: Performed By: #### T SH, LIPID, CMP #### [facility] [address] [place] [address] Dr. Roni Li AST [Catalytic activity/Vol] 22 U/L Normal 15-37 [facility] Comment on above: Performed By: #### T SH, LIPID, CMP #### [facility] [address] [place] [address] Dr. Roni Li Bilirubin [Mass/Vol] 0.9 mg/dL Normal 0.2-1.0 [facility] Comment on above: Performed By: #### T SH, LIPID, CMP #### [facility] [address] [place] [address] Dr. Roni Li Calcium [Mass/Vol] 9.3 mg/dL Normal 8.5-10.1 [facility] Comment on above: Performed By: #### T SH, LIPID, CMP #### [facility] [address] [place] [address] Dr. Roni Li Chloride [Moles/Vol] 101 mmol/L Normal 98-107 [facility] Comment on above: Performed By: #### T SH, LIPID, CMP #### [facility] [address] [place] [address] Dr. Roni Li CO2 [Moles/Vol] 29.0 mmol/L Normal 21.0-32.0 [facility] Comment on above: Performed By: #### T SH, LIPID, CMP #### [facility] [address] [place] [address] Dr. Roni Li Creatinine [Mass/Vol] 0.92 mg/dL Normal 0.55-1.02 [facility] Comment on above: Performed By: #### T SH, LIPID, CMP #### [facility] [address] [place] [address] Dr. Roni Li EGFR-AF EGYPTIAN >60 Normal >=60 [facility] Comment on above: Performed By: #### T SH, LIPID, CMP #### [facility] [address] [place] [address] Dr. Roni Li EGFR-NON AF EGYPTIAN >60 Normal >=60 [facility] Comment on above: Performed By: #### T SH, LIPID, CMP #### [facility] [address] [place] [address] Dr. Roni Li Globulin (S) [Mass/Vol] 3.7 g/dL Normal [facility] Comment on above: Performed By: #### T SH, LIPID, CMP #### [facility] [address] [place] [address] Dr. Roni Li Glucose [Mass/Vol] 78 mg/dL Normal 74-106 [facility] Comment on above: Performed By: #### T SH, LIPID, CMP #### [facility] [address] [place] [address] Dr. Roni Li Potassium [Moles/Vol] 4.1 mmol/L Normal 3.5-5.1 [facility] Comment on above: Performed By: #### T DUNCAN LIPID, CMP #### [facility] [address] [place] [address] Dr. Roni Li Protein [Mass/Vol] 7.7 g/dL Normal 6.4-8.2 [facility] Comment on above: Performed By: #### T DUNCAN LIPID, CMP #### [facility] [address] [place] [address] Dr. Roni Li Sodium [Moles/Vol] 140 mmol/L Normal 136-145 [facility] Comment on above: Performed By: #### T DUNCAN LIPID, CMP #### [facility] [address] [place] [address] Dr. Roni Li Urea nitrogen [Mass/Vol] 17.0 mg/dL Normal 7.0-18.0 [facility] Comment on above: Performed By: #### T DUNCAN LIPID, CMP #### [facility] [address] [place] [address] Dr. Roni Li Urea nitrogen/Creatinine [Mass ratio] 18.5 mg/mg Normal [facility] Comment on above: Performed By: #### T DUNCAN LIPID, CMP #### [facility] [address] [place] [address] Dr. Roni Li TSHon 12-22-2021 TSH 0.637 uIU/mL Normal 0.358-3.740 [facility] Comment on above: Performed By: #### T DUNCAN LIPID, CMP #### [facility] [address] [place] [address] Dr. Roni Li Vital Signs Date Time Vital Sign Value Performing Clinician Tatyana alarcon 11-07-2024 14:-040 Body height 170.2 cm Pac 1 Work Phone: [facility] 11-07-2024 14:27-0400 Body mass index (BMI) [Ratio] 24.52 kg/m2 Pac 1 Work Phone: [facility] 11-07-2024 14:27-0400 Body weight 71 kg Pac 1 Work Phone: [facility] 11-07-2024 14:27-0400 Diastolic blood pressure 87 mm[Hg] Pac 1 Work Phone: [facility] 11-07-2024 14:27-0400 Systolic blood pressure 115 mm[Hg] Pac 1 Work Phone: [facility] Encounters Encounter Date Encounter Type Care Provider Facility Start: 12-26-2024 End: 12-26-2024 Patient encounter procedure Maxine Tinsley MD Work Phone: Ophthalmology Comment on above: Central retinal vein occlusion, left eye, with macular edema (HCC) (Primary Dx); Diabetes mellitus type 2 without retinopathy (HCC); Combined forms of age-related cataract of both eyes Start: 12-26-2024 End: 12-26-2024 ambulatory MAXINE TINSLEY Facility:[facility] Start: 12-13-2024 End: 12-13-2024 [facility] Start: 11-13-2024 End: 11-13-2024 [facility] Facility:[facility] Start: 11-09-2024 End: 11-09-2024 Patient encounter procedure Maxine Tinsley MD Work Phone: Ophthalmology Comment on above: Central retinal vein occlusion, left eye, with macular edema (HCC) (Primary Dx); Combined forms of age-related cataract of both eyes Start: 11-09-2024 End: 11-09-2024 ambulatory MAXINE TINSLEY Facility:[facility] Start: 11-07-2024 End: 11-07-2024 [facility] Start: 11-07-2024 End: 11-07-2024 Anesthesia consultation [facility] Work Phone: Pre Anesthesia Comment on above: Pre-op evaluation (P rimary Dx); Peripheral arterial disease; Essential hypertension; Elevated cholesterol; Type 2 diabetes mellitus with other specified complication, without long-term current use of insulin (HCC); Tobacco use Start: 11-07-2024 End: 11-07-2024 Preprocedural examination done [facility] Work Phone: [facility] Work Phone: Start: 11-07-2024 End: 11-07-2024 Telephone encounter TeganN[facility] Start: 11-07-2024 End: 11-07-2024 ambulatory BROCK CYR Facility:[facility] Start: 11-07-2024 Encounter for other preprocedural examination BROCK CYR [facility] Start: 11-07-2024 End: 11-07-2024 Office outpatient new [...] Start: 11-07-2024 End: 11-07-2024 ambulatory BROCK CYR Facility:[facility] Start: 07-03-2022 End: 07-04-[address] RODDY LOAIZA . Facility:[facility] Start: 12-24-2021 End: 12-24-2021 ambulatory HARJIT CHILDERS Facility: Start: 12-22-2021 End: 12-23-2021 ambulatory HARJIT CHILDERS Facility: Procedures Date Procedure Procedure Detail Performing Clinician Start: 12-26-2024 Intravitreal njx pharmacologic agt spx Maxine Tinsley MD Work Phone: Start: 12-26-2024 Computerized ophthal aly imaging retina Maxine Tinsley MD Work Phone: Start: 11-09-2024 Intravitreal njx pharmacologic agt spx [...] RSV Vaccine (1 - 1-dose 75+ series) [facility] Start: 11-09-2025 Glaucoma screening Dilated Retinal Exam [facility] Start: 11-07-2025 Glaucoma screening Dilated Retinal Exam [facility] Start: 02-01-2025 End: 02-01-2025 Patient encounter procedure 02/01/2025 2:00 PM EDT Office Visit [facility] [address] [place] [address] Maxine Tinsley MD [address] [place] [address] Diagn[facility] [address] [place] [id number] *4-6 W DTI [facility] Comment on above: *4-6 W DTI [facility] Start: 01-08-2025 Influenza vaccination [facility] Start: 12-26-2024 End: 12-26-2024 Patient encounter procedure 12/26/2024 1:30 PM EDT Office Visit [facility] Op[facility] [address] [place] [address] Maxine Tinsley MD [address] [place] [address] *4-6 W DTI [facility] Op[facility] Comment on above: *4-6 W DTI [facility] Start: 11-13-2024 End: 11-13-2024 Admission to same day surgery center 11/13/2024 8:45 AM EDT - 11/13/2024 9:15 AM EDT Surgery Ambulatory Surgery [address] [place] [address] Brock Cyr V, MD [address] [place] [address] PHACOEMULSIFICATION CATARACT IMPLANT INTRAOCULAR LENS W/O ENDOSCOPIC CYCLOPHOTOCOAGULATION Ambulatory Surgery Comment on above: PHACOEMULSIFICATION CATARACT IMPLANT INT RAOCULAR LENS W/O ENDOSCOPIC CYCLOPHOTOCOAGULATION Start: 11-13-2024 End: 11-13-2024 Oph bmtry prtl coher intrfrmtry io lens pwr tano OPHTHALMIC BIOMETRY BY PARTIAL COHERENCE INTERFEROMETRY W/INTRAOCULAR LENS POWER CALCULATION Combined form of age-related cataract, right eye 11/13/2024 8:45 AM EDT [facility] Start: 11-13-2024 Subsequent hospital visit by physician 11/13/2024 8:45 AM EDT Hospital Encounter Ambulatory Surgery [address] [place] [address] Brock Cyr V, MD [address] [place] [place] [address] Combined form of age-related cataract, right eye [H25.811] Ambulatory Surgery Comment on above: Combined form of age-related cataract, r ight eye [H25.811] Start: 11-13-2024 End: 11-13-2024 Xcapsl ctrc rmvl insj io lens prosth w/o ecp PHACOEMULSIFICATION CATARACT IMPLANT INTRAOCULAR LENS W/O ENDOSCOPIC CYCLOPHOTOCOAGULATION Combined form of age-related cataract, right eye 11/13/2024 8:45 AM EDT [facility] Start: 11-09-2024 End: 11-09-2024 Patient encounter procedure 11/09/2024 10:15 AM EDT Office Visit [facility] [address] [place] [address] Maxine Tinsley MD [address] [place] [address] Owen CRVO with edema // OS CAT SX PENDING RETINA CLEARANCE Ophthalmology Comment on above: New per Dr. Owen CRVO with edema // O S CAT SX PENDING RETINA CLEARANCE Start: 10-24-2024 Covid-19 Vaccine () Covid-19 Vaccine () [facility] Start: 05-10-2024 Advance Directive Discussion Advance Directive Discussion [facility] Start: 05-10-2024 Medicare Advantage Annual Wellness Visit Medicare [facility] Annual Wellness Visit [facility] Start: 05-05-2023 Screening for malignant neoplasm of colon [facility] Start: 02-08-2016 Screening for osteoporosis Bone Density Screening [facility] Start: 2001 Screening for malignant neoplasm of lung Lung Cancer Screening [facility] Start: 2001 Shingrix Vaccine (1 of 2) Shingrix Vaccine (1 of 2) [facility] Start: 02-08-1996 Screening for malignant neoplasm of colon [facility] Start: 1991 Screening for malignant neoplasm of breast Mammogram Screening [facility] Start: 1970 Urine microalbumin profile DTaP,Tdap,Td Vaccine (1 - Tdap) [facility] Start: 1969 Annual PCP Team Chronic Disease Visit Annual PCP Team Chronic Disease Visit [facility] Start: 1969 Anxiety Screening Anxiety Screening [facility] Start: 1969 Depression Screening Depression Screening [facility] Start: 1969 Hepatitis B surface antibody level LDL Cholesterol [facility] Start: 1969 Hepatitis C screening Hepatitis C Screening [facility] Start: 1961 Diabetic foot examination Diabetic Foot Exam [facility] Start: 1961 Hepatitis B screening Urine Albumin:Creatinine Ratio [facility] Start: 02-08-1956 Hemoglobin A1c [facility] End: 04-30-2026 CORNEAL TOPOGRAPHY PENTACAM OU (BOTH EYES) CORNEAL TOPOGRAPHY PENTACAM OU (BOTH EYES) [facility] Imaging Routine Combined forms of age-related cataract of both eyes 1 Occurrences starting 11/06/2024 until 04/30/2026 [facility] Work Phone: Comment on above: 1 Occurrences starting 11/06/2024 until 04/30/2026 CORNEAL TOPOGRAPHY P ENTACAM OU (BOTH EYES) CORNEAL TOPOGRAPHY PENTACAM OU (BOTH EYES) [facility] Imaging Routine Combined forms of age-related cataract of both eyes 11/07/2024 10:33 AM EDT [facility] End: 05-03-2026 OCT MACULA CIRRUS OU (BOTH EYES) OCT MACULA CIRRUS OU (BOTH EYES) [facility] Imaging Routine Central retinal vein occlusion, left eye, with macular edema (HCC) 1 Occurrences starting 11/09/2024 until 05/03/2026 [facility] Work Phone: Comment on above: 1 Occurrences starting 11/09/2024 until 05/03/2026 Oph bmtry prtl coher intrfrmtry io lens pwr tano [facility] Xcapsl ctrc rmvl ins j io lens prosth w/o ecp [facility] Immunizations Immunization Date Immunization Notes [facility]24 influenza virus vacc ine, unspecified formulation Brock Shea MD Work Phone: [facility] Payers Date Payer Category Payer Medicare (Managed Care) [employer] [place] [employer] [id number] 2024 Medicare [id number] 2023 Private Health Insurance MEDICAR E SUPPLEMENT [id number] 2023 Unknown [id number] 1958 Medicare [id number] 1959 Private Health Insurance [facility] [id number] 1950 Unknown [id number] 1950 Unknown [id number] 1950 Unknown [id number] Social History Date Type Detail Facility Start: 05[facility]10-1965 [facility] Start: 05-10-1965 History of tobacco use Cigarette Smo ker [facility] Start: 11-07-2024 End: 11-13-2024 Cigarettes smoked current (pack per day) - Reported 1 [facility] Start: 11-07-2024 Tobacco use and exposure Smoke less tobacco non-user [facility] Start: 11-07-2024 End: 12-26-2024 Alcoholic beverage intake Lifetime non-drinker (finding) [facility] Start: 11-07-2024 End: 11-13-2024 Tobacco use panel [facility] Start: 11-03-2024 National Score (1-10 0), lower number is lower risk 79 [facility] Start: 1950 Sex assigned at Not on file [facility] Procedure Code Equipment Code Equipment Origin al Text Equipment Identifier Dates [id number] Maribel on [facility] - [id number] Start: 11-13-2024 [id number] Maribel on [facility] - [id number] Start: 12-13-2024 Clinical Notes 11-07-2024 to 12-26-2024 Maxine Tinsley MD - 12/26/2024 2:02 PM EDTPatient InstructionsPatient InstructionsMaxine Tinsley MD - 11/09/2024 11:25 AM EDTTelephone Encounter - Suzanna Kruse - 11/07/2024 4:45 PM EDT Note Date & Type Note Facility 12-26-2024 Note HNO ID: [id number] Author: MAXINE TINSLEY MD Service: ? Author Type: Physician Type: Progress Notes Filed: 12/26/2024 14:02 Note Text: ASSESSMENT/PLAN: Last dilated exam 11/09/2024 H34.8120 Central retinal vein occlusion, left eye, with macular edema (HCC) (primary encounter diagnosis) History of Avastin, last 11/09/24 History of HTN, HL, DM OCT with improving IRF and SRF CRVO on exam Will start injections - After reviewing the exam and OCT, the decision was made to proceed with treatment today - Risks (including infection, bleeding, loss of vision, retinal detachment) and benefits/alternatives discussed. - Signs and symptoms of endophthalmitis reviewed with pt. - Patient wishes to proceed with Avastin OS Pseudophakic OU Follow-up 4 to 6 weeks for DTI [...] of its relevant components. Maxine Tinsley MD [facility] 12-26-2024 History of Present illness Narrative ASSESSMENT/PLAN: Last dilated exam 11/09/2024 H34.8120 Central retinal vein occlusion, left eye, with macular edema (HCC) (primary encounter diagnosis) History of Avastin, last 11/09/24 History of HTN, HL, DM OCT with improving IRF and SRF CRVO on exam Will start injections - After reviewing the exam and OCT, the decision was made to proceed with treatment today - Risks (including infection, bleeding, loss of vision, retinal detachment) and benefits/alternatives discussed. - Signs and symptoms of endophthalmitis reviewed with pt. - Patient wishes to proceed with Avastin OS Pseudophakic OU Follow-up 4 to 6 weeks for DTI [...] Maxine Tinsley MD documented in this encounter [facility] 12-26-2024 Note Date of Procedure 12/26/2024. 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 OCT Macula Interpretation Right Eye Normal foveal contour. Findings include Negative for Intraretinal fluid. Left Eye Abnormal foveal contour. Findings include Intraretinal fluid, Subretinal fluid. Interval Change Right Eye Stable. Left Eye Better. [facility] 12-26-2024 Note Date of Procedure 12/26/2024 [place] Protocol Safety Checklist A moment of CARE [...] Procedure Medications None. Home Going Prescription None. [facility] 12-26-2024 Instructions Darcy Lin RN - 12/26/2024 1:21 PM EDT Post Injection Patient Information You had eye injection(s) today. These are your after injection instructions. Today: Preservative free artificial tears 1 drop every hour while awake as needed Tomorrow: Preservative free artificial tears 1 drop every 2 hours while awake as needed Care instructions after eye injections: Do not rub or touch your eye other than dabbing lightly with a tissue An [id number] pain reliever (i.e. Tylenol) can be used [...] If it is after hours please call [phone] which will give instructions on how to reach the eye doctor telecommunication equipment repairer documented in this encounter [facility] 11-09-2024 Note Date of Procedure 11/09/2024 [place] Protocol Safety Checklist A moment of CARE [...] Procedure Medications None. Home Going Prescription None. [facility] 11-09-2024 Instructions Maxine Tinsley MD - [...] than dabbing lightly with a tissue An rsye-nhw-wozmand pain reliever (i.e. Tylenol) can be used [...] following day. Eyelash in the eye or dyoln/gritty sensation Tearing Mild floaters or bubbles in [...] If it is after hours please call [phone] which will give instructions on how to reach the eye doctor telecommunication equipment repairer documented in this encounter [facility] 11-09-2024 Note HNO ID: [id number] Author: MAXINE TINSLEY MD Service: ? Author [...] of its relevant components. Maxine Tinsley MD [facility] 11-09-2024 Note Date of Procedure 11/09/2024. OCT [...] Maxine Tinsley MD documented in this encounter [facility] 11-07-2024 Telephone encounter Note Pt is on for Sx 11/13, spoke to pt in office today. [facility] 11-07-2024 Miscellaneous Notes Pt is on for Sx 11/13, spoke to pt in office today. Images from the original note were not included. Brock Cyr V, MD Ehlert, Mary Ann COA; Ln Opht Surg [id number] minutes ago (4:10 PM) Thanks so much, [...] then offered November 20 at [facility] and she declined. She says she will try to move her appt on November 09 and will call us back. If not we are keeping the appt for December [address] Kunz. Pt states she thought her cataract surgery was on December 06. I advised her it was not scheduled yet. documented in this encounter [facility] 11-07-2024 Telephone encounter Note Images from the original note were not included. Brock Cyr V, MD Ehlert, Mary Ann, COA; Ln Opht Surg [id number] minutes ago (4:10 PM) Thanks so much, Darcy Alva! OK to offer her Cataract extraction Right eye 11/13 or 11/15. [facility] 11-07-2024 Telephone encounter Note Patient returned call and accepted appointment for 11/09. [facility] 11-07-2024 Telephone encounter Note I called and spoke with patient. I offered her to see Dr Tinsley November 09 at 10.15. Pt states she cannot come that day because she has another Dr's appt. I then offered November 20 at [facility] and she declined. She says she will try to move her appt on November 09 and will call us back. If not we are keeping the appt for December [address] Kunz. Pt states she thought her cataract surgery was on December 06. I advised her it was not scheduled yet. [facility] 11-07-2024 History and physical note HISTORY [...] large neck Non-male patient STOP-Bang Score: 2 [id number] Score: Age: 65-74 Sex: female CHF history: No Hypertension history: Yes Stroke/TIA/thromboembolism history: No Vascular disease history: No Diabetes history: Yes [id number] Score: 4 ARISCAT Score: Age: 51-80 Preoperative [...] Imm Admin: COVID-19 vaccine, age 12+ yr (Seeq [facility]) 08/23/2020 Imm Admin: COVID-19 original vaccine, full dose, monovalent (MODERNA) 07/26/2020 Imm Admin: COVID-19 original vaccine, full dose, monovalent (MODERNA) REVIEW OF SYSTEMS: PAIN ASSESSMENT: General: No weight loss, malaise or fevers. Neuro: No history of TIA's, stroke, HEAD OF STORE OPERATIONS tumor, impaired sensorium, hemiplegia, paraplegia or quadraplegia. No neurological symptoms or problems. Respiratory: No history of current cough or dyspnea, or pneumonia in the past 6 weeks. No history of respiratory/pulmonary symptoms or problems. +Tobacco use 1 PPD Cardiovascular: Negative for Recent WI, Angina, Chest Pain, PVD, DVT/PE +HTN +HLD GI: Negative for Nausea, Vomiting, Abdominal pain : Negative for dysuria, incontinence, hematuria, and hesitancy HOG FEEDER: Negative for abnormal vaginal bleeding, abnormal vaginal [...] Darcy Acevedo DATE: 11/07/2024 TIME: 2:37 PM [facility] 11-07-2024 History and physical note HISTORY [...] large neck Non-male patient STOP-Bang Score: 2 [id number] Score: Age: 65-74 Sex: female CHF history: No Hypertension history: Yes Stroke/TIA/thromboembolism history: No Vascular disease history: No Diabetes history: Yes [id number] Score: 4 ARISCAT Score: Age: 51-80 Preoperative [...] Imm Admin: COVID-19 vaccine, age 12+ yr (Seeq [facility]) 08/23/2020 Imm Admin: COVID-19 original vaccine, full dose, monovalent (MODERNA) 07/26/2020 Imm Admin: COVID-19 original vaccine, full dose, monovalent (MODERNA) REVIEW OF SYSTEMS: PAIN ASSESSMENT: General: No weight loss, malaise or fevers. Neuro: No history of TIA's, stroke, HEAD OF STORE OPERATIONS tumor, impaired sensorium, hemiplegia, paraplegia or quadraplegia. No neurological symptoms or problems. Respiratory: No history of current cough or dyspnea, or pneumonia in the past 6 weeks. No history of respiratory/pulmonary symptoms or problems. +Tobacco use 1 PPD Cardiovascular: Negative for Recent WI, Angina, Chest Pain, PVD, DVT/PE +HTN +HLD GI: Negative for Nausea, Vomiting, Abdominal pain : Negative for dysuria, incontinence, hematuria, and hesitancy HOG FEEDER: Negative for abnormal vaginal bleeding, abnormal vaginal [...] TIME: 2:37 PM documented in this encounter [facility] 11-07-2024 Instructions Toyin Christine APRN.CNP - 11/07/2024 2:32 PM EDT Images from the original note were not included. [facility]est[facility] PATIENT PREOPERATIVE INSTRUCTIONS Your Surgeon has scheduled you for your procedure at this surgery center: [place] [facility]: [phone] --[address] [facility] [place] [address]. Please read below carefully for your personalized [...] SURGERY If you are currently using a kctz-rea-snhn injectable or oral medication for diabetes or [...] Procedures: - YOU MUST HAVE A RESPONSIBLE CLIPPER COUNTERS TAKE YOU HOME. A AUTOMATIC CLIPPER OR PHOTOGRAPHIC PLATE MAKER CANNOT BE MADE A RESPONSIBLE CLIPPER COUNTERS. - We recommend that a responsible person [...] Advance Directive, please fax a copy to [phone] or email to for it to be [...] your chart that day. Toyin Christine APRN. SOCIAL RESEARCH ASSISTANT documented in this encounter [facility] 11-07-2024 Note HNO ID: [id number] Author: BROCK CYR MD Service: ? Author [...] and surgery - Comanage with Dr Owen; [facility] POD #1 Cataract Presurgical Documentation Cataract: [...] patient was offered a surgery/procedure at a [facility] facility. The surgeon/proceduralist and patient have [...] CYR MD November 07, 2024 1:09 PM [facility] 11-07-2024 History of Present illness Narrative The [...] and surgery - Comanage with Dr Owen; [facility] POD #1 Cataract Presurgical Documentation Cataract: [...] patient was offered a surgery/procedure at a [facility] facility. The surgeon/proceduralist and patient have [...] Brock Cyr Consult with the retina Service [facility] Pt has been aware of the vision [...] 2024 12:57 PM documented in this encounter [facility] 11-07-2024 Note HNO ID: [id number] Author: JOON MONTIEL, KIZZY Service: ? Author Type: CHERRY PITTER Type: Progress Notes Filed: 11/07/2024 14:02 Note [...] Brock Cyr Consult with the retina Service [facility] Pt has been aware of the vision change OS since May Last previous eye exam ~[address] Owen last week 3. 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 Dry eye syndrome, bilateral - ICD9: 375.15, ICD10: H04.123 Artificial Tears as needed November 07, 2024 12:57 PM [facility] 11-07-2024 Note Date of Procedure 11/07/2024. OCT Macula Interpretation Right Eye Normal foveal contour. Findings include PVD; Negative for Intraretinal fluid, Cystoid macular edema, Subretinal fluid. Left Eye Abnormal foveal contour. Findings include Cystoid macular edema, Subretinal fluid. Interval Change Right Eye Initial. Left Eye Initial. [facility] 11-07-2024 Note Date of Procedure 11/07/2024. Computer Equipment Repairer Information Keerthi Morris, COA . Notes Measurements [...] Tobacco use disorder [facility] Pre-op evaluation- Primary Preoperative examination, unspecified Peripheral arterial disease Peripheral vascular disease, unspecified Essential hypertension Unspecified essential hypertension Elevated cholesterol Pure hypercholesterolemia Type 2 diabetes mellitus with other specified complication, without long-term current use of insulin (HCC) Tobacco use Tobacco use disorder * Assessment & Plan Note - Toyin Christine APRN.CNP - 11/07/2024 2:56 PM EDT [...] Follows with [facility] Diagnosis Pre-op evaluation- Primary Preoperative [...] cataract, right eye [facility] Diagnosis Pre-op evaluation- Primary Preoperative examination, unspecified Peripheral arterial disease Peripheral vascular disease, unspecified Essential hypertension Unspecified essential hypertension Elevated cholesterol Pure hypercholesterolemia Type 2 diabetes mellitus with other specified complication, without long-term current use of insulin (HCC) Tobacco use Tobacco use disorder Central retinal vein occlusion, left eye, with macular edema (HCC)- Primary Diabetes mellitus type 2 without retinopathy (HCC) Type II or unspecified type diabetes mellitus without mention of complication, not stated as uncontrolled Combined forms of age-related cataract of both eyes Other and combined forms of senile cataract documented in this encounter [facility] Summary Purpose Family History No Family History Records FoundNo Family History Records Found Advance Directives No Advanced Directives Records FoundNo Advanced Directives Records Found Additional Source Comments INFORMATION SOURCE (unrecogn ized section and content) DATE CREATED AUTHOR 07/10/2022 [facility] DATE CREATED AUTHOR AUTHOR'S ABDIEL HOLM 12/28/2024 [facility] Source Comments (unrecognize d section and content) In the event this informatio n is protected by the Federal Confidentiality of Alcohol and Drug Abuse Patient Records regulations: The Federal rules restrict any use of the information to criminally investigate or prosecute any alcohol or drug abuse patient.[facility] the event this information is protected by the Federal Confidentiality of Alcohol and Drug Abuse Patient Records regulations: The Federal rules restrict any use of the information to criminally investigate or prosecute any alcohol or drug abuse patient.[facility] the event this information is protected by the Federal Confidentiality of Alcohol and Drug Abuse Patient Records regulations: The Federal rules restrict any use of the information to criminally investigate or prosecute any alcohol or drug abuse patient.[facility] the event this information is protected by the Federal Confidentiality of Alcohol and Drug Abuse Patient Records regulations: The Federal rules restrict any use of the information to criminally investigate or prosecute any alcohol or drug abuse patient.[facility] the event this information is protected by the Federal Confidentiality of Alcohol and Drug Abuse Patient Records regulations: The Federal rules restrict any use of the information to criminally investigate or prosecute any alcohol or drug abuse patient.[facility] Reason for Visit (unrecogniz ed section and content) Reason Comments Cataract Evaluation Specialty Diagnoses / Procedures Referred By Contac t Referred To Contact Ophthalmology / OPHTHALMOLOGY Diagnoses Cataract cat eval dr. owen Procedures OFFICE/OUTPATIENT [facility] MDM 60 MINUTES NEW ADULT Liza Owen, OD [address] [place] [address] Phone: tel: fax: Brock Cyr V, MD [address] [place] [address] Phone: tel: fax: Referral ID Status Reason Start Date Expiration Date V isits Requested Visits Authorized [id number] Authorized 11/06/2024 05/09/2025 2 2 Reason Comments Anesthesia Consult Specialty Diagnoses / Procedures Referred By Contact Referred To Contact Anesthesiology / ANESTHESIOLOGY Diagnoses CATARACT SURGERY RIGHT EYE ONLY -MAYTE 11/13 Procedures OFFICE/OUTPATIENT [facility] MDM 60 MINUTES EYE CATARACT PAC Brock Cyr V, MD [address] [place] [address] Phone: tel: fax: 1, [facility] [address] [place] [address] Phone: tel: Referral ID Status Reason Start Date Expiration Date Visits Re quested Visits Authorized [id number] Closed 11/07/2024 05/09/2025 1 1 Reason Comments Central retinal vein occlusion, left eye , with macular alexey Anatomical narrow angle, bilateral Specialty Diagnoses / Procedures Referred By Nanci t Referred To Contact Ophthalmology / OPHTHALMOLOGY Diagnoses Central retinal vein occlusion, left eye, with macular edema (HCC) *NEW PER AH, PRE OP CLEAR/CRVO OD, DFE/OCT, AVASTIN OS Procedures [place] BEVACIZUMAB INJECTION NEW ADULT Brock Cyr V, MD [address] [place] [address] Phone: tel: Maxine Tinsley MD [address] Mail Code [place] [id number] Phone: tel: fax: Referral ID Status Reason Start Date Expiration Date V isits Requested Visits Authorized [id number] Authorized 11/09/2024 05/09/2025 99 99 Reason Comments Central Retinal Vein Occlusion Follow Up Specialty Diagnoses / Procedures Referred By Nanci vargas Referred To Contact Ophthalmology / OPHTHALMOLOGY Diagnoses Central retinal vein occlusion, left eye, with macular edema (HCC) *NEW PER AH, PRE OP CLEAR/CRVO OD, DFE/OCT, AVASTIN OS Procedures [place] BEVACIZUMAB INJECTION NEW ADULT Brock Cyr V, MD [address] [place] [address] Phone: tel: Maxine Tinsley MD [address] Mail Code [address] [address] Phone: tel: fax: Care Teams (unrecognized sec tion and content) Rubber Process Hand Relationship Specialty Start Date End Date Roddy Loaiza MD [address] [place] [address] PCP - General Family Medicine 11/13/24 FOR RECORDS PERTAINING TO PATIENTS WHO ARE [...] BE BASED ON THE PRIMARY CLINICAL RECORDS. [facility]. provides no warranty or guarantee of the accuracy or completeness of information in this document.
--- NOTE | 2025-01-17 09:56 | CT_ITS ---
The [address] [address] Patient Name: CHRISTIE ACEVEDO MRN: [id number] date: 1950 Sex: F Assigned Patient Location: [facility] Current Patient Location: [facility] Accession/Order Number: [id number] Exam Date: 01/17/2025 09:54 Report Date: 01/17/2025 10:51 At the request of: RODDY PERES MD Procedure: CT lung screening low-dose LOW-DOSE SCREENING CHEST CT WITHOUT CONTRAST COMPARISON: 01/14/2024 and 07/03/2022 CLINICAL DATA: Current smoker for 68 years Spiral axial unenhanced low-dose images were obtained through the chest. Images were reviewed using both narrow and wide window settings. This CT exam was performed using one or more following dose reduction techniques: Automated exposure control, adjustment of the mA and/or kV according to patient size, or use of iterative reconstruction technique. The heart is normal size. No pericardial effusion is present. Coronary artery disease is seen. Atherosclerotic plaque at the aorta and iliac arteries. No aneurysm is seen. There is similar enlargement of the right hilum where calcifications are again visualized. There is dextroscoliotic curvature and degenerative changes at the spine. Similar sclerotic rib lesions are seen. A small subcutaneous nodule is again seen just below the skin at the right upper back. There is mild obstructive lung disease. Scarring is present lung apices. Additional minor scarring or atelectasis is seen. There is no consolidation, pleural effusion or pneumothorax. There is a large calcified left upper lobe granuloma anteriorly. Tiny subpleural nodular densities are again seen at the upper lungs. There is one on the right (axial image 16) measuring 3 mm which may be new. There is also a tiny lingular nodule (axial image 89) which is stable Limited cuts through the upper abdomen show stable adrenal nodularity. There is additional atherosclerotic disease. CT/CT lung screening low-dose IMPRESSION: OBSTRUCTIVE LUNG DISEASE WITH SCARRING AND ATELECTASIS. GRANULOMATOUS CHANGES. TINY NODULES INCLUDING ONE WHICH IS POTENTIALLY NEW. Lung RADS category 2 - benign Twelve-month low-dose CT follow-up suggested. Impression dictated by: Neida Schwartz M.D. 01/17/2025 10:51 AM Dictation Location: [employer] Electronically authenticated by: [id number] Date: 01/17/2025 10:51
== END 2025-01-17 09:23 | disposition home or self-care (01) ==
LOC: MAMMO 09:22
PROVIDERS: PCP Family Medicine; Visit Provider Family Medicine
DX: Z12.31 Encounter for screening mammogram for malignant neoplasm of breast (principal); F17.210 Nicotine dependence, cigarettes, uncomplicated; I65.23 Occlusion and stenosis of bilateral carotid arteries; J44.9 Chronic obstructive pulmonary disease, unspecified; R91.8 Other nonspecific abnormal finding of lung field; Z80.0 Family history of malignant neoplasm of digestive organs
CPT/HCPCS: 71271; 77063; 77067; 93880